=== PATIENT | male | born 1960 | race Caucasian/White ===

== ENCOUNTER 2017-11-24 16:30 | Outpatient (RCR) | payer BC, SELFPAY | END 2017-12-02 23:59 | LOC: NS 16:30 | PROVIDERS: Family Provider Family Medicine; PCP Family Medicine; Visit Provider Family Medicine | DX: E66.01 Morbid (severe) obesity due to excess calories (principal); Z68.43 Body mass index [BMI] 50.0-59.9, adult; Z71.3 Dietary counseling and surveillance | CPT/HCPCS: 97803 ==

== ENCOUNTER → 2017-12-04 09:47 | Outpatient (CLI) | payer BC, SELFPAY ==
[2017-12-04 10:41] LABS: AST(SGOT) 18 U/L (15-37); Alanine Aminotransfer ALT/SGPT 37 U/L (16-61); Albumin, Serum 3.6 g/dL (3.2-5.0); Alkaline Phosphatase 62 U/L (45-117); Bilirubin, Direct 0.17 mg/dL (0.00-0.30); Cholesterol 146 mg/dL (200); Globulin 4.3 g/dL (2.2-4.2); High Density Lipoprotein 28 mg/dL; Protein, Total 7.9 g/dL (6.4-8.2); Triglycerides 170 mg/dL; Very Low Density Lipoprotein 34 mg/dL (5-40)
== END ==
PROVIDERS: Internal Medicine Cardiovascular Disease; Family Provider Family Medicine; PCP Family Medicine; Visit Provider Radiology Diagnostic Radiology
DX: I25.10 Atherosclerotic heart disease of native coronary artery without angina pectoris (principal); I10 Essential (primary) hypertension; E66.01 Morbid (severe) obesity due to excess calories; Z68.42 Body mass index [BMI] 45.0-49.9, adult
CPT/HCPCS: 36415; 80061; 80076

== ENCOUNTER → 2017-12-07 15:43 | Outpatient (CLI) | payer BC, SELFPAY ==
--- NOTE | 2017-12-07 | IMM_PTH ---
PATIENT: DUSTY CASTLE LOC: ANY U#:[id number] AGE/SX: 65/M ROOM: RE12/07/[address]: Dr. Mat Moy MD : 1960 BED: DIS: SPEC #: [id number] RECD: 12/09/17 09:59 STATUS: ROZ REDeniz #: [id number] ALEK: 12/07/17 00:[address]: Mat Moy DEPT: IMMUNOHISTOCHEMISTRY RECD BY: Rosy Bobby ENTERED: 12/09/17 09:59 SP TYPE: IMMUNO OTHR DR: Dr. Emery Aldridge MD Tissues: Palate, NOS Procedures: p16 (initial) KI-67 (add) PHYSICIAN & INSTITUTION [place] [id number] SPECIMEN INFORMATION: Tissue Source: Soft palate lesion Clinical Info: Soft palate lesion Specimen Number: [id number] CPT code: 30614, 63388 METHODOLOGY: Deparaffinized sections of prefer/formalin-fixed tissue or PAP/DQ stained slides are incubated with monoclonal/polyclonal antibodies/oligonucleotide probes. Localization is made via biotin free immunoperoxidase method. Appropriate controls are performed and reacted as expected. Results on target cell population are indicated in the following table: RESULTS: ANTIBODY / CLONE RESULT P16 (E6H4) positive, focal, patchy Ki-67 (30-9) positive, low These tests were developed and their performance characteristics determined by [facility]. They may not have been cleared or approved by the U.S. Food and Drug Administration. The FDA has determined that such clearance or approval is not necessary. INTERPRETATION: Soft palate lesion, biopsy: Fragments of benign squamous papilloma. AM:jluis 12/09/17
--- NOTE | 2017-12-07 09:15 | LES_PTH ---
PATIENT: DUSTY CASTLE LOC: ANY U#:[id number] AGE/SX: 65/M ROOM: RE12/07/[address]: Dr. Mat Moy MD : 1960 BED: DIS: SPEC #: [id number] RECD: 12/07/17 15:22 STATUS: ROZ RHODA #: [id number] ALEK: 12/07/17 09:[address]: Mat Moy DEPT: SURGICAL PATHOLOGY RECD BY: Marciano Amaya ENTERED: 12/08/17 09:25 SP TYPE: Lesion OTHR DR: Dr. Emery Aldridge MD Tissues: Soft palate Procedures: Surgery Specimen Level IV HEADER OPERATION: Soft palate biopsy PRE-OP DIAGNOSIS: Soft palate lesion TISSUE SUBMITTED: Soft palate lesion MICROSCOPIC DIAGNOSIS Soft palate lesion, biopsy: Fragments of benign squamous papilloma with hyperkeratosis. AM:jluis 12/09/17 COMMENT Immunohistochemistry ([id number]) for surrogate HPV marker (p16) will be reported separately. MICROSCOPIC DESCRIPTION Slides are reviewed. GROSS DESCRIPTION Received in fixative is one container labeled with the patient's name and designated soft palate. The specimen consists of multiple irregular fragments of light joyner soft tissue that in aggregate measure 1 x 0.2 x 0.1 cm. The specimen is totally submitted in one cassette. / SJ:jluis 12/08/17 TC:5 CPT: 55404
== END ==
PROVIDERS: Family Provider Family Medicine; PCP Family Medicine; Visit Provider Otolaryngology
DX: K13.70 Unspecified lesions of oral mucosa (principal)
CPT/HCPCS: 88305; 88341; 88342

== ENCOUNTER → 2017-12-18 13:34 | Outpatient (CLI) | payer BC, SELFPAY ==
--- NOTE | 2017-12-18 13:35 | ECHOD_ITS ---
Reason For Study: CAD Procedure This was a 2D Doppler, Color Flow transthoracic echocardiogram. The exam was of poor technical quality due to diminished acoustic windows and body habitus. Exam performed in department. Left Ventricle Normal size and thickness. The estimated ejection fraction is 65 %. Normal diastology for age. No regional wall motion abnormalities noted. Right Ventricle Normal size and thickness. Normal systolic function. Atria Normal left atrium. Normal right atrium. Normal atrial septum. Mitral Valve The mitral valve is structurally normal. No prolapse or stenosis seen. Tricuspid Valve Normal tricuspid valve. Trivial tricuspid valve insufficiency. Unable to estimate RV systolic pressure, pulmonary artery pressure probably normal. Aortic Valve Trisinus/trileaflet aortic valve. Normal aortic valve. Pulmonic Valve Normal pulmonic valve. Great Vessels Normal aortic root. Normal arch. Normal inferior vena cava. Inferior vena cava collapse with sniff. Pericardium/Pleural No pericardial effusion. Medication 22 gauge I.V. with prn adaptor inserted into right arm. Diluted definity 4.5ml given slow IV push to enhance endocardial definition. MMode/2D Measurements & Calculations LVIDd: 4.8 cm IVSd: 1.1 cm Ao root diam: 3.0 cm LVIDs: 3.3 cm LVPWd: 1.1 cm LA dimension: 4.3 cm RVDd: 4.5 cm FS: 32.1 % LAV(MOD-bp): 55.2 ml EDV(MOD-sp4): 100.1 ml EDV(MOD-sp2): 93.0 ml LAV(MOD-bp) Indexed: 21.3 ml/m2 ESV(MOD-sp4): 31.1 ml EF(MOD-sp2): 79.3 % LAV(MOD-sp2): 48.0 ml EF(MOD-sp4): 68.9 % LAV(MOD-sp4): 64.0 ml SV(MOD-sp4): 69.0 ml SV(MOD-sp2): 73.7 ml LA A4 area: 21.3 cm2 RA A4 area: 16.2 cm2 Doppler Measurements & Calculations MV E max connor: 103.6 cm/sec Ao V2 max: 167.9 cm/sec LV V1 max: 124.6 cm/sec MV A max connor: 90.7 cm/sec Ao max P.3 mmHg LV V1 max P.2 mmHg MV E/A: 1.1 Interpretation Summary The estimated ejection fraction is 65 %. Normal diastology for age. Unable to estimate RV systolic pressure, pulmonary artery pressure probably normal. Compared to echo report dated 01/14/2012, no appreciable changes noted. Ordering Physician: Steve Ferrara Referring Physician: RITO SHAIKH Performed By: Karon Read RDCS, RVT
== END ==
PROVIDERS: Family Provider Family Medicine; PCP Family Medicine; Visit Provider Internal Medicine Cardiovascular Disease
DX: I25.10 Atherosclerotic heart disease of native coronary artery without angina pectoris (principal); I10 Essential (primary) hypertension; E78.5 Hyperlipidemia, unspecified; E66.01 Morbid (severe) obesity due to excess calories; Z68.42 Body mass index [BMI] 45.0-49.9, adult
CPT/HCPCS: 93306; Q9957; A4216; C8929

== ENCOUNTER 2017-12-23 15:00 | Outpatient (RCR) | payer BC, SELFPAY ==
[2017-12-01 11:32] VITALS: BP 102/60; BMI 48.7
== END 2017-12-30 23:59 ==
LOC: NS 15:00
PROVIDERS: Family Provider Family Medicine; PCP Family Medicine; Visit Provider Family Medicine
DX: E66.01 Morbid (severe) obesity due to excess calories (principal); Z68.43 Body mass index [BMI] 50.0-59.9, adult; Z71.3 Dietary counseling and surveillance
CPT/HCPCS: 97803

== ENCOUNTER → 2017-12-31 12:26 | Outpatient (CLI) | payer BC, SELFPAY ==
--- NOTE | 2017-12-31 12:29 | STEWCON_ITS ---
Reason For Study: CAD Stress Results Protocol: Dobutamine Stress Echo Maximum Predicted HR: 165 bpm Target HR: 140 bpm% Maximum Pre dicted HR: 85 % DurationHeart Rate Stage (mm:ss) (bpm) BPCom ment Baseline 61 137/79 Definity 5 ML Diluted Given DSE 10 MCG 3:23 67 136/82 DSE 20 MCG 3:00 83 141/79 DSE 30 MCG 3:00 10 2 146/66Atropine 0.5 MG IVP DSE 40 MCG 3:00 14 1 150/71Atropine 0.5 MG IVP Recovery 96 141/84 Stress Duration: 12:23 mm:ss Maximum Stress HR: 141 bpmME TS: 1 Baseline Echocardiogram Findings The estimated ejection fraction is 65 %. Stress Echo Wall motion Data Resting WMIntermediate WMStress WM Resting Wall Motion Wall Motion Stress No regional wall motion No regional wall motion abnormalities noted. abnormalities noted. EKG Data The baseline ECG demonstrates normal sinus rhythm with at rate of _ beats per minute. RBBB. The patient was titrated from 10 mcg to a maximum of 40 mcg of dobutamine during the stress. The maximum heart rate attained was 142 beats per minute. This was 86% of maximum predicted heart rate. During dobutamine infusion, there were no ST or T wave changes noted to suggest ischemia. No arrhythmias noted. No clinical angina was noted. Interpretation Summary The study was technically difficult. Contrast injection was performed. Normal adequate dobutamine echocardiogram. Negative for ischemia by EKG and echocardiographic criteria. No anginal symptoms noted. No arrhythmias noted. Appropriate blood pressure response to dobutamine. Test terminated due to attainment of target heart rate. Final LVEF is 75%. Patient tolerated procedure well no complications.The estimated ejection fraction is 65 %. Decreased sensitivity due to poor echo windows requiring Definity agent. Ordering Physician: Steve Ferrara Referring Physician: Steve Ferrara Performed By: Karon Read, RDCS, RVT
== END ==
PROVIDERS: Family Provider Family Medicine; PCP Family Medicine; Visit Provider Internal Medicine Cardiovascular Disease
DX: I25.10 Atherosclerotic heart disease of native coronary artery without angina pectoris (principal); I10 Essential (primary) hypertension; E78.5 Hyperlipidemia, unspecified; E66.01 Morbid (severe) obesity due to excess calories; Z68.42 Body mass index [BMI] 45.0-49.9, adult; Z86.718 Personal history of other venous thrombosis and embolism
CPT/HCPCS: 93017; 93350; J7030; Q9957; A4216; C8928

== ENCOUNTER → 2018-01-11 07:29 | Outpatient (CLI) | payer BC, SELFPAY ==
[2018-01-11 10:26] LABS: Absolute Lymphocyte Count 2.24 X10^3/ul (0.83-4.51); Absolute Neutrophil Count 5.5 X10^3/uL (2.0-7.7); Basophil# 0.06 X10^3/uL; Basophil% 0.7 % (0-1); Eosinophil# 0.41 X10^3/uL; Eosinophils% 4.5 % (0-5); Hematocrit 46.7 % (40-54); Hemoglobin 16.1 g/dl (13.0-16.5); Lymphocyte # 2.24 X10^3/ul (4.0); Lymphocyte % 24.8 % (19-41); Mean Corp Hgb Conc 34.5 g/gl (32-36); Mean Corpuscular Hgb 30.5 pg (27.0-32.0); Mean Corpuscular Volume 88.4 fL (80-94); Mean Platelet Vol. 9.9 fl (6.2-12.0); Monocyte# 0.82 X10^3/uL; Monocyte% 9.1 % (0-10); Neutrophil # 5.47 X10^3/uL (2.7-7.7); Neutrophil % 60.5 % (47-70); Platelet Count 269 K/mm3 (150-450); RBC Distribution Width CV 13.8 % (11.6-14.6); Red Blood Count 5.28 M/mm3 (4.6-6.2)
[2018-01-11 10:38] LABS: POSITIVE COUNT NO; POSITIVE DIFFERENTIAL NO; POSITIVE MORPHOLOGY NO
== END ==
PROVIDERS: Family Provider Family Medicine; PCP Family Medicine; Visit Provider Specialist
DX: M17.11 Unilateral primary osteoarthritis, right knee (principal)
CPT/HCPCS: 36415; 85025

== ENCOUNTER 2018-01-25 14:00 | Outpatient (RCR) | payer BC, SELFPAY | END 2018-01-30 23:59 | LOC: NS 14:00 | PROVIDERS: Family Provider Family Medicine; PCP Family Medicine; Visit Provider Family Medicine | DX: E66.01 Morbid (severe) obesity due to excess calories (principal); Z68.43 Body mass index [BMI] 50.0-59.9, adult; Z71.3 Dietary counseling and surveillance | CPT/HCPCS: 97803 ==

== ENCOUNTER 2018-01-26 05:23 | Inpatient (IN) | payer BC, SELFPAY ==
[2018-01-11 10:23] VITALS: BP 109/71; PULSE 57; RESP 18; TEMP 36.2; O2SAT 96; BMI 46.7
--- NOTE | 2018-01-11 10:35 | RAD_ITS ---
STUDY: X-RAY CHEST REASON FOR EXAM: Male, 57 years old. Preoperative evaluation. TECHNIQUE: PA and lateral views of the chest. COMPARISON: Comparison is made with prior study dated February 08, 2015. FINDINGS: Hyperinflation. Stable mild increased markings at the lung bases suggestive of a scarring. This is slightly worse in the left lung base. There is no demonstrated pleural abnormality. Normal size heart. Normal mediastinum and benjie. Normal visualized pulmonary arteries. Normal visualized aortic arch and descending thoracic aorta. There are diffuse degenerative changes of the visualized thoracic spine. Normal visualized ribs, clavicles, and shoulders. There is no demonstrated abnormality of the visualized soft tissue structures of the upper abdomen. RAD/Chest PA and Lateral IMPRESSION: Hyperinflation. Stable increased markings at the lung bases suggestive of scarring. Electronically Signed: Antonio Sandoval MD at 11:27 EDT Tel [phone], Service support ,
[2018-01-11 11:17] LABS: Anion Gap 6 (5-15); BUN 22 mg/dL (7-18); BUN/Creat Ratio 24.4 RATIO (10-20); Calcium,Total 8.8 mg/dL (8.5-10.1); Chloride 107 mmol/L (98-107); EST Glomerular Filtration Rate 93 mL/min (>60); Est Glom Filt Rate - Afr Amer 113 mL/min (>60); Estimated Creatinine Clearance 95.76 ml/min; Glucose 97 mg/dL (74-106); Potassium 4.6 mmol/L (3.5-5.1); Sodium Level 140 mmol/L (136-145)
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
[2018-01-26] VITALS (15 sets, daily range): BP systolic 82–130; BP diastolic 51–70; PULSE 60–84; RESP 16–18; TEMP 35.7–36.4; O2SAT 90–100; BMI 46.7; BMI 45.6
[2018-01-26] MEDS: Celecoxib 200 MG Capsule 400 MG PO (05:55)
[2018-01-26] MEDS: oxyCODONE HCl Cr 10 MG Tablet PO (05:56)
[2018-01-26] MEDS: Acetaminophen 500 MG Tablet 1000 MG PO ×3 (05:56→21:32)
--- NOTE | 2018-01-26 07:35 | RAD_ITS ---
STUDY: X-RAY - PELVIS AND RIGHT HIP REASON FOR EXAM: Male, 57 years old. Intraoperative assessment TECHNIQUE: Two views of the pelvis and hip were obtained. COMPARISON: August 17, 2014 FINDINGS: There is a prosthesis in the proximal right femur. There is a prosthesis in the right acetabulum. There is adequate alignment of the prostheses. RAD/Hip 1 view with Pelvis IMPRESSION: Limited views of the right hip were obtained intraoperatively. Electronically Signed: Venita Sim MD at 14:18 EDT Tel Direct: [phone], Service support ,
[2018-01-26] MEDS: Lactated Ringers 1,000 ML 125 ML IV ×3 (09:30→19:42)
--- NOTE | 2018-01-26 09:51 | OP.PCM_ITS ---
Report of Operation Date of Procedure: 01/26/18 Pre-Operative Diagnosis: Right hip primary osteoarthritis Post-Operative Diagnosis: Right hip primary osteoarthritis Surgery/Procedure Performed:: Right total hip replacement, direct anterior Description of Surgical Findings:: Stable hip with equal leg lengths tool and die engineer: Rashaad Bhatia Type of Anesthesia:: Spinal Anesthesiologist: Dimitry Henriquez Special Medications: 2 g Ancef, 1 g TXA at incision, 1 g TXA closure, 10 mg Decadron, joint cocktail (5 mg Duramorph, 30 mL of 0.5% Ropivicaine, 1000 units of epinephrine, 30 mg of Toradol), 1 g vancomycin powder in wound at completion of case secondary to local hidradenitis Specimen's removed: Bony cuts Estimated Blood Loss (mL): 250 Fluids Replaced: 1500 Description of Procedure: Components used: 1. Anato Tabitha femoral stem size 5 2. Tabitha trident acetabular shell size 58 mm 3. [place] X3 polyethylene F 4. [place] Biolox delta 36mm, 2.5mm femoral head Brief history operative indications: 57 yo m who failed conservative measures for their hip osteoarthritis. X-rays were consistent with osteoarthritis including joint space narrowing, osteophyte formation and subchondral cysts. Total hip replacement was discussed with the patient with risks and benefits including but not limited to blood loss, DVTs, PEs, neurovascular damage, dislocation, general risks of anesthesia including loss of life. Patient demonstrated an understanding medical clearance is obtained the patient was consented for surgery. Procedure: On the date of procedure the patient's R hip was marked in the preoperative area. Patient was then taken back to the operating room where anesthesia assumed control of the C-spine and airway and administered anesthetic. Patient was transferred to the operating table and placed in the supine position. The hips were placed at the break of the bed and a sacral bump was placed. The R lower extremity was then prepped out in a sterile fashion using chlorhexidine while the surgeon scrubbed. The PA was vital in the positioning of the patient. Upon reentering the room the R lower extremity was draped in the standard orthopedic fashion and the incision was marked. A timeout was called and everyone agreed upon the side, the site, the procedure be performed, antibody given, and patient's identity. At this time incision was made through skin, subcutaneous tissue, and fat down to fascia. The fascia was then incised and the TFL was retracted laterally. A retractor was placed on the lateral border of the femoral neck. Attention was directed to the inferior portion of the approach and all crossing vessels were identified and appropriately coagulated. A retractor was then placed on the medial portion of the femoral neck. The anterior capsule was then cleared of all soft tissue and then H shaped capsulotomy was made. The retractors were then placed inside the capsule. The femoral neck was identified and a cleanup cut was made. At this time a power corkscrew was used to remove the femoral head. Attention was then turned toward the acetabulum where the soft tissues were appropriately retracted and the acetabulum was sequentially reamed to 57 mm. A 58 mm cup was then selected and impacted into place. Acetabular liner was impacted into place and locking mechanism was verified. The position of the acetabular cup was then verified under live fluoroscopy. Attention was then turned to the femur. Soft tissue releases on the medial and lateral femoral neck were appropriately done, the leg was externally rotated and lateralized. A Nova retractor was placed medially and proximally to the greater trochanter this allowed appropriate visualization and exposure of the femoral canal. Rongeour was then used to remove excess lateral bone. A canal finder and entry broach were used to open the proximal canal. Once we verified we were down the femoral canal we subsequently reamed to 12 mm and then broached up to a size 5 femur. The appropriate neck was placed in the previously selected head was trialed with a 2.5 mm neck. Traction was pulled and the hip was reduced with internal rotation. Once it was appropriately reduced and stability was checked. There was minimal shuck, equal leg lengths and appropriate stability with hyperextension and external rotation as well as with 90? flexion and internal rotation. Fluoroscopy was then also used to verify the position of the components and leg lengths using the contralateral side for comparison. The trial components were then dislocated the proximal femur was again exposed and the components were removed from the wound. The final components were verified and opened. The wound was copiously irrigated out with normal saline. The acetabulum was checked for any residual debris. The final components were placed and impacted. Traction and internal rotation were again used to reduce the hip. After adequate reduction the hip remained stable with appropriate leg lengths. The final components were once again checked with live fluoroscopy and were found to be satisfactory. The wound was then copiously irrigated with normal saline once more, and hemostasis was obtained. Closure was then done using #1 Vicryl runner to close the fascia. A 2-0 vicryl interuppted sutures were used to close the subcutaneous skin. A 3-0 Monocryl and Steri-Strips were used for final skin closure. A Silverlon dressing was placed. Patient was awakened by anesthesia and transferred to the rminot. Patient was then transferred to the PACU for recovery. Postoperative plan: Patient will get 24 hours postop antibiotics. Patient will get in-house physical therapy and will be weight-bear as tolerated. Patient will follow up in office in 2 weeks for a wound check and x-rays. During the course of the procedure the physician surgeon's assistant played a vital role. His intimate knowledge of my steps in the procedure aided in safe and expedient completion of the procedure. The PA played a vital rolls in positioning particularly in obtaining the appropriate positioning of the sacral bump. The PA was also vital in the retraction of soft tissues during the exposure and especially the femoral work as this is a vital part of the procedure to prevent complications and fractures. The PA was also vital and protecting soft tissues during times of bony cuts and reaming. He also played a vital role in closure with my direct supervision. The PA was also important during reduction and dislocation of the joint and trials intraoperatively. Grafts/Implants Used: Tabitha - Complications NONE - Admit VTE Documentation VTE Present on Admission: No VTE Mechan Device Prophylaxis: SCD's, Thigh High KAMILA Hose VTE Pharm Prophylaxis ordered?: Yes
--- NOTE | 2018-01-26 10:40 | RAD_ITS ---
STUDY: X-RAY - PELVIS AND RIGHT HIP REASON FOR EXAM: Male, 57 years old. Postoperative assessment TECHNIQUE: Two views of the pelvis and hip were obtained. COMPARISON: August 17, 2014 FINDINGS: The bowel gas pattern is unremarkable. There is air in the soft tissues around the right hip. The visualized iliac wings, sacroiliac joints and sacrum are unremarkable. No abnormalities are seen in the visualized superior and inferior pubic rami. Normal appearing pubic symphysis. The visualized ischial tuberosities are unremarkable. There may be a cam-type deformity of the left femoral head. There is a prosthesis in the proximal right femur. There is a prosthesis in the right acetabulum. There is adequate alignment of the prostheses. RAD/Hip Min 2 Views (Portable) IMPRESSION: There are surgical changes in the right hip after arthroplasty. Electronically Signed: Venita Sim MD at 11:23 EDT Tel Direct: [phone], Service support ,
[2018-01-26] MEDS: Ketorolac 15 MG/ML Vial IV (13:38)
[2018-01-26] MEDS: 0.9% NaCl Peripheral Flush Adult/Peds IV (13:38)
[2018-01-26] MEDS: Scopolamine 1mg/72hr Patch 1 PATCH TD (14:25)
[2018-01-26] MEDS: Cefazolin 1 GM/50 ML BAG IV ×2 (15:45→23:33)
--- NOTE | 2018-01-26 15:48 | CPS ---
started by nursing
[2018-01-26] MEDS: Aspirin 325 MG Tablet PO (21:32)
[2018-01-26] MEDS: Metoprolol Tartrate 50 MG Tablet PO (21:32)
[2018-01-26] MEDS: Senna/Docusate Sodium 1 Tablet 2 TABLET PO (21:32)
[2018-01-26] MEDS: Pravastatin 80 MG Tablet PO (21:32)
[2018-01-27 05:05] VITALS: BP 113/60; PULSE 60; RESP 16; TEMP 36.4; O2SAT 95
[2018-01-27] MEDS: Acetaminophen 500 MG Tablet 1000 MG PO (05:10)
[2018-01-27 05:56] LABS: Hematocrit 41.1 % (40-54); Mean Corp Hgb Conc 34.1 g/gl (32-36); Mean Corpuscular Hgb 30.6 pg (27.0-32.0); Mean Corpuscular Volume 89.7 fL (80-94); Mean Platelet Vol. 9.4 fl (6.2-12.0); Platelet Count 231 K/mm3 (150-450); RBC Distribution Width CV 13.6 % (11.6-14.6); Red Blood Count 4.58 M/mm3 (4.6-6.2); White Blood Count 16.4 K/mm3 (4.4-11.0)
[2018-01-27 06:03] LABS: Scan Indicated on CBC? Y/N NO
[2018-01-27 06:20] LABS: Anion Gap 6 (5-15); BUN 23 mg/dL (7-18); BUN/Creat Ratio 25.7 RATIO (10-20); Calcium,Total 8.4 mg/dL (8.5-10.1); Chloride 108 mmol/L (98-107); Creatinine, Serum 0.89 mg/dL (0.70-1.30); EST Glomerular Filtration Rate 94 mL/min (>60); Est Glom Filt Rate - Afr Amer 113 mL/min (>60); Estimated Creatinine Clearance 96.83 ml/min; Glucose 135 mg/dL (74-106); Potassium 5.1 mmol/L (3.5-5.1); Sodium Level 139 mmol/L (136-145)
--- NOTE | 2018-01-27 06:52 | PN.ORTHO_ITS ---
Subjective: The patient was sitting in bedside chair upon examination. Patient denies any chest pain, shortness of breath, dizziness, lightheadedness, nausea or vomiting , or calf pain. Pain is controlled on medications. No adverse overnight events. Patient overall is doing well and has been tolerating walking and physical therapy. Patient does wish to go home today. Objective: Vital signs stable and afebrile. Patient is able to plantarflex and dorsiflex actively. Sensation is intact to light touch to saphenous, sural, superficial and deep peroneal, and tibial distribution. Dressing is clean dry and intact. Negative Homans bilaterally, negative signs and symptoms of DVT. - Physical Exam General: Alert, Oriented x3, Cooperative, No apparent distress Vital Signs Temp Pulse Resp BP Pulse Ox 97.5 F L 60 16 113/60 95 01/27/18 05:05 01/27/18 05:05 01/27/18 05:05 01/27/18 05:05 01/27/18 05:05 Oxygen Flow Rate (L/min) 2 Oxygen Delivery Method Room Air Weight: 144.2 kg Body Mass Index (BMI) 45.6 Intake and Output for Last 24 Hours 01/25/18 01/26/18 01/27/18 23:59 23:59 23:59 Intake Total 4020 / 4020 300 / 300 Output Total 0 / 0 Balance 4020 / 4020 300 / 300 Laboratory Tests Past 24 Hrs 01/27/18 01/27/18 05:20 05:20 WBC 16.4 H RBC 4.58 L Hgb 14.0 Hct 41.1 MCV 89.7 MCH 30.6 MCHC 34.1 RDW 13.6 RDW Differential 44.0 H Plt Count 231 MPV 9.4 Sodium 139 Potassium 5.1 Chloride 108 H Carbon Dioxide 25.0 Anion Gap 6 BUN 23 H Creatinine 0.89 Estim Creat Clear Calc 96.83 Est GFR (MDRD) Af Amer 113 Est GFR (MDRD) Non-Af 94 BUN/Creatinine Ratio 25.7 H Glucose 135 H Calcium 8.4 L Medical Necessity - Tobacco Use Smoking Status: Current every day smoker Assessment/Plan 1. S/P right anterior total hip arthroplasty POD #1 2. Continue Pain Medications: Tylenol and OxyIR 3. DVT Prophylaxis: Aspirin 325 mg twice daily 4. PT/OT: Weightbearing as tolerated 5. H & H: 14.0/41.1, asymptomatic 6. Leukocytosis: Currently 16.4, afebrile. Patient did receive Decadron intraoperatively. 7. Encouraged Incentive Spirometry 8. Disposition: Orthopedically stable, plan is for discharge home today. Prescriptions will be E scribed to chriss Albrecht. Patient will follow- up per postop instructions.
--- NOTE | 2018-01-27 06:56 | PCM.DC.THR ---
Discharge Diet: No Restrictions Discharge Activity: May Not Drive - while taking narcotic pain medications. May shower in (days): 1 - Turned dressing away from water Ice area for (Minutes): 20 - Every 1-2 hours Weight Bearing Status: Weight bearing as tolerated Additional Activity Instructions:: Wear elastic stockings for 2 weeks. DO NOT use alcohol with narcotic pain medication. DO NOT make important decisions while taking narcotic medication. If you have problems with taking your medication (rash, itching, nausea, etc.) call the office at once. Call your doctor if your incision/area has: Increased Pain/ Swelling, Increased Redness, Foul Smelling Discharge Call your doctor if you observe: Fever of 101 or Higher Remove Dressing in (days):: 4 - Okay to remove on January 31, 2018 Additional Instructions: Follow [facility] postop instructions Do not take anti-inflammatory meloxicam while taking regular dose aspirin Allergies/Adverse Reactions: Allergies No Known Allergies Allergy (Verified 01/11/18 10:00) Medications to take at Discharge Lisinopril [Zestril] 20 mg PO DAILY 02/07/15 Pravastatin [Pravachol] 80 mg PO QHS 02/07/15 Metoprolol Tartrate [Lopressor (beta julia)] 50 mg PO BID 11/06/16 albuterol sulfate HFA 90 mcg/actuation aerosol inhaler 2 puff INHALATION Q6H PRN 12/01/17 furosemide 40 mg tablet 40 mg PO QDAY 12/01/17 Bupropion HCl [Bupropion Xl] 150 mg PO DAILY 01/26/18 Acetaminophen [Tylenol] 1,000 mg PO Q8 #90 tab 01/27/18 Aspirin 325 mg PO BIDCM #30 tab 01/27/18 Famotidine [Pepcid] 20 mg PO DAILY #30 tab 01/27/18 Oxycodone [Oxyir] 5 - 10 mg PO Q4H PRN PRN 5 Days #60 tablet 01/27/18 Senna/Docusate Sodium [Senokot-S] 2 tab PO BID #20 tab 01/27/18 The following prescriptions were given: Oxycodone [Oxyir] 5 - 10 mg PO Q4H PRN PRN 5 Days #60 tablet PRN Reason: Mod-Severe Pain (-08/11) Acetaminophen [Tylenol] 1,000 mg PO Q8 #90 tab Famotidine [Pepcid] 20 mg PO DAILY #30 tab Aspirin 325 mg PO BIDCM #30 tab Senna/Docusate Sodium [Senokot-S] 2 tab PO BID #20 tab Primary Care Physician: Emery Aldridge MD [Primary Care Provider] - Please Follow Up With: [facility] When: 01/29/18 @ 9:00 am with Arie Please Follow Up With: Rashaad Bhatia PA-C When: 02/08/18 @ 8:15 am
[2018-01-27 08:03] VITALS: BP 119/61; PULSE 56; RESP 18; TEMP 36.4; O2SAT 98
[2018-01-27] MEDS: Aspirin 325 MG Tablet PO (08:05)
[2018-01-27] MEDS: Famotidine 20 MG Tablet PO (08:05)
[2018-01-27 09:00] VITALS: PULSE 88
--- NOTE | 2018-01-27 09:11 | CASEMGMT ---
MARGUERITE PEREZ Face to Face with patient for initial transition planning/care coordination assessment. RN CHRIS introduced self and role at [facility]. Patient sitting in chair, alert and oriented. Patient willing to participate in assessment and is able to answer all questions appropriately. Care providers, pharmacy, and demographics verified. See link attached. Pt wishes to discharge home and is setup with [facility] for outpatient therapy and has family and friends to provide transportation. Patient states he has no further needs or concerns at this time. CM to follow for discharge planning needs that may arise. Disposition Plan: Patient to discharge home with outpatient therapy, family support, and follow-up plans in place.
[2018-01-27] MEDS: Lisinopril 20 MG Tablet PO (10:27)
[2018-01-27] MEDS: oxyCODONE 5 MG Tablet PO (10:27)
[2018-01-27 10:29] VITALS: PULSE 60
[2018-01-27] MEDS: Metoprolol Tartrate 50 MG Tablet PO (10:29)
[2018-01-27] MEDS: Senna/Docusate Sodium 1 Tablet 2 TABLET PO (10:29)
[2018-01-27] MEDS: buPROPion (XL) 150 MG TABLET.XL PO (11:00)
[2018-01-27 11:22] VITALS: BP 113/56; PULSE 58; RESP 18; TEMP 36.4; O2SAT 95
== END 2018-01-27 13:45 | disposition home or self-care (01) | DRG 470 ==
PROVIDERS: Admitting Provider Specialist; Family Provider Family Medicine; PCP Family Medicine; Visit Provider Specialist
PROC: 0SR904A Replacement of Right Hip Joint with Ceramic on Polyethylene Synthetic Substitute, Uncemented, Open Approach (ICD-10-PCS; CPT 27284; principal; 2018-01-26 07:10)
DX: M16.11 Unilateral primary osteoarthritis, right hip (principal); F17.210 Nicotine dependence, cigarettes, uncomplicated; I10 Essential (primary) hypertension; I25.10 Atherosclerotic heart disease of native coronary artery without angina pectoris; I73.9 Peripheral vascular disease, unspecified; G47.30 Sleep apnea, unspecified; Z95.5 Presence of coronary angioplasty implant and graft
CPT/HCPCS: 36415; 73501; 73502; 76000; 80048; 85027; 87081; 97110; 97116; 97162; 97166; 97530; 99251; J7120; A4216; G0463; J2405

== ENCOUNTER 2018-02-17 11:00 | Outpatient (RCR) | payer BC, SELFPAY | END 2018-03-01 23:59 | LOC: NS 11:00 | PROVIDERS: Family Provider Family Medicine; PCP Family Medicine; Visit Provider Family Medicine | DX: E66.01 Morbid (severe) obesity due to excess calories (principal); Z68.43 Body mass index [BMI] 50.0-59.9, adult; Z71.3 Dietary counseling and surveillance | CPT/HCPCS: 97803 ==

== ENCOUNTER 2018-03-17 14:35 | Outpatient (RCR) | payer BC, SELFPAY | END 2018-04-01 23:59 | LOC: NS 14:35 | PROVIDERS: Family Provider Family Medicine; PCP Family Medicine; Visit Provider Family Medicine | DX: E66.01 Morbid (severe) obesity due to excess calories (principal); Z68.43 Body mass index [BMI] 50.0-59.9, adult; Z71.3 Dietary counseling and surveillance | CPT/HCPCS: 97803 ==

== ENCOUNTER → 2018-03-23 12:47 | Outpatient (CLI) | payer BC, SELFPAY ==
--- NOTE | 2018-03-23 12:49 | CT_ITS ---
STUDY: LOW DOSE CT LUNG CANCER SCREENING REASON FOR EXAM: Male, 57 years old. 40 pack-year smoking history. RADIATION DOSAGE (If Supplied By Facility): CTDIvol = ( 4.02 ) mGy, DLP = ( 144.46 ) mGycm TECHNIQUE: No contrast was administered. Low dose technique was utilized (average mAS-38 and kVp 120). 1.25 mm axial source images with a slice interval of 1.25-mm were reconstructed in lung windows. 2.5 mm axial source images with a slice interval of 2.5-mm were reconstructed in lung windows. 5.0 mm axial source images with a slice interval of 5.0-mm were reconstructed in soft tissue windows. Nodule measured using lung windows on PACS and/or independent workstation with automated measurement of minimum and maximum diameter. Nodule measurement reported as average diameter rounded to the nearest whole number. Growth is defined as an increase ins size of greater than 1.5 mm. COMPARISON: Chest, January 11, 2018. NODULES: Total lung nodules (excluding granulomas): 0 Emphysema: None Endobronchial lesion: None Aorta: Normal Coronary arteries: Normal Heart: Normal in size Pulmonary artery: Normal Mediastinal nodes: There is nonspecific subcentimeter mediastinal lymphadenopathy. Other chest and abdominal findings: There are degenerative changes of the thoracic spine. CT/Low Dose CT Lung Screening IMPRESSION: Lung-RADS category 1 - Continue annual screening with LDCT in 12 months. IMPORTANT NOTES FOR USE: ACR Lung-RADS Version 1.0 Assessment Categories Release Date: February 27, 2014 Category: Coded 0-4 bases on nodule(s) with highest degree of suspicion. Negative screen is defined as categories 1 and 2; a positive screen is defined as categories 3 and 4. Category 3 and 4A nodules that are unchanged on interval CT should be coded as category 2, and individuals returned to screening in 12 months. Category 4X: Category 3 or 4 nodules with additional imaging findings that increase the suspicion of lung cancer, such as spiculation, GGN that doubles in size in 1 year, enlarged lymph notes, etc. Category Modifiers: S (significant finding unrelated to lung cancer) and C (prior history of treated lung cancer) may be added to the 0-4 Lung-RADS Electronically Signed: Edouard Moody DO at 18:22 EDT Tel [phone], Service support ,
== END ==
PROVIDERS: Family Provider Family Medicine; PCP Family Medicine; Visit Provider Internal Medicine Pulmonary Disease
DX: Z12.2 Encounter for screening for malignant neoplasm of respiratory organs (principal); Z87.891 Personal history of nicotine dependence
CPT/HCPCS: G0297

== ENCOUNTER → 2018-09-02 12:18 | Outpatient (CLI) | payer BC, SELFPAY ==
--- NOTE | 2018-09-02 12:47 | CT_ITS ---
STUDY: CT ABDOMEN AND PELVIS WITH CONTRAST REASON FOR EXAM: Male, 58 years old. Epigastric pain. Right upper quadrant pain. RADIATION DOSAGE (If Supplied By Facility): CTDIvol = ( 31.43 ) mGy, DLP = ( 1804.59 ) mGycm TECHNIQUE: Transaxial images were obtained from the dome of the diaphragm to the symphysis pubis with oral contrast. 100 ml of Isovue 300 contrast was administered. Sagittal and coronal images were reconstructed. Individualized dose optimization techniques were used for this CT. COMPARISON: None. FINDINGS: There is a 2.4 cm x 0.9 cm rounded and linear density along the anterior aspect of the left lower lobe suggestive of a focal scar. The visualized portions of the heart are within normal limits. There is decreased attenuation of the liver consistent with steatosis. Normal gallbladder and extrahepatic biliary system. Normal spleen. Normal pancreas. Normal bilateral adrenal glands. There is a 1.7 cm x 1.2 cm well-defined hypodensity in the anterior aspect of the right kidney. This does not appear to be a typical cyst. Correlation with ultrasound is recommended. There is evidence of a cortical scar in the mid pole of the left kidney with a 1.2 cm calculus. Findings suggestive of a 2.1 cm cyst in the upper pole of the left kidney. There is a small hiatal hernia. Normal small intestine. Normal colon. The appendix is visualized and appears normal. There is scattered atherosclerotic calcification of the abdominal aorta, without a demonstrated aneurysm. Normal inferior vena cava. There is borderline retroperitoneal lymphadenopathy with enlarged nodes no greater than 10mm in the short axis diameter. Normal urinary bladder. There is a small umbilical hernia containing fat. Small bilateral benign-appearing axillary lymph nodes. There are mild degenerative changes of the visualized lumbar spine. Status post right total hip replacement. CT/Abdomen/Pelvis WITH Contrast IMPRESSION: Focal cortical scarring in the mid portion of the left kidney with a calculus measuring 1.2 cm. 1.7 cm x 1.2 cm rounded hypodensity along the anterior aspect of the midportion of the right kidney suggestive of a cyst although correlation with ultrasound is recommended. Electronically Signed: Antonio Sandoval MD at 15:21 EDT Tel [phone], Service support ,
[2018-09-02 13:21] LABS: Absolute Lymphocyte Count 3.05 X10^3/ul (0.83-4.51); Absolute Neutrophil Count 5.9 X10^3/uL (2.0-7.7); Basophil# 0.04 X10^3/uL; Basophil% 0.4 % (0-1); Eosinophil# 0.38 X10^3/uL; Eosinophils% 3.8 % (0-5); Hematocrit 48.7 % (40-54); Hemoglobin 16.2 g/dl (13.0-16.5); Lymphocyte # 3.05 X10^3/ul (4.0); Lymphocyte % 30.3 % (19-41); Mean Corp Hgb Conc 33.3 g/gl (32-36); Mean Corpuscular Hgb 29.8 pg (27.0-32.0); Mean Corpuscular Volume 89.7 fL (80-94); Mean Platelet Vol. 9.3 fl (6.2-12.0); Monocyte# 0.65 X10^3/uL; Monocyte% 6.5 % (0-10); Neutrophil % 58.6 % (47-70); Platelet Count 232 K/mm3 (150-450); RBC Distribution Width CV 14.1 % (11.6-14.6); RBC Distribution Width SD 45.9 fl (35.1-43.9); Red Blood Count 5.43 M/mm3 (4.6-6.2); White Blood Count 10.1 K/mm3 (4.4-11.0)
[2018-09-02 13:23] LABS: POSITIVE COUNT NO; POSITIVE DIFFERENTIAL NO; POSITIVE MORPHOLOGY NO
[2018-09-02 13:49] LABS: ALB/GLOB Ratio 0.9 RATIO (0.9-2.4); AST(SGOT) 33 U/L (15-37); Alanine Aminotransfer ALT/SGPT 57 U/L (16-61); Albumin, Serum 3.5 g/dL (3.2-5.0); Alkaline Phosphatase 60 U/L (45-117); Amylase 37 U/L (25-115); Anion Gap 6 (5-15); BUN 24 mg/dL (7-18); BUN/Creat Ratio 25.6 RATIO (10-20); Calcium,Total 8.9 mg/dL (8.5-10.1); Chloride 105 mmol/L (98-107); Creatinine, Serum 0.94 mg/dL (0.70-1.30); EST Glomerular Filtration Rate 89 mL/min (>60); Est Glom Filt Rate - Afr Amer 107 mL/min (>60); Glucose 92 mg/dL (74-106); Potassium 4.2 mmol/L (3.5-5.1); Protein, Total 7.5 g/dL (6.4-8.2); Sodium Level 140 mmol/L (136-145)
== END ==
PROVIDERS: Family Provider Family Medicine; PCP Family Medicine; Referring Provider Family Medicine; Visit Provider Family Medicine
DX: N20.0 Calculus of kidney (principal); R10.13 Epigastric pain
CPT/HCPCS: 36415; 74177; 80053; 82150; 85025; Q9967

== ENCOUNTER → 2018-09-14 07:41 | Outpatient (CLI) | payer BC, SELFPAY ==
--- NOTE | 2018-09-14 07:45 | US_ITS ---
STUDY: RENAL ULTRASOUND - COMPLETE REASON FOR EXAM: Male, 58 years old. Right renal cyst, possibly a typical, seen on CT scan of 09/02/2018 TECHNIQUE: Ultrasound evaluation of the kidneys was performed with real-time and static gandhi-scale imaging. COMPARISON: None. FINDINGS: RIGHT KIDNEY: 12.7 x 6.0 x 5.2 cm. Normal renal cortical thickness 2.1 cm. Normal renal cortical echotexture. There is no mass, calculus or hydronephrosis. 3 right-sided renal cysts are identified. Each has simple cystic characteristics, centrally echolucent, sharply circumscribed, thin chowdhury, no complex features. Respectively these measure 14 x 16 x 9 mm, 10 x 12 x 9 mm, 18 x 17 x 18 mm. LEFT KIDNEY: 12.3 x 5.4 x 6.3 cm. Normal renal cortical thickness 2.1 cm. Normal cortical echotexture. There is no mass or hydronephrosis. There is an apparent calculus measuring 15 x 16 x 8 mm. This correlates with a calyceal calculus seen in the mid polar left kidney on CT scan. Nonobstructing. A single cyst is visible exophytic from the superior pole, simple cystic features, 15 x 16 x 8 mm. BLADDER: Urinary bladder is normal in caliber, contour and wall thickness. Bilateral ureteral jets are visible. US/Kidney and Bladder IMPRESSION: Nonobstructing calyceal calculus of the left kidney. Each of the cysts of the right and left kidney have sonographically simple cystic features with circumscribed margins, thin chowdhury, centrally echolucent. There is marginal characterization of the smallest cyst in the right kidney. It would be prudent to perform a follow-up renal ultrasound in approximately 6 months for further documentation of stability. Electronically Signed: Ran Wynn, at 20:01 EST Tel , Service support ,
== END ==
PROVIDERS: Family Provider Family Medicine; PCP Family Medicine; Referring Provider Family Medicine; Visit Provider Family Medicine
DX: N28.1 Cyst of kidney, acquired (principal)
CPT/HCPCS: 76770

== ENCOUNTER → 2019-01-15 11:10 | Outpatient (CLI) | payer BC, SELFPAY ==
[2018-12-31 10:54] VITALS: BMI 50.2
[2019-01-15 12:43] LABS: AST(SGOT) 41 U/L (15-37); Alanine Aminotransfer ALT/SGPT 67 U/L (16-61); Albumin, Serum 3.6 g/dL (3.2-5.0); Alkaline Phosphatase 58 U/L (45-117); Bilirubin, Direct 0.23 mg/dL (0.00-0.30); Cholesterol 122 mg/dL (200); Globulin 3.7 g/dL (2.2-4.2); High Density Lipoprotein 28 mg/dL; Protein, Total 7.3 g/dL (6.4-8.2); Triglycerides 134 mg/dL; Very Low Density Lipoprotein 27 mg/dL (5-40)
== END ==
PROVIDERS: Family Provider Family Medicine; PCP Family Medicine; Referring Provider Internal Medicine Cardiovascular Disease; Visit Provider Internal Medicine Cardiovascular Disease
DX: I25.10 Atherosclerotic heart disease of native coronary artery without angina pectoris (principal)
CPT/HCPCS: 36415; 80061; 80076

== ENCOUNTER → 2019-12-19 08:34 | Outpatient (CLI) | payer BC, SELFPAY ==
[2019-08-11 09:14] VITALS: BMI 45.8
[2019-12-19 08:39] LABS: Bacteria 0 SEEN /hpf (None Seen); Mucous, Urine 0 SEEN /hpf (<or=2+); Red Blood Cells-Urine 0 SEEN /hpf (0-5); Squamous Epithelial Cells - UA 0 SEEN /hpf (0-5); White Blood Cells 0 SEEN /hpf (0-5)
[2019-12-19 10:22] LABS: Absolute Lymphocyte Count 2.04 X10^3/uL (0.83-4.51); Absolute Neutrophil Count 5.8 X10^3/uL (2.0-7.7); Basophil# 0.07 X10^3/uL; Basophil% 0.8 % (0-1); Eosinophil# 0.26 X10^3/uL; Eosinophils% 2.9 % (0-5); Hematocrit 47.7 % (40-54); Hemoglobin 15.7 g/dL (13.0-16.5); Lymphocyte # 2.04 X10^3/ul (4.0); Lymphocyte % 22.8 % (19-41); Mean Corp Hgb Conc 32.9 g/dL (32-36); Mean Platelet Vol. 9.7 fl (6.2-12.0); Monocyte# 0.74 X10^3/uL; Monocyte% 8.3 % (0-10); NRBC Flagged by Analyzer 0 % (0-5); Neutrophil # 5.82 X10^3/uL (2.7-7.7); Neutrophil % 64.9 % (47-70); Platelet Count 221 K/mm3 (150-450); RBC Distribution Width CV 13.8 % (11.6-14.6); RBC Distribution Width SD 46.3 fl (35.1-43.9); Red Blood Count 5.24 M/mm3 (4.6-6.2)
[2019-12-19 10:29] LABS: Color, Urine Yellow (Yellow); Glucose, Dipstick Normal (Normal); Ketone-Dipstick Negative (Negative); Leukocyte Esterase-Dipstick Negative /ul (Negative); Nitrite-Dipstick Negative (Negative); Occult Blood-Urine Negative /ul (Negative); Protein-Dipstick Negative (Negative); Urine Bilirubin Dipstick Negative (Negative); Urine Clarity Sl. Cloudy (Clear); Urine Urobilinogen Normal (Normal)
[2019-12-19 10:41] LABS: ALB/GLOB Ratio 0.9 RATIO (0.9-2.4); AST(SGOT) 18 U/L (15-37); Alanine Aminotransfer ALT/SGPT 39 U/L (16-61); Albumin, Serum 3.3 g/dL (3.2-5.0); Alkaline Phosphatase 50 U/L (45-117); Anion Gap 4 (5-15); BUN 17 mg/dL (7-18); BUN/Creat Ratio 19.1 RATIO (10-20); Calcium,Total 8.9 mg/dL (8.5-10.1); Chloride 109 mmol/L (98-107); Cholesterol 125 mg/dL (200); Creatinine, Serum 0.89 mg/dL (0.70-1.30); EST Glomerular Filtration Rate 94 mL/min (>60); Est Glom Filt Rate - Afr Amer 113 mL/min (>60); Globulin 3.6 g/dL (2.2-4.2); Glucose 117 mg/dL (74-106); High Density Lipoprotein 33 mg/dL; Potassium 4.5 mmol/L (3.5-5.1); Protein, Total 6.9 g/dL (6.4-8.2); Sodium Level 139 mmol/L (136-145); T4 Free Direct 0.95 ng/dL (0.76-1.46); Thyroid Stim Hormone (TSH) 0.75 uIU/mL (0.358-3.74); Triglycerides 130 mg/dL; Very Low Density Lipoprotein 26 mg/dL (5-40)
[2019-12-20 11:10] LABS: Hemoglobin A1c 6.1 % (4.2-6.3)
== END ==
PROVIDERS: PCP Family Medicine; Referring Provider Family Medicine; Visit Provider Family Medicine
DX: E04.1 Nontoxic single thyroid nodule (principal); E78.5 Hyperlipidemia, unspecified; E66.01 Morbid (severe) obesity due to excess calories; R73.09 Other abnormal glucose; F17.200 Nicotine dependence, unspecified, uncomplicated
CPT/HCPCS: 36415; 80053; 80061; 81001; 83036; 84439; 84443; 85025

== ENCOUNTER → 2019-12-22 14:04 | Outpatient (CLI) | payer BC, SELFPAY ==
[2019-08-11 09:14] VITALS: BMI 45.8
--- NOTE | 2019-12-22 14:10 | US_ITS ---
STUDY: THYROID ULTRASOUND REASON FOR EXAM: Male, 59 years old. THYROID NODULE TECHNIQUE: Ultrasound evaluation of the thyroid was performed with real-time and static byrd-scale imaging. COMPARISON: None. FINDINGS: RIGHT LOBE: The right lobe of the thyroid gland is enlarged and measures 5.7 cm x 2.3 cm x 2.2 cm. There is a heterogeneous echotexture. There are no demonstrated solid, cystic or complex lesions. LEFT LOBE: The left lobe of the thyroid gland measures 4.4 cm x 1.9cm x 2.1 cm. There is a heterogeneous echotexture. 2 subcentimeter nodules are seen. The largest measures 9 mm x 6 mm x 5 mm. This is a hypoechoic solid nodule in the lower pole. ISTHMUS: The isthmus measures 7.0 mm. Lateral to the left lobe of the thyroid, there is a 2.5 cm x 2.5 cm x 1.4 cm hypoechoic solid mass with increased vascularity. This may represent a dominant lymph node. US/Thyroid IMPRESSION: Enlargement of the right lobe of the thyroid with heterogeneous echotexture bilaterally. 2. Subcentimeters nodules in the left lobe of the thyroid. Left cervical solid mass measuring 2.5 cm x 2.5 cm by 1.4 cm. A biopsy may be indicated. Electronically Signed: Antonio Sandoval, at 12:25 EST , Service support ,
== END ==
PROVIDERS: PCP Family Medicine; Referring Provider Family Medicine; Visit Provider Family Medicine
DX: E04.1 Nontoxic single thyroid nodule (principal)
CPT/HCPCS: 76536

== ENCOUNTER → 2020-01-03 15:02 | Outpatient (CLI) | payer BC, SELFPAY ==
[2020-01-02 08:37] VITALS: BMI 45.8
--- NOTE | 2020-01-03 | IMM_PTH ---
PATIENT: DUSTY CASTLE LOC: U#:[id number] AGE/SX: 65/M ROOM: RE01/03/[address]: Dr. Steve Fountain MD : 1960 BED: DIS: SPEC #: [id number] RECD: 01/05/20 12:30 STATUS: ROZ REQ #: [id number] ALEK: 01/03/20 00:[address]: Steve Fountain DEPT: IMMUNOHISTOCHEMISTRY RECD BY: Rosy Bobby ENTERED: 01/05/20 12:31 SP TYPE: IMMUNO OTHR DR: Dr. Emery Alvarenga MD Tissues: Neck, NOS Procedures: Synapto (add) RCC (add) Thyroglobulin (add) SMA (add) CD45 (add) CD56 (add) CHROMO (add) CK19 (add) CK5-6 (add) CK7 (add) CK8 (add) GAL-3 (add) HBME (add) KI-67 (add) P53 (add) TTF1 (add) Vimentin (add) Pankeratin (initial) P40 (add) PSAP (add) PHYSICIAN & [place] [phone] SPECIMEN INFORMATION: Tissue Source: Left neck mass Clinical Info: Left neck mass Specimen Number: [id number] CPT code: 28674, 33179 x19 METHODOLOGY: Deparaffinized sections of prefer/formalin-fixed tissue or PAP/DQ stained slides are incubated with monoclonal/polyclonal antibodies/oligonucleotide probes. Localization is made via biotin free immunoperoxidase method. Appropriate controls are performed and reacted as expected. Results on target cell population are indicated in the following table: RESULTS: ANTIBODY / CLONE RESULT AE1-3 (AE1/AE3/PCK26) negative CK8 ([id number]) positive CD45 (RP2/18) positive, lymphocytes Vimentin (V9) positive, lymphocytes CK7 (OV-TL12/30) positive Actin (1A4) negative CD56 (123C3.D5) positive Chromo (LK2H10) negative Synapto (polyclonal) negative TTF-1 (8G7G3/1) positive CK19 (A53-B/A2.26) negative HBME1 (HBME-1) negative GAL3 (9C4) negative Thyro (2H11+6E1) positive RCC (PN-15) negative PSAP (PASE/4LJ) negative P40 (BC28) negative CK5-6 (D5 & 1684) negative Ki-67 (30-9) negative P53 (DO-7) negative These tests were developed and their performance characteristics determined by [facility]. They may not have been cleared or approved by the U.[place]. Food and Drug Administration. The FDA has determined that such clearance or approval is not necessary. The above immunohistochemical/dualISH markers are ordered and reviewed by the Pathologist. INTERPRETATION: Left neck mass, ultrasound-guided FNA: Consistent with follicular cells of thyroid origin in the background of small lymphocytes. AM:jluis 01/10/20 Comment: Clinical correlation is necessary. This case has been reviewed in consultation with Dr. Bruce who concurs with the above diagnosis.
--- NOTE | 2020-01-03 | ASPIG_PTH ---
PATIENT: DUSTY CASTLE LOC: U#:[id number] AGE/SX: 65/M ROOM: RE01/03/[address]: Dr. Steve Fountain MD : 1960 BED: DIS: SPEC #: [id number] RECD: 01/03/20 15:00 STATUS: ROZ RHODA #: [id number] ALEK: 01/03/20 00:[address]: Steve Fountain DEPT: CYTOLOGY RECD BY: Kermit Ferrell ENTERED: 01/04/20 09:14 SP TYPE: ASP OUT OTHR DR: Dr. Emery Alvarenga MD Tissues: Neck, NOS Procedures: FNA Specimen Adequacy Special Stain Group II Surgery Specimen Level IV Cytology Other HEADER OPERATION: Left neck mass, ultrasound guided FNA PRE-OP DIAGNOSIS: Left neck mass TISSUE SUBMITTED: Left neck mass, ultrasound guided FNA DIAGNOSIS CYTOLOGY Fine needle aspiration, left neck mass (smears and cell block): Consistent with follicular cells of thyroid origin the background of small lymphocytes. See comment. AM:jluis 01/10/20 COMMENT The specimen is evaluated at the time of FNA by Dr. Bruce. Immediate Evaluation = Adequate for evaluation. Cell block and smears show epithelial cells consistent with follicle cells originating in thyroid in the background of small lymphocytes. Immunohistochemistry ([id number]) supports the above diagnosis. The lesion may represent a thyroid rest and/or connection to thyroid. CK19, HBME1 and GAL3 are negative and do favor atypical thyroid follicular cells. Clinical correlation is necessary. Flow cytometry analysis of aspirate material reveals no immunophenotypic evidence of monoclonal B cell or aberrant T cell population. The complete flow report is viewable in patient's EMR. This case is discussed with Dr. Fountain on 01/11/20. Case has been reviewed in consultation with Dr. Bruce who concurs with the above diagnosis. IDC:SJ CYTOLOGY STUDY Slides are reviewed. CYTOLOGY GROSS Received from four masses is 0.5 ml of bloody fluid labeled with the patient's name, and designated left neck mass. Seven imprints and five paps are made from the submitted fluid and the rest is added to CytoLyt for cell block preparation. Fluid from one pass is submitted for flow cytometry studies. Submitted for cytology study. / SJ:rg 01/04/20 TC:5 CPT: 64400, 10895, 51939 ADDENDUM ADDENDUM ADDENDUM ADDENDUM ADDENDUM ADDENDUM ADDENDUM ADDENDUM ADDENDUM ADDENDUM ADDENDUM 07/02/2020 10:06 ADDENDUM 07/02/2020 10:06 ADDENDUM 07/02/2020 10:06 ADDENDUM 07/02/2020 10:06 ADDENDUM 07/02/2020 10:06 This addendum is added to incorporate an outside pathology consultation report. The case was examined at [facility] (#[id number]) and the following diagnosis was rendered. Left neck mass, fine needle aspiration: Atypical cells present. Follicular thyroid cells with architectural atypia. Please see complete above mentioned consultation report in EMR
--- NOTE | 2020-01-03 15:06 | US_ITS ---
STUDY: THYROID ULTRASOUND REASON FOR EXAM: Male, 59 years old. LT NECK MASS FNA - DONE BY DR PENNINGTON TECHNIQUE: Ultrasound evaluation of the thyroid was performed with real-time and static byrd-scale imaging. COMPARISON: Comparison is made with prior ultrasound of the thyroid dated December 22, 2019. FINDINGS: Under direct sonographic guidance, the surgeon performed 5 needle aspirations of the images nodule in the left lobe of the thyroid gland. US/FNA 1st Biopsy w/ US IMPRESSION: Successful ultrasound-guided left thyroid biopsy. Electronically Signed: Antonio Sandoval, at 14:54 EST , Service support ,
== END ==
PROVIDERS: PCP Family Medicine; Referring Provider Surgery; Visit Provider Surgery
DX: R22.1 Localized swelling, mass and lump, neck (principal)
CPT/HCPCS: 10005; 88161; 88172; 88305; 88313; 88341; 88342

== ENCOUNTER → 2020-03-20 08:31 | Outpatient (CLI) | payer BC, SELFPAY ==
[2020-01-02 08:37] VITALS: BMI 45.8
[2020-03-20 10:33] LABS: ALB/GLOB Ratio 0.9 RATIO (0.9-2.4); AST(SGOT) 16 U/L (15-37); Alanine Aminotransfer ALT/SGPT 32 U/L (16-61); Albumin, Serum 3.5 g/dL (3.2-5.0); Alkaline Phosphatase 57 U/L (45-117); Anion Gap 6 (5-15); BUN 20 mg/dL (7-18); BUN/Creat Ratio 20.8 RATIO (10-20); Calcium,Total 9.3 mg/dL (8.5-10.1); Chloride 108 mmol/L (98-107); Creatinine, Serum 0.96 mg/dL (0.70-1.30); EST Glomerular Filtration Rate 85 mL/min (>60); Est Glom Filt Rate - Afr Amer 103 mL/min (>60); Globulin 3.9 g/dL (2.2-4.2); Glucose 99 mg/dL (74-106); Potassium 4.1 mmol/L (3.5-5.1); Protein, Total 7.4 g/dL (6.4-8.2); Sodium Level 141 mmol/L (136-145)
[2020-03-21 08:48] LABS: Absolute Lymphocyte Count 1.93 X10^3/uL (0.83-4.51); Absolute Neutrophil Count 6.6 X10^3/uL (2.0-7.7); Basophil# 0.08 X10^3/uL; Basophil% 0.8 % (0-1); Eosinophil# 0.26 X10^3/uL; Eosinophils% 2.7 % (0-5); Hematocrit 52.2 % (40-54); Lymphocyte # 1.93 X10^3/ul (4.0); Lymphocyte % 19.8 % (19-41); Mean Corp Hgb Conc 32.6 g/dL (32-36); Mean Corpuscular Hgb 29.7 pg (27.0-32.0); Mean Corpuscular Volume 91.1 fL (80-94); Mean Platelet Vol. 10.4 fl (6.2-12.0); Monocyte# 0.87 X10^3/uL; Monocyte% 8.9 % (0-10); NRBC Flagged by Analyzer 0 % (0-5); Neutrophil # 6.59 X10^3/uL (2.7-7.7); Neutrophil % 67.4 % (47-70); Platelet Count 251 K/mm3 (150-450); RBC Distribution Width CV 13.6 % (11.6-14.6); RBC Distribution Width SD 45.6 fl (35.1-43.9); Red Blood Count 5.73 M/mm3 (4.6-6.2); White Blood Count 9.8 K/mm3 (4.4-11.0)
[2020-03-21 09:11] LABS: Cholesterol 137 mg/dL (200); High Density Lipoprotein 33 mg/dL; Triglycerides 212 mg/dL; Very Low Density Lipoprotein 42 mg/dL (5-40)
[2020-03-22 11:19] LABS: Ferritin 102 ng/mL (26-388); Iron 121 ug/dL (65-175); Iron Binding Capacity,Total 386 ug/dL (250-450); PERCENT IRON SATURATION 31.3 % (15.0-55.0)
[2020-03-23 13:33] LABS: Transferrin 288 mg/dL (177-329)
== END ==
PROVIDERS: PCP Family Medicine; Visit Provider Family Medicine
DX: I10 Essential (primary) hypertension (principal); E78.5 Hyperlipidemia, unspecified; R73.02 Impaired glucose tolerance (oral); F17.200 Nicotine dependence, unspecified, uncomplicated; D75.1 Secondary polycythemia
CPT/HCPCS: 36415; 80053; 80061; 82728; 83036; 83540; 83550; 84466; 85025

== ENCOUNTER 2020-07-14 15:59 | Emergency (ER) | payer OTHER, BC, SELFPAY ==
[2020-01-02 08:37] VITALS: BMI 45.8
[2020-07-14 16:00] VITALS: BP 126/70; PULSE 85; RESP 18; TEMP 36.3; O2SAT 97; BMI 44.3
--- NOTE | 2020-07-14 16:18 | ED.DCSUM_ITS ---
- ER Visit Summary Date of Service: 07/14/20 Chief Complaint: Fall at work complaining of right elbow pain History of Present Illness: The patient is a [address] of hypertension high cholesterol. Prior right hip replacement. Patient was loading a semi-yesterday he was on the ground and a pallet gave way and he ended up falling on the asphalt. This occurred from standing position. He landed on both knees. He had his face left side on the tire. And is complaining of right elbow pain. [id number]. Injury occurred yesterday. It is Worker's Comp. Physical Examination: Middle-aged male no acute distress vital signs stable afebrile. HEENT exam left side of his face is a mild abrasion. Pupils round reactive light. No other facial trauma. Scalp nontender. C-spine nontender. Trachea midline. Lungs clear to auscultation bilateral. Heart regular rhythm no murmur. Chest were nontender. Abdomen morbidly obese but soft nontender normal bowel sounds no peritoneal signs. Pelvic girdle intact. Left upper extremity nontender normal range of motion normal motor strength. Bilateral knee abrasions. Hips nontender. Ankles and feet nontender neurovascular intact with dorsi plantar flexion. Back spine and back nontender. Right elbow he has mild tenderness. He is able to flex extend the elbow. Right shoulder, wrist and hand are nontender neurovascular intact with 5/5 motor strength. Test Results: X-ray right elbow 3 views read by myself shows no acute abnormality. Also read by the radiologist. Emergency Department Course and Treatment: Worker's Comp. injury fell from standing position the ground. Patient is abrasions to both knees. He has a mild abrasion left side of his face. Those do not need image. He also has pain to his right elbow which will be x-rayed. Treatment Plan: Ice for pain and swelling. Motrin and Tylenol for pain. Follow-up if not improving. Disposition: Discharge Impression: Fall Worker's Comp. injury Left facial abrasion Bilateral knee abrasions Right elbow sprain This note was generated with ICONICation software. It may contain incorrect words, spelling, and punctuation that were not noted in review of the chart prior to signing ED Disposition - Plan for ED Patient: Referrals: Emery Alvarenga MD [Primary Care Provider] -
--- NOTE | 2020-07-14 16:30 | RAD_ITS ---
STUDY: X-RAY - RIGHT ELBOW REASON FOR EXAM: Male, 60 years old. FALL YESTERDAY AT WORK. RIGHT ELBOW PAIN AND LIMITED MOVEMENT. TECHNIQUE: 3 view(s) of the elbow. COMPARISON: None. FINDINGS: Normal visualized humerus, radius and ulna. There are degenerative changes with subchondral cyst formation of the radiocapitellar articulation. The soft tissue structures are unremarkable. There is no demonstrated fracture. RAD/Elbow min 3 Views IMPRESSION: Degenerative changes with subchondral cyst formation of the radiocapitellar line. Electronically Signed: Aryan Jerry MD at 16:47 EDT , Service support ,
--- NOTE | 2020-07-14 16:50 | ED.DEP ---
ED Disposition - Plan for ED Patient: Disposition: Home or Assisted Living Instructions: ED ELBOW SPRAIN Referrals: Emery Alvarenga MD [Primary Care Provider] - 1 Week if not improving [facility] [GROUP OF PHYSICIANS] - 1 Week if not improving Additional Instructions: Ice to the elbow. Tylenol Motrin for pain. Follow-up if not improving.
== END 2020-07-14 17:38 | disposition home or self-care (01) ==
LOC: ED 17:09
PROVIDERS: Emergency Provider Emergency Medicine; PCP Family Medicine
DX: S53.401A Unspecified sprain of right elbow, initial encounter (principal); S00.81XA Abrasion of other part of head, initial encounter; S80.212A Abrasion, left knee, initial encounter; S80.211A Abrasion, right knee, initial encounter; W18.39XA Other fall on same level, initial encounter; Y93.89 Activity, other specified; Y92.9 Unspecified place or not applicable; Y99.0 Civilian activity done for income or pay; I10 Essential (primary) hypertension; E78.00 Pure hypercholesterolemia, unspecified; Z72.0 Tobacco use
CPT/HCPCS: 73080; 99282

== ENCOUNTER 2020-08-01 08:15 | Outpatient (RCR) | payer BC, SELFPAY ==
[2020-01-02 08:37] VITALS: BMI 45.8
[2020-07-18 08:26] VITALS: BP 142/82; PULSE 65; RESP 18; TEMP 36.1; BMI 44.1
--- NOTE | 2020-07-18 09:09 | PCM.WC.HP ---
(1) Nonhealing nonsurgical wound with fat layer exposed Status: Acute Current Visit: Yes Code(s): T14.8XXA - Other injury of unspecified body region, initial encounter (2) Atherosclerosis of coronary artery of [place] heart without angina pectoris Status: Chronic Current Visit: Yes Qualifiers: Code(s): I25.10 - Atherosclerotic heart disease of [place] coronary artery without angina pectoris Comment: BMS to small ramus subbranch in October 2012 at [facility]; (3) Hyperlipidemia Status: Chronic Current Visit: Yes Qualifiers: Code(s): E78.5 - Hyperlipidemia, unspecified (4) Hypertension Status: Chronic Current Visit: Yes Qualifiers: Code(s): I10 - Essential (primary) hypertension (5) Morbid obesity with BMI of 45.0-49.9, adult Status: Chronic Current Visit: Yes Code(s): E66.01 - Morbid (severe) obesity due to excess calories; Z68.42 - Body mass index (BMI) 45.0-49.9, adult (6) Peripheral vascular occlusive disease Status: Chronic Current Visit: Yes Code(s): I73.9 - Peripheral vascular disease, unspecified (7) Venous insufficiency of left lower extremity Status: Chronic Current Visit: Yes Code(s): I87.2 - Venous insufficiency (chronic) (peripheral) (8) Edema of both lower legs due to peripheral venous insufficiency Status: Acute Current Visit: Yes Code(s): I87.2 - Venous insufficiency (chronic) (peripheral); R60.9 - Edema, unspecified History of Present Illness Date of Service: 07/18/20 Chief Complaint: Left lower extremity traumatic ulcer History of Wound: 60-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 He states it never bled and that he has been using [id number]-eghqnad and then he was using Bactroban ointment and then recently he was been using something with zinc. Still open 6 weeks later no redness or swelling around the area. Patient has history of vein stripping on left lower leg that is left both legs actually suffers from edema and probably has peripheral vascular disease and possibly peripheral arterial disease from his smoking habit he still smokes 1 pack a day. Past Medical History Past Medical History: Chronic Problems (Last Reviewed 06/25/20 @ 09:39 by Lizette Gabriel) Right bundle branch block (Chronic) Atherosclerosis of coronary artery of [place] heart without angina pectoris (Chronic) BMS to small ramus subbranch in October 2012 at [facility]; History of DVT (deep vein thrombosis) (Chronic) Morbid obesity with BMI of 45.0-49.9, adult (Chronic) Hyperlipidemia (Chronic) Hypertension (Chronic) Venous insufficiency of left lower extremity (Chronic) Peripheral vascular occlusive disease (Chronic) Past Medical History: Nonhealing nonsurgical wound of the lower legs Allergies/Adverse Reactions: Allergies No Known Allergies Allergy (Verified 07/14/20 16:00) Home Medications: Ambulatory Orders Medication Instructions Recorded Lisinopril [Zestril] 20 mg PO DAILY 02/07/15 Pravastatin [Pravachol] 80 mg PO QHS 02/07/15 Metoprolol Tartrate [Lopressor 50 mg PO BID 11/06/16 (beta julia)] albuterol sulfate 90 mcg/actuation 2 puff INHALATION Q6H PRN 12/01/17 aerosol inhaler furosemide 40 mg tablet 40 mg PO QDAY 12/01/17 aspirin 325 mg tablet 81 mg PO DAILY tab 01/02/20 - Family History Maternal Family History: Family History (Last Reviewed 06/25/20 @ 09:39 by Lizette Gabriel) Mother Atrial fibrillation H/O aortic valve replacement H/O mitral valve replacement Diabetes Father No problems noted. Brother Seizures Heart Disease, Hypertension Paternal Family History: Family History (Last Reviewed 06/25/20 @ 09:39 by Lizette Gabriel) Mother Atrial fibrillation H/O aortic valve replacement H/O mitral valve replacement Diabetes Father No problems noted. Brother Seizures No pertinent history Smoking Status: Heavy Smoker (>10/day) Review of Systems Constitutional: Denies: Chills, Fever Eyes: Denies: Blurred vision, Drainage, Pain HEENT: Denies: Difficulty Hearing, Difficulty Swallowing, Sore Throat, Visual Changes Cardiovascular: Denies: Chest Pain, Palpitations, Syncope Respiratory: Denies: Cough, Shortness of Breath Gastrointestinal: Denies: Abdominal Pain, Nausea, Vomiting Genitourinary: Denies: Dysuria, Frequency Musculoskeletal: Denies: Joint Pain, Muscle pain Skin: Reports: Wounds - Open wound left lateral lower leg cluster from a rock hitting leg during mowing. Denies: Jaundice, Rash Neurological: Denies: Balance problems, Change in Speech, Difficulty swallowing, Focal weakness Psychiatric: Denies: Anxiety, Depression Endocrine: Denies: Change in Body Habitus Hematologic/ Lymphatic: Denies: Adenopathy - Physical Exam Vital Signs Temp Pulse Resp BP 97 F L 65 18 142/82 H 07/18/20 08:26 07/18/20 08:26 07/18/20 08:26 07/18/20 08:26 General: Oriented x3, Cooperative, Well developed HEENT: Atraumatic, PERRLA Oral: Moist Mucosa Neck: Supple, No JVD Lungs: Clear to auscultation, Normal air movement Cardiovascular: Regular rate, Regular Rhythm Abdomen: Bowel Sounds Present, Soft, Non Tender, No Hepato-splenomegaly Extremities: No clubbing, Diminished Peripheral Pulses, Edema, - - Coloration left lower leg Skin: Ulcer/ Wound - Wound to left lateral lower leg nonsurgical nonhealing greater than 6 weeks old Wound Measurements and Assessment WC - Nurse 1 - General Ulcer Measurement Start: 07/18/20 08:26 Freq: Status: Active Protocol: Activity Type Activity Date Activity User E-Sign Co-Sign Detail Recorded Client Recorded Date Recorded By Document 07/18/20 08:26 [id number] 07/18/20 08:38 RB 07/18/20 08:26 Wound Center Nurse 1 [Ulcer Assessment] 3. L lateral LE cluster -Combined with other wound No -Current Size (cm) - Length 2.3 -Current Size (cm) - Width 7 -Current Size (cm) - Depth 0.1 -Total Square Cm 16.1 -Photo Taken Yes -Tunneling No -Undermining/Tunneling No -Circular Undermining No -Exudate Amt Small -Exudate Type Serosanguineous -Wound Margin Flat & Intact -Granulation Amt Medium (34-66%) -Granulation Quality [place] -Slough/Fibrin Yes -Necrosis Amt Large (67-100%) -Necrotic Tissue Type Adherent Slough -Structure Exposed N/A -Texture (Tenisha-wound Skin Appearance) Assessed -Moisture (Tenisha-wound Skin Appearance Assessed ) -Color (Tenisha-wound Skin Appearance) Hemosiderin Staining -Temperature (Tenisha-wound Skin No Abnormality Appearance) (Pt Warm) -Tenderness on Palpation (Tenisha-wound No Skin Appearance) -Ulcer Cleansing Wound Cleanser -Foul Odor after Cleansing No -Anesthetic Used 4% Lidocaine Solution [Edema Assessment] -Lower Limb Edema Present Yes -Right Calf (cm) 47 -Right Ankle (cm) 20.2 -Left Calf (cm) 51.2 -Left Ankle (cm) 31 WC - Nurse 2 - General Ulcer CM Notes Start: 07/18/20 08:26 Freq: Status: Active Protocol: Activity Type Activity Date Activity User E-Sign Co-Sign Detail Recorded Client Recorded Date Recorded By Document 07/18/20 08:56 MW [id number] 07/18/20 09:04 MW 07/18/20 08:56 Wound Center Nurse 2 [Procedure/Treatment] 3. L lateral LE cluster -Time 08:56 -Correct Patient Yes -Correct Side, Site, Position Yes -Correct Procedure Yes -Procedure Performed Yes -Type of Procedure Debridement -Clinical Debridement Subcutaneous -Tissue Removed Subcutaneous -Post Debridement (cm) - Length 2.5 -Post Debridement (cm) - Width 7.5 -Post Debridement (cm) - Depth 0.3 -Total Square (Post) (cm) 18.75 -Area of Debridement (cm) - Length 2.5 -Area of Debridement (cm) - Width 7.5 -Total Square (Area) (cm) 18.75 -Tunneling No -Undermining/Tunneling No -Circular Undermining No -Wound/Ulcer Outcome Not Healed -Ulcer Cleansing Rinsed/ Irrigated with Saline -Foul Odor after Cleansing No -Bioengineered Tissue No -Bleeding Controlled with Pressure -Offloading No -Treatment Response Procedure Tolerated Well -Debridement - Subq, 1st 20sq cm Yes [See Physician Procedure note for Specifics] Pain Scale: 0-10 Numeric [Pain] -Is Patient Pain Free? Yes Musculoskeletal: No Tenderness to Palpation of Joints or Extremities Lymphatic: No Cervical, Supraclavicular, or Inguinal Adenopathy Neurological: Cranial nerves II-XII grossly intact, Neuro grossly intact Psych/Mental Status: Normal Affect, Appropriate, Alert and oriented to time, place, person, mood and affect Debridement Note Post-Debridement Measurements/Treatment WC - Nurse 2 - General Ulcer CM Notes Start: 07/18/20 08:26 Freq: Status: Active Protocol: Activity Type Activity Date Activity User E-Sign Co-Sign Detail Recorded Client Recorded Date Recorded By Document 07/18/20 08:56 MW [id number] 07/18/20 09:04 MW 07/18/20 08:56 Wound Center Nurse 2 3. L lateral LIZA cluster -Time 08:56 -Correct Patient Yes -Correct Side, Site, Position Yes -Correct Procedure Yes -Procedure Performed Yes -Type of Procedure Debridement -Clinical Debridement Subcutaneous -Tissue Removed Subcutaneous -Post Debridement (cm) - Length 2.5 -Post Debridement (cm) - Width 7.5 -Post Debridement (cm) - Depth 0.3 -Total Square (Post) (cm) 18.75 -Area of Debridement (cm) - Length 2.5 -Area of Debridement (cm) - Width 7.5 -Total Square (Area) (cm) 18.75 -Tunneling No -Undermining/Tunneling No -Circular Undermining No -Wound/Ulcer Outcome Not Healed -Ulcer Cleansing Rinsed/ Irrigated with Saline -Foul Odor after Cleansing No -Bioengineered Tissue No -Bleeding Controlled with Pressure -Offloading No -Treatment Response Procedure Tolerated Well -Debridement - Subq, 1st 20sq cm Yes Pain Scale: 0-10 Numeric Is Patient Pain Free? Yes Wound debrided: Left lateral lower leg wound cluster Laterality: Left Type of Debridement: Excisional debridement Anesthesia Used: 5% Lidocaine Gel Percentage of wound debrided: 100 Instrument Used: 5mm curette Tissue Removed: Slough fibrin devitalized tissue Severity: Fat Layer Exposed Amount of bleeding with debridement: Mild Bleeding Controlled with: Compression and gauze Patient tolerated procedure well Assessment/Plan Scheduled for arterial and brachial studies venous studies aerobic and anaerobic cultures obtained Active Problems (Last Reviewed 06/25/20 @ 09:39 by Lizette Gabriel) Nonhealing nonsurgical wound with fat layer exposed (Acute) Edema of both lower legs due to peripheral venous insufficiency (Acute) Atherosclerosis of coronary artery of [place] heart without angina pectoris (Chronic) BMS to small ramus subbranch in October 2012 at [facility]; Morbid obesity with BMI of 45.0-49.9, adult (Chronic) Hyperlipidemia (Chronic) Hypertension (Chronic) Venous insufficiency of left lower extremity (Chronic) Peripheral vascular occlusive disease (Chronic) Assessment: Edema bilateral lower legs. Nonhealing nonsurgical wound. Peripheral venous occlusive disease. Hypertension. Hypercholesterolemia Plan: Wash left leg with antibacterial soap. Apply Aquacel extra to wound base moistened cover with Adaptic then gauze Tony. Double layer Tubigrip. Follow-up in 1 week. Call with results of cultures if positive
[2020-07-25 08:30] VITALS: BP 134/82; PULSE 55; RESP 18; TEMP 36.1; BMI 44.1
--- NOTE | 2020-07-25 09:09 | PCM.WC.PN ---
(1) Nonhealing nonsurgical wound with fat layer exposed Status: Acute Current Visit: Yes Code(s): T14.8XXA - Other injury of unspecified body region, initial encounter (2) Atherosclerosis of coronary artery of [place] heart without angina pectoris Status: Chronic Current Visit: Yes Qualifiers: Code(s): I25.10 - Atherosclerotic heart disease of [place] coronary artery without angina pectoris Comment: BMS to small ramus subbranch in October 2012 at [facility]; (3) Hyperlipidemia Status: Chronic Current Visit: Yes Qualifiers: Code(s): E78.5 - Hyperlipidemia, unspecified (4) Hypertension Status: Chronic Current Visit: Yes Qualifiers: Code(s): I10 - Essential (primary) hypertension (5) Morbid obesity with BMI of 45.0-49.9, adult Status: Chronic Current Visit: Yes Code(s): E66.01 - Morbid (severe) obesity due to excess calories; Z68.42 - Body mass index (BMI) 45.0-49.9, adult (6) Peripheral vascular occlusive disease Status: Chronic Current Visit: Yes Code(s): I73.9 - Peripheral vascular disease, unspecified (7) Venous insufficiency of left lower extremity Status: Chronic Current Visit: Yes Code(s): I87.2 - Venous insufficiency (chronic) (peripheral) (8) Edema of both lower legs due to peripheral venous insufficiency Status: Acute Current Visit: Yes Code(s): I87.2 - Venous insufficiency (chronic) (peripheral); R60.9 - Edema, unspecified Type of Wound Date of Service: 07/25/20 Chief Complaint: Left lower extremity traumatic ulcer History of Wound: 60-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 He states it never bled and that he has been using [id number] and then he was using Bactroban ointment and then recently he was been using something with zinc. Still open 6 weeks later no redness or swelling around the area. Patient has history of vein stripping on left lower leg that is left both legs actually suffers from edema and probably has peripheral vascular disease and possibly peripheral arterial disease from his smoking habit he still smokes 1 pack a day. Progress of Wound: The cluster wound is smaller slightly from last week improving with the Aquacel extra. We will continue with treatment and compression. Cultures came back rare for different bacteria we will continue to monitor - Physical Exam Vital Signs Temp Pulse Resp BP 97 F L 55 L 18 134/82 H 07/25/20 08:30 07/25/20 08:30 07/25/20 08:30 07/25/20 08:30 General: Oriented x3, Cooperative, Well developed HEENT: Atraumatic, PERRLA Oral: Moist Mucosa Neck: Supple, No JVD Lungs: Clear to auscultation, Normal air movement Cardiovascular: Regular rate, Regular Rhythm Abdomen: Bowel Sounds Present, Soft, Non Tender, No Hepato-splenomegaly Extremities: No clubbing, No edema Skin: Ulcer/ Wound - Traumatic wound to left lateral lower leg cluster with history of peripheral vascular disease Wound Measurements and Assessment WC - Nurse 1 - General Ulcer Measurement Start: 07/18/20 08:26 Freq: Status: Active Protocol: Activity Type Activity Date Activity User E-Sign Co-Sign Detail Recorded Client Recorded Date Recorded By Document 07/25/20 08:30 [id number] 07/25/20 08:36 RB 07/25/20 08:30 Wound Center Nurse 1 [Ulcer Assessment] 3. L lateral LE cluster -Combined with other wound No -Current Size (cm) - Length 2.5 -Current Size (cm) - Width 6.7 -Current Size (cm) - Depth 0.2 -Total Square Cm 16.75 -Tunneling No -Undermining/Tunneling No -Circular Undermining No -Exudate Amt Medium -Exudate Type Serosanguineous -Wound Margin Flat & Intact -Granulation Amt Medium (34-66%) -Granulation Quality [place] -Slough/Fibrin Yes -Necrosis Amt Medium (34-66%) -Necrotic Tissue Type Adherent Slough -Structure Exposed N/A -Texture (Tenisha-wound Skin Appearance) Assessed, Scarring -Moisture (Tenisha-wound Skin Appearance Assessed ) -Color (Tenisha-wound Skin Appearance) Assessed -Temperature (Tenisha-wound Skin No Abnormality Appearance) (Pt Warm) -Tenderness on Palpation (Tenisha-wound No Skin Appearance) -Ulcer Cleansing Wound Cleanser -Foul Odor after Cleansing No -Anesthetic Used 4% Lidocaine Solution [Edema Assessment] -Lower Limb Edema Present Yes -Left Calf (cm) 48.5 -Left Ankle (cm) 29 WC - Nurse 2 - General Ulcer CM Notes Start: 07/18/20 08:26 Freq: Status: Active Protocol: Activity Type Activity Date Activity User E-Sign Co-Sign Detail Recorded Client Recorded Date Recorded By Document 07/25/20 08:50 MW [id number] 07/25/20 08:53 MW 07/25/20 08:50 Wound Center Nurse 2 [Procedure/Treatment] 3. L lateral LE cluster -Time 08:50 -Correct Patient Yes -Correct Side, Site, Position Yes -Correct Procedure Yes -Procedure Performed Yes -Type of Procedure Debridement -Clinical Debridement Subcutaneous -Tissue Removed Subcutaneous -Post Debridement (cm) - Length 2.5 -Post Debridement (cm) - Width 6.5 -Post Debridement (cm) - Depth 0.2 -Total Square (Post) (cm) 16.25 -Area of Debridement (cm) - Length 2.5 -Area of Debridement (cm) - Width 6.5 -Total Square (Area) (cm) 16.25 -Tunneling No -Undermining/Tunneling No -Circular Undermining No -Wound/Ulcer Outcome Not Healed -Ulcer Cleansing Rinsed/ Irrigated with Saline -Foul Odor after Cleansing No -Bioengineered Tissue No -Bleeding Controlled with Pressure -Offloading No -Treatment Response Procedure Tolerated Well -Debridement - Subq, 1st 20sq cm Yes [See Physician Procedure note for Specifics] Pain Scale: 0-10 Numeric [Pain] -Is Patient Pain Free? Yes - Nurse 3 - General Ulcer D/C NN Start: 07/18/20 08:26 Freq: Status: Active Protocol: Activity Type Activity Date Activity User E-Sign Co-Sign Detail Recorded Client Recorded Date Recorded By Document 07/25/20 09:04 RB [id number] 07/25/20 09:04 RB 07/25/20 09:04 Wound Care Nurse 3 [Wound Dressing] 3. L lateral LE cluster -Ulcer Cleansing Rinsed/ Irrigated with Saline -Primary Dressing Applied Aquacel Extra -Primary Dressing Covered/Secured Dry Gauze,Dry with Gauze & Roll Gauze,Secured with Tape -Aquacel Extra 1 [Compression Applied] Left -Tubular Bandage Double Layer -Size of Tubigrip Used Size F -Size F ($) 1 [Post Procedure Tolerated] -Treatment Response Procedure Tolerated Well Pain Scale: 0-10 Numeric [Pain] -Is Patient Pain Free? Yes - Visit Discharge [Visit Discharge Information] -Discharge Condition Stable -Ambulatory Status Ambulatory -Transportation Private Auto -Medication Reconcilliation completed No & provided to patient/care provider -Clinical Summary of Care Provided Yes Musculoskeletal: No Tenderness to Palpation of Joints or Extremities Lymphatic: No Cervical, Supraclavicular, or Inguinal Adenopathy Neurological: Cranial nerves II-XII grossly intact, Neuro grossly intact Psych/Mental Status: Normal Affect, Appropriate Debridement Note Post-Debridement Measurements/Treatment - Nurse 2 - General Ulcer CM Notes Start: 07/18/20 08:26 Freq: Status: Active Protocol: Activity Type Activity Date Activity User E-Sign Co-Sign Detail Recorded Client Recorded Date Recorded By Document 07/18/20 08:56 MW [id number] 07/18/20 09:04 MW Document 07/25/20 08:50 MW [id number] 07/25/20 08:53 MW 07/18/20 07/25/20 08:56 08:50 Wound Center Nurse 2 3. L lateral LE cluster -Time 08:56 08:50 -Correct Patient Yes Yes -Correct Side, Site, Position Yes Yes -Correct Procedure Yes Yes -Procedure Performed Yes Yes -Type of Procedure Debridement Debridement -Clinical Debridement Subcutaneous Subcutaneous -Tissue Removed Subcutaneous Subcutaneous -Post Debridement (cm) - Length 2.5 2.5 -Post Debridement (cm) - Width 7.5 6.5 -Post Debridement (cm) - Depth 0.3 0.2 -Total Square (Post) (cm) 18.75 16.25 -Area of Debridement (cm) - Length 2.5 2.5 -Area of Debridement (cm) - Width 7.5 6.5 -Total Square (Area) (cm) 18.75 16.25 -Tunneling No No -Undermining/Tunneling No No -Circular Undermining No No -Wound/Ulcer Outcome Not Healed Not Healed -Ulcer Cleansing Rinsed/ Rinsed/ Irrigated with Irrigated with Saline Saline -Foul Odor after Cleansing No No -Bioengineered Tissue No No -Bleeding Controlled with Pressure Pressure -Offloading No No -Treatment Response Procedure Procedure Tolerated Well Tolerated Well -Debridement - Subq, 1st 20sq cm Yes Yes Pain Scale: 0-10 Numeric Is Patient Pain Free? Yes Yes - Nurse 3 - General Ulcer D/C NN Start: 07/18/20 08:26 Freq: Status: Active Protocol: Activity Type Activity Date Activity User E-Sign Co-Sign Detail Recorded Client Recorded Date Recorded By Document 07/18/20 09:21 CS [id number] 07/18/20 09:23 CS Document 07/25/20 09:04 RB [id number] 07/25/20 09:04 RB 07/18/20 07/25/20 09:21 09:04 Wound Care Nurse 3 3. L lateral LE cluster -Ulcer Cleansing Not Cleansed Rinsed/ Irrigated with Saline -Foul Odor after Cleansing No -Negative Pressure Wound Therapy N/A -Primary Dressing Applied Aquacel Extra Aquacel Extra -Primary Dressing Covered/Secured with Dry Gauze & Dry Gauze,Dry Roll Gauze Gauze & Roll Gauze,Secured with Tape -Aquacel Extra 0 1 -Aquacel AG 4x4 2 Left -Lotion applied to leg before No compression wrap -Tubular Bandage Double Layer Double Layer -Size of Tubigrip Used Size F Size F -Size F ($) 2 1 -Stockings No Treatment Response Procedure Tolerated Well Pain Scale: 0-10 Numeric Is Patient Pain Free? Yes Yes WC - Visit Discharge Discharge Condition Stable Stable Ambulatory Status Ambulatory Ambulatory Transportation Private Auto Accompanied by self Medication Reconcilliation completed & Yes No provided to patient/care provider Clinical Summary of Care Provided Yes Yes Wound debrided: Left lower leg cluster Type of Debridement: Excisional debridement Anesthesia Used: 5% Lidocaine Gel Depth: Down to and including healthy tissue, in the subcutaneous layer Percentage of wound debrided: 100 Instrument Used: 5mm curette Tissue Removed: Fibrin and some slough Assessment/Plan Active Problems (Last Reviewed 06/25/20 @ 09:39 by Lizette Gabriel) Nonhealing nonsurgical wound with fat layer exposed (Acute) Edema of both lower legs due to peripheral venous insufficiency (Acute) Atherosclerosis of coronary artery of [place] heart without angina pectoris (Chronic) BMS to small ramus subbranch in October 2012 at [facility]; Morbid obesity with BMI of 45.0-49.9, adult (Chronic) Hyperlipidemia (Chronic) Hypertension (Chronic) Venous insufficiency of left lower extremity (Chronic) Peripheral vascular occlusive disease (Chronic) Assessment: Edema bilateral lower legs. Nonhealing nonsurgical wound. Peripheral venous occlusive disease. Hypertension. Hypercholesterolemia Plan: Wash left leg with antibacterial soap. Apply Aquacel extra to wound base moistened cover with Adaptic then gauze Tony. Double layer Tubigrip. Follow-up in 1 week. Call with results of cultures if positive
[2020-08-01 08:22] VITALS: BP 137/91; PULSE 59; RESP 16; TEMP 36.2; BMI 44.1
--- NOTE | 2020-08-01 08:48 | PN.PCM_ITS ---
(1) Nonhealing nonsurgical wound with fat layer exposed Status: Acute Current Visit: Yes Code(s): T14.8XXA - Other injury of unspecified body region, initial encounter (2) Atherosclerosis of coronary artery of [place] heart without angina pectoris Status: Chronic Current Visit: Yes Qualifiers: Code(s): I25.10 - Atherosclerotic heart disease of [place] coronary artery without angina pectoris Comment: BMS to small ramus subbranch in October 2012 at [facility]; (3) Hyperlipidemia Status: Chronic Current Visit: Yes Qualifiers: Code(s): E78.5 - Hyperlipidemia, unspecified (4) Hypertension Status: Chronic Current Visit: Yes Qualifiers: Code(s): I10 - Essential (primary) hypertension (5) Morbid obesity with BMI of 45.0-49.9, adult Status: Chronic Current Visit: Yes Code(s): E66.01 - Morbid (severe) obesity due to excess calories; Z68.42 - Body mass index (BMI) 45.0-49.9, adult (6) Peripheral vascular occlusive disease Status: Chronic Current Visit: Yes Code(s): I73.9 - Peripheral vascular disease, unspecified (7) Venous insufficiency of left lower extremity Status: Chronic Current Visit: Yes Code(s): I87.2 - Venous insufficiency (chronic) (peripheral) (8) Edema of both lower legs due to peripheral venous insufficiency Status: Acute Current Visit: Yes Code(s): I87.2 - Venous insufficiency (chronic) (peripheral); R60.9 - Edema, unspecified Type of Wound Date of Service: 08/01/20 Chief Complaint: Left lower extremity traumatic ulcer History of Wound: 60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 He states it never bled and that he has been using [id number] and then he was using Bactroban ointment and then recently he was been using something with zinc. Still open 6 weeks later no redness or swelling around the area. Patient has history of vein stripping on left lower leg that is left both legs actually suffers from edema and probably has peripheral vascular disease and possibly peripheral arterial disease from his smoking habit he still smokes 1 pack a day. Progress of Wound: The cluster wound is smaller slightly from last week improving with the Aquacel extra. We will continue with treatment and compression. Cultures came back rare for different bacteria we will continue to monitor. Patient is scheduled for his arterial brachial and ultrasounds of his legs this next week. We will apply for thin substitute through his insurance company to finish off the wound and for healing. Just got good news that his cancer is in remission and he is totally cancer free and will follow-up in 1 year with his cancer doctor. - Physical Exam Vital Signs Temp Pulse Resp BP 97.1 F L 59 L 16 137/91 H 08/01/20 08:22 08/01/20 08:22 08/01/20 08:22 08/01/20 08:22 General: Oriented x3, Cooperative, Well developed HEENT: Atraumatic, PERRLA Oral: Moist Mucosa Neck: Supple, No JVD Lungs: Clear to auscultation, Normal air movement Cardiovascular: Regular rate, Regular Rhythm Abdomen: Bowel Sounds Present, Soft, Non Tender, No Hepato-splenomegaly Extremities: No clubbing, No edema Wound Measurements and Assessment WC - Nurse 1 - General Ulcer Measurement Start: 07/18/20 08:26 Freq: Status: Active Protocol: Activity Type Activity Date Activity User E-Sign Co-Sign Detail Recorded Client Recorded Date Recorded By Document 08/01/20 08:22 MW [id number] 08/01/20 08:27 MW 08/01/20 08:22 Wound Center Nurse 1 [Ulcer Assessment] 3. L lateral LE cluster -Combined with other wound No -Current Size (cm) - Length 2.5 -Current Size (cm) - Width 6.0 -Current Size (cm) - Depth 0.1 -Total Square Cm 15.00 -Photo Taken No -Epithelialization Small 1-33% -Tunneling No -Undermining/Tunneling No -Circular Undermining No -Exudate Amt Small -Exudate Type Sanguineous -Wound Margin Flat & Intact -Granulation Amt Medium (34-66%) -Granulation Quality [place] -Slough/Fibrin Yes -Necrosis Amt Medium (34-66%) -Necrotic Tissue Type Adherent Slough -Structure Exposed N/A -Texture (Tenisha-wound Skin Appearance) Assessed, Localized Edema ,Scarring -Moisture (Tenisha-wound Skin Appearance Assessed,Dry/ ) Scaly -Color (Tenisha-wound Skin Appearance) Assessed, Hemosiderin Staining -Temperature (Tenisha-wound Skin No Abnormality Appearance) (Pt Warm) -Tenderness on Palpation (Tenisha-wound Yes Skin Appearance) -Ulcer Cleansing Rinsed/ Irrigated with Saline -Foul Odor after Cleansing No -Anesthetic Used 4% Lidocaine Solution [Edema Assessment] -Lower Limb Edema Present Yes -Left Calf (cm) 48.5 -Left Ankle (cm) 27.0 WC - Nurse 2 - General Ulcer CM Notes Start: 07/18/20 08:26 Freq: Status: Active Protocol: Activity Type Activity Date Activity User E-Sign Co-Sign Detail Recorded Client Recorded Date Recorded By Document 08/01/20 08:39 MW [id number] 08/01/20 08:42 MW 08/01/20 08:39 Wound Center Nurse 2 [Procedure/Treatment] 3. L lateral LE cluster -Time 08:41 -Correct Patient Yes -Correct Side, Site, Position Yes -Correct Procedure Yes -Procedure Performed Yes -Type of Procedure Debridement -Clinical Debridement Subcutaneous -Tissue Removed Subcutaneous -Post Debridement (cm) - Length 2.2 -Post Debridement (cm) - Width 6.2 -Post Debridement (cm) - Depth 0.2 -Total Square (Post) (cm) 13.64 -Area of Debridement (cm) - Length 2.2 -Area of Debridement (cm) - Width 6.2 -Total Square (Area) (cm) 13.64 -Tunneling No -Undermining/Tunneling No -Circular Undermining No -Wound/Ulcer Outcome Not Healed -Ulcer Cleansing Rinsed/ Irrigated with Saline -Foul Odor after Cleansing No -Bioengineered Tissue No -Bleeding Controlled with Pressure -Offloading No -Treatment Response Procedure Tolerated Well -Debridement - Subq, 1st 20sq cm Yes [See Physician Procedure note for Specifics] Pain Scale: 0-10 Numeric [Pain] -Is Patient Pain Free? Yes - Nurse 3 - General Ulcer D/C NN Start: 07/18/20 08:26 Freq: Status: Active Protocol: Activity Type Activity Date Activity User E-Sign Co-Sign Detail Recorded Client Recorded Date Recorded By Document 08/01/20 08:42 MW [id number] 08/01/20 08:43 MW 08/01/20 08:42 Wound Care Nurse 3 [Wound Dressing] 3. L lateral LE cluster -Ulcer Cleansing Rinsed/ Irrigated with Saline -Foul Odor after Cleansing No -Negative Pressure Wound Therapy N/A -Primary Dressing Applied Aquacel Extra -Primary Dressing Covered/Secured Dry Gauze & with Roll Gauze, Secured with Tape -Aquacel Extra 1 [Compression Applied] Left -Lotion applied to leg before No compression wrap -Other tubigrip [Post Procedure Tolerated] -Treatment Response Procedure Tolerated Well Teaching: Wound Center [Wound Center Education] (Items with an * have Printed Materials Available- Please identify what is given to patient under the Teaching materials given to patient and caregiver Section. Dressing Your Wound -Person Taught Patient -Teaching Method Discussion, Demonstration -Response to teaching Verbalize understanding WC - Visit Discharge [Visit Discharge Information] -Discharge Condition Stable -Ambulatory Status Ambulatory -Transportation Private Auto -Accompanied by self -Medication Reconcilliation completed No & provided to patient/care provider -Clinical Summary of Care Provided Yes Musculoskeletal: No Tenderness to Palpation of Joints or Extremities Lymphatic: No Cervical, Supraclavicular, or Inguinal Adenopathy Neurological: Cranial nerves II-XII grossly intact, Neuro grossly intact Psych/Mental Status: Normal Affect, Appropriate Debridement Note Post-Debridement Measurements/Treatment WC - Nurse 2 - General Ulcer CM Notes Start: 07/18/20 08:26 Freq: Status: Active Protocol: Activity Type Activity Date Activity User E-Sign Co-Sign Detail Recorded Client Recorded Date Recorded By Document 07/18/20 08:56 MW [id number] 07/18/20 09:04 MW Document 07/25/20 08:50 MW [id number] 07/25/20 08:53 MW Document 08/01/20 08:39 MW [id number] 08/01/20 08:42 MW 07/18/20 07/25/20 08/01/20 08:56 08:50 08:39 Wound Center Nurse 2 3. L lateral LE cluster -Time 08:56 08:50 08:41 -Correct Patient Yes Yes Yes -Correct Side, Site, Position Yes Yes Yes -Correct Procedure Yes Yes Yes -Procedure Performed Yes Yes Yes -Type of Procedure Debridement Debridement Debridement -Clinical Debridement Subcutaneous Subcutaneous Subcutaneous -Tissue Removed Subcutaneous Subcutaneous Subcutaneous -Post Debridement (cm) - Length 2.5 2.5 2.2 -Post Debridement (cm) - Width 7.5 6.5 6.2 -Post Debridement (cm) - Depth 0.3 0.2 0.2 -Total Square (Post) (cm) 18.75 16.25 13.64 -Area of Debridement (cm) - Length 2.5 2.5 2.2 -Area of Debridement (cm) - Width 7.5 6.5 6.2 -Total Square (Area) (cm) 18.75 16.25 13.64 -Tunneling No No No -Undermining/Tunneling No No No -Circular Undermining No No No -Wound/Ulcer Outcome Not Healed Not Healed Not Healed -Ulcer Cleansing Rinsed/ Rinsed/ Rinsed/ Irrigated with Irrigated with Irrigated with Saline Saline Saline -Foul Odor after Cleansing No No No -Bioengineered Tissue No No No -Bleeding Controlled with Pressure Pressure Pressure -Offloading No No No -Treatment Response Procedure Procedure Procedure Tolerated Well Tolerated Well Tolerated Well -Debridement - Subq, 1st 20sq cm Yes Yes Yes Pain Scale: 0-10 Numeric Is Patient Pain Free? Yes Yes Yes WC - Nurse 3 - General Ulcer D/C NN Start: 07/18/20 08:26 Freq: Status: Active Protocol: Activity Type Activity Date Activity User E-Sign Co-Sign Detail Recorded Client Recorded Date Recorded By Document 07/18/20 09:21 CS [id number] 07/18/20 09:23 CS Document 07/25/20 09:04 RB [id number] 07/25/20 09:04 RB Document 08/01/20 08:42 MW [id number] 08/01/20 08:43 MW 07/18/20 07/25/20 08/01/20 09:21 09:04 08:42 Wound Care Nurse 3 3. L lateral LE cluster -Ulcer Cleansing Not Cleansed Rinsed/ Rinsed/ Irrigated with Irrigated with Saline Saline -Foul Odor after Cleansing No No -Negative Pressure Wound Therapy N/A N/A -Primary Dressing Applied Aquacel Extra Aquacel Extra Aquacel Extra -Primary Dressing Covered/Secured with Dry Gauze & Dry Gauze,Dry Dry Gauze & Roll Gauze Gauze & Roll Roll Gauze, Gauze,Secured Secured with with Tape Tape -Aquacel Extra 0 1 1 -Aquacel AG 4x4 2 Left -Lotion applied to leg before No No compression wrap -Tubular Bandage Double Layer Double Layer -Size of Tubigrip Used Size F Size F -Size F ($) 2 1 -Stockings No -Other tubigrip Treatment Response Procedure Procedure Tolerated Well Tolerated Well Pain Scale: 0-10 Numeric Is Patient Pain Free? Yes Yes Teaching: Wound Center Dressing Your Wound -Person Taught Patient -Teaching Method Discussion, Demonstration -Response to teaching Verbalize understanding WC - Visit Discharge Discharge Condition Stable Stable Stable Ambulatory Status Ambulatory Ambulatory Ambulatory Transportation Private Auto Private Auto Accompanied by self self Medication Reconcilliation completed & Yes No No provided to patient/care provider Clinical Summary of Care Provided Yes Yes Yes Wound debrided: Left lateral ankle cluster wound Type of Debridement: Excisional debridement Anesthesia Used: 5% Lidocaine Gel Depth: Down to and including healthy tissue Percentage of wound debrided: 100 Instrument Used: 7mm curette Tissue Removed: Fibrin and slough Severity: Limited To Skin Breakdown Amount of bleeding with debridement: Mild Bleeding Controlled with: Compression and gauze Patient tolerated procedure well Assessment/Plan Active Problems (Last Reviewed 06/25/20 @ 09:39 by Lizette Gabriel) Nonhealing nonsurgical wound with fat layer exposed (Acute) Edema of both lower legs due to peripheral venous insufficiency (Acute) Atherosclerosis of coronary artery of [place] heart without angina pectoris (Chronic) BMS to small ramus subbranch in October 2012 at [facility]; Morbid obesity with BMI of 45.0-49.9, adult (Chronic) Hyperlipidemia (Chronic) Hypertension (Chronic) Venous insufficiency of left lower extremity (Chronic) Peripheral vascular occlusive disease (Chronic) Assessment: Edema bilateral lower legs. Nonhealing nonsurgical wound. Peripheral venous occlusive disease. Hypertension. Hypercholesterolemia Plan: Wash left leg with antibacterial soap. Apply Aquacel extra to wound base moistened cover with Adaptic then gauze Tony. Double layer Tubigrip. Follow- up in 1 week. Call with results of cultures if positive
== END 2020-08-01 23:59 ==
LOC: WC 08:15
PROVIDERS: PCP Family Medicine; Referring Provider Nurse Practitioner; Visit Provider Nurse Practitioner
DX: I73.9 Peripheral vascular disease, unspecified (principal); S81.832A Puncture wound without foreign body, left lower leg, initial encounter; W20.8XXA Other cause of strike by thrown, projected or falling object, initial encounter; Y93.H2 Activity, gardening and landscaping; I87.2 Venous insufficiency (chronic) (peripheral); E66.01 Morbid (severe) obesity due to excess calories; Z68.42 Body mass index [BMI] 45.0-49.9, adult; I25.10 Atherosclerotic heart disease of native coronary artery without angina pectoris; E78.5 Hyperlipidemia, unspecified; R60.0 Localized edema; I10 Essential (primary) hypertension; T14.90XA Injury, unspecified, initial encounter; I45.10 Unspecified right bundle-branch block; F17.200 Nicotine dependence, unspecified, uncomplicated; Z86.718 Personal history of other venous thrombosis and embolism; Z79.82 Long term (current) use of aspirin; Z79.899 Other long term (current) drug therapy
CPT/HCPCS: 11042; 87070; 87075; 87077; 87186; 87205; 99213; G0463

== ENCOUNTER 2020-08-29 10:15 | Outpatient (RCR) | payer BC, SELFPAY ==
[2020-08-02 00:45] VITALS: BP 137/91; PULSE 59; RESP 16; TEMP 36.2
--- NOTE | 2020-08-02 09:57 | VDLE_ITS ---
Reason For Study: edma, LLE ulcer RIGHT LEFT CFV is compressible, spontaneous, phasic, CFV is compressible, spontaneous, phasic, competent and demonstrates normal competent, and demonstrates normal augmentation. augmentation. FV is compressible, spontaneous, phasic, FV is compressible, spontaneous, phasic, competent and demonstrates normal competent and demonstrates normal augmentation. augmentation. POP V is compressible, spontaneous, phasic, POP V is compressible, spontaneous, phasic, competent and demonstrates normal competent and demonstrates normal augmentation. augmentation. T/P Trunk is compressible. T/P Trunk is compressible. PTV is compressible. PTV is compressible. RT PerV is compressible. LT PerV is compressible. SFJ is competent and measures .65 cm. SFJ is INCOMPETENT and measures .84 cm. GSV proximal thigh measures .45 x .45 cm. GSV and SSV have been partially harvested. GSV at knee measures .33 x .36 cm. Short segment of the GSV in the groin is GSV INCOMPETENT throughout for greater than incompetent for greater than .5 seconds. GSV 0.5 seconds. measures .61 x .54 cm. SSV proximal calf is competent and Short segment of GSV at the ankle is measures .19 x .23 cm. incompetent for greater than .5 seconds. GSV GSV is tortuous. measures .28 x .33 cm. Lateral ASV at the groin is incompetent for Short segment of the SSV is incompetent for greater than .5 seconds. ASV measures .27 greater than .5 seconds. SSV measures .17 x .29 cm. x .18 cm. Incompetent Neurodiagnostic Tech V 7 cm proximal to the Incompetent Neurodiagnostic Tech V 8 cm proximal to the medial malleolus. medial malleolus. Procedure Exam performed in department. The exam was diagnostic. Interpretation Summary Deep veins of the lower extremities are bilaterally patent and compressible segmentally. There is no evidence of deep vein thrombosis on either side. Valvular competence appears intact within the proximal deep venous systems bilaterally. The right sapheno-femoral junction is competent . The left sapheno-femoral junction is incompetent . The right great saphenous vein appears segmentally incompetent. The left great saphenous vein has been partially harvested. Short segments of the left great saphenous vein in the groin and at the ankle are incompetent. The right small saphenous vein is patent and competent. The left small saphenous vein has been partially harvested. A short segment of the remaining left small saphenous vein is incompetent. The right lateral accessory saphenous vein at the groin is incompetent. An incompetent assault amphibious vehicle officer vein is noted in the right calf, located 7 centimeters proximal to the right medial malleolus. An incompetent assault amphibious vehicle officer vein is noted in the left calf, located 8 centimeters proximal to the left medial malleolus. Ordering Physician: Harmony Rodriguez Performed By: Jai Damian RVT
--- NOTE | 2020-08-02 09:58 | ART_ITS ---
Reason For Study: PAD Procedure A bilateral lower extremity continuous wave Doppler with analog waveform analysis,segmental pressures,and ankle brachial indexes without exercise. Left Segmental Pressures Left brachial= 125mmHg. Left posterior tibial artery = 157mmHg. Left dorsalis pedis artery = 157mmHg. Left digit = 161 mmHg. The left dorsalis pedis waveforms are triphasic. The left posterior tibial artery waveforms are triphasic. Right Segmental Pressures Right brachial= 124mmHg. Right posterior tibial artery = 152mmHg. Right dorsalis pedis artery = 156mmHg. Right digit = 151 mmHg. The right dorsalis pedis waveforms are triphasic. The right posterior tibial artery waveforms are triphasic. Indices The right ankle brachial index by the dorsalis pedis is 1.25. The right ankle brachial index by the posterior tibial artery is 1.22. The right digital-brachial index is 1.21. The left ankle brachial index by the dorsalis pedis is 1.26. The left ankle brachial index by the posterior tibial artery is 1.26. The left digital-brachial index is 1.29. Interpretation Summary Triphasic Doppler waveforms are noted at ankle level bilaterally. Pulse-volume recording waveform amplitudes are diminished at digital level on the right, but satisfactory at all other levels bilaterally. Resting ankle-brachial indices are normal bilaterally. Digital-brachial indices are normal bilaterally. There is no evidence of significant arterial occlusive disease in the lower extremities bilaterally. Ordering Physician: Harmony Rodriguez Referring Physician: Harmony Rodriguez Performed By: YURY ALLEN T
[2020-08-08 08:06] VITALS: BP 136/64; PULSE 69; RESP 17; TEMP 36.3; BMI 44.1
[2020-08-08 08:30] VITALS: BP 144/77; PULSE 70
--- NOTE | 2020-08-08 08:33 | PN.PCM_ITS ---
(1) Edema of both lower legs due to peripheral venous insufficiency Status: Acute Current Visit: Yes Code(s): I87.2 - Venous insufficiency (chronic) (peripheral); R60.9 - Edema, unspecified (2) Nonhealing nonsurgical wound with fat layer exposed Status: Acute Current Visit: Yes Code(s): T14.8XXA - Other injury of unspecified body region, initial encounter (3) Atherosclerosis of coronary artery of [place] heart without angina pectoris Status: Chronic Current Visit: Yes Qualifiers: Code(s): I25.10 - Atherosclerotic heart disease of [place] coronary artery without angina pectoris Comment: BMS to small ramus subbranch in October 2012 at [facility]; (4) Morbid obesity with BMI of 45.0-49.9, adult Status: Chronic Current Visit: Yes Code(s): E66.01 - Morbid (severe) obesity due to excess calories; Z68.42 - Body mass index [BMI] 45.0-49.9, adult (5) Peripheral vascular occlusive disease Status: Chronic Current Visit: Yes Code(s): I73.9 - Peripheral vascular disease, unspecified (6) Venous insufficiency of left lower extremity Status: Chronic Current Visit: Yes Code(s): I87.2 - Venous insufficiency (chronic) (peripheral) Type of Wound Date of Service: 08/08/20 Chief Complaint: Left lower extremity traumatic ulcer History of Wound: 60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 He states it never bled and that he has been using [id number] and then he was using Bactroban ointment and then recently he was been using something with zinc. Still open 6 weeks later no redness or swelling around the area. Patient has history of vein stripping on left lower leg that is left both legs actually suffers from edema and probably has peripheral vascular disease and possibly peripheral arterial disease from his smoking habit he still smokes 1 pack a day. Progress of Wound: The cluster wound is smaller from last week improving with the Aquacel extra. We will continue with treatment and compression. Cultures came back rare for different bacteria we will continue to monitor. Patient had his arterial brachial and ultrasounds of his legs this past week. Only the arterial part is back and it looks good ultrasounds are still pending. We we applied for skin substitute through his insurance company to finish off the wound and for healing and it is still pending. Just got good news that his cancer is in remission and he is totally cancer free and will follow-up in 1 year with his cancer doctor. Developing good skin buds and no sign of infection no redness no swelling pain is better wound is much improved. - Physical Exam Vital Signs Temp Pulse Resp BP 97.3 F L 69 17 136/64 H 08/08/20 08:06 08/08/20 08:06 08/08/20 08:06 08/08/20 08:06 General: Oriented x3, Cooperative, Well developed HEENT: Atraumatic, PERRLA Oral: Moist Mucosa Neck: Supple, No JVD Lungs: Clear to auscultation, Normal air movement Cardiovascular: Regular rate, Regular Rhythm Abdomen: Bowel Sounds Present, Soft, Non Tender, No Hepato-splenomegaly Extremities: No clubbing, No edema Skin: Ulcer/ Wound - Cluster on left lateral lower leg Wound Measurements and Assessment WC - Nurse 1 - General Ulcer Measurement Start: 08/08/20 07:55 Freq: Status: Active Protocol: Activity Type Activity Date Activity User E-Sign Co-Sign Detail Recorded Client Recorded Date Recorded By Document 08/08/20 08:06 DANILO [id number] 08/08/20 08:11 DANILO 08/08/20 08:06 Wound Center Nurse 1 [Ulcer Assessment] 3. L lateral LE cluster -Current Size (cm) - Length 2 -Current Size (cm) - Width 4.7 -Current Size (cm) - Depth 0.2 -Total Square Cm 9.4 -Exudate Amt Small -Wound Margin Distinct, Outline Attached -Granulation Amt Medium (34-66%) -Slough/Fibrin Yes -Texture (Tenisha-wound Skin Appearance) No Abnormality -Moisture (Tenisha-wound Skin Appearance No Abnormality, ) Dry/Scaly -Color (Tenisha-wound Skin Appearance) Hemosiderin Staining -Temperature (Tenisha-wound Skin No Abnormality Appearance) (Pt Warm) -Ulcer Cleansing Rinsed/ Irrigated with Saline -Foul Odor after Cleansing No -Anesthetic Used 4% Lidocaine Solution [Edema Assessment] -Point of measurement (cm from the 48.3 medial instep) -Point of Measurement (cm from the 26.5 medial instep) WC - Nurse 2 - General Ulcer CM Notes Start: 08/08/20 07:55 Freq: Status: Active Protocol: Activity Type Activity Date Activity User E-Sign Co-Sign Detail Recorded Client Recorded Date Recorded By Document 08/08/20 08:23 MW [id number] 08/08/20 08:27 MW 08/08/20 08:23 Wound Center Nurse 2 [Procedure/Treatment] 3. L lateral LE cluster -Time 08:23 -Correct Patient Yes -Correct Side, Site, Position Yes -Correct Procedure Yes -Procedure Performed Yes -Type of Procedure Debridement -Clinical Debridement Subcutaneous -Tissue Removed Subcutaneous -Post Debridement (cm) - Length 2.0 -Post Debridement (cm) - Width 4.5 -Post Debridement (cm) - Depth 0.2 -Total Square (Post) (cm) 9.00 -Area of Debridement (cm) - Length 2.0 -Area of Debridement (cm) - Width 4.5 -Total Square (Area) (cm) 9.00 -Tunneling No -Undermining/Tunneling No -Circular Undermining No -Wound/Ulcer Outcome Not Healed -Ulcer Cleansing Rinsed/ Irrigated with Saline -Foul Odor after Cleansing No -Bioengineered Tissue No -Bleeding Controlled with Pressure -Offloading No -Debridement - Subq, 1st 20sq cm Yes [See Physician Procedure note for Specifics] Pain Scale: 0-10 Numeric [Pain] -Is Patient Pain Free? Yes Musculoskeletal: No Tenderness to Palpation of Joints or Extremities Lymphatic: No Cervical, Supraclavicular, or Inguinal Adenopathy Neurological: Cranial nerves II-XII grossly intact, Neuro grossly intact Psych/Mental Status: Normal Affect, Appropriate, Alert and oriented to time, place, person, mood and affect Debridement Note Post-Debridement Measurements/Treatment WC - Nurse 2 - General Ulcer CM Notes Start: 08/08/20 07:55 Freq: Status: Active Protocol: Activity Type Activity Date Activity User E-Sign Co-Sign Detail Recorded Client Recorded Date Recorded By Document 08/08/20 08:23 MW [id number] 08/08/20 08:27 MW 08/08/20 08:23 Wound Center Nurse 2 3. L lateral LE cluster -Time 08:23 -Correct Patient Yes -Correct Side, Site, Position Yes -Correct Procedure Yes -Procedure Performed Yes -Type of Procedure Debridement -Clinical Debridement Subcutaneous -Tissue Removed Subcutaneous -Post Debridement (cm) - Length 2.0 -Post Debridement (cm) - Width 4.5 -Post Debridement (cm) - Depth 0.2 -Total Square (Post) (cm) 9.00 -Area of Debridement (cm) - Length 2.0 -Area of Debridement (cm) - Width 4.5 -Total Square (Area) (cm) 9.00 -Tunneling No -Undermining/Tunneling No -Circular Undermining No -Wound/Ulcer Outcome Not Healed -Ulcer Cleansing Rinsed/ Irrigated with Saline -Foul Odor after Cleansing No -Bioengineered Tissue No -Bleeding Controlled with Pressure -Offloading No -Debridement - Subq, 1st 20sq cm Yes Pain Scale: 0-10 Numeric Is Patient Pain Free? Yes Wound debrided: Left lateral lower leg cluster Type of Debridement: Excisional debridement Anesthesia Used: 5% Lidocaine Gel Depth: Down to and including healthy tissue, in the subcutaneous layer Percentage of wound debrided: 100 Instrument Used: 5mm curette Tissue Removed: fibrin and slough and devitalized tissue Assessment/Plan Active Problems (Last Reviewed 06/25/20 @ 09:39 by Lizette Gabriel) Nonhealing nonsurgical wound with fat layer exposed (Acute) Edema of both lower legs due to peripheral venous insufficiency (Acute) Atherosclerosis of coronary artery of [place] heart without angina pectoris (Chronic) BMS to small ramus subbranch in October 2012 at [facility]; Morbid obesity with BMI of 45.0-49.9, adult (Chronic) Venous insufficiency of left lower extremity (Chronic) Peripheral vascular occlusive disease (Chronic) Assessment: Edema bilateral lower legs. Nonhealing nonsurgical wound. Peripheral venous occlusive disease. Hypertension. Hypercholesterolemia Plan: Wash left leg with antibacterial soap. Apply Aquacel extra to wound base moistened cover with Adaptic then gauze Tony. Double layer Tubigrip. Follow- up in 1 week. Call with results of cultures if positive
[2020-08-15 08:08] VITALS: BP 138/88; PULSE 62; RESP 18; TEMP 35.9; BMI 44.1
[2020-08-15 08:19] VITALS: BP 136/80; PULSE 64; RESP 18; TEMP 36.7
--- NOTE | 2020-08-15 08:23 | PN.PCM_ITS ---
(1) Edema of both lower legs due to peripheral venous insufficiency Status: Acute Code(s): I87.2 - Venous insufficiency (chronic) (peripheral); R60.9 - Edema, unspecified (2) Nonhealing nonsurgical wound with fat layer exposed Status: Acute Code(s): T14.8XXA - Other injury of unspecified body region, initial encounter (3) Atherosclerosis of coronary artery of [place] heart without angina pectoris Status: Chronic Qualifiers: Code(s): I25.10 - Atherosclerotic heart disease of [place] coronary artery without angina pectoris Comment: BMS to small ramus subbranch in October 2012 at [facility]; (4) Morbid obesity with BMI of 45.0-49.9, adult Status: Chronic Code(s): E66.01 - Morbid (severe) obesity due to excess calories; Z68.42 - Body mass index [BMI] 45.0-49.9, adult (5) Peripheral vascular occlusive disease Status: Chronic Code(s): I73.9 - Peripheral vascular disease, unspecified (6) Venous insufficiency of left lower extremity Status: Chronic Code(s): I87.2 - Venous insufficiency (chronic) (peripheral) Type of Wound Date of Service: 08/15/20 Chief Complaint: Left lower extremity traumatic ulcer History of Wound: 60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 He states it never bled and that he has been using [id number] and then he was using Bactroban ointment and then recently he was been using something with zinc. Still open 6 weeks later no redness or swelling around the area. Patient has history of vein stripping on left lower leg that is left both legs actually suffers from edema and probably has peripheral vascular disease and possibly peripheral arterial disease from his smoking habit he still smokes 1 pack a day. Progress of Wound: The cluster wound is more shallow with islands of new skin developed. We will try Fibracol for the next week still waiting for approval for epifix. We will continue with treatment and compression. Cultures came back rare for different bacteria we will continue to monitor. Patient had his arterial brachial and ultrasounds of his legs this past week. The venous study shows he has some problems in the GSV which is right where he is having the dis coloration below that and swelling so we will refer him to Dr. Blancas this week. Arterial flow looks good there is no problems with arteries. - Physical Exam Vital Signs Temp Pulse Resp BP 96.6 F L 62 18 138/88 H 08/15/20 08:08 08/15/20 08:08 08/15/20 08:08 08/15/20 08:08 General: Oriented x3, Cooperative, Well developed HEENT: Atraumatic, PERRLA Oral: Moist Mucosa Neck: Supple, No JVD Lungs: Clear to auscultation, Normal air movement Cardiovascular: Regular rate, Regular Rhythm Abdomen: Bowel Sounds Present, Soft, Non Tender, No Hepato-splenomegaly Extremities: No clubbing, No edema Skin: Ulcer/ Wound - Traumatic wounds left lower leg with history of peripheral vascular disease Wound Measurements and Assessment WC - Nurse 1 - General Ulcer Measurement Start: 08/08/20 07:55 Freq: Status: Active Protocol: Activity Type Activity Date Activity User E-Sign Co-Sign Detail Recorded Client Recorded Date Recorded By Document 08/15/20 08:08 [id number] 08/15/20 08:10 RB 08/15/20 08:08 Wound Center Nurse 1 [Ulcer Assessment] 3. L lateral LE cluster -Combined with other wound No -Current Size (cm) - Length 3 -Current Size (cm) - Width 4.5 -Current Size (cm) - Depth 0.1 -Total Square Cm 13.5 -Tunneling No -Undermining/Tunneling No -Circular Undermining No -Exudate Amt Small -Exudate Type Serosanguineous -Wound Margin Flat & Intact -Granulation Amt Medium (34-66%) -Granulation Quality [place] -Slough/Fibrin Yes -Necrosis Amt Small (1-33%) -Necrotic Tissue Type Adherent Slough -Structure Exposed N/A -Texture (Tenisha-wound Skin Appearance) Assessed, Scarring -Moisture (Tenisha-wound Skin Appearance Assessed ) -Color (Tenisha-wound Skin Appearance) Assessed, Hemosiderin Staining -Temperature (Tenisha-wound Skin No Abnormality Appearance) (Pt Warm) -Tenderness on Palpation (Tenisha-wound No Skin Appearance) -Ulcer Cleansing Wound Cleanser -Foul Odor after Cleansing No -Anesthetic Used 4% Lidocaine Solution [Edema Assessment] -Lower Limb Edema Present Yes -Left Calf (cm) 48.2 -Left Ankle (cm) 27.7 WC - Nurse 2 - General Ulcer CM Notes Start: 08/08/20 07:55 Freq: Status: Active Protocol: Activity Type Activity Date Activity User E-Sign Co-Sign Detail Recorded Client Recorded Date Recorded By Document 08/15/20 08:16 MW [id number] 08/15/20 08:19 MW 08/15/20 08:16 Wound Center Nurse 2 [Procedure/Treatment] 3. L lateral LE cluster -Time 08:17 -Correct Patient Yes -Correct Side, Site, Position Yes -Correct Procedure Yes -Procedure Performed Yes -Type of Procedure Debridement -Clinical Debridement Subcutaneous -Tissue Removed Subcutaneous -Post Debridement (cm) - Length 2.0 -Post Debridement (cm) - Width 4.5 -Post Debridement (cm) - Depth 0.2 -Total Square (Post) (cm) 9.00 -Area of Debridement (cm) - Length 2.0 -Area of Debridement (cm) - Width 4.5 -Total Square (Area) (cm) 9.00 -Tunneling No -Undermining/Tunneling No -Circular Undermining No -Wound/Ulcer Outcome Not Healed -Ulcer Cleansing Rinsed/ Irrigated with Saline -Foul Odor after Cleansing No -Bioengineered Tissue No -Bleeding Controlled with Pressure -Offloading No -Debridement - Subq, 1st 20sq cm Yes [See Physician Procedure note for Specifics] Pain Scale: 0-10 Numeric [Pain] -Is Patient Pain Free? Yes Musculoskeletal: No Tenderness to Palpation of Joints or Extremities Lymphatic: No Cervical, Supraclavicular, or Inguinal Adenopathy Neurological: Cranial nerves II-XII grossly intact, Neuro grossly intact Psych/Mental Status: Normal Affect, Appropriate Debridement Note Post-Debridement Measurements/Treatment WC - Nurse 2 - General Ulcer CM Notes Start: 08/08/20 07:55 Freq: Status: Active Protocol: Activity Type Activity Date Activity User E-Sign Co-Sign Detail Recorded Client Recorded Date Recorded By Document 08/08/20 08:23 MW [id number] 08/08/20 08:27 MW Document 08/15/20 08:16 MW [id number] 08/15/20 08:19 MW 08/08/20 08/15/20 08:23 08:16 Wound Center Nurse 2 3. L lateral LE cluster -Time 08:23 08:17 -Correct Patient Yes Yes -Correct Side, Site, Position Yes Yes -Correct Procedure Yes Yes -Procedure Performed Yes Yes -Type of Procedure Debridement Debridement -Clinical Debridement Subcutaneous Subcutaneous -Tissue Removed Subcutaneous Subcutaneous -Post Debridement (cm) - Length 2.0 2.0 -Post Debridement (cm) - Width 4.5 4.5 -Post Debridement (cm) - Depth 0.2 0.2 -Total Square (Post) (cm) 9.00 9.00 -Area of Debridement (cm) - Length 2.0 2.0 -Area of Debridement (cm) - Width 4.5 4.5 -Total Square (Area) (cm) 9.00 9.00 -Tunneling No No -Undermining/Tunneling No No -Circular Undermining No No -Wound/Ulcer Outcome Not Healed Not Healed -Ulcer Cleansing Rinsed/ Rinsed/ Irrigated with Irrigated with Saline Saline -Foul Odor after Cleansing No No -Bioengineered Tissue No No -Bleeding Controlled with Pressure Pressure -Offloading No No -Debridement - Subq, 1st 20sq cm Yes Yes Pain Scale: 0-10 Numeric Is Patient Pain Free? Yes Yes - Nurse 3 - General Ulcer D/C NN Start: 08/08/20 07:55 Freq: Status: Active Protocol: Activity Type Activity Date Activity User E-Sign Co-Sign Detail Recorded Client Recorded Date Recorded By Document 08/08/20 08:30 MS [id number] 08/08/20 08:38 MS 08/08/20 08:30 Wound Care Nurse 3 3. L lateral LE cluster -Ulcer Cleansing Rinsed/ Irrigated with Saline -Foul Odor after Cleansing No -Primary Dressing Applied Aquacel Extra, NonAdherent Contact Layer -Primary Dressing Covered/Secured with Dry Gauze & Roll Gauze -Aquacel Extra 2 Vital Signs Pulse Rate (60-100 beats/min) 70 Pulse Location Monitor Blood Pressure (90/60-120/80 mm Hg) 144/77 H Blood Pressure Mean (mm Hg) 99 Source Monitor Position Sitting Blood Pressure Location Left Arm Pain Scale: 0-10 Numeric Is Patient Pain Free? Yes WC - Visit Discharge Discharge Condition Stable Ambulatory Status Ambulatory Medication Reconcilliation completed & Yes provided to patient/care provider Clinical Summary of Care Provided Yes Wound debrided: Left lower lateral leg cluster Type of Debridement: Excisional debridement Anesthesia Used: 5% Lidocaine Gel Depth: Down to and including healthy tissue, in the subcutaneous layer Percentage of wound debrided: 100 Instrument Used: 7mm curette Tissue Removed: Fibrin and devitalized tissue Severity: Limited To Skin Breakdown Amount of bleeding with debridement: Mild Bleeding Controlled with: Compression and gauze Patient tolerated procedure well Assessment/Plan Assessment: Edema bilateral lower legs. Nonhealing nonsurgical wound. Per ipheral venous occlusive disease. Hypertension. Hypercholesterolemia Plan: Wash left leg with antibacterial soap. Apply Fibracol to wound base moistened cover with Adaptic then gauze Tony. Double layer Tubigrip. Follow- up in 1 week. Call with results of cultures if positive
[2020-08-22 08:10] VITALS: BP 146/58; PULSE 58; RESP 16; TEMP 36.7; BMI 44.1
--- NOTE | 2020-08-22 08:36 | PN.PCM_ITS ---
(1) Edema of both lower legs due to peripheral venous insufficiency Status: Chronic Code(s): I87.2 - Venous insufficiency (chronic) (peripheral); R60.9 - Edema, unspecified (2) Nonhealing nonsurgical wound with fat layer exposed Status: Acute Code(s): T14.8XXA - Other injury of unspecified body region, initial encounter (3) Atherosclerosis of coronary artery of [place] heart without angina pectoris Status: Chronic Qualifiers: Code(s): I25.10 - Atherosclerotic heart disease of [place] coronary artery without angina pectoris Comment: BMS to small ramus subbranch in October 2012 at [facility]; (4) Morbid obesity with BMI of 45.0-49.9, adult Status: Chronic Code(s): E66.01 - Morbid (severe) obesity due to excess calories; Z68.42 - Body mass index [BMI] 45.0-49.9, adult (5) Peripheral vascular occlusive disease Status: Chronic Code(s): I73.9 - Peripheral vascular disease, unspecified (6) Venous insufficiency of left lower extremity Status: Chronic Code(s): I87.2 - Venous insufficiency (chronic) (peripheral) Type of Wound Date of Service: 08/22/20 Chief Complaint: Left lower extremity traumatic ulcer History of Wound: 60-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 He states it never bled and that he has been using [id number] and then he was using Bactroban ointment and then recently he was been using something with zinc. Still open 6 weeks later no redness or swelling around the area. Patient has history of vein stripping on left lower leg that is left both legs actually suffers from edema and probably has peripheral vascular disease and possibly peripheral arterial disease from his smoking habit he still smokes 1 pack a day. Progress of Wound: The cluster wound is more shallow with islands of new skin developed. He was approved for epifix #1 will be applied today. We will continue with treatment and compression. Cultures came back rare for different bacteria we will continue to monitor. Patient had his arterial brachial and ultrasounds of his legs this past week. The venous study shows he has some problems in the GSV which is right where he is having the discoloration below that and swelling , he was referred and now has an appointment with Dr. Blancas soon. Arterial flow looks good there is no problems with arteries. - Physical Exam Vital Signs Temp Pulse Resp BP 98.0 F 58 L 16 146/58 H 08/22/20 08:10 08/22/20 08:10 08/22/20 08:10 08/22/20 08:10 General: Oriented x3, Cooperative, Well developed HEENT: Atraumatic, PERRLA Oral: Moist Mucosa Neck: Supple, No JVD Lungs: Clear to auscultation, Normal air movement Cardiovascular: Regular rate, Regular Rhythm Abdomen: Bowel Sounds Present, Soft, Non Tender, No Hepato-splenomegaly Extremities: No clubbing, Edema Skin: Ulcer/ Wound - Left lateral lower leg from mowing but also has peripheral vascular disease it makes it worse Wound Measurements and Assessment WC - Nurse 1 - General Ulcer Measurement Start: 08/08/20 07:55 Freq: Status: Active Protocol: Activity Type Activity Date Activity User E-Sign Co-Sign Detail Recorded Client Recorded Date Recorded By Document 08/22/20 08:10 MS [id number] 08/22/20 08:17 MS 08/22/20 08:10 Wound Center Nurse 1 [Ulcer Assessment] 3. L lateral LE cluster -Current Size (cm) - Length 2.7 -Current Size (cm) - Width 4.3 -Current Size (cm) - Depth 0.1 -Total Square Cm 11.61 -Photo Taken No -Tunneling No -Undermining/Tunneling No -Exudate Amt Small -Exudate Type Serosanguineous -Wound Margin Distinct, Outline Attached -Granulation Amt Medium (34-66%) -Granulation Quality [place] -Slough/Fibrin Yes -Necrosis Amt None Present (0 %) -Structure Exposed N/A -Texture (Tenisha-wound Skin Appearance) Assessed -Moisture (Tenisha-wound Skin Appearance Assessed ) -Color (Tenisha-wound Skin Appearance) Assessed -Temperature (Tenisha-wound Skin No Abnormality Appearance) (Pt Warm) -Tenderness on Palpation (Tenisha-wound No Skin Appearance) -Ulcer Cleansing Wound Cleanser -Foul Odor after Cleansing No -Anesthetic Used 4% Lidocaine Solution [Edema Assessment] -Left Calf (cm) 49.3 -Left Ankle (cm) 27.6 WC - Nurse 2 - General Ulcer CM Notes Start: 08/08/20 07:55 Freq: Status: Active Protocol: Activity Type Activity Date Activity User E-Sign Co-Sign Detail Recorded Client Recorded Date Recorded By Document 08/22/20 08:25 MW [id number] 08/22/20 08:34 MW 08/22/20 08:25 Wound Center Nurse 2 [Procedure/Treatment] 3. L lateral LE cluster -Time 08:26 -Correct Patient Yes -Correct Side, Site, Position Yes -Correct Procedure Yes -Procedure Performed Yes -Type of Procedure Debridement -Clinical Debridement Subcutaneous -Tissue Removed Subcutaneous -Post Debridement (cm) - Length 1.7 -Post Debridement (cm) - Width 3.3 -Post Debridement (cm) - Depth 0.1 -Total Square (Post) (cm) 5.61 -Area of Debridement (cm) - Length 1.7 -Area of Debridement (cm) - Width 3.3 -Total Square (Area) (cm) 5.61 -Tunneling No -Undermining/Tunneling No -Circular Undermining No -Wound/Ulcer Outcome Not Healed -Ulcer Cleansing Rinsed/ Irrigated with Saline -Foul Odor after Cleansing No -Bioengineered Tissue Yes -Type of Bioengineered Tissue Epifix Mesh -Expiration Date 04/02/25 -Product Lot Number [id number] -Percent Used 100 -Saline Lot Number [id number] -Bleeding Controlled with Pressure -Offloading No -Debridement - Subq, 1st 20sq cm No -Apply Skin Sub - 1st 25 sq cm - Legs 1 -Epifix Mesh (per sq cm) 11 [See Physician Procedure note for Specifics] Pain Scale: 0-10 Numeric [Pain] -Is Patient Pain Free? Yes Musculoskeletal: No Tenderness to Palpation of Joints or Extremities Lymphatic: No Cervical, Supraclavicular, or Inguinal Adenopathy Neurological: Cranial nerves II-XII grossly intact, Neuro grossly intact Psych/Mental Status: Normal Affect, Appropriate Debridement Note Post-Debridement Measurements/Treatment WC - Nurse 2 - General Ulcer CM Notes Start: 08/08/20 07:55 Freq: Status: Active Protocol: Activity Type Activity Date Activity User E-Sign Co-Sign Detail Recorded Client Recorded Date Recorded By Document 08/08/20 08:23 MW [id number] 08/08/20 08:27 MW Document 08/15/20 08:16 MW [id number] 08/15/20 08:19 MW Document 08/22/20 08:25 MW [id number] 08/22/20 08:34 MW 08/08/20 08/15/20 08/22/20 08:23 08:16 08:25 Wound Center Nurse 2 3. L lateral LE cluster -Time 08:23 08:17 08:26 -Correct Patient Yes Yes Yes -Correct Side, Site, Position Yes Yes Yes -Correct Procedure Yes Yes Yes -Procedure Performed Yes Yes Yes -Type of Procedure Debridement Debridement Debridement -Clinical Debridement Subcutaneous Subcutaneous Subcutaneous -Tissue Removed Subcutaneous Subcutaneous Subcutaneous -Post Debridement (cm) - Length 2.0 2.0 1.7 -Post Debridement (cm) - Width 4.5 4.5 3.3 -Post Debridement (cm) - Depth 0.2 0.2 0.1 -Total Square (Post) (cm) 9.00 9.00 5.61 -Area of Debridement (cm) - Length 2.0 2.0 1.7 -Area of Debridement (cm) - Width 4.5 4.5 3.3 -Total Square (Area) (cm) 9.00 9.00 5.61 -Tunneling No No No -Undermining/Tunneling No No No -Circular Undermining No No No -Wound/Ulcer Outcome Not Healed Not Healed Not Healed -Ulcer Cleansing Rinsed/ Rinsed/ Rinsed/ Irrigated with Irrigated with Irrigated with Saline Saline Saline -Foul Odor after Cleansing No No No -Bioengineered Tissue No No Yes -Type of Bioengineered Tissue Epifix Mesh -Expiration Date 04/02/25 -Product Lot Number [id number] -Percent Used 100 -Saline Lot Number [id number] -Bleeding Controlled with Pressure Pressure Pressure -Offloading No No No -Debridement - Subq, 1st 20sq cm Yes Yes No -Apply Skin Sub - 1st 25 sq cm - Legs 1 -Epifix Mesh (per sq cm) 11 Pain Scale: 0-10 Numeric Is Patient Pain Free? Yes Yes Yes WC - Nurse 3 - General Ulcer D/C NN Start: 08/08/20 07:55 Freq: Status: Active Protocol: Activity Type Activity Date Activity User E-Sign Co-Sign Detail Recorded Client Recorded Date Recorded By Document 08/08/20 08:30 MS [email or web address] 08/08/20 08:38 MS Document 08/15/20 08:19 MW [id number] 08/15/20 08:29 MW 08/08/20 08/15/20 08:30 08:19 Wound Care Nurse 3 3. L lateral LE cluster -Ulcer Cleansing Rinsed/ Rinsed/ Irrigated with Irrigated with Saline Saline -Foul Odor after Cleansing No No -Negative Pressure Wound Therapy N/A -Primary Dressing Applied Aquacel Extra, Fibracol Plus NonAdherent 4x4 Contact Layer -Primary Dressing Covered/Secured with Dry Gauze & Dry Gauze & Roll Gauze Roll Gauze -Aquacel Extra 2 -Fibracol Plus 4x4 2 Left -Lotion applied to leg before No compression wrap -Size of Tubigrip Used Size F -Size F ($) 1 Treatment Response Procedure Tolerated Well Temperature (97.8 F-99.1 F) 98.0 F Temperature Source Temporal Vital Signs Pulse Rate (60-100 beats/min) 70 64 Pulse Location Monitor Monitor Respiratory Rate (12-18 breaths/min) 18 Respiratory rate source Observation Oxygen Delivery Method Room Air Blood Pressure (90/60-120/80 mm Hg) 144/77 H 136/80 H Blood Pressure Mean (mm Hg) 99 98 Source Monitor Monitor Position Sitting Sitting Blood Pressure Location Left Arm Left Arm Pain Scale: 0-10 Numeric Is Patient Pain Free? Yes Yes Teaching: Wound Center Dressing Your Wound -Person Taught Patient -Teaching Method Discussion -Response to teaching Verbalize understanding WC - Visit Discharge Discharge Condition Stable Stable Ambulatory Status Ambulatory Ambulatory Transportation Private Auto Accompanied by self Medication Reconcilliation completed & Yes No provided to patient/care provider Clinical Summary of Care Provided Yes Yes Wound debrided: Left lateral lower leg Type of Debridement: Excisional debridement Anesthesia Used: 5% Lidocaine Gel Depth: Down to and including healthy tissue, in the subcutaneous layer Percentage of wound debrided: 100 Instrument Used: 5mm curette Tissue Removed: Fibrin and some devitalized tissue Severity: Limited To Skin Breakdown Bleeding Controlled with: Compression and gauze Patient tolerated procedure well Assessment/Plan Active Problems (Last Reviewed 06/25/20 @ 09:39 by Lizette Gabriel) Nonhealing nonsurgical wound with fat layer exposed (Acute) Edema of both lower legs due to peripheral venous insufficiency (Chronic) Atherosclerosis of coronary artery of [place] heart without angina pectoris (Chronic) BMS to small ramus subbranch in October 2012 at [facility]; Morbid obesity with BMI of 45.0-49.9, adult (Chronic) Venous insufficiency of left lower extremity (Chronic) Peripheral vascular occlusive disease (Chronic) Assessment: Edema bilateral lower legs. Nonhealing nonsurgical wound. Peripheral venous occlusive disease. Hypertension. Hypercholesterolemia Plan: Epi fix #1 applied covered with gauze and tape Steri-Strips. Not to change dressing covered while showering. Double layer Tubigrip. Follow-up in 1 week
[2020-08-22 08:37] VITALS: BP 129/78; PULSE 62
[2020-08-29 10:18] VITALS: BP 156/87; PULSE 87; RESP 18; TEMP 36.3; BMI 44.1
[2020-08-29 10:58] VITALS: BP 150/80; PULSE 85; RESP 20
--- NOTE | 2020-08-29 11:11 | PCM.WC.PN ---
(1) Edema of both lower legs due to peripheral venous insufficiency Status: Chronic Code(s): I87.2 - Venous insufficiency (chronic) (peripheral); R60.9 - Edema, unspecified (2) Nonhealing nonsurgical wound with fat layer exposed Status: Acute Code(s): T14.8XXA - Other injury of unspecified body region, initial encounter (3) Atherosclerosis of coronary artery of [place] heart without angina pectoris Status: Chronic Qualifiers: Code(s): I25.10 - Atherosclerotic heart disease of [place] coronary artery without angina pectoris Comment: BMS to small ramus subbranch in October 2012 at [facility]; (4) Morbid obesity with BMI of 45.0-49.9, adult Status: Chronic Code(s): E66.01 - Morbid (severe) obesity due to excess calories; Z68.42 - Body mass index [BMI] 45.0-49.9, adult (5) Peripheral vascular occlusive disease Status: Chronic Code(s): I73.9 - Peripheral vascular disease, unspecified (6) Venous insufficiency of left lower extremity Status: Chronic Code(s): I87.2 - Venous insufficiency (chronic) (peripheral) Type of Wound Date of Service: 08/29/20 Chief Complaint: Left lower extremity traumatic ulcer History of Wound: 60-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 He states it never bled and that he has been using [id number] and then he was using Bactroban ointment and then recently he was been using something with zinc. Still open 6 weeks later no redness or swelling around the area. Patient has history of vein stripping on left lower leg that is left both legs actually suffers from edema and probably has peripheral vascular disease and possibly peripheral arterial disease from his smoking habit he still smokes 1 pack a day. Progress of Wound: The cluster wound is more shallow with islands of new skin developed. We will continue with treatment and compression. Epi fix #2 applied cultures came back rare for different bacteria we will continue to monitor. Patient had his arterial brachial and ultrasounds of his legs this past week. The venous study shows he has some problems in the GSV which is right where he is having the discoloration below that and swelling , he was referred and now has an appointment with Dr. Magalis ojeda. Arterial flow looks good there is no problems with arteries. - Physical Exam Vital Signs Temp Pulse Resp BP 97.3 F L 85 20 H 150/80 H 08/29/20 10:18 08/29/20 10:58 08/29/20 10:58 08/29/20 10:58 General: Oriented x3, Cooperative, Well developed HEENT: Atraumatic, PERRLA Oral: Moist Mucosa Neck: Supple, No JVD Lungs: Clear to auscultation, Normal air movement Cardiovascular: Regular rate, Regular Rhythm Abdomen: Bowel Sounds Present, Soft, Non Tender, No Hepato-splenomegaly Extremities: No clubbing, No edema Skin: Ulcer/ Wound - Left lateral cluster wounds with history of peripheral vascular disease Wound Measurements and Assessment WC - Nurse 1 - General Ulcer Measurement Start: 08/08/20 07:55 Freq: Status: Active Protocol: Activity Type Activity Date Activity User E-Sign Co-Sign Detail Recorded Client Recorded Date Recorded By Document 08/29/20 10:18 MS [id number] 08/29/20 10:27 MS 08/29/20 10:18 Wound Center Nurse 1 [Ulcer Assessment] 3. L lateral LE cluster -Combined with other wound No -Current Size (cm) - Length 1.5 -Current Size (cm) - Width 3.4 -Current Size (cm) - Depth 0.1 -Total Square Cm 5.10 -Tunneling No -Undermining/Tunneling No -Circular Undermining No -Exudate Amt Small -Exudate Type Serosanguineous -Wound Margin Flat & Intact -Granulation Amt Medium (34-66%) -Granulation Quality [place]lem[place] -Slough/Fibrin Yes -Necrosis Amt Small (1-33%) -Necrotic Tissue Type Adherent Slough -Structure Exposed N/A -Texture (Tenisha-wound Skin Appearance) Assessed, Scarring -Moisture (Tenisha-wound Skin Appearance Assessed ) -Color (Tenisha-wound Skin Appearance) Assessed -Temperature (Tenisha-wound Skin No Abnormality Appearance) (Pt Warm) -Tenderness on Palpation (Tenisha-wound No Skin Appearance) -Ulcer Cleansing Wound Cleanser -Foul Odor after Cleansing No -Anesthetic Used 4% Lidocaine Solution [Edema Assessment] -Lower Limb Edema Present Yes -Left Calf (cm) 45 -Left Ankle (cm) 26.5 WC - Nurse 2 - General Ulcer CM Notes Start: 08/08/20 07:55 Freq: Status: Active Protocol: Activity Type Activity Date Activity User E-Sign Co-Sign Detail Recorded Client Recorded Date Recorded By Document 08/29/20 10:36 MW [id number] 08/29/20 10:40 MW 08/29/20 10:36 Wound Center Nurse 2 [Procedure/Treatment] 3. L lateral LE cluster -Time 10:38 -Correct Patient Yes -Correct Side, Site, Position Yes -Correct Procedure Yes -Procedure Performed Yes -Type of Procedure Debridement -Clinical Debridement Subcutaneous -Tissue Removed Subcutaneous -Post Debridement (cm) - Length 1.5 -Post Debridement (cm) - Width 4.0 -Post Debridement (cm) - Depth 0.1 -Total Square (Post) (cm) 6.00 -Area of Debridement (cm) - Length 4.5 -Area of Debridement (cm) - Width 4.0 -Total Square (Area) (cm) 18.00 -Tunneling No -Undermining/Tunneling No -Circular Undermining No -Wound/Ulcer Outcome Not Healed -Ulcer Cleansing Rinsed/ Irrigated with Saline -Foul Odor after Cleansing No -Bioengineered Tissue Yes -Type of Bioengineered Tissue Epifix Mesh -Expiration Date 06/02/25 -Product Lot Number [id number] -Percent Used 100 -Saline Lot Number [id number] -Bleeding Controlled with Pressure -Offloading No -Treatment Response Procedure Tolerated Well -Debridement - Subq, 1st 20sq cm No -Apply Skin Sub - 1st 25 sq cm - Legs 1 -Epifix Mesh (per sq cm) 11 [See Physician Procedure note for Specifics] Pain Scale: 0-10 Numeric [Pain] -Is Patient Pain Free? Yes - Nurse 3 - General Ulcer D/C NN Start: 08/08/20 07:55 Freq: Status: Active Protocol: Activity Type Activity Date Activity User E-Sign Co-Sign Detail Recorded Client Recorded Date Recorded By Document 08/29/20 10:58 MT [id number] 08/29/20 10:59 MT 08/29/20 10:58 Vital Signs [Pulse] -Pulse Rate (60-100 beats/min) 85 -Pulse Location Monitor [Respirations] -Respiratory Rate (12-18 breaths/min) 20 H -Respiratory rate source Observation [Blood Pressure] -Blood Pressure (90/60-120/80 mm Hg) 150/80 H -Blood Pressure Mean (mm Hg) 103 -Source Monitor -Position Semi-Fowlers -Blood Pressure Location Left Arm WC - Visit Discharge [Visit Discharge Information] -Discharge Condition Stable -Ambulatory Status Ambulatory -Transportation Private Auto Musculoskeletal: No Tenderness to Palpation of Joints or Extremities Lymphatic: No Cervical, Supraclavicular, or Inguinal Adenopathy Neurological: Cranial nerves II-XII grossly intact, Neuro grossly intact Psych/Mental Status: Normal Affect, Appropriate Debridement Note Post-Debridement Measurements/Treatment WC - Nurse 2 - General Ulcer CM Notes Start: 08/08/20 07:55 Freq: Status: Active Protocol: Activity Type Activity Date Activity User E-Sign Co-Sign Detail Recorded Client Recorded Date Recorded By Document 08/08/20 08:23 MW [id number] 08/08/20 08:27 MW Document 08/15/20 08:16 MW [id number] 08/15/20 08:19 MW Document 08/22/20 08:25 MW [id number] 08/22/20 08:34 MW Document 08/29/20 10:36 MW [id number] 08/29/20 10:40 MW 08/08/20 08/15/20 08/22/20 08:23 08:16 08:25 Wound Center Nurse 2 3. L lateral LE cluster -Time 08:23 08:17 08:26 -Correct Patient Yes Yes Yes -Correct Side, Site, Position Yes Yes Yes -Correct Procedure Yes Yes Yes -Procedure Performed Yes Yes Yes -Type of Procedure Debridement Debridement Debridement -Clinical Debridement Subcutaneous Subcutaneous Subcutaneous -Tissue Removed Subcutaneous Subcutaneous Subcutaneous -Post Debridement (cm) - Length 2.0 2.0 1.7 -Post Debridement (cm) - Width 4.5 4.5 3.3 -Post Debridement (cm) - Depth 0.2 0.2 0.1 -Total Square (Post) (cm) 9.00 9.00 5.61 -Area of Debridement (cm) - Length 2.0 2.0 1.7 -Area of Debridement (cm) - Width 4.5 4.5 3.3 -Total Square (Area) (cm) 9.00 9.00 5.61 -Tunneling No No No -Undermining/Tunneling No No No -Circular Undermining No No No -Wound/Ulcer Outcome Not Healed Not Healed Not Healed -Ulcer Cleansing Rinsed/ Rinsed/ Rinsed/ Irrigated with Irrigated with Irrigated with Saline Saline Saline -Foul Odor after Cleansing No No No -Bioengineered Tissue No No Yes -Type of Bioengineered Tissue Epifix Mesh -Expiration Date 04/02/25 -Product Lot Number [id number] -Percent Used 100 -Saline Lot Number [id number] -Bleeding Controlled with Pressure Pressure Pressure -Offloading No No No -Treatment Response -Debridement - Subq, 1st 20sq cm Yes Yes No -Apply Skin Sub - 1st 25 sq cm - Legs 1 -Epifix Mesh (per sq cm) 11 Pain Scale: 0-10 Numeric Is Patient Pain Free? Yes Yes Yes 08/29/20 10:36 Wound Center Nurse 2 3. L sergio DE JESUS cluster -Time 10:38 -Correct Patient Yes -Correct Side, Site, Position Yes -Correct Procedure Yes -Procedure Performed Yes -Type of Procedure Debridement -Clinical Debridement Subcutaneous -Tissue Removed Subcutaneous -Post Debridement (cm) - Length 1.5 -Post Debridement (cm) - Width 4.0 -Post Debridement (cm) - Depth 0.1 -Total Square (Post) (cm) 6.00 -Area of Debridement (cm) - Length 4.5 -Area of Debridement (cm) - Width 4.0 -Total Square (Area) (cm) 18.00 -Tunneling No -Undermining/Tunneling No -Circular Undermining No -Wound/Ulcer Outcome Not Healed -Ulcer Cleansing Rinsed/ Irrigated with Saline -Foul Odor after Cleansing No -Bioengineered Tissue Yes -Type of Bioengineered Tissue Epifix Mesh -Expiration Date 06/02/25 -Product Lot Number [id number] -Percent Used 100 -Saline Lot Number [id number] -Bleeding Controlled with Pressure -Offloading No -Treatment Response Procedure Tolerated Well -Debridement - Subq, 1st 20sq cm No -Apply Skin Sub - 1st 25 sq cm - Legs 1 -Epifix Mesh (per sq cm) 11 Pain Scale: 0-10 Numeric Is Patient Pain Free? Yes WC - Nurse 3 - General Ulcer D/C NN Start: 08/08/20 07:55 Freq: Status: Active Protocol: Activity Type Activity Date Activity User E-Sign Co-Sign Detail Recorded Client Recorded Date Recorded By Document 10/07/20 08:30 MS [id number] 08/08/20 08:38 MS Document 08/15/20 08:19 MW [id number] 08/15/20 08:29 MW Document 08/22/20 08:37 MS [id number] 08/22/20 08:43 MS Document 08/29/20 10:58 MT [id number] 08/29/20 10:59 MT 08/08/20 08/15/20 08/22/20 08:30 08:19 08:37 Wound Care Nurse 3 3. L lateral LE cluster -Ulcer Cleansing Rinsed/ Rinsed/ Not Cleansed Irrigated with Irrigated with Saline Saline -Foul Odor after Cleansing No No No -Negative Pressure Wound Therapy N/A N/A -Primary Dressing Applied Aquacel Extra, Fibracol Plus NonAdherent 4x4 Contact Layer -Primary Dressing Covered/Secured with Dry Gauze & Dry Gauze & Dry Gauze, Roll Gauze Roll Gauze Secured with Tape -Aquacel Extra 2 -Fibracol Plus 4x4 2 Left -Lotion applied to leg before No compression wrap -Size of Tubigrip Used Size F -Size F ($) 1 -Other PATIENT OWN TUBIGRIP Treatment Response Procedure Tolerated Well Temperature (97.8 F-99.1 F) 98.0 F Temperature Source Temporal Vital Signs Pulse Rate (60-100 beats/min) 70 64 62 Pulse Location Monitor Monitor Monitor Respiratory Rate (12-18 breaths/min) 18 Respiratory rate source Observation Oxygen Delivery Method Room Air Blood Pressure (90/60-120/80 mm Hg) 144/77 H 136/80 H 129/78 H Blood Pressure Mean (mm Hg) 99 98 95 Source Monitor Monitor Monitor Position Sitting Sitting Sitting Blood Pressure Location Left Arm Left Arm Right Arm Pain Scale: 0-10 Numeric Is Patient Pain Free? Yes Yes Yes Teaching: Wound Center Dressing Your Wound -Person Taught Patient -Teaching Method Discussion -Response to teaching Verbalize understanding WC - Visit Discharge Discharge Condition Stable Stable Stable Ambulatory Status Ambulatory Ambulatory Ambulatory Transportation Private Auto Private Auto Accompanied by self Medication Reconcilliation completed & Yes No provided to patient/care provider Clinical Summary of Care Provided Yes Yes 08/29/20 10:58 Wound Care Nurse 3 3. L lateral LE cluster -Ulcer Cleansing -Foul Odor after Cleansing -Negative Pressure Wound Therapy -Primary Dressing Applied -Primary Dressing Covered/Secured with -Aquacel Extra -Fibracol Plus 4x4 Left -Lotion applied to leg before compression wrap -Size of Tubigrip Used -Size F ($) -Other Treatment Response Temperature (97.8 F-99.1 F) Temperature Source Vital Signs Pulse Rate (60-100 beats/min) 85 Pulse Location Monitor Respiratory Rate (12-18 breaths/min) 20 H Respiratory rate source Observation Oxygen Delivery Method Blood Pressure (90/60-120/80 mm Hg) 150/80 H Blood Pressure Mean (mm Hg) 103 Source Monitor Position Semi-Fowlers Blood Pressure Location Left Arm Pain Scale: 0-10 Numeric Is Patient Pain Free? Teaching: Wound Center Dressing Your Wound -Person Taught -Teaching Method -Response to teaching WC - Visit Discharge Discharge Condition Stable Ambulatory Status Ambulatory Transportation Private Auto Accompanied by Medication Reconcilliation completed & provided to patient/care provider Clinical Summary of Care Provided Wound debrided: Adderall cluster Anesthesia Used: 5% Lidocaine Gel Depth: Down to and including healthy tissue Instrument Used: 7mm curette Tissue Removed: Fibrin some devitalized tissue Severity: Limited To Skin Breakdown Assessment/Plan Active Problems (Last Reviewed 06/25/20 @ 09:39 by Lizette Gabriel) Nonhealing nonsurgical wound with fat layer exposed (Acute) Edema of both lower legs due to peripheral venous insufficiency (Chronic) Atherosclerosis of coronary artery of [place] without angina pectoris (Chronic) BMS to small ramus subbranch in October 2012 at [facility]; Morbid obesity with BMI of 45.0-49.9, adult (Chronic) Venous insufficiency of left lower extremity (Chronic) Peripheral vascular occlusive disease (Chronic) Assessment: Edema bilateral lower legs. Nonhealing nonsurgical wound. Peripheral venous occlusive disease. Hypertension. Hypercholesterolemia Plan: Epi fix #2 applied covered with gauze and tape Steri-Strips. Not to change dressing covered while showering. Double layer Tubigrip. Follow-up in 1 week
== END 2020-09-01 23:59 ==
LOC: WC 10:15
PROVIDERS: PCP Family Medicine; Referring Provider Nurse Practitioner; Visit Provider Nurse Practitioner
DX: I73.9 Peripheral vascular disease, unspecified (principal); S81.832A Puncture wound without foreign body, left lower leg, initial encounter; W30.89XA Contact with other specified agricultural machinery, initial encounter; Y93.H2 Activity, gardening and landscaping; I87.2 Venous insufficiency (chronic) (peripheral); E66.01 Morbid (severe) obesity due to excess calories; Z68.42 Body mass index [BMI] 45.0-49.9, adult; I25.10 Atherosclerotic heart disease of native coronary artery without angina pectoris; R60.0 Localized edema; I10 Essential (primary) hypertension; E78.00 Pure hypercholesterolemia, unspecified
CPT/HCPCS: 11042; 15271; 93923; 93970; Q4186

== ENCOUNTER 2020-09-12 08:15 | Outpatient (RCR) | payer BC, SELFPAY ==
[2020-09-02 00:30] VITALS: BP 150/80; PULSE 85; RESP 20; TEMP 36.3
[2020-09-05 08:20] VITALS: BP 130/92; PULSE 69; RESP 16; TEMP 35.7; BMI 44.1
[2020-09-05 08:58] VITALS: BP 135/90; PULSE 70
--- NOTE | 2020-09-05 09:19 | PN.PCM_ITS ---
(1) Nonhealing nonsurgical wound with fat layer exposed Status: Acute Code(s): T14.8XXA - Other injury of unspecified body region, initial encounter (2) Atherosclerosis of coronary artery of [place] heart without angina pectoris Status: Chronic Qualifiers: Code(s): I25.10 - Atherosclerotic heart disease of [place] coronary artery without angina pectoris Comment: BMS to small ramus subbranch in October 2012 at [facility]; (3) Edema of both lower legs due to peripheral venous insufficiency Status: Chronic Code(s): I87.2 - Venous insufficiency (chronic) (peripheral); R60.9 - Edema, unspecified (4) History of DVT (deep vein thrombosis) Status: Chronic Code(s): Z86.718 - Personal history of other venous thrombosis and embolism (5) Morbid obesity with BMI of 45.0-49.9, adult Status: Chronic Code(s): E66.01 - Morbid (severe) obesity due to excess calories; Z68.42 - Body mass index [BMI] 45.0-49.9, adult (6) Peripheral vascular occlusive disease Status: Chronic Code(s): I73.9 - Peripheral vascular disease, unspecified (7) Venous insufficiency of left lower extremity Status: Chronic Code(s): I87.2 - Venous insufficiency (chronic) (peripheral) Type of Wound Date of Service: 09/05/20 Chief Complaint: Left lower extremity traumatic ulcer History of Wound: 60-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 He states it never bled and that he has been using naso-sjj-qvyvnan and then he was using Bactroban ointment and then recently he was been using something with zinc. Still open 6 weeks later no redness or swelling around the area. Patient has history of vein stripping on left lower leg that is left both legs actually suffers from edema and probably has peripheral vascular disease and possibly peripheral arterial disease from his smoking habit he still smokes 1 pack a day. Progress of Wound: The the right lateral part of the cluster is healed and now the deepest part of the wound is almost healed and probably should be healed within 1 week. We will continue with treatment and compression. Epi fix #3 applied cultures came back rare for different bacteria we will continue to monitor. He has an appointment with Dr. Blancas today Thursday . Arterial flow looks good there is no problems with arteries. - Physical Exam Vital Signs Temp Pulse Resp BP 96.2 F L 70 16 135/90 H 09/05/20 08:20 11 08:58 09/05/20 08:20 09/05/20 08:58 General: Oriented x3, Cooperative, Well developed HEENT: Atraumatic, PERRLA Oral: Moist Mucosa Neck: Supple, No JVD Lungs: Clear to auscultation, Normal air movement Cardiovascular: Regular rate, Regular Rhythm Abdomen: Bowel Sounds Present, Soft, Non Tender, No Hepato-splenomegaly Extremities: No clubbing, No edema Skin: Ulcer/ Wound - Cluster wound that is now only 1 wound on the left lateral lower leg from trauma Wound Measurements and Assessment WC - Nurse 1 - General Ulcer Measurement Start: 09/05/20 08:20 Freq: Status: Active Protocol: Activity Type Activity Date Activity User E-Sign Co-Sign Detail Recorded Client Recorded Date Recorded By Document 09/05/20 08:20 MS [id number] 09/05/20 08:28 MS 09/05/20 08:20 Wound Center Nurse 1 [Ulcer Assessment] 3. L lateral LE cluster -Current Size (cm) - Length 0.5 -Current Size (cm) - Width 1 -Current Size (cm) - Depth 0.1 -Total Square Cm 0.5 -Epithelialization Large 67-100% -Exudate Amt Small -Exudate Type Serosanguineous -Wound Margin Distinct, Outline Attached -Granulation Amt Large (67-100%) -Granulation Quality [place] -Slough/Fibrin Yes -Necrosis Amt Small (1-33%) -Necrotic Tissue Type Adherent Slough -Texture (Tenisha-wound Skin Appearance) No Abnormality, Assessed -Moisture (Tenisha-wound Skin Appearance No Abnormality, ) Assessed -Color (Tenisha-wound Skin Appearance) No Abnormality, Hemosiderin Staining -Temperature (Tenisha-wound Skin No Abnormality Appearance) (Pt Warm) -Tenderness on Palpation (Tenisha-wound No Skin Appearance) -Ulcer Cleansing Rinsed/ Irrigated with Saline -Foul Odor after Cleansing No -Anesthetic Used 4% Lidocaine Solution WC - Nurse 2 - General Ulcer CM Notes Start: 09/05/20 08:20 Freq: Status: Active Protocol: Activity Type Activity Date Activity User E-Sign Co-Sign Detail Recorded Client Recorded Date Recorded By Document 09/05/20 08:43 MW [id number] 09/05/20 08:48 MW 09/05/20 08:43 Wound Center Nurse 2 [Procedure/Treatment] -Time 08:43 -Correct Patient Yes -Correct Side, Site, Position Yes -Correct Procedure Yes -Procedure Performed Yes -Type of Procedure Debridement -Clinical Debridement Subcutaneous -Tissue Removed Subcutaneous -Post Debridement (cm) - Length 0.6 -Post Debridement (cm) - Width 0.4 -Post Debridement (cm) - Depth 0.1 -Total Square (Post) (cm) 0.24 -Area of Debridement (cm) - Length 0.6 -Area of Debridement (cm) - Width 0.4 -Total Square (Area) (cm) 0.24 -Tunneling No -Undermining/Tunneling No -Circular Undermining No -Wound/Ulcer Outcome Not Healed -Ulcer Cleansing Rinsed/ Irrigated with Saline -Foul Odor after Cleansing No -Bioengineered Tissue Yes -Type of Bioengineered Tissue Epifix 18mm Disc -Expiration Date 04/02/25 -Product Lot Number [id number] -Percent Used 100 -Saline Lot Number [id number] -Bleeding Controlled with Pressure -Offloading No -Treatment Response Procedure Tolerated Well -Debridement - Subq, 1st 20sq cm No -Apply Skin Sub - 1st 25 sq cm - Legs 1 -Epifix 18mm Disc 3 Query Text:18mm = 3 [See Physician Procedure note for Specifics] Pain Scale: 0-10 Numeric [Pain] -Is Patient Pain Free? Yes WC - Nurse 3 - General Ulcer D/C NN Start: 09/05/20 08:20 Freq: Status: Active Protocol: Activity Type Activity Date Activity User E-Sign Co-Sign Detail Recorded Client Recorded Date Recorded By Document 09/05/20 08:58 FL [id number] 09/05/20 09:00 MT 09/05/20 08:58 Wound Care Nurse 3 [Wound Dressing] 3. L lateral LE cluster -Primary Dressing Covered/Secured Dry Gauze, with Secured with Tape [Compression Applied] Left -Tubular Bandage Double Layer -Size of Tubigrip Used Size F -Size F ($) 1 Vital Signs [Pulse] -Pulse Rate (60-100 beats/min) 70 -Pulse Location Monitor [Respirations] -Oxygen Delivery Method Room Air [Blood Pressure] -Blood Pressure (90/60-120/80 mm Hg) 135/90 H -Blood Pressure Mean (mm Hg) 105 -Source Monitor -Position Sitting -Blood Pressure Location Right Arm Pain Scale: 0-10 Numeric [Pain] -Is Patient Pain Free? Yes WC - Visit Discharge [Visit Discharge Information] -Discharge Condition Stable -Ambulatory Status Ambulatory -Transportation Private Auto -Medication Reconcilliation completed No & provided to patient/care provider -Clinical Summary of Care Provided Yes -Notes: dont get dressing wet. Musculoskeletal: No Tenderness to Palpation of Joints or Extremities Lymphatic: No Cervical, Supraclavicular, or Inguinal Adenopathy Neurological: Cranial nerves II-XII grossly intact, Neuro grossly intact Psych/Mental Status: Normal Affect, Appropriate, Alert and oriented to time, place, person, mood and affect Debridement Note Post-Debridement Measurements/Treatment WC - Nurse 2 - General Ulcer CM Notes Start: 09/05/20 08:20 Freq: Status: Active Protocol: Activity Type Activity Date Activity User E-Sign Co-Sign Detail Recorded Client Recorded Date Recorded By Document 09/05/20 08:43 MW [id number] 09/05/20 08:48 MW 09/05/20 08:43 Wound Center Nurse 2 3. L lateral LE cluster -Time 08:43 -Correct Patient Yes -Correct Side, Site, Position Yes -Correct Procedure Yes -Procedure Performed Yes -Type of Procedure Debridement -Clinical Debridement Subcutaneous -Tissue Removed Subcutaneous -Post Debridement (cm) - Length 0.6 -Post Debridement (cm) - Width 0.4 -Post Debridement (cm) - Depth 0.1 -Total Square (Post) (cm) 0.24 -Area of Debridement (cm) - Length 0.6 -Area of Debridement (cm) - Width 0.4 -Total Square (Area) (cm) 0.24 -Tunneling No -Undermining/Tunneling No -Circular Undermining No -Wound/Ulcer Outcome Not Healed -Ulcer Cleansing Rinsed/ Irrigated with Saline -Foul Odor after Cleansing No -Bioengineered Tissue Yes -Type of Bioengineered Tissue Epifix 18mm Disc -Expiration Date 04/02/25 -Product Lot Number [id number] -Percent Used 100 -Saline Lot Number [id number] -Bleeding Controlled with Pressure -Offloading No -Treatment Response Procedure Tolerated Well -Debridement - Subq, 1st 20sq cm No -Apply Skin Sub - 1st 25 sq cm - Legs 1 -Epifix 18mm Disc 3 Query Text:18mm = 3 Pain Scale: 0-10 Numeric Is Patient Pain Free? Yes - Nurse 3 - General Ulcer D/C NN Start: 09/05/20 08:20 Freq: Status: Active Protocol: Activity Type Activity Date Activity User E-Sign Co-Sign Detail Recorded Client Recorded Date Recorded By Document 09/05/20 08:58 FL [id number] 09/05/20 09:00 FL 09/05/20 08:58 Wound Care Nurse 3 3. L lateral LE cluster -Primary Dressing Covered/Secured with Dry Gauze, Secured with Tape Left -Tubular Bandage Double Layer -Size of Tubigrip Used Size F -Size F ($) 1 Vital Signs Pulse Rate (60-100 beats/min) 70 Pulse Location Monitor Oxygen Delivery Method Room Air Blood Pressure (90/60-120/80 mm Hg) 135/90 H Blood Pressure Mean (mm Hg) 105 Source Monitor Position Sitting Blood Pressure Location Right Arm Pain Scale: 0-10 Numeric Is Patient Pain Free? Yes WC - Visit Discharge Discharge Condition Stable Ambulatory Status Ambulatory Transportation Private Auto Medication Reconcilliation completed & No provided to patient/care provider Clinical Summary of Care Provided Yes Notes: dont get dressing wet. Assessment/Plan Active Problems (Last Reviewed 06/25/20 @ 09:39 by Lizette Gabriel) Nonhealing nonsurgical wound with fat layer exposed (Acute) Edema of both lower legs due to peripheral venous insufficiency (Chronic) Atherosclerosis of coronary artery of [place] heart without angina pectoris (Chronic) BMS to small ramus subbranch in October 2012 at [facility]; History of DVT (deep vein thrombosis) (Chronic) Morbid obesity with BMI of 45.0-49.9, adult (Chronic) Venous insufficiency of left lower extremity (Chronic) Peripheral vascular occlusive disease (Chronic) Assessment: Edema bilateral lower legs. Nonhealing nonsurgical wound. Peripheral venous occlusive disease. Hypertension. Hypercholesterolemia Plan: Epi fix #3 applied covered with Adaptic comfort , Steri-Strips gauze. Not to change dressing covered while showering. Double layer Tubigrip. Follow-up in 1 week
[2020-09-12 08:10] VITALS: BP 135/75; PULSE 72; RESP 16; TEMP 36.1; BMI 44.1
--- NOTE | 2020-09-12 08:53 | PN.PCM_ITS ---
(1) Nonhealing nonsurgical wound with fat layer exposed Status: Acute Code(s): T14.8XXA - Other injury of unspecified body region, initial encounter (2) Atherosclerosis of coronary artery of [place] heart without angina pectoris Status: Chronic Qualifiers: Code(s): I25.10 - Atherosclerotic heart disease of [place] coronary artery without angina pectoris Comment: BMS to small ramus subbranch in October 2012 at [facility]; (3) Edema of both lower legs due to peripheral venous insufficiency Status: Chronic Code(s): I87.2 - Venous insufficiency (chronic) (peripheral); R60.9 - Edema, unspecified (4) History of DVT (deep vein thrombosis) Status: Chronic Code(s): Z86.718 - Personal history of other venous thrombosis and embolism (5) Morbid obesity with BMI of 45.0-49.9, adult Status: Chronic Code(s): E66.01 - Morbid (severe) obesity due to excess calories; Z68.42 - Body mass index [BMI] 45.0-49.9, adult (6) Peripheral vascular occlusive disease Status: Chronic Code(s): I73.9 - Peripheral vascular disease, unspecified (7) Venous insufficiency of left lower extremity Status: Chronic Code(s): I87.2 - Venous insufficiency (chronic) (peripheral) Type of Wound Date of Service: 09/12/20 Chief Complaint: Left lower extremity traumatic ulcer History of Wound: 60-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 He states it never bled and that he has been using [id number]-qof-gkrteky and then he was using Bactroban ointment and then recently he was been using something with zinc. Still open 6 weeks later no redness or swelling around the area. Patient has history of vein stripping on left lower leg that is left both legs actually suffers from edema and probably has peripheral vascular disease and possibly peripheral arterial disease from his smoking habit he still smokes 1 pack a day. Progress of Wound: Left lateral ankle wound is healed patient be discharged from the wound center. Patient will be following up with Dr. Blancas for further procedures on his left leg. - Physical Exam Vital Signs Temp Pulse Resp BP 97 F L 72 16 135/75 H 09/12/20 08:10 09/12/20 08:10 09/12/20 08:10 09/12/20 08:10 General: Oriented x3, Cooperative, Well developed HEENT: Atraumatic, PERRLA Oral: Moist Mucosa Neck: Supple, No JVD Lungs: Clear to auscultation, Normal air movement Cardiovascular: Regular rate, Regular Rhythm Abdomen: Bowel Sounds Present, Soft, Non Tender, No Hepato-splenomegaly Extremities: No clubbing, No edema Wound Measurements and Assessment WC - Nurse 1 - General Ulcer Measurement Start: 09/05/20 08:20 Freq: Status: Active Protocol: Activity Type Activity Date Activity User E-Sign Co-Sign Detail Recorded Client Recorded Date Recorded By Document 09/12/20 08:10 BMF [id number] 09/12/20 08:16 BMF 09/12/20 08:10 Wound Center Nurse 1 [Ulcer Assessment] 3. L lateral LE cluster -Combined with other wound No -Current Size (cm) - Length 0.1 -Current Size (cm) - Width 0.1 -Current Size (cm) - Depth 0.1 -Total Square Cm 0.01 -Epithelialization Large 67-100% -Tunneling No -Undermining/Tunneling No -Circular Undermining No -Slough/Fibrin Yes -Necrosis Amt Small (1-33%) -Necrotic Tissue Type Adherent Slough -Texture (Tenisha-wound Skin Appearance) Assessed, Scarring -Moisture (Tenisha-wound Skin Appearance Assessed,Dry/ ) Scaly -Temperature (Tenisha-wound Skin No Abnormality Appearance) (Pt Warm) -Tenderness on Palpation (Tenisha-wound No Skin Appearance) -Ulcer Cleansing soapy water -Foul Odor after Cleansing No -Anesthetic Used 4% Lidocaine Solution [Edema Assessment] -Lower Limb Edema Present Yes -Left Calf (cm) 45.2 -Left Ankle (cm) 29.6 WC - Nurse 2 - General Ulcer CM Notes Start: 09/05/20 08:20 Freq: Status: Active Protocol: Activity Type Activity Date Activity User E-Sign Co-Sign Detail Recorded Client Recorded Date Recorded By Document 09/12/20 08:28 MW [id number] 09/12/20 08:29 MW 09/12/20 08:28 Wound Center Nurse 2 [Procedure/Treatment] 3. L lateral LE cluster -Time 08:28 -Correct Patient Yes -Correct Side, Site, Position Yes -Correct Procedure Yes -Procedure Performed No -Post Debridement (cm) - Length 0 -Post Debridement (cm) - Width 0 -Post Debridement (cm) - Depth 0 -Total Square (Post) (cm) 0 -Wound/Ulcer Outcome Healed- Epithelialized [See Physician Procedure note for Specifics] WC - Nurse 3 - General Ulcer D/C NN Start: 09/05/20 08:20 Freq: Status: Active Protocol: Activity Type Activity Date Activity User E-Sign Co-Sign Detail Recorded Client Recorded Date Recorded By Document 09/12/20 08:38 [facility] [id number] 09/12/20 08:38 [facility] 09/12/20 08:38 Wound Care Nurse 3 [Compression Applied] Left -Other pt will apply own tubi at home Vital Signs [Comments] -Comment healed Pain Scale: 0-10 Numeric [Pain] -Is Patient Pain Free? Yes - Visit Discharge [Visit Discharge Information] -Discharge Condition Stable -Ambulatory Status Ambulatory -Transportation Private Auto Musculoskeletal: No Tenderness to Palpation of Joints or Extremities Lymphatic: No Cervical, Supraclavicular, or Inguinal Adenopathy Neurological: Cranial nerves II-XII grossly intact, Neuro grossly intact Psych/Mental Status: Normal Affect, Appropriate Debridement Note Post-Debridement Measurements/Treatment [id number] - Nurse 2 - General Ulcer CM Notes Start: 09/05/20 08:20 Freq: Status: Active Protocol: Activity Type Activity Date Activity User E-Sign Co-Sign Detail Recorded Client Recorded Date Recorded By Document 09/05/20 08:43 MW [id number] 09/05/20 08:48 MW Document 09/12/20 08:28 MW [id number] 09/12/20 08:29 MW 09/05/20 09/12/20 08:43 08:28 Wound Center Nurse 2 3. L lateral LE cluster -Time 08:43 08:28 -Correct Patient Yes Yes -Correct Side, Site, Position Yes Yes -Correct Procedure Yes Yes -Procedure Performed Yes No -Type of Procedure Debridement -Clinical Debridement Subcutaneous -Tissue Removed Subcutaneous -Post Debridement (cm) - Length 0.6 0 -Post Debridement (cm) - Width 0.4 0 -Post Debridement (cm) - Depth 0.1 0 -Total Square (Post) (cm) 0.24 0 -Area of Debridement (cm) - Length 0.6 -Area of Debridement (cm) - Width 0.4 -Total Square (Area) (cm) 0.24 -Tunneling No -Undermining/Tunneling No -Circular Undermining No -Wound/Ulcer Outcome Not Healed Healed- Epithelialized -Ulcer Cleansing Rinsed/ Irrigated with Saline -Foul Odor after Cleansing No -Bioengineered Tissue Yes -Type of Bioengineered Tissue Epifix 18mm Disc -Expiration Date 04/02/25 -Product Lot Number [id number] -Percent Used 100 -Saline Lot Number [id number] -Bleeding Controlled with Pressure -Offloading No -Treatment Response Procedure Tolerated Well -Debridement - Subq, 1st 20sq cm No -Apply Skin Sub - 1st 25 sq cm - Legs 1 -Epifix 18mm Disc 3 Pain Scale: 0-10 Numeric Is Patient Pain Free? Yes - Nurse 3 - General Ulcer D/C NN Start: 09/05/20 08:20 Freq: Status: Active Protocol: Activity Type Activity Date Activity User E-Sign Co-Sign Detail Recorded Client Recorded Date Recorded By Document 09/05/20 08:58 [place] [id number] 09/05/20 09:00 [place] Document 09/12/20 08:38 [facility] [id number] 09/12/20 08:38 [facility] 09/05/20 09/12/20 08:58 08:38 Wound Care Nurse 3 -Primary Dressing Covered/Secured with Dry Gauze, Secured with Tape Left -Tubular Bandage Double Layer -Size of Tubigrip Used Size F -Size F ($) 1 -Other pt will apply own tubi at home Vital Signs Pulse Rate (60-100 beats/min) 70 Pulse Location Monitor Oxygen Delivery Method Room Air Blood Pressure (90/60-120/80 mm Hg) 135/90 H Blood Pressure Mean (mm Hg) 105 Source Monitor Position Sitting Blood Pressure Location Right Arm Comment healed Pain Scale: 0-10 Numeric Is Patient Pain Free? Yes Yes - Visit Discharge Discharge Condition Stable Stable Ambulatory Status Ambulatory Ambulatory Transportation Private Auto Private Auto Medication Reconcilliation completed & No provided to patient/care provider Clinical Summary of Care Provided Yes Notes: dont get dressing wet. No debridement was completed today Assessment/Plan Active Problems (Last Reviewed 06/25/20 @ 09:39 by Lizette Gabriel) Nonhealing nonsurgical wound with fat layer exposed (Acute) Edema of both lower legs due to peripheral venous insufficiency (Chronic) Atherosclerosis of coronary artery of [place] heart without angina pectoris (Chronic) BMS to small ramus subbranch in October 2012 at [facility]; History of DVT (deep vein thrombosis) (Chronic) Morbid obesity with BMI of 45.0-49.9, adult (Chronic) Venous insufficiency of left lower extremity (Chronic) Peripheral vascular occlusive disease (Chronic) Assessment: Edema bilateral lower legs. Nonhealing nonsurgical wound resolved. Peripheral venous occlusive disease. Hypertension. Hypercholesterolemia Plan: Discharge from the wound center follow-up as needed
== END 2020-09-12 09:46 | disposition home or self-care (01) ==
LOC: WC 08:15
PROVIDERS: PCP Family Medicine; Referring Provider Nurse Practitioner; Visit Provider Nurse Practitioner
DX: I73.9 Peripheral vascular disease, unspecified (principal); I25.10 Atherosclerotic heart disease of native coronary artery without angina pectoris; Z86.718 Personal history of other venous thrombosis and embolism; E66.01 Morbid (severe) obesity due to excess calories; Z68.42 Body mass index [BMI] 45.0-49.9, adult; I87.2 Venous insufficiency (chronic) (peripheral); E78.00 Pure hypercholesterolemia, unspecified; R60.0 Localized edema; I10 Essential (primary) hypertension; S81.802A Unspecified open wound, left lower leg, initial encounter; W20.8XXA Other cause of strike by thrown, projected or falling object, initial encounter; Y93.H2 Activity, gardening and landscaping; Y92.89 Other specified places as the place of occurrence of the external cause
CPT/HCPCS: 15271; 99212; Q4186; G0463

== ENCOUNTER → 2020-09-18 07:39 | Outpatient (CLI) | payer BC, SELFPAY ==
[2020-09-12 09:47] VITALS: BMI 44.7
[2020-09-18 09:52] LABS: Absolute Lymphocyte Count 1.85 X10^3/uL (0.83-4.51); Absolute Neutrophil Count 5.1 X10^3/uL (2.0-7.7); Basophil# 0.06 X10^3/uL; Basophil% 0.8 % (0-1); Eosinophil# 0.24 X10^3/uL; Hematocrit 49.8 % (40-54); Hemoglobin 16.2 g/dL (13.0-16.5); Lymphocyte # 1.85 X10^3/ul (4.0); Lymphocyte % 23.2 % (19-41); Mean Corp Hgb Conc 32.5 g/dL (32-36); Mean Corpuscular Hgb 29.1 pg (27.0-32.0); Mean Corpuscular Volume 89.6 fL (80-94); Mean Platelet Vol. 9.5 fl (6.2-12.0); Monocyte# 0.67 X10^3/uL; Monocyte% 8.4 % (0-10); NRBC Flagged by Analyzer 0 % (0-5); Neutrophil # 5.13 X10^3/uL (2.7-7.7); Neutrophil % 64.3 % (47-70); Platelet Count 226 K/mm3 (150-450); RBC Distribution Width CV 13.2 % (11.6-14.6); RBC Distribution Width SD 43.8 fl (35.1-43.9); Red Blood Count 5.56 M/mm3 (4.6-6.2)
[2020-09-18 10:13] LABS: ALB/GLOB Ratio 0.9 RATIO (0.9-2.4); AST(SGOT) 11 U/L (15-37); Alanine Aminotransfer ALT/SGPT 30 U/L (16-61); Albumin, Serum 3.4 g/dL (3.2-5.0); Alkaline Phosphatase 49 U/L (45-117); Anion Gap 4 (5-15); BUN 19 mg/dL (7-18); BUN/Creat Ratio 20.8 RATIO (10-20); Chloride 109 mmol/L (98-107); Cholesterol 133 mg/dL (200); Creatinine, Serum 0.91 mg/dL (0.70-1.30); EST Glomerular Filtration Rate 91 mL/min (>60); Est Glom Filt Rate - Afr Amer 110 mL/min (>60); Globulin 3.7 g/dL (2.2-4.2); Glucose 121 mg/dL (74-106); Hemoglobin A1c 6.1 % (3.8-5.6); High Density Lipoprotein 32 mg/dL; Magnesium 2.2 mg/dL (1.6-2.6); Potassium 4.2 mmol/L (3.5-5.1); Protein, Total 7.1 g/dL (6.4-8.2); Sodium Level 140 mmol/L (136-145); Triglycerides 160 mg/dL; Very Low Density Lipoprotein 32 mg/dL (5-40)
== END ==
PROVIDERS: PCP Family Medicine; Referring Provider Family Medicine; Visit Provider Family Medicine
DX: I10 Essential (primary) hypertension (principal); E78.5 Hyperlipidemia, unspecified; R73.02 Impaired glucose tolerance (oral)
CPT/HCPCS: 36415; 80053; 80061; 83036; 83735; 85025

== ENCOUNTER 2020-12-30 13:55 | Emergency (ER) | payer BC, SELFPAY ==
[2020-09-12 09:47] VITALS: BMI 44.7
[2020-12-30 13:56] VITALS: BP 160/85; PULSE 84; RESP 16; TEMP 36.5; O2SAT 95; BMI 48.4
--- NOTE | 2020-12-30 14:48 | ED.DCSUM_ITS ---
- ER Visit Summary Date of Service: 12/30/20 Chief Complaint: Back pain History of Present Illness: The patient is a 60 M who presents with back pain that has been constant for the past 4 days. Patient states he was brushing his teeth when the pain began. Patient states the pain is been constant. Patient states the pain is constant aching but sharp at times. Patient states the pain is across his lower lumbar area. Patient denies any radiation of the pain. Patient denies any paresthesias or weakness. Patient admits to some mild abdominal pain. Patient denies any dysuria or hematuria. Patient denies any loss of bowel or bladder control. Patient does admit to some mild constipation at times. Physical Examination: Vital signs are stable. Patient is afebrile. Patient is in no acute distress. Musculoskeletal exam reveals tenderness over the lower lumbar spine and paraspinal muscles. There is no bony crepitance or step-off. There is no edema or ecchymosis. Strength is 5/5 bilaterally in lower extremities. There are no sensory deficits noted. Abdomen is soft. Bowel sounds are normal. There is no tenderness. There is no rebound or guarding noted. Test Results: X-rays of the lumbar spine were obtained. There are 3 views. On my interpretation, there are degenerative changes. There is no acute fracture. There is no spondylolisthesis or spondylolysis. Radiologist also interpreted the x-rays and agrees. Urinalysis was obtained. There is no evidence of urinary tract infection. Emergency Department Course and Treatment: Patient was given an injection of morphine here. Patient feels better on reevaluation. Patient was given prescription for [place]. Patient was instructed to follow-up with his primary care physician in 3 to 5 days. Patient understood and was agreeable with the plan. All questions were answered. Disposition: Discharge home Impression: Acute low back pain This note was generated with Friend[employer] dictation software. It may contain incorrect words, spelling, and punctuation that were not noted in review of the chart prior to signing ED Disposition - Plan for ED Patient: Disposition: Home or Assisted Living Diagnosis: Low back pain Instructions: ED Back Sprain/Strain, ED Back and Neck Pain, General Prescriptions: Hydrocodone Bitart/Apap 5-325 [[place] 5MG-325MG] 1 tab PO Q6H PRN PRN 3 Days #10 tab PRN Reason: Pain Prescription Printed Referrals: Emery Alvarenga MD [Primary Care Provider] - 3-5 Days
[2020-12-30] MEDS: Morphine 4 MG/ML Syringe IM (14:54)
--- NOTE | 2020-12-30 15:05 | RAD_ITS ---
STUDY: X-RAY - LUMBAR SPINE REASON FOR EXAM: Male, 60 years old. Pain TECHNIQUE: 3 view(s) of the lumbar spine were obtained. COMPARISON: None FINDINGS: There is no evidence of fracture or dislocation in the lumbar spine. The vertebral body heights are well-maintained. There are mild multilevel degenerative changes. RAD/Lumbar Spine 2 or 3 Views IMPRESSION: No fracture or dislocation in the lumbar spine. Mild degenerative change. Electronically Signed: Cyrus Estrada MD at 15:42 EST Tel , Service support ,
[2020-12-30 15:06] LABS: Bacteria 0 SEEN /hpf (None Seen); Mucous, Urine 0 SEEN /hpf (<or=2+); White Blood Cells 0 SEEN /hpf (0-5)
[2020-12-30 15:10] LABS: Color, Urine Yellow (Yellow); Glucose, Dipstick Normal (Normal); Ketone-Dipstick Negative (Negative); Leukocyte Esterase-Dipstick Negative /ul (Negative); Nitrite-Dipstick Negative (Negative); Occult Blood-Urine 10 /ul (Negative); Protein-Dipstick Negative (Negative); Urine Bilirubin Dipstick Negative (Negative); Urine Clarity Clear (Clear); Urine Urobilinogen 4 mg/dl (Normal)
[2020-12-30 15:21] LABS: Red Blood Cells-Urine 0-5 SEEN /hpf (0-5); Squamous Epithelial Cells - UA 0-5 SEEN /hpf (0-5)
== END 2020-12-30 16:20 | disposition home or self-care (01) ==
PROVIDERS: Emergency Provider Emergency Medicine; PCP Family Medicine
DX: M54.5 Low back pain (principal); E66.9 Obesity, unspecified; Z68.42 Body mass index [BMI] 45.0-49.9, adult; Z72.0 Tobacco use
CPT/HCPCS: 72100; 81001; 96372; 99282

== ENCOUNTER → 2021-03-19 07:25 | Outpatient (CLI) | payer BC, SELFPAY ==
[2021-03-19 07:31] LABS: Bacteria 0 SEEN /hpf (None Seen); Mucous, Urine 0 SEEN /hpf (<or=2+); Red Blood Cells-Urine 0 SEEN /hpf (0-5); White Blood Cells 0 SEEN /hpf (0-5)
[2021-03-19 10:23] LABS: Absolute Lymphocyte Count 2.02 X10^3/uL (0.83-4.51); Absolute Neutrophil Count 5.4 X10^3/uL (2.0-7.7); Basophil# 0.08 X10^3/uL; Basophil% 0.9 % (0-1); Eosinophil# 0.24 X10^3/uL; Eosinophils% 2.8 % (0-5); Hematocrit 52.7 % (40-54); Hemoglobin 17.3 g/dL (13.0-16.5); Lymphocyte # 2.02 X10^3/ul (0.83-4.51); Lymphocyte % 23.8 % (19-41); Mean Corp Hgb Conc 32.8 g/dL (32-36); Mean Corpuscular Hgb 29.3 pg (27.0-32.0); Mean Corpuscular Volume 89.3 fL (80-94); Mean Platelet Vol. 9.9 fl (6.2-12.0); Monocyte# 0.69 X10^3/uL; Monocyte% 8.1 % (0-10); NRBC Flagged by Analyzer 0 % (0-5); Neutrophil # 5.43 X10^3/uL (2.7-7.7); Platelet Count 269 K/mm3 (150-450); RBC Distribution Width CV 14.1 % (11.6-14.6); RBC Distribution Width SD 46.1 fl (35.1-43.9); White Blood Count 8.5 K/mm3 (4.4-11.0)
[2021-03-19 10:26] LABS: Color, Urine Yellow (Yellow); Glucose, Dipstick Normal (Normal); Ketone-Dipstick Negative (Negative); Leukocyte Esterase-Dipstick Negative /ul (Negative); Nitrite-Dipstick Negative (Negative); Occult Blood-Urine Negative /ul (Negative); Protein-Dipstick Negative (Negative); Urine Bilirubin Dipstick Negative (Negative); Urine Clarity Clear (Clear); Urine Urobilinogen Normal (Normal); Urine pH 6.5 (5.0 - 8.0)
[2021-03-19 10:52] LABS: Hemoglobin A1c 6.3 % (3.8-5.6)
[2021-03-19 10:57] LABS: ALB/GLOB Ratio 0.9 RATIO (0.9-2.4); AST(SGOT) 22 U/L (15-37); Alanine Aminotransfer ALT/SGPT 49 U/L (16-61); Albumin, Serum 3.7 g/dL (3.2-5.0); Alkaline Phosphatase 60 U/L (45-117); Anion Gap 7 (5-15); BUN 21 mg/dL (7-18); BUN/Creat Ratio 21.6 RATIO (10-20); Calcium,Total 9.1 mg/dL (8.5-10.1); Chloride 104 mmol/L (98-107); Cholesterol 127 mg/dL (200); Creatinine, Serum 0.97 mg/dL (0.70-1.30); EST Glomerular Filtration Rate 84 mL/min (>60); Est Glom Filt Rate - Afr Amer 102 mL/min (>60); Globulin 4.2 g/dL (2.2-4.2); Glucose 120 mg/dL (74-106); High Density Lipoprotein 34 mg/dL; Potassium 3.7 mmol/L (3.5-5.1); Protein, Total 7.9 g/dL (6.4-8.2); Sodium Level 139 mmol/L (136-145); Squamous Epithelial Cells - UA 0-5 SEEN /hpf (0-5); Triglycerides 151 mg/dL; Very Low Density Lipoprotein 30 mg/dL (5-40)
== END ==
PROVIDERS: PCP Family Medicine; Referring Provider Family Medicine; Visit Provider Family Medicine
DX: I25.10 Atherosclerotic heart disease of native coronary artery without angina pectoris (principal); E78.5 Hyperlipidemia, unspecified; R73.02 Impaired glucose tolerance (oral)
CPT/HCPCS: 36415; 80053; 80061; 81001; 83036; 85025

== ENCOUNTER 2021-06-28 08:15 | Outpatient (RCR) | payer OTHER, SELFPAY ==
[2021-04-09 09:00] VITALS: BMI 46.7
[2021-06-07 08:09] VITALS: BP 116/69; PULSE 62; RESP 24; TEMP 36.2; BMI 46.7
--- NOTE | 2021-06-07 13:06 | HP.PCM_ITS ---
History of Present Illness Date of Service: 06/07/21 Chief Complaint: Left lateral leg ulcers History of Wound: Cyrus is a pleasant 60-year-old male who presents to the wound healing center today for evaluation of a new wound to his left lateral leg. He is a known patient to the wound healing center. He has a past medical history significant for CAD (s/p cardiac stent), NSTEMI, right bundle sherri block, hypertension, hyperlipidemia, peripheral vascular disease, morbid obesity, and nicotine dependence. He states the ulcers of his left lateral leg began spontaneously 2 weeks ago. He began using Aquacel Extra dressings daily at onset. He has noted improvement in the size of his wound with the use of Aquacel Extra dressing changes. He denies redness, warmth, pain, or purulent/malodorous drainage from the wound. He denies any fever chills, or decreased appetite. He had arterial studies in August 2020 which showed no significant arterial occlusive disease. He had venous studies in August 2020 which showed venous incompetence in the bilateral lower extremities (Deep veins of the lower extremities are bilaterally patent and compressible segmentally. There is no evidence of deep vein thrombosis on either side. Valvular competence appears intact within the proximal deep venous systems bilaterally. The right sapheno- femoral junction is competent . The left sapheno-femoral junction is incompetent . The right great saphenous vein appears segmentally incompetent. The left great saphenous vein has been partially harvested. Short segments of the left great saphenous vein in the groin and at the ankle are incompetent. The right small saphenous vein is patent and competent. The left small saphenous vein has been partially harvested. A short segment of the remaining left small saphenous vein is incompetent. The right lateral accessory saphenous vein at the groin is incompetent. An incompetent patriot missile air defense artillery vein is noted in the right calf, located 7 centimeters proximal to the right medial malleolus. An incompetent patriot missile air defense artillery vein is noted in the left calf, located 8 centimeters proximal to the left medial malleolus.) He underwent vein stripping with Dr. Blancas. He is not fully compliant with compression use. He has double Tubigrip's which she does not wear often. He works with a [employer] company and is on his feet for long periods throughout the day. [facility] Medical History (Updated 06/07/21 @ 13:24 by Janeth Mac LAN ADMINISTRATOR, LAN ADMINISTRATOR-C) Atherosclerosis of coronary artery of [place] heart without angina pectoris cervical mass Edema of both lower legs due to peripheral venous insufficiency Essential (primary) hypertension History of DVT (deep vein thrombosis) History of left heart catheterization (09/07/12) History of non-ST elevation myocardial infarction (NSTEMI) (12/10/11) Hyperlipidemia Morbid obesity with BMI of 45.0-49.9, adult Nicotine dependence Peripheral vascular occlusive disease Right bundle branch block Uninodular goiter Venous insufficiency of both lower extremities Venous stasis ulcer of left lower leg with edema of left lower leg Home Medications lisinopril 20 mg PO DAILY 02/07/15 [History Last Taken 01/26/18 04:00] pravastatin 80 mg PO QHS 02/07/15 [History Last Taken 02/06/15 22:00] metoprolol tartrate 50 mg PO BID 11/06/16 [History Last Taken 01/26/18 04:00] albuterol sulfate 90 mcg/actuation aerosol inhaler 2 puff INHALATION Q6H PRN 12/01/17 [History Last Taken Unknown] furosemide 40 mg tablet 40 mg PO QDAY 12/01/17 [History Last Taken Unknown] aspirin 325 mg tablet 81 mg PO DAILY tab 01/02/20 [History Last Taken Unknown] Allergy/AdvReac Type Severity Reaction Status Date / Time No Known Allergies Allergy Verified 04/09/21 09:01 Family History Mother Atrial fibrillation H/O aortic valve replacement H/O mitral valve replacement Diabetes Father , Age 69, cause not listed No problems noted. Brother Seizures Surgical History History of coronary artery stent placement (12/10/11) History of coronary artery stent placement (12/10/11) History of hip replacement Social History Smoking Status: Current every day smoker tobacco type: cigarettes ROS Constitutional Constitutional: Denies chills, fever(s) or night sweats Eyes Eyes: Denies change in vision or double vision ENT HEENT: Denies lip swelling or tongue swelling Cardiovascular Cardiovascular: Reports leg edema; Denies chest pain or palpitations Respiratory/Chest Respiratory/Chest: Denies cough, shortness of breath at rest, shortness of breath with exertion or wheezing Gastrointestinal Gastrointestinal: Denies diarrhea, nausea or vomiting Genitourinary Genitourinary: Denies dysuria or hematuria Musculoskeletal Musculoskeletal: Denies abnormal gait, extremity pain, muscle weakness, numbness or tingling Integumentary Integumentary: Reports wounds; Denies rash Neurologic Neurologic: Denies abnormal gait, abnormal speech or focal weakness Endocrine Endocrinology: Denies cold intolerance, heat intolerance, polydipsia or polyuria Hematologic/Lymphatic Hematologic/Lymphatic: Denies easy bleeding or easy bruising Vital Signs Vital Signs Vital Signs: 06/07/21 08:09 Temperature 97.1 F L Temperature Source Temporal Pulse Rate 62 Respiratory Rate 24 H Blood Pressure 116/69 Blood Pressure Mean 84 Blood Pressure Source Monitor Weight Body Mass Index (BMI) 46.7 Physical Exam Const alert and no apparent distress General Appearance: cooperative, comfortable and well kempt Nutritional Appearance: obese HEENT Head and Scalp: normocephalic and atraumatic Eyes EOMs intact bilaterally Neck supple and no JVD Resp normal respiratory effort, normal air movement and no use of accessory muscles Auscultation: clear to auscultation bilaterally; Negative for crackles, rales, rhonchi or wheezes Cardio regular rate and regular rhythm GI normal to inspection, nondistended, normoactive bowel sounds Extremity normal capillary refill, no joint enlargement, no calf tenderness and no pedal edema General Extremity: edema bilateral lower extremity Details: moderate; Negative for clubbing or cyanosis Peripheral Pulses: Yes dorsalis pedis pulses present bilateral 2+ Skin Wounds: wounds noted No malodorous Wound Narrative: Left lateral leg ulcer cluster with subcutaneous layer exposed. No tunneling, undermining, or probing to bone. Small amount of slough and devitalized tissue present. Serous drainage noted. No purulent/malodorous drainage. No periulcer erythema, warmth, or tenderness. Neuro oriented x3, moves all extremities and no focal motor deficits Psych mental status grossly normal, cooperative and affect normal Debridement Note Debridement Note Post-Debridement Measurements and Additional Note: Post-Debridement Measurements/Treatment NAHUM - Nurse 1 - General Ulcer Assessment Start: 06/07/21 08:09 Freq: Status: Active Protocol: LOWEXT Activity Type Activity Date Activity User E-Sign Co-Sign Detail Recorded Client Recorded Date Recorded By Document 06/07/21 08:09 DL [id number] 06/07/21 08:29 DL 06/07/21 08:09 WC - Today's Visit Information Type of service Initial Visit Arrival Mode Ambulatory Transfer Assistance None Patient Identification Verified (Name & Yes ) Patient Requires Transmission-Based No Precautions Height and Weight Body Mass Index (BMI) 46.7 BMI Classification Obese Vital Signs Temperature (97.8 F-99.1 F) 97.1 F L Temperature Source Temporal Pulse Rate (60-100) 62 Pulse Location Monitor Respiratory Rate (12-18) 24 H Respiratory rate source Observation Blood Pressure (90/60-120/80) 116/69 Blood Pressure Mean 84 Source Monitor Pain Scale: 0-10 Numeric Is Patient Pain Free? Yes Lower Extremity Assessment/ Foot Assessment/ Toe Nail Assessment Left -Posterior Tibial Palpable Yes -Dorsalis Pedis Palpable Yes -Extremity Color Hemosiderin -Hair Growth on Legs Yes -Hair Growth on Toes Yes -Temperature of Extremity Warm -Capillary Refill Greater than 3 Seconds -Dependent Rubor No -Blanched when Elevated No -Lipodermatosclerosis No -Other Deformity No -Prior Foot Ulcer No -Charcot Joint No -Prior Amputation No -Thick Yes -Discolored Yes -Deformed Yes -Improper Length & Hygeine No Right -Posterior Tibial Palpable Yes -Dorsalis Pedis Palpable Yes -Extremity Color Hemosiderin -Hair Growth on Legs Yes -Hair Growth on Toes Yes -Temperature of Extremity Warm -Capillary Refill Greater than 3 Seconds -Dependent Rubor No -Blanched when Elevated No -Lipodermatosclerosis No -Other Deformity No -Prior Foot Ulcer No -Charcot Joint No -Prior Amputation No -Thick Yes -Discolored Yes -Deformed Yes -Improper Length & Hygeine No Neuropathy Assessment Feet - Top Side and Bottom <Entered> (a) Communication Assessment Preferred language Uzbek Able to Read Yes Able to Write Yes Right Hearing Abillity Normal Left Hearing Abillity Normal Visual Assistive Devices Glasses Teaching Assessment Preferences Verbal,Written, Demonstration Barriers to Learning None Readiness To Learn Good Willingness to Engage in Self Management Med Activies Readiness to Engage in Self Management Med Activities Anxiety Level Calm Cooperation Cooperative Perception Coherent Interest in Health Problem Asks Questions Education Importance Acknowledges Need Does Patient Smoke tobacco or other Yes substances Smoking Status Current every day smoker Is Patient Diabetic No Functional Assessment Recent Decline in Ability to Perform Denies Any Declines Culture/Amish/Stream Control Officer Cultural/Amish Needs that may affect No Treatment Plan Would you allow our hospital refining still operator to No meet you for the purpose of spiritual/ emotional support? Stream Control Officer to contact place of pentecostalism No Teaching: Wound Center Discharge Instructions -Person Taught Patient -Teaching Method Discussion Dressing Your Wound -Person Taught Patient -Teaching Method Discussion *Venous -Person Taught Patient *Welcome to the Wound Center -Person Taught Patient -Teaching Method Discussion Compression Wraps & Stockings -Person Taught Patient -Teaching Method Discussion *Debridement -Person Taught Patient -Teaching Method Discussion Venous Insufficiency -Person Taught Patient -Teaching Method Discussion Control Swelling with Leg Elevation -Person Taught Patient (a) 1 - + WC - Nurse 1 - General Ulcer Measurement Start: 06/07/21 08:09 Freq: Status: Active Protocol: Activity Type Activity Date Activity User E-Sign Co-Sign Detail Recorded Client Recorded Date Recorded By Document 06/07/21 08:09 DL [id number] 06/07/21 08:29 DL 06/07/21 08:09 Wound Center Nurse 1 #4 L Lat LE -Current Size (cm) - Length 1.8 -Current Size (cm) - Width 0.4 -Current Size (cm) - Depth 0.2 -Total Square Cm 0.72 -Photo Taken Yes -Classification - Thickness Full Thickness without Exposed Support Structure -Exudate Amt Small -Exudate Type Serosanguineous -Wound Margin Distinct, Outline Attached -Granulation Amt None Present (0 %) -Necrosis Amt Small (1-33%) -Necrotic Tissue Type Eschar -Structure Exposed N/A -Texture (Tenisha-wound Skin Appearance) Scarring -Moisture (Tenisha-wound Skin Appearance) Dry/Scaly -Color (Tenisha-wound Skin Appearance) Hemosiderin Staining -Temperature (Tenisha-wound Skin No Abnormality Appearance) (Pt Warm) -Ulcer Cleansing Rinsed/ Irrigated with Saline -Foul Odor after Cleansing No -Anesthetic Used 4% Lidocaine Solution Right Calf (cm) 46 Right Ankle (cm) 28 Left Calf (cm) 48.2 Left Ankle (cm) 28.5 Wound debrided: Left lateral lower leg cluster Laterality: Left Type of Debridement: Excisional debridement Depth: in the subcutaneous layer Percentage of wound debrided: 100 Instrument Used: 3mm curette Tissue Removed: Slough and devitalized tissue Severity: Fat Layer Exposed Amount of bleeding with debridement: Mild Bleeding Controlled with: Pressure Patient tolerated procedure: Patient tolerated procedure well Charges/Coding Visit Charges Office Visits / Consults: [id number] OV L4 Est Procedures Integumentary [id number]: [id number] Keturah subq tissue 20 sq cm/< Assessment/Plan Assessment/Plan (1) Venous stasis ulcer of left lower leg with edema of left lower leg: CODE(S): I83.029 - Varicose veins of left lower extremity with ulcer of unspecified site; I83.892 - Varicose veins of left lower extremity with other complications; L97.929 - Non-pressure chronic ulcer of unspecified part of left lower leg with unspecified severity; R60.9 - Edema, unspecified (2) Venous insufficiency of both lower extremities: CODE(S): I87.2 - Venous insufficiency (chronic) (peripheral) (3) Morbid obesity with BMI of 45.0-49.9, adult: CODE(S): E66.01 - Morbid (severe) obesity due to excess calories; Z68.42 - Body mass index [BMI] 45.0-49.9, adult (4) Nicotine dependence: CODE(S): F17.200 - Nicotine dependence, unspecified, uncomplicated QUALIFIERS: Nicotine product type: cigarettes Substance use status: unspecified nicotine-induced disorder Qualified Code(s): F17.219 - Nicotine dependence, cigarettes, with unspecified nicotine-induced disorders PLAN: Debridement performed today in clinic as annotated above. Promogran applied. At home wound-care instructions: Change Promogran dressing once daily or more frequently as needed due to contamination. Wash wounds daily with antibacterial soap and water, rinse and dry thoroughly before each dressing change. Compression: Double Tubigrip's applied for compression. Patient instructed to utilize compression daily. May be removed at bedtime, but should be reapplied before getting out of bed in the morning. Off-loading: The patient was instructed to avoid pressure and friction on the affected areas. Reposition every 2 hours at minimum. Avoid prolonged standing and/or dangling of legs. When seated, feet should be elevated at chest level. Frequent ambulation is encouraged. Diet: Patient encouraged to increase protein intake while taking caution to avoid high carbohydrate and/or sugar intake. Smoking: The risks of smoking and benefits of smoking cessation were discussed with the patient today. The patient is encouraged to quit smoking. If smoking cessation aids are desired, the patient should contact their primary care provider to discuss appropriate options. Labs/cultures/imaging: Cultures deferred today; no clinical signs of infection. Routine baseline lab work ordered. Vascular studies reviewed from August 2020 as annotated above. Follow-up: Return to clinic in 1 week for re-evaluation. Return sooner or report to the emergency room should symptoms worsen, or new symptoms arise. Note: [employer] speech recognition facilitator software was used to create portions of this document. Sound-alike and misspelled words, as well as other facilitator errors may be contained in the documentation.
[2021-06-14 08:23] VITALS: BP 136/76; PULSE 66; TEMP 36.2; BMI 46.7
--- NOTE | 2021-06-14 08:53 | PCM.WC.PN ---
History of Present Illness Date of Service: 06/14/21 Chief Complaint: Left lateral leg ulcers History of Wound: Cyrus is a pleasant 60-year-old male who presents to the wound healing center today for evaluation of a new wound to his left lateral leg. He is a known patient to the wound healing center. He has a past medical history significant for CAD (s/p cardiac stent), NSTEMI, right bundle sherri block, hypertension, hyperlipidemia, peripheral vascular disease, morbid obesity, and nicotine dependence. He states the ulcers of his left lateral leg began spontaneously 2 weeks ago. He began using Aquacel Extra dressings daily at onset. He has noted improvement in the size of his wound with the use of Aquacel Extra dressing changes. He denies redness, warmth, pain, or purulent/malodorous drainage from the wound. He denies any fever chills, or decreased appetite. He had arterial studies in August 2020 which showed no significant arterial occlusive disease. He had venous studies in August 2020 which showed venous incompetence in the bilateral lower extremities (Deep veins of the lower extremities are bilaterally patent and compressible segmentally. There is no evidence of deep vein thrombosis on either side. Valvular competence appears intact within the proximal deep venous systems bilaterally. The right sapheno-femoral junction is competent . The left sapheno-femoral junction is incompetent . The right great saphenous vein appears segmentally incompetent. The left great saphenous vein has been partially harvested. Short segments of the left great saphenous vein in the groin and at the ankle are incompetent. The right small saphenous vein is patent and competent. The left small saphenous vein has been partially harvested. A short segment of the remaining left small saphenous vein is incompetent. The right lateral accessory saphenous vein at the groin is incompetent. An incompetent birth certificate clerk vein is noted in the right calf, located 7 centimeters proximal to the right medial malleolus. An incompetent birth certificate clerk vein is noted in the left calf, located 8 centimeters proximal to the left medial malleolus.) He underwent vein stripping with Dr. Blancas. He is not fully compliant with compression use. He has double Tubigrip's which she does not wear often. He works with a [employer] company and is on his feet for long periods throughout the day. Progress of Wound: Marginal improvement in size and appearance of LLE ulcers today. The patient has 2+ pitting edema of bilateral lower extremities. He reports he has compression stockings at home from Dr. Blancas which he typically wears, however he is not wearing these today. He states he has been on his feet all day and has not been elevating as much as he should. He has had some difficulty with applying Promogran to ulcers. Labs not yet drawn. Objective Data Objective Data Vital Signs: Vital Signs Temp Pulse Resp BP 97.2 F L 66 24 H 136/76 H 06/14/21 08:23 06/14/21 08:23 06/07/21 08:09 06/14/21 08:23 Body Mass Index (BMI) 46.7 Charges/Coding Procedures Integumentary 111xxx-113xx: 86193 Keturah subq tissue 20 sq cm/< Physical Exam Const alert and no apparent distress General Appearance: cooperative, comfortable and well kempt Nutritional Appearance: obese HEENT Head and Scalp: normocephalic and atraumatic Eyes EOMs intact bilaterally Neck supple Resp normal respiratory effort Extremity normal capillary refill and no joint enlargement General Extremity: edema bilateral lower extremity Details: moderate (2+ pitting edema); Negative for clubbing or cyanosis Peripheral Pulses: Yes dorsalis pedis pulses present bilateral 2+ Skin Wounds: wounds noted No malodorous Wound Narrative: Left lateral leg ulcer cluster with subcutaneous layer exposed. No tunneling, undermining, or probing to bone. Small amount of slough and devitalized tissue present. Good granulation tissue present. Scant serous drainage noted. No purulent/malodorous drainage. No periulcer erythema, warmth, or tenderness. Neuro oriented x3 and moves all extremities Psych mental status grossly normal, cooperative and affect normal Debridement Note Debridement Note Post-Debridement Measurements and Additional Note: Post-Debridement Measurements/Treatment NAHUM - Nurse 1 - General Ulcer Assessment Start: 06/07/21 08:09 Freq: Status: Active Protocol: DANA Activity Type Activity Date Activity User E-Sign Co-Sign Detail Recorded Client Recorded Date Recorded By Document 06/07/21 08:09 DL [id number] 06/07/21 08:29 DL Document 06/14/21 08:23 AK Desktop 06/14/21 08:36 AK 06/07/21 06/14/21 08:09 08:23 - Today's Visit Information Type of service Initial Visit Follow-up Visit (Physician/[facility] ) Arrival Mode Ambulatory Ambulatory Transfer Assistance None Patient Identification Verified (Name & Yes Yes ) Patient Requires Transmission-Based No Precautions Height and Weight Body Mass Index (BMI) 46.7 46.7 BMI Classification Obese Obese Vital Signs Temperature (97.8 F-99.1 F) 97.1 F L 97.2 F L Temperature Source Temporal Temporal Pulse Rate (60-100) 62 66 Pulse Location Monitor Monitor Respiratory Rate (12-18) 24 H Respiratory rate source Observation Blood Pressure (90/60-120/80) 116/69 136/76 H Blood Pressure Mean (mm Hg) 84 96 Source Monitor Monitor History Since Last Visit- (Skip if this is Patient's initial visit) Have you changed medications since your No last visit? Any new allergies or adverse reactions No Had a fall/change in ADL's that may No increase risk of falls Signs or symptoms of abuse and/or No neglect since last visit Have you been in the hospital since your No last visit? Has dressing in place as prescribed Yes Has compression in place as prescribed Yes Experienced any changes in pain level or No management Left Footwear Other Footwear (Comment) Right Footwear Other Footwear (Comment) Other Footwear flip flops Pain Scale: 0-10 Numeric Is Patient Pain Free? Yes Yes Lower Extremity Assessment/ Foot Assessment/ Toe Nail Assessment Left -Posterior Tibial Palpable Yes -Dorsalis Pedis Palpable Yes -Extremity Color Hemosiderin -Hair Growth on Legs Yes -Hair Growth on Toes Yes -Temperature of Extremity Warm -Capillary Refill Greater than 3 Seconds -Dependent Rubor No -Blanched when Elevated No -Lipodermatosclerosis No -Other Deformity No -Prior Foot Ulcer No -Charcot Joint No -Prior Amputation No -Thick Yes -Discolored Yes -Deformed Yes -Improper Length & Hygeine No Right -Posterior Tibial Palpable Yes -Dorsalis Pedis Palpable Yes -Extremity Color Hemosiderin -Hair Growth on Legs Yes -Hair Growth on Toes Yes -Temperature of Extremity Warm -Capillary Refill Greater than 3 Seconds -Dependent Rubor No -Blanched when Elevated No -Lipodermatosclerosis No -Other Deformity No -Prior Foot Ulcer No -Charcot Joint No -Prior Amputation No -Thick Yes -Discolored Yes -Deformed Yes -Improper Length & Hygeine No Neuropathy Assessment Feet - Top Side and Bottom <Entered> (a) Communication Assessment Preferred language Taiwanese Able to Read Yes Able to Write Yes Right Hearing Abillity Normal Left Hearing Abillity Normal Visual Assistive Devices Glasses Teaching Assessment Preferences Verbal,Written, Demonstration Barriers to Learning None Readiness To Learn Good Willingness to Engage in Self Management Med Activies Readiness to Engage in Self Management Med Activities Anxiety Level Calm Cooperation Cooperative Perception Coherent Interest in Health Problem Asks Questions Education Importance Acknowledges Need Does Patient Smoke tobacco or other Yes substances Smoking Status Current every day smoker Is Patient Diabetic No Functional Assessment Recent Decline in Ability to Perform Denies Any Declines Culture/Gnosticism/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 Certified Appliance Service Technician to contact place of hinduism No Teaching: Wound Center Discharge Instructions -Person Taught Patient -Teaching Method Discussion Dressing Your Wound -Person Taught Patient -Teaching Method Discussion *Venous -Person Taught Patient *Welcome to the Wound Center -Person Taught Patient -Teaching Method Discussion Compression Wraps & Stockings -Person Taught Patient -Teaching Method Discussion *Debridement -Person Taught Patient -Teaching Method Discussion Venous Insufficiency -Person Taught Patient -Teaching Method Discussion Control Swelling with Leg Elevation -Person Taught Patient (a) 1 - + WC - Nurse 1 - General Ulcer Measurement Start: 06/07/21 08:09 Freq: Status: Active Protocol: Activity Type Activity Date Activity User E-Sign Co-Sign Detail Recorded Client Recorded Date Recorded By Document 06/07/21 08:09 DL [id number] 06/07/21 08:29 DL Document 06/14/21 08:23 AK Desktop 06/14/21 08:36 AK 06/07/21 06/14/21 08:09 08:23 Wound Center Nurse 1 #4 L Lat LE -Current Size (cm) - Length 1.8 0.7 -Current Size (cm) - Width 0.4 0.5 -Current Size (cm) - Depth 0.2 0.2 -Total Square Cm 0.72 0.35 -Photo Taken Yes -Classification - Thickness Full Thickness without Exposed Support Structure -Exudate Amt Small Medium -Exudate Type Serosanguineous Serous -Wound Margin Distinct, Distinct, Outline Outline Attached Attached -Granulation Amt None Present (0 %) -Slough/Fibrin Yes -Necrosis Amt Small (1-33%) Medium (34-66%) -Necrotic Tissue Type Eschar Adherent Slough -Structure Exposed N/A N/A -Texture (Tenisha-wound Skin Appearance) Scarring Assessed, Scarring -Moisture (Tenisha-wound Skin Appearance) Dry/Scaly Assessed,Dry/ Scaly -Color (Tenisha-wound Skin Appearance) Hemosiderin Assessed, Staining Hemosiderin Staining -Temperature (Tenisha-wound Skin No Abnormality No Abnormality Appearance) (Pt Warm) (Pt Warm) -Tenderness on Palpation (Tenisha-wound Yes Skin Appearance) -Ulcer Cleansing Rinsed/ Rinsed/ Irrigated with Irrigated with Saline Saline -Foul Odor after Cleansing No -Anesthetic Used 4% Lidocaine 5% Lidocaine Solution Gel Right Calf (cm) 46 49 Right Ankle (cm) 28 27.5 Left Calf (cm) 48.2 Left Ankle (cm) 28.5 WC - Nurse 2 - General Ulcer CM Notes Start: 06/07/21 08:09 Freq: Status: Active Protocol: Activity Type Activity Date Activity User E-Sign Co-Sign Detail Recorded Client Recorded Date Recorded By Document 06/07/21 13:18 PL [id number] 06/07/21 13:22 PL 06/07/21 13:18 Wound Center Nurse 2 #4 L Lat LE -Time 08:45 -Correct Patient Yes -Correct Side, Site, Position Yes -Correct Procedure Yes -Procedure Performed Yes -Type of Procedure Debridement -Clinical Debridement Subcutaneous -Tissue Removed Subcutaneous -Post Debridement (cm) - Length 2.1 -Post Debridement (cm) - Width 0.9 -Post Debridement (cm) - Depth 0.1 -Total Square (Post) (cm) 1.89 -Area of Debridement (cm) - Length 2.1 -Area of Debridement (cm) - Width 0.9 -Total Square (Area) (cm) 1.89 -Tunneling No -Undermining/Tunneling No -Circular Undermining No -Wound/Ulcer Outcome Not Healed -Ulcer Cleansing Rinsed/ Irrigated with Saline -Foul Odor after Cleansing No -Bioengineered Tissue No -Bleeding Controlled with Pressure -Treatment Response Procedure Tolerated Well -Debridement - Subq, 1st 20sq cm Yes WC - Nurse 3 - General Ulcer D/C NN Start: 06/07/21 08:09 Freq: Status: Active Protocol: Activity Type Activity Date Activity User E-Sign Co-Sign Detail Recorded Client Recorded Date Recorded By Document 06/07/21 13:18 PL [id number] 06/07/21 13:22 PL 06/07/21 13:18 Wound Care Nurse 3 -Ulcer Cleansing Rinsed/ Irrigated with Saline -Foul Odor after Cleansing No -Primary Dressing Applied Promogran -Primary Dressing Covered/Secured with Dry Gauze & Roll Gauze, Secured with Tape -Promogran 1 Left -Tubular Bandage Double Layer -Size of Tubigrip Used Size D -Size D ($) 2 WC - Visit Discharge Discharge Condition Stable Ambulatory Status Ambulatory Transportation Private Auto Clinical Summary of Care Provided Yes Wound debrided: lateral LLE ulcer cluster Laterality: Left Type of Debridement: Excisional debridement Anesthesia Used: 5% Lidocaine Gel and Cetacaine Depth: in the subcutaneous layer Percentage of wound debrided: 100 Instrument Used: 3mm curette Tissue Removed: slough and devitalized tissue Severity: Fat Layer Exposed Amount of bleeding with debridement: Mild Bleeding Controlled with: Pressure Patient tolerated procedure: Patient tolerated procedure well Assessment/Plan Assessment/Plan (1) Venous stasis ulcer of left lower leg with edema of left lower leg: CODE(S): I83.029 - Varicose veins of left lower extremity with ulcer of unspecified site; I83.892 - Varicose veins of left lower extremity with other complications; L97.929 - Non-pressure chronic ulcer of unspecified part of left lower leg with unspecified severity; R60.9 - Edema, unspecified (2) Venous insufficiency of both lower extremities: CODE(S): I87.2 - Venous insufficiency (chronic) (peripheral) (3) Morbid obesity with BMI of 45.0-49.9, adult: CODE(S): E66.01 - Morbid (severe) obesity due to excess calories; Z68.42 - Body mass index [BMI] 45.0-49.9, adult (4) Nicotine dependence: CODE(S): F17.200 - Nicotine dependence, unspecified, uncomplicated QUALIFIERS: Nicotine product type: cigarettes Substance use status: unspecified nicotine-induced disorder Qualified Code(s): F17.219 - Nicotine dependence, cigarettes, with unspecified nicotine-induced disorders PLAN: Debridement performed today in clinic as annotated above. Promogran applied. At home wound-care instructions: Methods for applying Promogran reviewed with the patient. Change Promogran dressing once daily or more frequently as needed due to contamination. Wash wounds daily with antibacterial soap and water, rinse and dry thoroughly before each dressing change. Compression: Double Tubigrip's applied for compression. Patient instructed to utilize compression stockings daily. May be removed at bedtime, but should be reapplied before getting out of bed in the morning. Off-loading: The patient was instructed to avoid pressure and friction on the affected areas. Reposition every 2 hours at minimum. Avoid prolonged standing and/or dangling of legs. When seated, feet should be elevated at chest level. Frequent ambulation is encouraged. Diet: Patient encouraged to increase protein intake while taking caution to avoid high carbohydrate and/or sugar intake. Smoking: The risks of smoking and benefits of smoking cessation were discussed with the patient today. The patient is encouraged to quit smoking. If smoking cessation aids are desired, the patient should contact their primary care provider to discuss appropriate options. Labs/cultures/imaging: Cultures deferred today; no clinical signs of infection. Routine baseline lab work ordered- not yet drawn. Vascular studies reviewed from August 2020 as annotated above. Follow-up: Return to clinic in 1 week for re-evaluation. Return sooner or report to the emergency room should symptoms worsen, or new symptoms arise. Note: [employer] speech recognition office assistance software was used to create portions of this document. Sound-alike and misspelled words, as well as other office assistance errors may be contained in the documentation.
[2021-06-21 08:46] VITALS: BP 118/75; PULSE 59; RESP 20; TEMP 36; BMI 46.7
--- NOTE | 2021-06-21 12:32 | PCM.WC.PN ---
History of Present Illness Date of Service: 06/21/21 Chief Complaint: Left lateral leg ulcers History of Wound: Cyrus is a pleasant 60-year-old male who presents to the wound healing center today for evaluation of a new wound to his left lateral leg. He is a known patient to the wound healing center. He has a past medical history significant for CAD (s/p cardiac stent), NSTEMI, right bundle sherri block, hypertension, hyperlipidemia, peripheral vascular disease, morbid obesity, and nicotine dependence. He states the ulcers of his left lateral leg began spontaneously 2 weeks ago. He began using Aquacel Extra dressings daily at onset. He has noted improvement in the size of his wound with the use of Aquacel Extra dressing changes. He denies redness, warmth, pain, or purulent/malodorous drainage from the wound. He denies any fever chills, or decreased appetite. He had arterial studies in August 2020 which showed no significant arterial occlusive disease. He had venous studies in August 2020 which showed venous incompetence in the bilateral lower extremities (Deep veins of the lower extremities are bilaterally patent and compressible segmentally. There is no evidence of deep vein thrombosis on either side. Valvular competence appears intact within the proximal deep venous systems bilaterally. The right sapheno-femoral junction is competent . The left sapheno-femoral junction is incompetent . The right great saphenous vein appears segmentally incompetent. The left great saphenous vein has been partially harvested. Short segments of the left great saphenous vein in the groin and at the ankle are incompetent. The right small saphenous vein is patent and competent. The left small saphenous vein has been partially harvested. A short segment of the remaining left small saphenous vein is incompetent. The right lateral accessory saphenous vein at the groin is incompetent. An incompetent throat cutter vein is noted in the right calf, located 7 centimeters proximal to the right medial malleolus. An incompetent throat cutter vein is noted in the left calf, located 8 centimeters proximal to the left medial malleolus.) He underwent vein stripping with Dr. Blancas. He is not fully compliant with compression use. He has double Tubigrip's which she does not wear often. He works with a [employer] company and is on his feet for long periods throughout the day. Progress of Wound: Marginal improvement in size and appearance of LLE ulcers today. The patient has 1+ pitting edema of bilateral lower extremities. He reports he has been using a single layer Tubigrip, as double layers are too thick for him to wear his work boots. He states he has been on his feet all day and has not been elevating as much as he should. He no longer is having difficulty applying Promogran to the ulcers. Labs not yet drawn. Objective Data Objective Data Vital Signs: Vital Signs Temp Pulse Resp BP 96.8 F L 59 L 20 H 118/75 06/21/21 08:46 06/21/21 08:46 06/21/21 08:46 06/21/21 08:46 Body Mass Index (BMI) 46.7 Charges/Coding Procedures Integumentary 111xxx-113xx: [id number] [place]ah subq tissue 20 sq cm/< Physical Exam Const alert and no apparent distress General Appearance: cooperative, comfortable and well kempt Nutritional Appearance: obese HEENT Head and Scalp: normocephalic and atraumatic Eyes EOMs intact bilaterally Neck supple Resp normal respiratory effort Extremity normal capillary refill and no joint enlargement General Extremity: edema bilateral lower extremity Details: moderate; Negative for clubbing or cyanosis Peripheral Pulses: Yes dorsalis pedis pulses present bilateral 2+ Skin Wounds: wounds noted No malodorous Wound Narrative: Left lateral leg ulcer cluster with subcutaneous layer exposed. No tunneling, undermining, or probing to bone. Small amount of slough and devitalized tissue present. Good granulation tissue present. Scant serous drainage noted. No purulent/malodorous drainage. No periulcer erythema, warmth, or tenderness. Neuro moves all extremities Psych mental status grossly normal, cooperative and affect normal Debridement Note Debridement Note Post-Debridement Measurements and Additional Note: Post-Debridement Measurements/Treatment WC - Nurse 1 - General Ulcer Assessment Start: 06/07/21 08:09 Freq: Status: Active Protocol: DANA Activity Type Activity Date Activity User E-Sign Co-Sign Detail Recorded Client Recorded Date Recorded By Document 06/07/21 08:09 DL [id number] 06/07/21 08:29 DL Document 06/14/21 08:23 AK Desktop 06/14/21 08:36 AK Document 06/21/21 08:46 DL [id number] 06/21/21 08:49 DL 06/07/21 06/14/21 06/21/21 08:09 08:23 08:46 WC - Today's Visit Information Type of service Initial Visit Follow-up Visit Follow-up Visit (Physician/BOTTLE HOP (Physician/BOTTLE HOP ) ) Arrival Mode Ambulatory Ambulatory Ambulatory Transfer Assistance None None Patient Identification Verified (Name & Yes Yes Yes ) Patient Requires Transmission-Based No No Precautions Height and Weight Body Mass Index (BMI) 46.7 46.7 46.7 BMI Classification Obese Obese Obese Vital Signs Temperature (97.8 F-99.1 F) 97.1 F L 97.2 F L 96.8 F L Temperature Source Temporal Temporal Temporal Pulse Rate (60-100) 62 66 59 L Pulse Location Monitor Monitor Monitor Respiratory Rate (12-18) 24 H 20 H Respiratory rate source Observation Observation Blood Pressure (90/60-120/80) 116/69 136/76 H 118/75 Blood Pressure Mean (mm Hg) 84 96 89 Source Monitor Monitor Monitor History Since Last Visit- (Skip if this is Patient's initial visit) Have you changed medications since your No No last visit? Any new allergies or adverse reactions No No Had a fall/change in ADL's that may No No increase risk of falls Signs or symptoms of abuse and/or No No neglect since last visit Have you been in the hospital since your No No last visit? Has dressing in place as prescribed Yes Yes Has compression in place as prescribed Yes Yes Has offloadiing in place as prescribed N/A Experienced any changes in pain level or No No management Left Footwear Other Footwear (Comment) Right Footwear Other Footwear (Comment) Other Footwear flip flops Pain Scale: 0-10 Numeric Is Patient Pain Free? Yes Yes Yes Lower Extremity Assessment/ Foot Assessment/ Toe Nail Assessment Left -Posterior Tibial Palpable Yes -Dorsalis Pedis Palpable Yes -Extremity Color Hemosiderin -Hair Growth on Legs Yes -Hair Growth on Toes Yes -Temperature of Extremity Warm -Capillary Refill Greater than 3 Seconds -Dependent Rubor No -Blanched when Elevated No -Lipodermatosclerosis No -Other Deformity No -Prior Foot Ulcer No -Charcot Joint No -Prior Amputation No -Thick Yes -Discolored Yes -Deformed Yes -Improper Length & Hygeine No Right -Posterior Tibial Palpable Yes -Dorsalis Pedis Palpable Yes -Extremity Color Hemosiderin -Hair Growth on Legs Yes -Hair Growth on Toes Yes -Temperature of Extremity Warm -Capillary Refill Greater than 3 Seconds -Dependent Rubor No -Blanched when Elevated No -Lipodermatosclerosis No -Other Deformity No -Prior Foot Ulcer No -Charcot Joint No -Prior Amputation No -Thick Yes -Discolored Yes -Deformed Yes -Improper Length & Hygeine No Neuropathy Assessment Feet - Top Side and Bottom <Entered> (a) Communication Assessment Preferred language [place]er Able to Read Yes Able to Write Yes Right Hearing Abillity Normal Left Hearing Abillity Normal Visual Assistive Devices Glasses Teaching Assessment Preferences Verbal,Written, Demonstration Barriers to Learning None Readiness To Learn Good Willingness to Engage in Self Management Med Activies Readiness to Engage in Self Management Med Activities Anxiety Level Calm Cooperation Cooperative Perception Coherent Interest in Health Problem Asks Questions Education Importance Acknowledges Need Does Patient Smoke tobacco or other Yes substances Smoking Status Current every day smoker Is Patient Diabetic No Functional Assessment Recent Decline in Ability to Perform Denies Any Declines 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 Hi [employer] Truck Driver to contact place of anglican No Teaching: Wound Center Discharge Instructions -Person Taught Patient -Teaching Method Discussion Dressing Your Wound -Person Taught Patient -Teaching Method Discussion *Venous -Person Taught Patient *Welcome to the Wound Center -Person Taught Patient -Teaching Method Discussion Compression Wraps & Stockings -Person Taught Patient -Teaching Method Discussion *Debridement -Person Taught Patient -Teaching Method Discussion Venous Insufficiency -Person Taught Patient -Teaching Method Discussion Control Swelling with Leg Elevation -Person Taught Patient (a) 1 - + WC - Nurse 1 - General Ulcer Measurement Start: 06/07/21 08:09 Freq: Status: Active Protocol: Activity Type Activity Date Activity User E-Sign Co-Sign Detail Recorded Client Recorded Date Recorded By Document 06/07/21 08:09 DL [id number] 06/07/21 08:29 DL Document 06/14/21 08:23 AK Desktop 06/14/21 08:36 AK Document 06/21/21 08:46 DL [id number] 06/21/21 08:49 DL 06/07/21 06/14/21 06/21/21 08:09 08:23 08:46 Wound Center Nurse 1 #4 L Lat LE -Current Size (cm) - Length 1.8 0.7 0.9 -Current Size (cm) - Width 0.4 0.5 0.6 -Current Size (cm) - Depth 0.2 0.2 0.2 -Total Square Cm 0.72 0.35 0.54 -Photo Taken Yes No -Classification - Thickness Full Thickness without Exposed Support Structure -Exudate Amt Small Medium None Present -Exudate Type Serosanguineous Serous -Wound Margin Distinct, Distinct, Distinct, Outline Outline Outline Attached Attached Attached -Granulation Amt None Present (0 Medium (34-66%) %) -Granulation Quality [place] -Slough/Fibrin Yes -Necrosis Amt Small (1-33%) Medium (34-66%) Small (1-33%) -Necrotic Tissue Type Eschar Adherent Slough Adherent Slough -Structure Exposed N/A N/A N/A -Texture (Tenisha-wound Skin Appearance) Scarring Assessed, Scarring Scarring -Moisture (Tenisha-wound Skin Appearance) Dry/Scaly Assessed,Dry/ Dry/Scaly Scaly -Color (Tenisha-wound Skin Appearance) Hemosiderin Assessed, Hemosiderin Staining Hemosiderin Staining Staining -Temperature (Tenisha-wound Skin No Abnormality No Abnormality No Abnormality Appearance) (Pt Warm) (Pt Warm) (Pt Warm) -Tenderness on Palpation (Tenisha-wound Yes No Skin Appearance) -Ulcer Cleansing Rinsed/ Rinsed/ Wound Cleanser Irrigated with Irrigated with Saline Saline -Foul Odor after Cleansing No No -Anesthetic Used 4% Lidocaine 5% Lidocaine 4% Lidocaine Solution Gel Solution Right Calf (cm) 46 49 Right Ankle (cm) 28 27.5 Left Calf (cm) 48.2 38.5 Left Ankle (cm) 28.5 48.4 WC - Nurse 2 - General Ulcer CM Notes Start: 06/07/21 08:09 Freq: Status: Active Protocol: Activity Type Activity Date Activity User E-Sign Co-Sign Detail Recorded Client Recorded Date Recorded By Document 06/07/21 13:18 PL [id number] 06/07/21 13:22 PL Document 06/14/21 09:37 PL [id number] 06/14/21 09:39 PL 06/07/21 06/14/21 13:18 09:37 Wound Center Nurse 2 #4 L Lat LE -Time 08:45 08:41 -Correct Patient Yes Yes -Correct Side, Site, Position Yes Yes -Correct Procedure Yes Yes -Procedure Performed Yes Yes -Type of Procedure Debridement Debridement -Clinical Debridement Subcutaneous Subcutaneous -Tissue Removed Subcutaneous Subcutaneous -Post Debridement (cm) - Length 2.1 2.0 -Post Debridement (cm) - Width 0.9 0.9 -Post Debridement (cm) - Depth 0.1 0.1 -Total Square (Post) (cm) 1.89 1.80 -Area of Debridement (cm) - Length 2.1 2.0 -Area of Debridement (cm) - Width 0.9 0.9 -Total Square (Area) (cm) 1.89 1.80 -Tunneling No No -Undermining/Tunneling No No -Circular Undermining No No -Wound/Ulcer Outcome Not Healed Not Healed -Ulcer Cleansing Rinsed/ Rinsed/ Irrigated with Irrigated with Saline Saline -Foul Odor after Cleansing No No -Bioengineered Tissue No No -Bleeding Controlled with Pressure -Treatment Response Procedure Tolerated Well -Debridement - Subq, 1st 20sq cm Yes Yes - Nurse 3 - General Ulcer D/C NN Start: 06/07/21 08:09 Freq: Status: Active Protocol: Activity Type Activity Date Activity User E-Sign Co-Sign Detail Recorded Client Recorded Date Recorded By Document 06/07/21 13:18 PL [id number] 06/07/21 13:22 PL Document 06/14/21 09:37 PL [id number] 06/14/21 09:39 PL Document 06/21/21 09:51 KR [id number] 06/21/21 09:53 KR 06/07/21 06/14/21 06/21/21 13:18 09:37 09:51 Pain Scale: 0-10 Numeric Is Patient Pain Free? Yes Wound Care Nurse 3 #4 L Lat LE -Ulcer Cleansing Rinsed/ Rinsed/ Irrigated with Irrigated with Saline Saline -Foul Odor after Cleansing No No -Primary Dressing Applied Promogran Promogran Promogran -Primary Dressing Covered/Secured with Dry Gauze & Dry Gauze & Dry Gauze,Dry Roll Gauze, Roll Gauze, Gauze & Roll Secured with Secured with Gauze,Secured Tape Tape with Tape -Promogran 1 1 1 Left -Tubular Bandage Double Layer Double Layer Double Layer -Size of Tubigrip Used Size D Size D Size C -Size C ($) 2 -Size D ($) 2 2 WC - Visit Discharge Discharge Condition Stable Stable Stable Ambulatory Status Ambulatory Ambulatory Ambulatory Transportation Private Auto Private Auto Private Auto Accompanied by self Clinical Summary of Care Provided Yes Yes Wound debrided: Left lateral lower leg cluster Laterality: Left Type of Debridement: Excisional debridement Anesthesia Used: 5% Lidocaine Gel and Cetacaine Depth: in the subcutaneous layer Percentage of wound debrided: 100 Instrument Used: 3mm curette and - (1 mm curette) Tissue Removed: Slough and devitalized tissue Severity: Fat Layer Exposed Amount of bleeding with debridement: Mild Bleeding Controlled with: Pressure Patient tolerated procedure: Patient tolerated procedure well Assessment/Plan Assessment/Plan (1) Venous stasis ulcer of left lower leg with edema of left lower leg: CODE(S): I83.029 - Varicose veins of left lower extremity with ulcer of unspecified site; I83.892 - Varicose veins of left lower extremity with other complications; L97.929 - Non-pressure chronic ulcer of unspecified part of left lower leg with unspecified severity; R60.9 - Edema, unspecified (2) Venous insufficiency of both lower extremities: CODE(S): I87.2 - Venous insufficiency (chronic) (peripheral) (3) Morbid obesity with BMI of 45.0-49.9, adult: CODE(S): E66.01 - Morbid (severe) obesity due to excess calories; Z68.42 - Body mass index [BMI] 45.0-49.9, adult (4) Nicotine dependence: CODE(S): F17.200 - Nicotine dependence, unspecified, uncomplicated QUALIFIERS: Nicotine product type: cigarettes Substance use status: unspecified nicotine-induced disorder Qualified Code(s): F17.219 - Nicotine dependence, cigarettes, with unspecified nicotine-induced disorders PLAN: Debridement performed today in clinic as annotated above. Promogran applied. Given the duration of the wound and failure of the wound to respond to standard wound care, we will apply for advanced skin substitutes (Puraply, Nushield, Apligraf, EpiFix). At home wound-care instructions: Change Promogran dressing once daily or more frequently as needed due to contamination. Wash wounds daily with antibacterial soap and water, rinse and dry thoroughly before each dressing change. Compression: Higher compression level of single Tubigrip given today. Patient instructed to utilize single Tubigrip to left lower extremity daily. May be removed at bedtime, but should be reapplied before getting out of bed in the morning. Off-loading: The patient was instructed to avoid pressure and friction on the affected areas. Reposition every 2 hours at minimum. Avoid prolonged standing and/or dangling of legs. When seated, feet should be elevated at chest level. Frequent ambulation is encouraged. Diet: Patient encouraged to increase protein intake while taking caution to avoid high carbohydrate and/or sugar intake. Smoking: The risks of smoking and benefits of smoking cessation were discussed with the patient. The patient is encouraged to quit smoking. If smoking cessation aids are desired, the patient should contact their primary care provider to discuss appropriate options. Labs/cultures/imaging: Cultures deferred today; no clinical signs of infection. Routine baseline lab work ordered- not yet drawn. Vascular studies reviewed from August 2020 as annotated above. Follow-up: Return to clinic in 1 week for re-evaluation. Return sooner or report to the emergency room should symptoms worsen, or new symptoms arise. Note: [employer] speech recognition cable television program director software was used to create portions of this document. Sound-alike and misspelled words, as well as other cable television program director errors may be contained in the documentation.
[2021-06-28 08:49] VITALS: BP 130/69; PULSE 69; TEMP 36.1; BMI 46.7
--- NOTE | 2021-06-28 12:16 | PCM.WC.PN ---
History of Present Illness Date of Service: 06/28/21 Chief Complaint: Left lateral leg ulcers History of Wound: Cyrus is a pleasant 60-year-old male who presents to the wound healing center today for evaluation of a new wound to his left lateral leg. He is a known patient to the wound healing center. He has a past medical history significant for CAD (s/p cardiac stent), NSTEMI, right bundle sherri block, hypertension, hyperlipidemia, peripheral vascular disease, morbid obesity, and nicotine dependence. He states the ulcers of his left lateral leg began spontaneously 2 weeks ago. He began using Aquacel Extra dressings daily at onset. He has noted improvement in the size of his wound with the use of Aquacel Extra dressing changes. He denies redness, warmth, pain, or purulent/malodorous drainage from the wound. He denies any fever chills, or decreased appetite. He had arterial studies in August 2020 which showed no significant arterial occlusive disease. He had venous studies in August 2020 which showed venous incompetence in the bilateral lower extremities (Deep veins of the lower extremities are bilaterally patent and compressible segmentally. There is no evidence of deep vein thrombosis on either side. Valvular competence appears intact within the proximal deep venous systems bilaterally. The right sapheno-femoral junction is competent . The left sapheno-femoral junction is incompetent . The right great saphenous vein appears segmentally incompetent. The left great saphenous vein has been partially harvested. Short segments of the left great saphenous vein in the groin and at the ankle are incompetent. The right small saphenous vein is patent and competent. The left small saphenous vein has been partially harvested. A short segment of the remaining left small saphenous vein is incompetent. The right lateral accessory saphenous vein at the groin is incompetent. An incompetent chain saw driver vein is noted in the right calf, located 7 centimeters proximal to the right medial malleolus. An incompetent chain saw driver vein is noted in the left calf, located 8 centimeters proximal to the left medial malleolus.) He underwent vein stripping with Dr. Blancas. He is not fully compliant with compression use. He has double Tubigrip's which she does not wear often. He works with a [employer] company and is on his feet for long periods throughout the day. Progress of Wound: Marginal improvement in size and appearance of LLE ulcers today. The patient has 1+ pitting edema of bilateral lower extremities. He reports he has been using a single layer Tubigrip, as double layers are too thick for him to wear his work boots. He states he has been on his feet all day and has not been elevating as much as he should. He no longer is having difficulty applying Promogran to the ulcers. Labs not yet drawn. The patient has been approved for Epifix. Objective Data Objective Data Vital Signs: Vital Signs Temp Pulse Resp BP 96.9 F L 69 20 H 130/69 H 06/28/21 08:49 06/28/21 08:49 06/21/21 08:46 06/28/21 08:49 Body Mass Index (BMI) 46.7 Charges/Coding Procedures Integumentary 150xxx-152xx: [id number] Skin sub graft trnk/arm/leg Physical Exam Const alert and no apparent distress General Appearance: cooperative, comfortable and well kempt Nutritional Appearance: obese HEENT Head and Scalp: normocephalic and atraumatic Eyes EOMs intact bilaterally Neck supple Resp normal respiratory effort Extremity normal capillary refill and no joint enlargement General Extremity: edema bilateral lower extremity Details: moderate; Negative for clubbing or cyanosis Peripheral Pulses: Yes dorsalis pedis pulses present bilateral 2+ Skin Wounds: wounds noted No malodorous Wound Narrative: Left lateral leg ulcer cluster with subcutaneous layer exposed. No tunneling, undermining, or probing to bone. Moderate amount of slough and devitalized tissue present. Good granulation tissue present. Scant serous drainage noted. No purulent/malodorous drainage. No periulcer erythema, warmth, or tenderness. Ulcers tender to debridement. Neuro moves all extremities Psych mental status grossly normal, cooperative and affect normal Debridement Note Debridement Note Post-Debridement Measurements and Additional Note: Post-Debridement Measurements/Treatment WC - Nurse 1 - General Ulcer Assessment Start: 06/07/21 08:09 Freq: Status: Active Protocol: DANA Activity Type Activity Date Activity User E-Sign Co-Sign Detail Recorded Client Recorded Date Recorded By Document 06/07/21 08:09 DL [id number] 06/07/21 08:29 DL Document 06/14/21 08:23 AK Desktop 06/14/21 08:36 AK Document 06/21/21 08:46 DL [id number] 06/21/21 08:49 DL Document 06/28/21 08:49 PARRIS [id number] 06/28/21 08:51 AK 06/07/21 06/14/21 06/21/21 08:09 08:23 08:46 WC - Today's Visit Information Type of service Initial Visit Follow-up Visit Follow-up Visit (Physician/HOSPITAL HOUSEKEEPER (Physician/HOSPITAL HOUSEKEEPER ) ) Arrival Mode Ambulatory Ambulatory Ambulatory Transfer Assistance None None Patient Identification Verified (Name & Yes Yes Yes ) Patient Requires Transmission-Based No No Precautions Height and Weight Body Mass Index (BMI) 46.7 46.7 46.7 BMI Classification Obese Obese Obese Vital Signs Temperature (97.8 F-99.1 F) 97.1 F L 97.2 F L 96.8 F L Temperature Source Temporal Temporal Temporal Pulse Rate (60-100) 62 66 59 L Pulse Location Monitor Monitor Monitor Respiratory Rate (12-18) 24 H 20 H Respiratory rate source Observation Observation Blood Pressure (90/60-120/80) 116/69 136/76 H 118/75 Blood Pressure Mean (mm Hg) 84 96 89 Source Monitor Monitor Monitor History Since Last Visit- (Skip if this is Patient's initial visit) Have you changed medications since your No No last visit? Any new allergies or adverse reactions No No Had a fall/change in ADL's that may No No increase risk of falls Signs or symptoms of abuse and/or No No neglect since last visit Have you been in the hospital since your No No last visit? Has dressing in place as prescribed Yes Yes Has compression in place as prescribed Yes Yes Has offloadiing in place as prescribed N/A Experienced any changes in pain level or No No management Left Footwear Other Footwear (Comment) Right Footwear Other Footwear (Comment) Other Footwear flip flops Pain Scale: 0-10 Numeric Is Patient Pain Free? Yes Yes Yes Lower Extremity Assessment/ Foot Assessment/ Toe Nail Assessment Left -Posterior Tibial Palpable Yes -Dorsalis Pedis Palpable Yes -Extremity Color Hemosiderin -Hair Growth on Legs Yes -Hair Growth on Toes Yes -Temperature of Extremity Warm -Capillary Refill Greater than 3 Seconds -Dependent Rubor No -Blanched when Elevated No -Lipodermatosclerosis No -Other Deformity No -Prior Foot Ulcer No -Charcot Joint No -Prior Amputation No -Thick Yes -Discolored Yes -Deformed Yes -Improper Length & Hygeine No Right -Posterior Tibial Palpable Yes -Dorsalis Pedis Palpable Yes -Extremity Color Hemosiderin -Hair Growth on Legs Yes -Hair Growth on Toes Yes -Temperature of Extremity Warm -Capillary Refill Greater than 3 Seconds -Dependent Rubor No -Blanched when Elevated No -Lipodermatosclerosis No -Other Deformity No -Prior Foot Ulcer No -Charcot Joint No -Prior Amputation No -Thick Yes -Discolored Yes -Deformed Yes -Improper Length & Hygeine No Neuropathy Assessment Feet - Top Side and Bottom <Entered> (a) Communication Assessment Preferred language Bolivian Able to Read Yes Able to Write Yes Right Hearing Abillity Normal Left Hearing Abillity Normal Visual Assistive Devices Glasses Teaching Assessment Preferences Verbal,Written, Demonstration Barriers to Learning None Readiness To Learn Good Willingness to Engage in Self Management Med Activies Readiness to Engage in Self Management Med Activities Anxiety Level Calm Cooperation Cooperative Perception Coherent Interest in Health Problem Asks Questions Education Importance Acknowledges Need Does Patient Smoke tobacco or other Yes substances Smoking Status Current every day smoker Is Patient Diabetic No Functional Assessment Recent Decline in Ability to Perform Denies Any Declines Culture/Restorationism/Dressage Instructor Cultural/Restorationism Needs that may affect No Treatment Plan Would you allow our hospital emergency dispatch operator to No meet you for the purpose of spiritual/ emotional support? Dressage Instructor to contact place of orthodoxy No Teaching: Wound Center Discharge Instructions -Person Taught Patient -Teaching Method Discussion Dressing Your Wound -Person Taught Patient -Teaching Method Discussion *Venous -Person Taught Patient *Welcome to the Wound Center -Person Taught Patient -Teaching Method Discussion Compression Wraps & Stockings -Person Taught Patient -Teaching Method Discussion *Debridement -Person Taught Patient -Teaching Method Discussion Venous Insufficiency -Person Taught Patient -Teaching Method Discussion Control Swelling with Leg Elevation -Person Taught Patient 06/28/21 08:49 WC - Today's Visit Information Type of service Follow-up Visit (Physician/HOSPITAL HOUSEKEEPER ) Arrival Mode Ambulatory Transfer Assistance Patient Identification Verified (Name & Yes ) Patient Requires Transmission-Based Precautions Height and Weight Body Mass Index (BMI) 46.7 BMI Classification Obese Vital Signs Temperature (97.8 F-99.1 F) 96.9 F L Temperature Source Temporal Pulse Rate (60-100) 69 Pulse Location Monitor Respiratory Rate (12-18) Respiratory rate source Blood Pressure (90/60-120/80) 130/69 H Blood Pressure Mean (mm Hg) 89 Source Monitor History Since Last Visit- (Skip if this is Patient's initial visit) Have you changed medications since your No last visit? Any new allergies or adverse reactions No Had a fall/change in ADL's that may No increase risk of falls Signs or symptoms of abuse and/or No neglect since last visit Have you been in the hospital since your No last visit? Has dressing in place as prescribed Yes Has compression in place as prescribed Yes Has offloadiing in place as prescribed N/A Experienced any changes in pain level or No management Left Footwear Regular Shoe Right Footwear Regular Shoe Other Footwear Pain Scale: 0-10 Numeric Is Patient Pain Free? Lower Extremity Assessment/ Foot Assessment/ Toe Nail Assessment Left -Posterior Tibial Palpable -Dorsalis Pedis Palpable -Extremity Color -Hair Growth on Legs -Hair Growth on Toes -Temperature of Extremity -Capillary Refill -Dependent Rubor -Blanched when Elevated -Lipodermatosclerosis -Other Deformity -Prior Foot Ulcer -Charcot Joint -Prior Amputation -Thick -Discolored -Deformed -Improper Length & Hygeine Right -Posterior Tibial Palpable -Dorsalis Pedis Palpable -Extremity Color -Hair Growth on Legs -Hair Growth on Toes -Temperature of Extremity -Capillary Refill -Dependent Rubor -Blanched when Elevated -Lipodermatosclerosis -Other Deformity -Prior Foot Ulcer -Charcot Joint -Prior Amputation -Thick -Discolored -Deformed -Improper Length & Hygeine Neuropathy Assessment Feet - Top Side and Bottom Communication Assessment Preferred language Able to Read Able to Write Right Hearing Abillity Left Hearing Abillity Visual Assistive Devices Teaching Assessment Preferences Barriers to Learning Readiness To Learn Willingness to Engage in Self Management Activies Readiness to Engage in Self Management Activities Anxiety Level Cooperation Perception Interest in Health Problem Education Importance Does Patient Smoke tobacco or other substances Smoking Status Is Patient Diabetic Functional Assessment Recent Decline in Ability to Perform Culture/Restorationism/Dressage Instructor Cultural/Restorationism Needs that may affect Treatment Plan Would you allow our hospital emergency dispatch operator to meet you for the purpose of spiritual/ emotional support? Dressage Instructor to contact place of orthodoxy Teaching: Wound Center Discharge Instructions -Person Taught -Teaching Method Dressing Your Wound -Person Taught -Teaching Method *Venous -Person Taught *Welcome to the Wound Center -Person Taught -Teaching Method Compression Wraps & Stockings -Person Taught -Teaching Method *Debridement -Person Taught -Teaching Method Venous Insufficiency -Person Taught -Teaching Method Control Swelling with Leg Elevation -Person Taught (a) 1 - + WC - Nurse 1 - General Ulcer Measurement Start: 06/07/21 08:09 Freq: Status: Active Protocol: Activity Type Activity Date Activity User E-Sign Co-Sign Detail Recorded Client Recorded Date Recorded By Document 06/07/21 08:09 DL [id number] 06/07/21 08:29 DL Document 06/14/21 08:23 AK Desktop 06/14/21 08:36 AK Document 06/21/21 08:46 DL [id number] 06/21/21 08:49 DL Document 06/28/21 08:49 AK [id number] 06/28/21 08:51 AK 06/07/21 06/14/21 06/21/21 08:09 08:23 08:46 Wound Center Nurse 1 #4 L Lat LE -Current Size (cm) - Length 1.8 0.7 0.9 -Current Size (cm) - Width 0.4 0.5 0.6 -Current Size (cm) - Depth 0.2 0.2 0.2 -Total Square Cm 0.72 0.35 0.54 -Photo Taken Yes No -Tunneling -Undermining/Tunneling -Circular Undermining -Classification - Thickness Full Thickness without Exposed Support Structure -Change in Wound Grade/Stage -Exudate Amt Small Medium None Present -Exudate Type Serosanguineous Serous -Wound Margin Distinct, Distinct, Distinct, Outline Outline Outline Attached Attached Attached -Granulation Amt None Present (0 Medium (34-66%) %) -Granulation Quality [place] -Slough/Fibrin Yes -Necrosis Amt Small (1-33%) Medium (34-66%) Small (1-33%) -Necrotic Tissue Type Eschar Adherent Slough Adherent Slough -Structure Exposed N/A N/A N/A -Texture (Tenisha-wound Skin Appearance) Scarring Assessed, Scarring Scarring -Moisture (Tenisha-wound Skin Appearance) Dry/Scaly Assessed,Dry/ Dry/Scaly Scaly -Color (Tenisha-wound Skin Appearance) Hemosiderin Assessed, Hemosiderin Staining Hemosiderin Staining Staining -Temperature (Tenisha-wound Skin No Abnormality No Abnormality No Abnormality Appearance) (Pt Warm) (Pt Warm) (Pt Warm) -Tenderness on Palpation (Tenisha-wound Yes No Skin Appearance) -Ulcer Cleansing Rinsed/ Rinsed/ Wound Cleanser Irrigated with Irrigated with Saline Saline -Foul Odor after Cleansing No No -Anesthetic Used 4% Lidocaine 5% Lidocaine 4% Lidocaine Solution Gel Solution Right Calf (cm) 46 49 Right Ankle (cm) 28 27.5 Left Calf (cm) 48.2 38.5 Left Ankle (cm) 28.5 48.4 06/28/21 08:49 Wound Center Nurse 1 #4 L Lat LE -Current Size (cm) - Length 0.6 -Current Size (cm) - Width 0.5 -Current Size (cm) - Depth 0.3 -Total Square Cm 0.30 -Photo Taken No -Tunneling No -Undermining/Tunneling No -Circular Undermining No -Classification - Thickness -Change in Wound Grade/Stage No -Exudate Amt None Present -Exudate Type -Wound Margin Distinct, Outline Attached -Granulation Amt None Present (0 %) -Granulation Quality -Slough/Fibrin No -Necrosis Amt None Present (0 %) -Necrotic Tissue Type -Structure Exposed -Texture (Tenisha-wound Skin Appearance) No Abnormality, Assessed -Moisture (Tenisha-wound Skin Appearance) No Abnormality, Assessed -Color (Tenisha-wound Skin Appearance) No Abnormality, Assessed -Temperature (Tenisha-wound Skin No Abnormality Appearance) (Pt Warm) -Tenderness on Palpation (Tenisha-wound No Skin Appearance) -Ulcer Cleansing Rinsed/ Irrigated with Saline -Foul Odor after Cleansing -Anesthetic Used 5% Lidocaine Gel Right Calf (cm) Right Ankle (cm) Left Calf (cm) Left Ankle (cm) WC - Nurse 2 - General Ulcer CM Notes Start: 06/07/21 08:09 Freq: Status: Active Protocol: Activity Type Activity Date Activity User E-Sign Co-Sign Detail Recorded Client Recorded Date Recorded By Document 06/07/21 13:18 PL [id number] 06/07/21 13:22 PL Document 06/14/21 09:37 PL [id number] 06/14/21 09:39 PL Document 06/21/21 13:19 PL [id number] 06/21/21 13:20 PL 06/07/21 06/14/21 06/21/21 13:18 09:37 13:19 Wound Center Nurse 2 -Time 08:45 08:41 09:22 -Correct Patient Yes Yes Yes -Correct Side, Site, Position Yes Yes Yes -Correct Procedure Yes Yes Yes -Procedure Performed Yes Yes Yes -Type of Procedure Debridement Debridement Debridement -Clinical Debridement Subcutaneous Subcutaneous Subcutaneous -Tissue Removed Subcutaneous Subcutaneous Subcutaneous -Post Debridement (cm) - Length 2.1 2.0 2.0 -Post Debridement (cm) - Width 0.9 0.9 0.9 -Post Debridement (cm) - Depth 0.1 0.1 0.1 -Total Square (Post) (cm) 1.89 1.80 1.80 -Area of Debridement (cm) - Length 2.1 2.0 2.0 -Area of Debridement (cm) - Width 0.9 0.9 0.9 -Total Square (Area) (cm) 1.89 1.80 1.80 -Tunneling No No No -Undermining/Tunneling No No No -Circular Undermining No No No -Wound/Ulcer Outcome Not Healed Not Healed Healed- Surgical Closure -Ulcer Cleansing Rinsed/ Rinsed/ Irrigated with Irrigated with Saline Saline -Foul Odor after Cleansing No No No -Bioengineered Tissue No No No -Bleeding Controlled with Pressure -Treatment Response Procedure Tolerated Well -Debridement - Subq, 1st 20sq cm Yes Yes Yes WC - Nurse 3 - General Ulcer D/C NN Start: 06/07/21 08:09 Freq: Status: Active Protocol: Activity Type Activity Date Activity User E-Sign Co-Sign Detail Recorded Client Recorded Date Recorded By Document 06/07/21 13:18 PL [id number] 06/07/21 13:22 PL Document 06/14/21 09:37 PL [id number] 06/14/21 09:39 PL Document 06/21/21 09:51 KR [id number] 06/21/21 09:53 KR 06/07/21 06/14/21 06/21/21 13:18 09:37 09:51 Pain Scale: 0-10 Numeric Is Patient Pain Free? Yes Wound Care Nurse 3 #4 L Lat LE -Ulcer Cleansing Rinsed/ Rinsed/ Irrigated with Irrigated with Saline Saline -Foul Odor after Cleansing No No -Primary Dressing Applied Promogran Promogran Promogran -Primary Dressing Covered/Secured with Dry Gauze & Dry Gauze & Dry Gauze,Dry Roll Gauze, Roll Gauze, Gauze & Roll Secured with Secured with Gauze,Secured Tape Tape with Tape -Promogran 1 1 1 Left -Tubular Bandage Double Layer Double Layer Double Layer -Size of Tubigrip Used Size D Size D Size C -Size C ($) 2 -Size D ($) 2 2 WC - Visit Discharge Discharge Condition Stable Stable Stable Ambulatory Status Ambulatory Ambulatory Ambulatory Transportation Private Auto Private Auto Private Auto Accompanied by self Clinical Summary of Care Provided Yes Yes Wound debrided: Lateral LLE ulcer cluster Laterality: Left Type of Debridement: Excisional debridement Anesthesia Used: 5% Lidocaine Gel and Cetacaine Depth: in the subcutaneous layer Percentage of wound debrided: 100 Instrument Used: 3mm curette Tissue Removed: Slough and devitalized tissue Severity: Fat Layer Exposed Amount of bleeding with debridement: Mild Bleeding Controlled with: Pressure Patient tolerated procedure: Patient did not tolerate procedure well Assessment/Plan Assessment/Plan (1) Venous stasis ulcer of left lower leg with edema of left lower leg: CODE(S): I83.029 - Varicose veins of left lower extremity with ulcer of unspecified site; I83.892 - Varicose veins of left lower extremity with other complications; L97.929 - Non-pressure chronic ulcer of unspecified part of left lower leg with unspecified severity; R60.9 - Edema, unspecified (2) Venous insufficiency of both lower extremities: CODE(S): I87.2 - Venous insufficiency (chronic) (peripheral) (3) Morbid obesity with BMI of 45.0-49.9, adult: CODE(S): E66.01 - Morbid (severe) obesity due to excess calories; Z68.42 - Body mass index [BMI] 45.0-49.9, adult (4) Nicotine dependence: CODE(S): F17.200 - Nicotine dependence, unspecified, uncomplicated QUALIFIERS: Nicotine product type: cigarettes Substance use status: unspecified nicotine-induced disorder Qualified Code(s): F17.219 - Nicotine dependence, cigarettes, with unspecified nicotine-induced disorders PLAN: Debridement performed today in clinic as annotated above. Given the duration of the wound and failure of the wound to respond to standard wound care, we applied for advanced skin substitutes (Puraply, Nushield, Apligraf, EpiFix). Per transplant case manager Geo Connell RN we were approved for Epifix. Epifix #1 (18 mm disc) was applied to the left lower extremity today. 100% of the product was used. Covered with Adaptic touch and secured with Steri-Strips. 3M's applied for compression. At home wound-care instructions: Keep your left lower extremity dressings and wraps clean and dry. Cover the left lower extremity dressings with a cast cover when showering. Compression: 3M's applied today for compression. If 3M's feel uncomfortably tight, elevate the legs. If discomfort does not resolve with leg elevation, or anytime you develop numbness and tingling or discoloration of the toes/foot/leg, contact the wound healing center or remove the wraps. Off-loading: The patient was instructed to avoid pressure and friction on the affected areas. Reposition every 2 hours at minimum. Avoid prolonged standing and/or dangling of legs. When seated, feet should be elevated at chest level. Frequent ambulation is encouraged. Diet: Patient encouraged to increase protein intake while taking caution to avoid high carbohydrate and/or sugar intake. Smoking: The risks of smoking and benefits of smoking cessation were discussed with the patient. The patient is encouraged to quit smoking. If smoking cessation aids are desired, the patient should contact their primary care provider to discuss appropriate options. Labs/cultures/imaging: Cultures deferred today; no clinical signs of infection. Routine baseline lab work ordered- not yet drawn. Vascular studies reviewed from August 2020 as annotated above. Follow-up: Return to clinic in 1 week for re-evaluation. Return sooner or report to the emergency room should symptoms worsen, or new symptoms arise. Note: [employer] speech recognition security program manager software was used to create portions of this document. Sound-alike and misspelled words, as well as other security program manager errors may be contained in the documentation.
== END 2021-07-02 23:59 ==
LOC: WC 08:15
PROVIDERS: PCP Family Medicine; Visit Provider Nurse Practitioner Family
DX: I83.028 Varicose veins of left lower extremity with ulcer other part of lower leg (principal); L97.822 Non-pressure chronic ulcer of other part of left lower leg with fat layer exposed; E66.01 Morbid (severe) obesity due to excess calories; Z68.42 Body mass index [BMI] 45.0-49.9, adult; I25.10 Atherosclerotic heart disease of native coronary artery without angina pectoris; E78.5 Hyperlipidemia, unspecified; I10 Essential (primary) hypertension; I25.2 Old myocardial infarction; F17.210 Nicotine dependence, cigarettes, uncomplicated; Z86.718 Personal history of other venous thrombosis and embolism; Z79.82 Long term (current) use of aspirin; Z79.899 Other long term (current) drug therapy; Z95.5 Presence of coronary angioplasty implant and graft
CPT/HCPCS: 11042; 15271; 29581; 99213; Q4186; G0463

== ENCOUNTER 2021-07-26 08:30 | Outpatient (RCR) | payer OTHER, SELFPAY ==
[2021-07-03 00:17] VITALS: BP 130/69; PULSE 69; RESP 20; TEMP 36.1; BMI 46.7
[2021-07-04 15:24] VITALS: BP 129/74; PULSE 69; TEMP 36.8; BMI 46.7
--- NOTE | 2021-07-04 23:00 | PN.PCM_ITS ---
History of Present Illness Date of Service: 07/04/21 Chief Complaint: Left lateral leg ulcers History of Wound: Cyrus is a pleasant 60-year-old male who presents to the wound healing center today for evaluation of a new wound to his left lateral leg. He is a known patient to the wound healing center. He has a past medical history significant for CAD (s/p cardiac stent), NSTEMI, right bundle sherri block, hypertension, hyperlipidemia, peripheral vascular disease, morbid obesity, and nicotine dependence. He states the ulcers of his left lateral leg began spontaneously 2 weeks ago. He began using Aquacel Extra dressings daily at onset. He has noted improvement in the size of his wound with the use of Aquacel Extra dressing changes. He denies redness, warmth, pain, or purulent/malodorous drainage from the wound. He denies any fever chills, or decreased appetite. He had arterial studies in August 2020 which showed no significant arterial occlusive disease. He had venous studies in August 2020 which showed venous incompetence in the bilateral lower extremities (Deep veins of the lower extremities are bilaterally patent and compressible segmentally. There is no evidence of deep vein thrombosis on either side. Valvular competence appears intact within the proximal deep venous systems bilaterally. The right sapheno- femoral junction is competent . The left sapheno-femoral junction is incompetent . The right great saphenous vein appears segmentally incompetent. The left great saphenous vein has been partially harvested. Short segments of the left great saphenous vein in the groin and at the ankle are incompetent. The right small saphenous vein is patent and competent. The left small saphenous vein has been partially harvested. A short segment of the remaining left small saphenous vein is incompetent. The right lateral accessory saphenous vein at the groin is incompetent. An incompetent director of annual giving vein is noted in the right calf, located 7 centimeters proximal to the right medial malleolus. An incompetent director of annual giving vein is noted in the left calf, located 8 centimeters proximal to the left medial malleolus.) He underwent vein stripping with Dr. Blancas. He is not fully compliant with compression use. He has double Tubigrip's which she does not wear often. He works with a [employer] company and is on his feet for long periods throughout the day. Progress of Wound: stable, no new concerns, epifix number 2 applied today Objective Data Objective Data Vital Signs: Vital Signs Temp Pulse Resp BP 98.2 F 69 20 H 129/74 H 07/04/21 15:24 07/04/21 15:24 07/03/21 00:17 07/04/21 15:24 Body Mass Index (BMI) 46.7 Charges/Coding Procedures Integumentary 150xxx-152xx: [id number] Skin sub graft trnk/arm/leg Physical Exam Const alert and no apparent distress General Appearance: cooperative, comfortable and well kempt Nutritional Appearance: obese HEENT Head and Scalp: normocephalic and atraumatic Eyes EOMs intact bilaterally Neck supple Resp normal respiratory effort Extremity normal capillary refill and no joint enlargement General Extremity: edema bilateral lower extremity Details: moderate; Negative for clubbing or cyanosis Peripheral Pulses: Yes dorsalis pedis pulses present bilateral 2+ Skin Wounds: wounds noted No malodorous Wound Narrative: Left lateral leg ulcer cluster with subcutaneous layer exposed. No tunneling, undermining, or probing to bone. Moderate amount of slough and devitalized tissue present. Good granulation tissue present. Scant serous drainage noted. No purulent/malodorous drainage. No periulcer erythema, warmth, or tenderness. Ulcers tender to debridement. Neuro moves all extremities Psych mental status grossly normal, cooperative and affect normal Debridement Note Debridement Note Wound debrided: Left lower extremity ulcer Laterality: Left Type of Debridement: Excisional debridement Anesthesia Used: 5% Lidocaine Gel Depth: in the subcutaneous layer Percentage of wound debrided: 100 Instrument Used: 5mm curette Tissue Removed: slough and devitalized tissue Severity: Fat Layer Exposed Amount of bleeding with debridement: Mild Bleeding Controlled with: Pressure Patient tolerated procedure: Patient tolerated procedure well Post-Debridement Measurements and Additional Note: Post-Debridement Measurements/Treatment - Nurse 1 - General Ulcer Assessment Start: 07/04/21 15:20 Freq: Status: Active Protocol: DANA Activity Type Activity Date Activity User E-Sign Co-Sign Detail Recorded Client Recorded Date Recorded By Document 07/04/21 15:24 PARRIS [id number] 07/04/21 15:30 PARRIS 07/04/21 15:24 - Today's Visit Information Type of service Follow-up Visit (Physician/AND [employer] ) Arrival Mode Ambulatory Patient Identification Verified (Name & Yes ) Patient Requires Transmission-Based No Precautions Height and Weight Body Mass Index (BMI) 46.7 BMI Classification Obese Vital Signs Temperature (97.8 F-99.1 F) 98.2 F Temperature Source Temporal Pulse Rate (60-100) 69 Blood Pressure (90/60-120/80) 129/74 H Blood Pressure Mean (mm Hg) 92 Source Monitor History Since Last Visit- (Skip if this is Patient's initial visit) Have you changed medications since your No last visit? Any new allergies or adverse reactions No Had a fall/change in ADL's that may No increase risk of falls Signs or symptoms of abuse and/or No neglect since last visit Have you been in the hospital since your No last visit? Has dressing in place as prescribed Yes Has compression in place as prescribed Yes Has offloadiing in place as prescribed No Experienced any changes in pain level or No management Left Footwear Regular Shoe Right Footwear Regular Shoe WC - Nurse 1 - General Ulcer Measurement Start: 07/04/21 15:20 Freq: Status: Active Protocol: Activity Type Activity Date Activity User E-Sign Co-Sign Detail Recorded Client Recorded Date Recorded By Document 07/04/21 15:24 PARRIS [id number] 07/04/21 15:30 PARRIS 07/04/21 15:24 Wound Center Nurse 1 #4 L Lat LE -Combined with other wound No -Current Size (cm) - Length 0.6 -Current Size (cm) - Width 0.7 -Current Size (cm) - Depth 0.2 -Total Square Cm 0.42 -Photo Taken No -Epithelialization None Present -Tunneling No -Circular Undermining No -Change in Wound Grade/Stage No -Exudate Amt Large -Exudate Type Serosanguineous -Wound Margin Distinct, Outline Attached -Granulation Amt Medium (34-66%) -Granulation Quality [place] -Slough/Fibrin Yes -Necrosis Amt Large (67-100%) -Necrotic Tissue Type Adherent Slough -Structure Exposed N/A -Texture (Tenisha-wound Skin Appearance) Assessed, Scarring -Moisture (Tenisha-wound Skin Appearance) No Abnormality, Assessed -Color (Tenisha-wound Skin Appearance) Assessed, Hemosiderin Staining -Temperature (Tenisha-wound Skin No Abnormality Appearance) (Pt Warm) -Tenderness on Palpation (Tenisha-wound No Skin Appearance) -Ulcer Cleansing soap and water -Anesthetic Used 5% Lidocaine Gel Right Calf (cm) 45 Right Ankle (cm) 28 WC - Nurse 2 - General Ulcer CM Notes Start: 07/04/21 15:20 Freq: Status: Active Protocol: Activity Type Activity Date Activity User E-Sign Co-Sign Detail Recorded Client Recorded Date Recorded By Document 07/04/21 15:57 MW [id number] 07/04/21 16:02 MW Edit Result 07/04/21 15:57 MW (1) [id number] 07/05/21 13:22 PL (1) #4 L Lat LE - Bioengineered Tissue No => Yes - Type of Bioengineered Tissue => Epifix 18mm Disc - Expiration Date => 03/02/26 - Product Lot Number => [id number] - Percent Used => 100 - Debridement - Subq, 1st 20sq cm Yes => No - Apply Skin Sub - 1st 25 sq cm - Legs => 1 - Epifix 18mm Disc => 3 07/04/21 15:57 Wound Center Nurse 2 #4 L Lat LE -Time 16:01 -Correct Patient Yes -Correct Side, Site, Position Yes -Correct Procedure Yes -Procedure Performed Yes -Type of Procedure Debridement -Clinical Debridement Subcutaneous -Tissue Removed Subcutaneous -Post Debridement (cm) - Length 2.0 -Post Debridement (cm) - Width 0.8 -Post Debridement (cm) - Depth 0.2 -Total Square (Post) (cm) 1.60 -Area of Debridement (cm) - Length 2.0 -Area of Debridement (cm) - Width 0.8 -Total Square (Area) (cm) 1.60 -Tunneling No -Undermining/Tunneling No -Circular Undermining No -Wound/Ulcer Outcome Not Healed -Ulcer Cleansing Rinsed/ Irrigated with Saline -Foul Odor after Cleansing No -Bioengineered Tissue Yes -Type of Bioengineered Tissue Epifix 18mm Disc -Expiration Date 03/02/26 -Product Lot Number [id number] -Percent Used 100 -Bleeding Controlled with Pressure -Offloading No -Treatment Response Procedure Tolerated Well -Debridement - Subq, 1st 20sq cm No -Apply Skin Sub - 1st 25 sq cm - Legs 1 -Epifix 18mm Disc 3 Pain Scale: 0-10 Numeric Is Patient Pain Free? Yes - Nurse 3 - General Ulcer D/C NN Start: 07/04/21 15:20 Freq: Status: Active Protocol: Activity Type Activity Date Activity User E-Sign Co-Sign Detail Recorded Client Recorded Date Recorded By Document 07/04/21 16:10 DL [id number] 07/04/21 16:11 DL 07/04/21 16:10 Wound Care Nurse 3 #4 L Lat LE -Foul Odor after Cleansing No -Primary Dressing Covered/Secured with Dry Gauze Left -Multi-Layered Wrap Application Multi-Layer Comp - Left ($) Pain Scale: 0-10 Numeric Is Patient Pain Free? Yes WC - Visit Discharge Discharge Condition Stable Ambulatory Status Ambulatory Transportation Private Auto Assessment/Plan Assessment/Plan (1) Venous stasis ulcer of left lower leg with edema of left lower leg: CODE(S): I83.029 - Varicose veins of left lower extremity with ulcer of unspecified site; I83.892 - Varicose veins of left lower extremity with other complications; L97.929 - Non-pressure chronic ulcer of unspecified part of left lower leg with unspecified severity; R60.9 - Edema, unspecified (2) Venous insufficiency of both lower extremities: CODE(S): I87.2 - Venous insufficiency (chronic) (peripheral) (3) Morbid obesity with BMI of 45.0-49.9, adult: CODE(S): E66.01 - Morbid (severe) obesity due to excess calories; Z68.42 - Body mass index [BMI] 45.0-49.9, adult (4) Nicotine dependence: CODE(S): F17.200 - Nicotine dependence, unspecified, uncomplicated QUALIFIERS: Nicotine product type: cigarettes Substance use status: unspecified nicotine-induced disorder Qualified Code(s): F17.219 - Nicotine dependence, cigarettes, with unspecified nicotine-induced disorders PLAN: Courtesy visit for Janeth FLOREZ Debridement performed today in clinic as annotated above. Given the duration of the wound and failure of the wound to respond to standard wound care, we applied for advanced skin substitutes (Puraply, Nushield, Apligraf, EpiFix). Per registered nurse hh case manager Geo Connell RN we were approved for Epifix. Epifix #2 (18 mm disc) was applied to the left lower extremity today. 100% of the product was used. Covered with Adaptic touch and secured with Steri-Strips. 3M's applied for compression. At home wound-care instructions: Keep your left lower extremity dressings and wraps clean and dry. Cover the left lower extremity dressings with a cast cover when showering. Compression: 3M's applied today for compression. If 3M's feel uncomfortably tight, elevate the legs. If discomfort does not resolve with leg elevation, or anytime you develop numbness and tingling or discoloration of the toes/foot/leg, contact the wound healing center or remove the wraps. Off-loading: The patient was instructed to avoid pressure and friction on the affected areas. Reposition every 2 hours at minimum. Avoid prolonged standing and/or dangling of legs. When seated, feet should be elevated at chest level. Frequent ambulation is encouraged. Diet: Patient encouraged to increase protein intake while taking caution to avoid high carbohydrate and/or sugar intake. Smoking: The risks of smoking and benefits of smoking cessation were discussed with the patient. The patient is encouraged to quit smoking. If smoking cessation aids are desired, the patient should contact their primary care provider to discuss appropriate options. Labs/cultures/imaging: Cultures deferred today; no clinical signs of infection. Routine baseline lab work ordered- not yet drawn. Vascular studies reviewed from August 2020 as annotated above. Follow-up: Return to clinic in 1 week for re-evaluation. Return sooner or report to the emergency room should symptoms worsen, or new symptoms arise. Note: [employer] speech recognition universal winding machine operator software was used to create portions of this document. Sound-alike and misspelled words, as well as other universal winding machine operator errors may be contained in the documentation.
[2021-07-12 08:35] VITALS: BP 130/80; PULSE 65; TEMP 36.4; BMI 46.7
--- NOTE | 2021-07-12 13:09 | PN.PCM_ITS ---
History of Present Illness Date of Service: 07/12/21 Chief Complaint: Left lateral leg ulcers History of Wound: Cyrus is a pleasant 60-year-old male who presents to the wound healing center today for evaluation of a new wound to his left lateral leg. He is a known patient to the wound healing center. He has a past medical history significant for CAD (s/p cardiac stent), NSTEMI, right bundle sherri block, hypertension, hyperlipidemia, peripheral vascular disease, morbid obesity, and nicotine dependence. He states the ulcers of his left lateral leg began spontaneously 2 weeks ago. He began using Aquacel Extra dressings daily at onset. He has noted improvement in the size of his wound with the use of Aquacel Extra dressing changes. He denies redness, warmth, pain, or purulent/malodorous drainage from the wound. He denies any fever chills, or decreased appetite. He had arterial studies in August 2020 which showed no significant arterial occlusive disease. He had venous studies in August 2020 which showed venous incompetence in the bilateral lower extremities (Deep veins of the lower extremities are bilaterally patent and compressible segmentally. There is no evidence of deep vein thrombosis on either side. Valvular competence appears intact within the proximal deep venous systems bilaterally. The right sapheno- femoral junction is competent . The left sapheno-femoral junction is incompetent . The right great saphenous vein appears segmentally incompetent. The left great saphenous vein has been partially harvested. Short segments of the left great saphenous vein in the groin and at the ankle are incompetent. The right small saphenous vein is patent and competent. The left small saphenous vein has been partially harvested. A short segment of the remaining left small saphenous vein is incompetent. The right lateral accessory saphenous vein at the groin is incompetent. An incompetent goat driver vein is noted in the right calf, located 7 centimeters proximal to the right medial malleolus. An incompetent goat driver vein is noted in the left calf, located 8 centimeters proximal to the left medial malleolus.) He underwent vein stripping with Dr. Blancas. He is not fully compliant with compression use. He has double Tubigrip's which she does not wear often. He works with a [employer] company and is on his feet for long periods throughout the day. Progress of Wound: Improvement noted in size and appearance of LLE ulcers today. Minimal edema present in the left lower extremity. Tolerating epifix and 3M wraps well. Objective Data Objective Data Vital Signs: Vital Signs Temp Pulse Resp BP 97.6 F L 65 20 H 130/80 H 07/12/21 08:35 07/12/21 08:35 07/03/21 00:17 07/12/21 08:35 Body Mass Index (BMI) 46.7 Charges/Coding Procedures Integumentary 150xxx-152xx: 81992 Skin sub graft trnk/arm/leg Physical Exam Const alert and no apparent distress General Appearance: cooperative, comfortable and well kempt Nutritional Appearance: obese HEENT Head and Scalp: normocephalic and atraumatic Neck supple Resp normal respiratory effort Extremity normal capillary refill and no joint enlargement General Extremity: edema left lower extremity trace; Negative for clubbing or cyanosis Peripheral Pulses: Yes dorsalis pedis pulses present bilateral 2+ Skin Wounds: wounds noted No malodorous Wound Narrative: Left lateral leg ulcer cluster with subcutaneous layer exposed. No tunneling, undermining, or probing to bone. Small amount of slough and devitalized tissue present. Good granulation tissue present. No drainage noted. No purulent/malodorous drainage. No periulcer erythema, warmth, or tenderness. Ulcers tender to debridement. Neuro moves all extremities Psych mental status grossly normal, cooperative and affect normal Debridement Note Debridement Note Wound debrided: Lateral LLE ulcer cluster Laterality: Left Type of Debridement: Excisional debridement Anesthesia Used: 4% Lidocaine Solution and Cetacaine Depth: in the subcutaneous layer Percentage of wound debrided: 100 Instrument Used: 3mm curette and - (1 mm curette) Tissue Removed: Slough and devitalized tissue Severity: Fat Layer Exposed Amount of bleeding with debridement: Mild Bleeding Controlled with: Pressure Patient tolerated procedure: Patient tolerated procedure well Post-Debridement Measurements and Additional Note: Post-Debridement Measurements/Treatment WC - Nurse 1 - General Ulcer Assessment Start: 07/04/21 15:20 Freq: Status: Active Protocol: DANA Activity Type Activity Date Activity User E-Sign Co-Sign Detail Recorded Client Recorded Date Recorded By Document 07/04/21 15:24 AK [id number] 07/04/21 15:30 AK Document 07/12/21 08:35 KR [id number] 07/12/21 08:40 KR 07/04/21 07/12/21 15:24 08:35 - Today's Visit Information Type of service Follow-up Visit Follow-up Visit (Physician/SWITCHBOARD WIRER (Physician/SWITCHBOARD WIRER ) ) Arrival Mode Ambulatory Ambulatory Patient Identification Verified (Name & Yes Yes ) Patient Requires Transmission-Based No Precautions Height and Weight Body Mass Index (BMI) 46.7 46.7 BMI Classification Obese Obese Vital Signs Temperature (97.8 F-99.1 F) 98.2 F 97.6 F L Temperature Source Temporal Temporal Pulse Rate (60-100) 69 65 Pulse Location Monitor Blood Pressure (90/60-120/80) 129/74 H 130/80 H Blood Pressure Mean (mm Hg) 92 96 Source Monitor Monitor Position Semi-Fowlers Blood Pressure Location Right Arm History Since Last Visit- (Skip if this is Patient's initial visit) Have you changed medications since your No No last visit? Any new allergies or adverse reactions No No Had a fall/change in ADL's that may No No increase risk of falls Signs or symptoms of abuse and/or No No neglect since last visit Have you been in the hospital since your No No last visit? Has dressing in place as prescribed Yes Yes Has compression in place as prescribed Yes Yes Has offloadiing in place as prescribed No N/A Experienced any changes in pain level or No No management Left Footwear Regular Shoe Regular Shoe Right Footwear Regular Shoe Regular Shoe Pain Scale: 0-10 Numeric Is Patient Pain Free? Yes - Nurse 1 - General Ulcer Measurement Start: 07/04/21 15:20 Freq: Status: Active Protocol: Activity Type Activity Date Activity User E-Sign Co-Sign Detail Recorded Client Recorded Date Recorded By Document 07/04/21 15:24 AK [id number] 07/04/21 15:30 AK Document 07/12/21 08:35 KR [id number] 07/12/21 08:40 KR 07/04/21 07/12/21 15:24 08:35 Wound Center Nurse 1 #4 L Lat LE -Combined with other wound No -Current Size (cm) - Length 0.6 1.9 -Current Size (cm) - Width 0.7 0.5 -Current Size (cm) - Depth 0.2 0.1 -Total Square Cm 0.42 0.95 -Photo Taken No -Epithelialization None Present -Tunneling No -Circular Undermining No -Change in Wound Grade/Stage No -Exudate Amt Large Small -Exudate Type Serosanguineous Serosanguineous -Wound Margin Distinct, Distinct, Outline Outline Attached Attached -Granulation Amt Medium (34-66%) Small (1-33%) -Granulation Quality Panther Red -Slough/Fibrin Yes -Necrosis Amt Large (67-100%) Small (1-33%) -Necrotic Tissue Type Adherent Slough Adherent Slough -Structure Exposed N/A N/A -Texture (Tenisha-wound Skin Appearance) Assessed, Assessed, Scarring Scarring -Moisture (Tenisha-wound Skin Appearance) No Abnormality, Assessed,Dry/ Assessed Scaly -Color (Tenisha-wound Skin Appearance) Assessed, Assessed Hemosiderin Staining -Temperature (Tenisha-wound Skin No Abnormality No Abnormality Appearance) (Pt Warm) (Pt Warm) -Tenderness on Palpation (Tenisha-wound No No Skin Appearance) -Ulcer Cleansing soap and water soap and water -Foul Odor after Cleansing No -Anesthetic Used 5% Lidocaine 4% Lidocaine Gel Solution Right Calf (cm) 45 Right Ankle (cm) 28 Left Calf (cm) 47.6 Left Ankle (cm) 27 WC - Nurse 2 - General Ulcer CM Notes Start: 07/04/21 15:20 Freq: Status: Active Protocol: Activity Type Activity Date Activity User E-Sign Co-Sign Detail Recorded Client Recorded Date Recorded By Document 07/04/21 15:57 MW [id number] 07/04/21 16:02 MW Edit Result 07/04/21 15:57 MW (1) [id number] 07/05/21 13:22 PL (1) #4 L Lat LE - Bioengineered Tissue No => Yes - Type of Bioengineered Tissue => Epifix 18mm Disc - Expiration Date => 03/02/26 - Product Lot Number => [id number] - Percent Used => 100 - Debridement - Subq, 1st 20sq cm Yes => No - Apply Skin Sub - 1st 25 sq cm - Legs => 1 - Epifix 18mm Disc => 3 07/04/21 15:57 Wound Center Nurse 2 #4 L Lat LE -Time 16:01 -Correct Patient Yes -Correct Side, Site, Position Yes -Correct Procedure Yes -Procedure Performed Yes -Type of Procedure Debridement -Clinical Debridement Subcutaneous -Tissue Removed Subcutaneous -Post Debridement (cm) - Length 2.0 -Post Debridement (cm) - Width 0.8 -Post Debridement (cm) - Depth 0.2 -Total Square (Post) (cm) 1.60 -Area of Debridement (cm) - Length 2.0 -Area of Debridement (cm) - Width 0.8 -Total Square (Area) (cm) 1.60 -Tunneling No -Undermining/Tunneling No -Circular Undermining No -Wound/Ulcer Outcome Not Healed -Ulcer Cleansing Rinsed/ Irrigated with Saline -Foul Odor after Cleansing No -Bioengineered Tissue Yes -Type of Bioengineered Tissue Epifix 18mm Disc -Expiration Date 03/02/26 -Product Lot Number [id number] -Percent Used 100 -Bleeding Controlled with Pressure -Offloading No -Treatment Response Procedure Tolerated Well -Debridement - Subq, 1st 20sq cm No -Apply Skin Sub - 1st 25 sq cm - Legs 1 -Epifix 18mm Disc 3 Pain Scale: 0-10 Numeric Is Patient Pain Free? Yes - Nurse 3 - General Ulcer D/C NN Start: 07/04/21 15:20 Freq: Status: Active Protocol: Activity Type Activity Date Activity User E-Sign Co-Sign Detail Recorded Client Recorded Date Recorded By Document 07/04/21 16:10 DL [id number] 07/04/21 16:11 DL Document 07/12/21 09:41 KR [id number] 07/12/21 09:41 KR 07/04/21 07/12/21 16:10 09:41 Wound Care Nurse 3 #4 L Lat LE -Ulcer Cleansing Rinsed/ Irrigated with Saline -Foul Odor after Cleansing No -Primary Dressing Covered/Secured with Dry Gauze Dry Gauze Left -Multi-Layered Wrap Application Multi-Layer Multi-Layer Comp - Left ($) Comp - Left ($) Pain Scale: 0-10 Numeric Is Patient Pain Free? Yes Yes - Visit Discharge Discharge Condition Stable Stable Ambulatory Status Ambulatory Ambulatory Transportation Private Auto Private Auto Assessment/Plan Assessment/Plan (1) Venous stasis ulcer of left lower leg with edema of left lower leg: CODE(S): I83.029 - Varicose veins of left lower extremity with ulcer of unspecified site; I83.892 - Varicose veins of left lower extremity with other complications; L97.929 - Non-pressure chronic ulcer of unspecified part of left lower leg with unspecified severity; R60.9 - Edema, unspecified (2) Venous insufficiency of both lower extremities: CODE(S): I87.2 - Venous insufficiency (chronic) (peripheral) (3) Morbid obesity with BMI of 45.0-49.9, adult: CODE(S): E66.01 - Morbid (severe) obesity due to excess calories; Z68.42 - Body mass index [BMI] 45.0-49.9, adult (4) Nicotine dependence: CODE(S): F17.200 - Nicotine dependence, unspecified, uncomplicated QUALIFIERS: Nicotine product type: cigarettes Substance use status: unspecified nicotine-induced disorder Qualified Code(s): F17.219 - Nicotine dependence, cigarettes, with unspecified nicotine-induced disorders PLAN: Debridement performed today in clinic as annotated above. Given the duration of the wound and failure of the wound to respond to standard wound care, we applied for advanced skin substitutes (Puraply, Nushield, Apligraf, EpiFix). Per shoe caser Geo Connell RN we were approved for Epifix. Epifix #3 (18 mm disc) was applied to the left lower extremity today. 100% of the product was used. Covered with Adaptic touch and secured with Steri-Strips. 3M's applied for compression. At home wound-care instructions: Keep your left lower extremity dressings and wraps clean and dry. Cover the left lower extremity dressings with a cast cover when showering. Compression: 3M's applied today for compression. If 3M's feel uncomfortably tight, elevate the legs. If discomfort does not resolve with leg elevation, or anytime you develop numbness and tingling or discoloration of the toes/foot/leg, contact the wound healing center or remove the wraps. Off-loading: The patient was instructed to avoid pressure and friction on the affected areas. Reposition every 2 hours at minimum. Avoid prolonged standing and/or dangling of legs. When seated, feet should be elevated at chest level. Frequent ambulation is encouraged. Diet: Patient encouraged to increase protein intake while taking caution to avoid high carbohydrate and/or sugar intake. Smoking: The risks of smoking and benefits of smoking cessation were discussed with the patient. The patient is encouraged to quit smoking. If smoking cessation aids are desired, the patient should contact their primary care provider to discuss appropriate options. Labs/cultures/imaging: Cultures deferred today; no clinical signs of infection. Routine baseline lab work ordered- not yet drawn. Vascular studies reviewed from August 2020 as annotated above. Follow-up: Return to clinic in 1 week for re-evaluation. Return sooner or report to the emergency room should symptoms worsen, or new symptoms arise. Note: [employer] speech recognition plaster applicator software was used to create portions of this document. Sound-alike and misspelled words, as well as other plaster applicator errors may be contained in the documentation.
[2021-07-19 08:31] VITALS: BP 150/78; PULSE 67; TEMP 35.9; BMI 46.7
--- NOTE | 2021-07-19 08:53 | PCM.WC.PN ---
History of Present Illness Date of Service: 07/19/21 Chief Complaint: Left lateral leg ulcers History of Wound: Cyrus is a pleasant 60-year-old male who presents to the wound healing center today for evaluation of a new wound to his left lateral leg. He is a known patient to the wound healing center. He has a past medical history significant for CAD (s/p cardiac stent), NSTEMI, right bundle sherri block, hypertension, hyperlipidemia, peripheral vascular disease, morbid obesity, and nicotine dependence. He states the ulcers of his left lateral leg began spontaneously 2 weeks ago. He began using Aquacel Extra dressings daily at onset. He has noted improvement in the size of his wound with the use of Aquacel Extra dressing changes. He denies redness, warmth, pain, or purulent/malodorous drainage from the wound. He denies any fever chills, or decreased appetite. He had arterial studies in August 2020 which showed no significant arterial occlusive disease. He had venous studies in August 2020 which showed venous incompetence in the bilateral lower extremities (Deep veins of the lower extremities are bilaterally patent and compressible segmentally. There is no evidence of deep vein thrombosis on either side. Valvular competence appears intact within the proximal deep venous systems bilaterally. The right sapheno-femoral junction is competent . The left sapheno-femoral junction is incompetent . The right great saphenous vein appears segmentally incompetent. The left great saphenous vein has been partially harvested. Short segments of the left great saphenous vein in the groin and at the ankle are incompetent. The right small saphenous vein is patent and competent. The left small saphenous vein has been partially harvested. A short segment of the remaining left small saphenous vein is incompetent. The right lateral accessory saphenous vein at the groin is incompetent. An incompetent suspect artist supervisor vein is noted in the right calf, located 7 centimeters proximal to the right medial malleolus. An incompetent suspect artist supervisor vein is noted in the left calf, located 8 centimeters proximal to the left medial malleolus.) He underwent vein stripping with Dr. Blancas. He is not fully compliant with compression use. He has double Tubigrip's which she does not wear often. He works with a [employer] company and is on his feet for long periods throughout the day. Progress of Wound: Improvement noted in size and appearance of LLE ulcers today. Minimal edema present in the left lower extremity. Tolerating epifix and 3M wraps well. The patient denies fever, chills, general malaise, or poor appetite. The patient has not had increased redness, swelling, or purulent/malodorous drainage from affected area. Objective Data Objective Data Vital Signs: Vital Signs Temp Pulse Resp BP 96.7 F L 67 20 H 150/78 H 07/19/21 08:31 07/19/21 08:31 07/03/21 00:17 07/19/21 08:31 Body Mass Index (BMI) 46.7 Charges/Coding Procedures Integumentary 150xxx-152xx: [id number] Skin sub graft trnk/arm/leg Physical Exam Const alert and no apparent distress General Appearance: cooperative, comfortable and well kempt Nutritional Appearance: obese HEENT Head and Scalp: normocephalic and atraumatic Neck supple Resp normal respiratory effort Extremity normal capillary refill and no joint enlargement General Extremity: edema left lower extremity trace; Negative for clubbing or cyanosis Peripheral Pulses: Yes dorsalis pedis pulses present bilateral 2+ Skin Wounds: wounds noted No malodorous Wound Narrative: Left lateral leg ulcer cluster with subcutaneous layer exposed. No tunneling, undermining, or probing to bone. Small amount of slough and devitalized tissue present. Good granulation tissue present. No drainage noted. No purulent/malodorous drainage. No periulcer erythema, warmth, or tenderness. Ulcers tender to debridement. Neuro moves all extremities Psych mental status grossly normal, cooperative and affect normal Debridement Note Debridement Note Wound debrided: Lateral left lower extremity ulcer cluster Laterality: Left Type of Debridement: Excisional debridement Anesthesia Used: 5% Lidocaine Gel Depth: in the subcutaneous layer Percentage of wound debrided: 100 Instrument Used: 3mm curette and - (1 mm curette) Tissue Removed: Slough and devitalized tissue Severity: Fat Layer Exposed Amount of bleeding with debridement: Mild Bleeding Controlled with: Pressure Patient tolerated procedure: Patient tolerated procedure well Post-Debridement Measurements and Additional Note: Post-Debridement Measurements/Treatment WC - Nurse 1 - General Ulcer Assessment Start: 07/04/21 15:20 Freq: Status: Active Protocol: DANA Activity Type Activity Date Activity User E-Sign Co-Sign Detail Recorded Client Recorded Date Recorded By Document 07/04/21 15:24 AK [id number] 07/04/21 15:30 AK Document 07/12/21 08:35 KR [id number] 07/12/21 08:40 KR Document 07/19/21 08:31 KR Desktop 07/19/21 08:34 KR 07/04/21 07/12/21 07/19/21 15:24 08:35 08:31 - Today's Visit Information Type of service Follow-up Visit Follow-up Visit Follow-up Visit (Physician/TRAFFIC WAREHOUSE SUPERVISOR (Physician/TRAFFIC WAREHOUSE SUPERVISOR (Physician/TRAFFIC WAREHOUSE SUPERVISOR ) ) ) Arrival Mode Ambulatory Ambulatory Ambulatory Patient Identification Verified (Name & Yes Yes Yes ) Patient Requires Transmission-Based No Precautions Height and Weight Body Mass Index (BMI) 46.7 46.7 46.7 BMI Classification Obese Obese Obese Vital Signs Temperature (97.8 F-99.1 F) 98.2 F 97.6 F L 96.7 F L Temperature Source Temporal Temporal Temporal Pulse Rate (60-100) 69 65 67 Pulse Location Monitor Monitor Blood Pressure (90/60-120/80) 129/74 H 130/80 H 150/78 H Blood Pressure Mean (mm Hg) 92 96 102 Source Monitor Monitor Monitor Position Semi-Fowlers Semi-Fowlers Blood Pressure Location Right Arm Right Arm History Since Last Visit- (Skip if this is Patient's initial visit) Have you changed medications since your No No No last visit? Any new allergies or adverse reactions No No No Had a fall/change in ADL's that may No No No increase risk of falls Signs or symptoms of abuse and/or No No No neglect since last visit Have you been in the hospital since your No No No last visit? Has dressing in place as prescribed Yes Yes Yes Has compression in place as prescribed Yes Yes Yes Has offloadiing in place as prescribed No N/A N/A Experienced any changes in pain level or No No No management Left Footwear Regular Shoe Regular Shoe Regular Shoe Right Footwear Regular Shoe Regular Shoe Regular Shoe Pain Scale: 0-10 Numeric Is Patient Pain Free? Yes Yes - Nurse 1 - General Ulcer Measurement Start: 07/04/21 15:20 Freq: Status: Active Protocol: Activity Type Activity Date Activity User E-Sign Co-Sign Detail Recorded Client Recorded Date Recorded By Document 07/04/21 15:24 PARRIS [id number] 07/04/21 15:30 AK Document 07/12/21 08:35 KR [id number] 07/12/21 08:40 KR Document 07/19/21 08:31 KR Desktop 07/19/21 08:34 KR 07/04/21 07/12/21 07/19/21 15:24 08:35 08:31 Wound Center Nurse 1 #4 L Lat LE -Combined with other wound No -Current Size (cm) - Length 0.6 1.9 0.4 -Current Size (cm) - Width 0.7 0.5 0.3 -Current Size (cm) - Depth 0.2 0.1 0.1 -Total Square Cm 0.42 0.95 0.12 -Photo Taken No -Epithelialization None Present -Tunneling No -Circular Undermining No -Change in Wound Grade/Stage No -Exudate Amt Large Small Small -Exudate Type Serosanguineous Serosanguineous Serosanguineous -Wound Margin Distinct, Distinct, Distinct, Outline Outline Outline Attached Attached Attached -Granulation Amt Medium (34-66%) Small (1-33%) -Granulation Quality [place] Red -Slough/Fibrin Yes -Necrosis Amt Large (67-100%) Small (1-33%) -Necrotic Tissue Type Adherent Slough Adherent Slough -Structure Exposed N/A N/A -Texture (Tenisha-wound Skin Appearance) Assessed, Assessed, Assessed, Scarring Scarring Scarring -Moisture (Tenisha-wound Skin Appearance) No Abnormality, Assessed,Dry/ No Abnormality, Assessed Scaly Assessed -Color (Tenisha-wound Skin Appearance) Assessed, Assessed No Abnormality, Hemosiderin Assessed Staining -Temperature (Tenisha-wound Skin No Abnormality No Abnormality No Abnormality Appearance) (Pt Warm) (Pt Warm) (Pt Warm) -Tenderness on Palpation (Tenisha-wound No No No Skin Appearance) -Ulcer Cleansing soap and water soap and water soap and water -Foul Odor after Cleansing No No -Anesthetic Used 5% Lidocaine 4% Lidocaine 5% Lidocaine Gel Solution Gel Right Calf (cm) 45 Right Ankle (cm) 28 Left Calf (cm) 47.6 47.5 Left Ankle (cm) 27 29 WC - Nurse 2 - General Ulcer CM Notes Start: 07/04/21 15:20 Freq: Status: Active Protocol: Activity Type Activity Date Activity User E-Sign Co-Sign Detail Recorded Client Recorded Date Recorded By Document 07/04/21 15:57 MW [id number] 07/04/21 16:02 MW Edit Result 07/04/21 15:57 MW (1) [id number] 07/05/21 13:22 PL Document 07/12/21 13:14 PL [id number] 07/12/21 13:15 PL Edit Result 07/12/21 13:14 PL (2) [id number] 07/12/21 13:35 PL (1) #4 L Lat LE - Bioengineered Tissue No => Yes - Type of Bioengineered Tissue => Epifix 18mm Disc - Expiration Date => 03/02/26 - Product Lot Number => [id number] - Percent Used => 100 - Debridement - Subq, 1st 20sq cm Yes => No - Apply Skin Sub - 1st 25 sq cm - Legs => 1 - Epifix 18mm Disc => 3 (2) #4 L Lat LE - Bioengineered Tissue No => Yes - Type of Bioengineered Tissue => Epifix 18mm Disc - Expiration Date => 04/02/26 - Product Lot Number => [id number] - Percent Used => 100 - Lot number of Saline Used => [id number] - Debridement - Subq, 1st 20sq cm Yes => No - Apply Skin Sub - 1st 25 sq cm - Legs => 1 - Epifix 18mm Disc => 3 07/04/21 07/12/21 15:57 13:14 Wound Center Nurse 2 #4 L Lat LE -Time 16:01 09:02 -Correct Patient Yes Yes -Correct Side, Site, Position Yes Yes -Correct Procedure Yes Yes -Procedure Performed Yes Yes -Type of Procedure Debridement Debridement -Clinical Debridement Subcutaneous Subcutaneous -Tissue Removed Subcutaneous Subcutaneous -Post Debridement (cm) - Length 2.0 1.8 -Post Debridement (cm) - Width 0.8 0.8 -Post Debridement (cm) - Depth 0.2 0.1 -Total Square (Post) (cm) 1.60 1.44 -Area of Debridement (cm) - Length 2.0 1.8 -Area of Debridement (cm) - Width 0.8 0.8 -Total Square (Area) (cm) 1.60 1.44 -Tunneling No No -Undermining/Tunneling No No -Circular Undermining No No -Wound/Ulcer Outcome Not Healed Not Healed -Ulcer Cleansing Rinsed/ Rinsed/ Irrigated with Irrigated with Saline Saline -Foul Odor after Cleansing No No -Bioengineered Tissue Yes Yes -Type of Bioengineered Tissue Epifix 18mm Epifix 18mm Disc Disc -Expiration Date 03/02/26 04/02/26 -Product Lot Number [id number] -Percent Used 100 100 -Lot number of Saline Used [id number] -Bleeding Controlled with Pressure Pressure -Offloading No -Treatment Response Procedure Procedure Tolerated Well Tolerated Well -Debridement - Subq, 1st 20sq cm No No -Apply Skin Sub - 1st 25 sq cm - Legs 1 1 -Epifix 18mm Disc 3 3 Pain Scale: 0-10 Numeric Is Patient Pain Free? Yes - Nurse 3 - General Ulcer D/C NN Start: 07/04/21 15:20 Freq: Status: Active Protocol: Activity Type Activity Date Activity User E-Sign Co-Sign Detail Recorded Client Recorded Date Recorded By Document 07/04/21 16:10 DL [id number] 07/04/21 16:11 DL Document 07/12/21 09:41 KR [id number] 07/12/21 09:41 KR 07/04/21 07/12/21 16:10 09:41 Wound Care Nurse 3 #4 L Lat LE -Ulcer Cleansing Rinsed/ Irrigated with Saline -Foul Odor after Cleansing No -Primary Dressing Covered/Secured with Dry Gauze Dry Gauze Left -Multi-Layered Wrap Application Multi-Layer Multi-Layer Comp - Left ($) Comp - Left ($) Pain Scale: 0-10 Numeric Is Patient Pain Free? Yes Yes WC - Visit Discharge Discharge Condition Stable Stable Ambulatory Status Ambulatory Ambulatory Transportation Private Auto Private Auto Assessment/Plan Assessment/Plan (1) Venous stasis ulcer of left lower leg with edema of left lower leg: CODE(S): I83.029 - Varicose veins of left lower extremity with ulcer of unspecified site; I83.892 - Varicose veins of left lower extremity with other complications; L97.929 - Non-pressure chronic ulcer of unspecified part of left lower leg with unspecified severity; R60.9 - Edema, unspecified (2) Venous insufficiency of both lower extremities: CODE(S): I87.2 - Venous insufficiency (chronic) (peripheral) (3) Morbid obesity with BMI of 45.0-49.9, adult: CODE(S): E66.01 - Morbid (severe) obesity due to excess calories; Z68.42 - Body mass index [BMI] 45.0-49.9, adult (4) Nicotine dependence: CODE(S): F17.200 - Nicotine dependence, unspecified, uncomplicated QUALIFIERS: Nicotine product type: cigarettes Substance use status: unspecified nicotine-induced disorder Qualified Code(s): F17.219 - Nicotine dependence, cigarettes, with unspecified nicotine-induced disorders PLAN: Debridement performed today in clinic as annotated above. Given the duration of the wound and failure of the wound to respond to standard wound care, we applied for advanced skin substitutes (Puraply, Nushield, Apligraf, EpiFix). Per dependency case manager Geo Connell RN we were approved for Epifix. Epifix #4 (18 mm disc) was applied to the left lower extremity today. 100% of the product was used. Covered with Adaptic touch and secured with Steri-Strips. 3M's applied for compression. At home wound-care instructions: Keep your left lower extremity dressings and wraps clean and dry. Cover the left lower extremity dressings with a cast cover when showering. Compression: 3M's applied today for compression. If 3M's feel uncomfortably tight, elevate the legs. If discomfort does not resolve with leg elevation, or anytime you develop numbness and tingling or discoloration of the toes/foot/leg, contact the wound healing center or remove the wraps. Off-loading: The patient was instructed to avoid pressure and friction on the affected areas. Reposition every 2 hours at minimum. Avoid prolonged standing and/or dangling of legs. When seated, feet should be elevated at chest level. Frequent ambulation is encouraged. Diet: Patient encouraged to increase protein intake while taking caution to avoid high carbohydrate and/or sugar intake. Smoking: The risks of smoking and benefits of smoking cessation were discussed with the patient. The patient is encouraged to quit smoking. If smoking cessation aids are desired, the patient should contact their primary care provider to discuss appropriate options. Labs/cultures/imaging: Cultures deferred today; no clinical signs of infection. Routine baseline lab work ordered- not yet drawn. Vascular studies reviewed from August 2020 as annotated above. Labs from 03/19/2021 reviewed, significant for the following: CBCD unremarkable, hemoglobin A1c 6.3%, CMP with BUN 21 (H), and glucose 120 (H), lipid panel with HDL 34 (L). Follow-up: Return to clinic in 1 week for re-evaluation. Return sooner or report to the emergency room should symptoms worsen, or new symptoms arise. Note: [employer] speech recognition artistic director software was used to create portions of this document. Sound-alike and misspelled words, as well as other artistic director errors may be contained in the documentation.
[2021-07-26 08:33] VITALS: BP 116/66; PULSE 65; RESP 18; TEMP 35.3; BMI 46.7
--- NOTE | 2021-07-26 10:11 | PN.PCM_ITS ---
History of Present Illness Date of Service: 07/26/21 Chief Complaint: Left lateral leg ulcers History of Wound: Cyrus is a pleasant 60-year-old male who presents to the wound healing center today for evaluation of a new wound to his left lateral leg. He is a known patient to the wound healing center. He has a past medical history significant for CAD (s/p cardiac stent), NSTEMI, right bundle sherri block, hypertension, hyperlipidemia, peripheral vascular disease, morbid obesity, and nicotine dependence. He states the ulcers of his left lateral leg began spontaneously 2 weeks ago. He began using Aquacel Extra dressings daily at onset. He has noted improvement in the size of his wound with the use of Aquacel Extra dressing changes. He denies redness, warmth, pain, or purulent/malodorous drainage from the wound. He denies any fever chills, or decreased appetite. He had arterial studies in August 2020 which showed no significant arterial occlusive disease. He had venous studies in August 2020 which showed venous incompetence in the bilateral lower extremities (Deep veins of the lower extremities are bilaterally patent and compressible segmentally. There is no evidence of deep vein thrombosis on either side. Valvular competence appears intact within the proximal deep venous systems bilaterally. The right sapheno- femoral junction is competent . The left sapheno-femoral junction is incompetent . The right great saphenous vein appears segmentally incompetent. The left great saphenous vein has been partially harvested. Short segments of the left great saphenous vein in the groin and at the ankle are incompetent. The right small saphenous vein is patent and competent. The left small saphenous vein has been partially harvested. A short segment of the remaining left small saphenous vein is incompetent. The right lateral accessory saphenous vein at the groin is incompetent. An incompetent forming department supervisor vein is noted in the right calf, located 7 centimeters proximal to the right medial malleolus. An incompetent forming department supervisor vein is noted in the left calf, located 8 centimeters proximal to the left medial malleolus.) He underwent vein stripping with Dr. Blancas. He is not fully compliant with compression use. He has double Tubigrip's which she does not wear often. He works with a [employer] company and is on his feet for long periods throughout the day. Progress of Wound: Improvement noted in size and appearance of LLE ulcers today. 3Ms slipped down to mid-calf over the past week, and patient has significant swelling at mid-calf level and higher. Tolerating Epifix well. The patient denies fever, chills, general malaise, or poor appetite. The patient has not had increased redness, swelling, or purulent/malodorous drainage from affected area. Objective Data Objective Data Vital Signs: Vital Signs Temp Pulse Resp BP 95.6 F L 65 18 116/66 07/26/21 08:33 07/26/21 08:33 07/26/21 08:33 07/26/21 08:33 Body Mass Index (BMI) 46.7 Charges/Coding Procedures Integumentary 150xxx-152xx: 32200 Skin sub graft trnk/arm/leg Physical Exam Const alert and no apparent distress General Appearance: cooperative, comfortable and well kempt Nutritional Appearance: obese HEENT Head and Scalp: normocephalic and atraumatic Neck supple Resp normal respiratory effort Extremity normal capillary refill and no joint enlargement General Extremity: edema left lower extremity (trace at foot to mid-calf; 2+ at mid-calf to knee) trace; Negative for clubbing or cyanosis Peripheral Pulses: Yes dorsalis pedis pulses present bilateral 2+ Skin Wounds: wounds noted No malodorous Wound Narrative: Left lateral leg ulcer cluster with subcutaneous layer exposed. No tunneling, undermining, or probing to bone. Small amount of slough and devitalized tissue present. Good granulation tissue present. No drainage noted. No purulent/malodorous drainage. No periulcer erythema, warmth, or tenderness. Ulcers tender to debridement. Neuro moves all extremities Psych mental status grossly normal, cooperative and affect normal Debridement Note Debridement Note Wound debrided: Left lower leg Laterality: Left Type of Debridement: Excisional debridement Anesthesia Used: 5% Lidocaine Gel and Cetacaine Depth: in the subcutaneous layer Percentage of wound debrided: 100 Instrument Used: - (1mm curette) Tissue Removed: Slough and devitalized tissue Severity: Fat Layer Exposed Amount of bleeding with debridement: Mild Bleeding Controlled with: Pressure Patient tolerated procedure: Patient tolerated procedure well Post-Debridement Measurements and Additional Note: Post-Debridement Measurements/Treatment NAHUM - Nurse 1 - General Ulcer Assessment Start: 07/04/21 15:20 Freq: Status: Active Protocol: WC.LOWEXT Activity Type Activity Date Activity User E-Sign Co-Sign Detail Recorded Client Recorded Date Recorded By Document 07/04/21 15:24 AK [id number] 07/04/21 15:30 AK Document 07/12/21 08:35 KR [id number] 07/12/21 08:40 KR Document 07/19/21 08:31 KR Desktop 07/19/21 08:34 KR Document 07/26/21 08:33 PL Desktop 07/26/21 08:40 PL 07/04/21 07/12/21 07/19/21 15:24 08:35 08:31 WC - Today's Visit Information Type of service Follow-up Visit Follow-up Visit Follow-up Visit (Physician/RECREATION AIDE (Physician/RECREATION AIDE (Physician/RECREATION AIDE ) ) ) Arrival Mode Ambulatory Ambulatory Ambulatory Transfer Assistance Patient Identification Verified (Name & Yes Yes Yes ) Patient Requires Transmission-Based No Precautions Safety Precautions Height and Weight Body Mass Index (BMI) 46.7 46.7 46.7 BMI Classification Obese Obese Obese Vital Signs Temperature (97.8 F-99.1 F) 98.2 F 97.6 F L 96.7 F L Temperature Source Temporal Temporal Temporal Pulse Rate (60-100) 69 65 67 Pulse Location Monitor Monitor Respiratory Rate (12-18) Blood Pressure (90/60-120/80) 129/74 H 130/80 H 150/78 H Blood Pressure Mean (mm Hg) 92 96 102 Source Monitor Monitor Monitor Position Semi-Fowlers Semi-Fowlers Blood Pressure Location Right Arm Right Arm History Since Last Visit- (Skip if this is Patient's initial visit) Have you changed medications since your No No No last visit? Any new allergies or adverse reactions No No No Had a fall/change in ADL's that may No No No increase risk of falls Signs or symptoms of abuse and/or No No No neglect since last visit Have you been in the hospital since your No No No last visit? Has dressing in place as prescribed Yes Yes Yes Has compression in place as prescribed Yes Yes Yes Has offloadiing in place as prescribed No N/A N/A Experienced any changes in pain level or No No No management Left Footwear Regular Shoe Regular Shoe Regular Shoe Right Footwear Regular Shoe Regular Shoe Regular Shoe Pain Scale: 0-10 Numeric Is Patient Pain Free? Yes Yes 07/26/21 08:33 WC - Today's Visit Information Type of service Follow-up Visit (Physician/RECREATION AIDE ) Arrival Mode Ambulatory Transfer Assistance None Patient Identification Verified (Name & No ) Patient Requires Transmission-Based No Precautions Safety Precautions NA Height and Weight Body Mass Index (BMI) 46.7 BMI Classification Obese Vital Signs Temperature (97.8 F-99.1 F) 95.6 F L Temperature Source Temporal Pulse Rate (60-100) 65 Pulse Location Respiratory Rate (12-18) 18 Blood Pressure (90/60-120/80) 116/66 Blood Pressure Mean (mm Hg) 82 Source Position Blood Pressure Location History Since Last Visit- (Skip if this is Patient's initial visit) Have you changed medications since your No last visit? Any new allergies or adverse reactions No Had a fall/change in ADL's that may No increase risk of falls Signs or symptoms of abuse and/or No neglect since last visit Have you been in the hospital since your No last visit? Has dressing in place as prescribed Yes Has compression in place as prescribed Yes Has offloadiing in place as prescribed N/A Experienced any changes in pain level or No management Left Footwear Right Footwear Pain Scale: 0-10 Numeric Is Patient Pain Free? - Nurse 1 - General Ulcer Measurement Start: 07/04/21 15:20 Freq: Status: Active Protocol: Activity Type Activity Date Activity User E-Sign Co-Sign Detail Recorded Client Recorded Date Recorded By Document 07/04/21 15:24 AK [id number] 07/04/21 15:30 AK Document 07/12/21 08:35 KR [id number] 07/12/21 08:40 KR Document 07/19/21 08:31 KR Desktop 07/19/21 08:34 KR Document 07/26/21 08:33 PL Desktop 07/26/21 08:40 PL 07/04/21 07/12/21 07/19/21 15:24 08:35 08:31 Wound Center Nurse 1 #4 L Lat LE -Combined with other wound No -Current Size (cm) - Length 0.6 1.9 0.4 -Current Size (cm) - Width 0.7 0.5 0.3 -Current Size (cm) - Depth 0.2 0.1 0.1 -Total Square Cm 0.42 0.95 0.12 -Photo Taken No -Epithelialization None Present -Tunneling No -Undermining/Tunneling -Circular Undermining No -Change in Wound Grade/Stage No -Exudate Amt Large Small Small -Exudate Type Serosanguineous Serosanguineous Serosanguineous -Wound Margin Distinct, Distinct, Distinct, Outline Outline Outline Attached Attached Attached -Granulation Amt Medium (34-66%) Small (1-33%) -Granulation Quality [place] Red -Slough/Fibrin Yes -Necrosis Amt Large (67-100%) Small (1-33%) -Necrotic Tissue Type Adherent Slough Adherent Slough -Structure Exposed N/A N/A -Texture (Tenisha-wound Skin Appearance) Assessed, Assessed, Assessed, Scarring Scarring Scarring -Moisture (Tenisha-wound Skin Appearance) No Abnormality, Assessed,Dry/ No Abnormality, Assessed Scaly Assessed -Color (Tenisha-wound Skin Appearance) Assessed, Assessed No Abnormality, Hemosiderin Assessed Staining -Temperature (Tenisha-wound Skin No Abnormality No Abnormality No Abnormality Appearance) (Pt Warm) (Pt Warm) (Pt Warm) -Tenderness on Palpation (Tenisha-wound No No No Skin Appearance) -Ulcer Cleansing soap and water soap and water soap and water -Foul Odor after Cleansing No No -Anesthetic Used 5% Lidocaine 4% Lidocaine 5% Lidocaine Gel Solution Gel Right Calf (cm) 45 Right Ankle (cm) 28 Left Calf (cm) 47.6 47.5 Left Ankle (cm) 27 29 07/26/21 08:33 Wound Center Nurse 1 #4 L Lat LE -Combined with other wound No -Current Size (cm) - Length 0.4 -Current Size (cm) - Width 0.4 -Current Size (cm) - Depth 0.1 -Total Square Cm 0.16 -Photo Taken No -Epithelialization None Present -Tunneling No -Undermining/Tunneling No -Circular Undermining No -Change in Wound Grade/Stage -Exudate Amt Medium -Exudate Type Serosanguineous -Wound Margin -Granulation Amt Large (67-100%) -Granulation Quality [place] -Slough/Fibrin Yes -Necrosis Amt Small (1-33%) -Necrotic Tissue Type Adherent Slough -Structure Exposed -Texture (Tenisha-wound Skin Appearance) No Abnormality -Moisture (Tenisha-wound Skin Appearance) No Abnormality -Color (Tenisha-wound Skin Appearance) No Abnormality -Temperature (Tenisha-wound Skin No Abnormality Appearance) (Pt Warm) -Tenderness on Palpation (Tenisha-wound Skin Appearance) -Ulcer Cleansing Soap and Water -Foul Odor after Cleansing No -Anesthetic Used 5% Lidocaine Gel Right Calf (cm) Right Ankle (cm) Left Calf (cm) Left Ankle (cm) WC - Nurse 2 - General Ulcer CM Notes Start: 07/04/21 15:20 Freq: Status: Active Protocol: Activity Type Activity Date Activity User E-Sign Co-Sign Detail Recorded Client Recorded Date Recorded By Document 07/04/21 15:57 MW [id number] 07/04/21 16:02 MW Edit Result 07/04/21 15:57 MW (1) [id number] 07/05/21 13:22 PL Document 07/12/21 13:14 PL [id number] 07/12/21 13:15 PL Edit Result 07/12/21 13:14 PL (2) [id number] 07/12/21 13:35 PL Document 07/19/21 08:54 PL [id number] 07/19/21 08:56 PL (1) #4 L Lat LE - Bioengineered Tissue No => Yes - Type of Bioengineered Tissue => Epifix 18mm Disc - Expiration Date => 03/02/26 - Product Lot Number => [id number] - Percent Used => 100 - Debridement - Subq, 1st 20sq cm Yes => No - Apply Skin Sub - 1st 25 sq cm - Legs => 1 - Epifix 18mm Disc => 3 (2) #4 L Lat LE - Bioengineered Tissue No => Yes - Type of Bioengineered Tissue => Epifix 18mm Disc - Expiration Date => 04/02/26 - Product Lot Number => [id number] - Percent Used => 100 - Lot number of Saline Used => [id number] - Debridement - Subq, 1st 20sq cm Yes => No - Apply Skin Sub - 1st 25 sq cm - Legs => 1 - Epifix 18mm Disc => 3 07/04/21 07/12/21 07/19/21 15:57 13:14 08:54 Wound Center Nurse 2 #4 L Lat LE -Time 16:01 09:02 08:39 -Correct Patient Yes Yes Yes -Correct Side, Site, Position Yes Yes Yes -Correct Procedure Yes Yes Yes -Procedure Performed Yes Yes Yes -Type of Procedure Debridement Debridement Debridement -Clinical Debridement Subcutaneous Subcutaneous Subcutaneous -Tissue Removed Subcutaneous Subcutaneous Subcutaneous -Post Debridement (cm) - Length 2.0 1.8 1.6 -Post Debridement (cm) - Width 0.8 0.8 0.6 -Post Debridement (cm) - Depth 0.2 0.1 0.1 -Total Square (Post) (cm) 1.60 1.44 0.96 -Area of Debridement (cm) - Length 2.0 1.8 1.6 -Area of Debridement (cm) - Width 0.8 0.8 0.6 -Total Square (Area) (cm) 1.60 1.44 0.96 -Tunneling No No No -Undermining/Tunneling No No No -Circular Undermining No No No -Wound/Ulcer Outcome Not Healed Not Healed Not Healed -Ulcer Cleansing Rinsed/ Rinsed/ Rinsed/ Irrigated with Irrigated with Irrigated with Saline Saline Saline -Foul Odor after Cleansing No No No -Bioengineered Tissue Yes Yes Yes -Type of Bioengineered Tissue Epifix 18mm Epifix 18mm Epifix 18mm Disc Disc Disc -Expiration Date 03/02/26 04/02/26 03/02/26 -Product Lot Number [id number] -Percent Used 100 100 100 -Lot number of Saline Used [id number] -Bleeding Controlled with Pressure Pressure Pressure -Offloading No -Treatment Response Procedure Procedure Procedure Tolerated Well Tolerated Well Tolerated Well -Debridement - Subq, 1st 20sq cm No No No -Apply Skin Sub - 1st 25 sq cm - Legs 1 1 1 -Epifix 18mm Disc 3 3 3 Pain Scale: 0-10 Numeric Is Patient Pain Free? Yes WC - Nurse 3 - General Ulcer D/C NN Start: 07/04/21 15:20 Freq: Status: Active Protocol: Activity Type Activity Date Activity User E-Sign Co-Sign Detail Recorded Client Recorded Date Recorded By Document 07/04/21 16:10 DL [id number] 07/04/21 16:11 DL Document 07/12/21 09:41 KR [id number] 07/12/21 09:41 KR Document 07/19/21 10:52 AK [id number] 07/19/21 10:52 AK Document 07/26/21 09:05 KR [id number] 07/26/21 09:05 KR 07/04/21 07/12/21 07/19/21 16:10 09:41 10:52 Wound Care Nurse 3 #4 L Lat LE -Ulcer Cleansing Rinsed/ Rinsed/ Irrigated with Irrigated with Saline Saline -Foul Odor after Cleansing No No -Negative Pressure Wound Therapy N/A -Primary Dressing Covered/Secured with Dry Gauze Dry Gauze Left -Lotion applied to leg before No compression wrap -Multi-Layered Wrap Application Multi-Layer Multi-Layer Multi-Layer Comp - Left ($) Comp - Left ($) Comp - Left ($) Pain Scale: 0-10 Numeric Is Patient Pain Free? Yes Yes WC - Visit Discharge Discharge Condition Stable Stable Stable Ambulatory Status Ambulatory Ambulatory Ambulatory Transportation Private Auto Private Auto Private Auto Accompanied by Medication Reconcilliation completed & No provided to patient/care provider Clinical Summary of Care Provided No 07/26/21 09:05 Wound Care Nurse 3 #4 L Lat LE -Ulcer Cleansing -Foul Odor after Cleansing -Negative Pressure Wound Therapy -Primary Dressing Covered/Secured with Dry Gauze, Secured with Tape Left -Lotion applied to leg before compression wrap -Multi-Layered Wrap Application Multi-Layer Comp - Left ($) Pain Scale: 0-10 Numeric Is Patient Pain Free? Yes WC - Visit Discharge Discharge Condition Stable Ambulatory Status Ambulatory Transportation Private Auto Accompanied by self Medication Reconcilliation completed & provided to patient/care provider Clinical Summary of Care Provided Assessment/Plan Assessment/Plan (1) Venous stasis ulcer of left lower leg with edema of left lower leg: CODE(S): I83.029 - Varicose veins of left lower extremity with ulcer of unspecified site; I83.892 - Varicose veins of left lower extremity with other complications; L97.929 - Non-pressure chronic ulcer of unspecified part of left lower leg with unspecified severity; R60.9 - Edema, unspecified (2) Venous insufficiency of both lower extremities: CODE(S): I87.2 - Venous insufficiency (chronic) (peripheral) PLAN: Debridement performed today in clinic as annotated above. Given the duration of the wound and failure of the wound to respond to standard wound care, we applied for advanced skin substitutes (Puraply, Nushield, Apligraf, EpiFix). Per case planner Geo Connell RN we were approved for Epifix. Epifix #5 (18 mm disc) was applied to the left lower extremity today. 100% of the product was used. Moistened with hydrogel, covered with Adaptic touch and secured with Steri-Strips. 3M's applied for compression. Patient was instructed to notify us if his 3M's slip/fall down his leg during the week, and he can come in for reapplication of wraps. At home wound-care instructions: Keep your left lower extremity dressings and wraps clean and dry. Cover the left lower extremity dressings with a cast cover when showering. Compression: 3M's applied today for compression. If 3M's feel uncomfortably tight, elevate the legs. If discomfort does not resolve with leg elevation, or anytime you develop numbness and tingling or discoloration of the toes/foot/leg, contact the wound healing center or remove the wraps. Off-loading: The patient was instructed to avoid pressure and friction on the affected areas. Reposition every 2 hours at minimum. Avoid prolonged standing and/or dangling of legs. When seated, feet should be elevated at chest level. Frequent ambulation is encouraged. Diet: Patient encouraged to increase protein intake while taking caution to avoid high carbohydrate and/or sugar intake. Smoking: The risks of smoking and benefits of smoking cessation have been discussed with the patient. The patient was encouraged to quit smoking. If smoking cessation aids are desired, the patient should contact their primary care provider to discuss appropriate options. Labs/cultures/imaging: Cultures deferred today; no clinical signs of infection. Routine baseline lab work ordered- not completed. Vascular studies reviewed from August 2020 as annotated above. Labs from 03/19/2021 reviewed, significant for the following: CBCD unremarkable, hemoglobin A1c 6.3%, CMP with BUN 21 (H), and glucose 120 (H), lipid panel with HDL 34 (L). Follow-up: Return to clinic in 1 week for re-evaluation. Return sooner or report to the emergency room should symptoms worsen, or new symptoms arise. Note: [employer] speech recognition rivet tapping machine operator software was used to create portions of this document. Sound-alike and misspelled words, as well as other rivet tapping machine operator errors may be contained in the documentation.
== END 2021-08-01 23:59 ==
LOC: WC 08:30
PROVIDERS: PCP Family Medicine; Visit Provider Nurse Practitioner Family
DX: I83.028 Varicose veins of left lower extremity with ulcer other part of lower leg (principal); E66.01 Morbid (severe) obesity due to excess calories; Z68.42 Body mass index [BMI] 45.0-49.9, adult; I25.10 Atherosclerotic heart disease of native coronary artery without angina pectoris; E78.5 Hyperlipidemia, unspecified; I10 Essential (primary) hypertension; L97.822 Non-pressure chronic ulcer of other part of left lower leg with fat layer exposed; F17.210 Nicotine dependence, cigarettes, uncomplicated
CPT/HCPCS: 11042; 15271; 29581; Q4186

== ENCOUNTER 2021-08-16 08:30 | Outpatient (RCR) | payer OTHER, SELFPAY ==
[2021-08-02 00:13] VITALS: BP 116/66; PULSE 65; RESP 18; TEMP 35.3; BMI 46.7
[2021-08-02 08:38] VITALS: BP 136/60; PULSE 79; TEMP 36.1; BMI 46.7
--- NOTE | 2021-08-02 12:52 | PN.PCM_ITS ---
History of Present Illness Date of Service: 08/02/21 Chief Complaint: Left lateral leg ulcers History of Wound: Cyrus is a pleasant 60-year-old male who presents to the wound healing center for evaluation of a new wound to his left lateral leg. He is a known patient to the wound healing center. He has a past medical history significant for CAD (s/p cardiac stent), NSTEMI, right bundle sherri block, hypertension, hyperlipidemia, peripheral vascular disease, morbid obesity, and nicotine dependence. He states the ulcers of his left lateral leg began spontaneously 2 weeks ago. He began using Aquacel Extra dressings daily at onset. He has noted improvement in the size of his wound with the use of Aquacel Extra dressing changes. He denies redness, warmth, pain, or purulent/malodorous drainage from the wound. He denies any fever chills, or decreased appetite. He had arterial studies in August 2020 which showed no significant arterial occlusive disease. He had venous studies in August 2020 which showed venous incompetence in the bilateral lower extremities (Deep veins of the lower extremities are bilaterally patent and compressible segmentally. There is no evidence of deep vein thrombosis on either side. Valvular competence appears intact within the proximal deep venous systems bilaterally. The right sapheno- femoral junction is competent . The left sapheno-femoral junction is incompetent . The right great saphenous vein appears segmentally incompetent. The left great saphenous vein has been partially harvested. Short segments of the left great saphenous vein in the groin and at the ankle are incompetent. The right small saphenous vein is patent and competent. The left small saphenous vein has been partially harvested. A short segment of the remaining left small saphenous vein is incompetent. The right lateral accessory saphenous vein at the groin is incompetent. An incompetent hospice clinical marketer vein is noted in the right calf, located 7 centimeters proximal to the right medial malleolus. An incompetent hospice clinical marketer vein is noted in the left calf, located 8 centimeters proximal to the left medial malleolus.) He underwent vein stripping with Dr. Blancas. He is not fully compliant with compression use. He has double Tubigrip's which she does not wear often. He works with a [employer] company and is on his feet for long periods throughout the day. Progress of Wound: Patient's wounds have improved in size and appearance again this week. He is tolerating epifix and 3M wraps well. The patient denies fever, chills, general malaise, or poor appetite. The patient has not had increased redness, swelling, or purulent/malodorous drainage from affected area. Objective Data Objective Data Vital Signs: Vital Signs Temp Pulse Resp BP 96.9 F L 79 18 136/60 H 08/02/21 08:38 08/02/21 08:38 08/02/21 00:13 08/02/21 08:38 Body Mass Index (BMI) 46.7 Charges/Coding Procedures Integumentary 150xxx-152xx: [id number] Skin sub graft trnk/arm/leg Physical Exam Const alert and no apparent distress General Appearance: cooperative, comfortable and well kempt Nutritional Appearance: obese HEENT Head and Scalp: normocephalic and atraumatic Neck supple Resp normal respiratory effort Extremity normal capillary refill and no joint enlargement General Extremity: edema left lower extremity mild; Negative for clubbing or cyanosis Peripheral Pulses: Yes dorsalis pedis pulses present bilateral 2+ Skin Wounds: wounds noted No malodorous Wound Narrative: Left lateral leg ulcer with subcutaneous layer exposed. No tunneling, undermining, or probing to bone. Small amount of slough and devitalized tissue present. Good granulation tissue present. No drainage noted. No purulent/malodorous drainage. No periulcer erythema, warmth, or tenderness. Ulcer is less tender to debridement this week. Neuro moves all extremities Psych mental status grossly normal, cooperative and affect normal Debridement Note Debridement Note Wound debrided: Left lateral leg Laterality: Left Type of Debridement: Excisional debridement Anesthesia Used: 5% Lidocaine Gel Depth: in the subcutaneous layer Percentage of wound debrided: 100 Instrument Used: 3mm curette Tissue Removed: Slough and devitalized tissue Severity: Fat Layer Exposed Amount of bleeding with debridement: Mild Bleeding Controlled with: Pressure Patient tolerated procedure: Patient tolerated procedure well Post-Debridement Measurements and Additional Note: Post-Debridement Measurements/Treatment WC - Nurse 1 - General Ulcer Assessment Start: 08/02/21 08:31 Freq: Status: Active Protocol: DANA Activity Type Activity Date Activity User E-Sign Co-Sign Detail Recorded Client Recorded Date Recorded By Document 08/02/21 08:38 [place] Desktop 08/02/21 08:41 [place] 08/02/21 08:38 - Today's Visit Information Type of service Follow-up Visit (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 Any new allergies or adverse reactions No Had a fall/change in ADL's that may No increase risk of falls Signs or symptoms of abuse and/or No neglect since last visit Have you been in the hospital since your No last visit? Has dressing in place as prescribed Yes Has compression in place as prescribed Yes Has offloadiing in place as prescribed N/A Experienced any changes in pain level or No management Left Footwear Regular Shoe Right Footwear Regular Shoe - Nurse 1 - General Ulcer Measurement Start: 08/02/21 08:31 Freq: Status: Active Protocol: Activity Type Activity Date Activity User E-Sign Co-Sign Detail Recorded Client Recorded Date Recorded By Document 08/02/21 08:38 [place] Desktop 08/02/21 08:41 [place] 08/02/21 08:38 Wound Center Nurse 1 #4 L Lat LE -Combined with other wound No -Current Size (cm) - Length 0.5 -Current Size (cm) - Width 0.7 -Current Size (cm) - Depth 0.1 -Total Square Cm 0.35 -Photo Taken No -Epithelialization None Present -Tunneling No -Undermining/Tunneling No -Circular Undermining No -Change in Wound Grade/Stage No -Exudate Amt None Present -Wound Margin Distinct, Outline Attached -Granulation Amt None Present (0 %) -Granulation Quality N/A -Slough/Fibrin No -Necrosis Amt None Present (0 %) -Structure Exposed N/A -Texture (Tenisha-wound Skin Appearance) Assessed, Scarring -Moisture (Tenisha-wound Skin Appearance) No Abnormality, Assessed -Color (Tenisha-wound Skin Appearance) Assessed, Hemosiderin Staining -Temperature (Tenisha-wound Skin No Abnormality Appearance) (Pt Warm) -Tenderness on Palpation (Tenisha-wound No Skin Appearance) -Ulcer Cleansing Soap and Water -Foul Odor after Cleansing No -Anesthetic Used 5% Lidocaine Gel Left Calf (cm) 48 Left Ankle (cm) 28 WC - Nurse 3 - General Ulcer D/C NN Start: 08/02/21 08:31 Freq: Status: Active Protocol: Activity Type Activity Date Activity User E-Sign Co-Sign Detail Recorded Client Recorded Date Recorded By Document 08/02/21 12:25 PARRIS [id number] 08/02/21 12:25 [place] 08/02/21 12:25 Wound Care Nurse 3 #4 L Lat LE -Primary Dressing Covered/Secured with Dry Gauze, Secured with Tape Left -Multi-Layered Wrap Application Multi-Layer Comp - Left ($) Pain Scale: 0-10 Numeric Is Patient Pain Free? Yes WC - Visit Discharge Discharge Condition Stable Ambulatory Status Ambulatory Transportation Private Auto Assessment/Plan Assessment/Plan (1) Venous stasis ulcer of left lower leg with edema of left lower leg: CODE(S): I83.029 - Varicose veins of left lower extremity with ulcer of unspecified site; I83.892 - Varicose veins of left lower extremity with other complications; L97.929 - Non-pressure chronic ulcer of unspecified part of left lower leg with unspecified severity; R60.9 - Edema, unspecified (2) Venous insufficiency of both lower extremities: CODE(S): I87.2 - Venous insufficiency (chronic) (peripheral) PLAN: Debridement performed today in clinic as annotated above. Given the duration of the wound and failure of the wound to respond to standard wound care, we applied for advanced skin substitutes (Puraply, Nushield, Apligraf, EpiFix). Per classification case manager Geo Connell RN we were approved for Epifix. Epifix #6 (18 mm disc) was applied to the left lower extremity today. 100% of the product was used. Moistened with hydrogel, covered with Adaptic touch and secured with Steri-Strips. 3M's applied for compression. Patient was instructed to notify us if his 3M's slip/fall down his leg during the week, and he can come in for reapplication of wraps. At home wound-care instructions: Keep your left lower extremity dressings and wraps clean and dry. Cover the left lower extremity dressings with a cast cover when showering. Compression: 3M's applied today for compression. If 3M's feel uncomfortably tight, elevate the legs. If discomfort does not resolve with leg elevation, or anytime you develop numbness and tingling or discoloration of the toes/foot/leg, contact the wound healing center or remove the wraps. Off-loading: The patient was instructed to avoid pressure and friction on the affected areas. Reposition every 2 hours at minimum. Avoid prolonged standing and/or dangling of legs. When seated, feet should be elevated at chest level. Frequent ambulation is encouraged. Diet: Patient encouraged to increase protein intake while taking caution to avoid high carbohydrate and/or sugar intake. Smoking: The risks of smoking and benefits of smoking cessation have been discussed with the patient. The patient was encouraged to quit smoking. If smoking cessation aids are desired, the patient should contact their primary care provider to discuss appropriate options. Labs/cultures/imaging: Cultures deferred today; no clinical signs of infection. Routine baseline lab work ordered- not completed. Vascular studies reviewed from August 2020 as annotated above. Labs from 03/19/2021 reviewed, significant for the following: CBCD unremarkable, hemoglobin A1c 6.3%, CMP with BUN 21 (H), and glucose 120 (H), lipid panel with HDL 34 (L). Follow-up: Return to clinic in 1 week for re-evaluation. Return sooner or report to the emergency room should symptoms worsen, or new symptoms arise. Note: [employer] speech recognition bilingual school psychologist software was used to create portions of this document. Sound-alike and misspelled words, as well as other bilingual school psychologist errors may be contained in the documentation.
[2021-08-09 08:23] VITALS: BP 96/64; PULSE 76; TEMP 35.9; BMI 46.7
--- NOTE | 2021-08-09 08:48 | PCM.WC.PN ---
History of Present Illness Date of Service: 08/09/21 Chief Complaint: Left lateral leg ulcers History of Wound: Cyrus is a pleasant 60-year-old male who presents to the wound healing center for evaluation of a new wound to his left lateral leg. He is a known patient to the wound healing center. He has a past medical history significant for CAD (s/p cardiac stent), NSTEMI, right bundle sherri block, hypertension, hyperlipidemia, peripheral vascular disease, morbid obesity, and nicotine dependence. He states the ulcers of his left lateral leg began spontaneously 2 weeks ago. He began using Aquacel Extra dressings daily at onset. He has noted improvement in the size of his wound with the use of Aquacel Extra dressing changes. He denies redness, warmth, pain, or purulent/malodorous drainage from the wound. He denies any fever chills, or decreased appetite. He had arterial studies in August 2020 which showed no significant arterial occlusive disease. He had venous studies in August 2020 which showed venous incompetence in the bilateral lower extremities (Deep veins of the lower extremities are bilaterally patent and compressible segmentally. There is no evidence of deep vein thrombosis on either side. Valvular competence appears intact within the proximal deep venous systems bilaterally. The right sapheno-femoral junction is competent . The left sapheno-femoral junction is incompetent . The right great saphenous vein appears segmentally incompetent. The left great saphenous vein has been partially harvested. Short segments of the left great saphenous vein in the groin and at the ankle are incompetent. The right small saphenous vein is patent and competent. The left small saphenous vein has been partially harvested. A short segment of the remaining left small saphenous vein is incompetent. The right lateral accessory saphenous vein at the groin is incompetent. An incompetent deputy sheriff generalist vein is noted in the right calf, located 7 centimeters proximal to the right medial malleolus. An incompetent deputy sheriff generalist vein is noted in the left calf, located 8 centimeters proximal to the left medial malleolus.) He underwent vein stripping with Dr. Blancas. He is not fully compliant with compression use. He has double Tubigrip's which she does not wear often. He works with a [employer] company and is on his feet for long periods throughout the day. Progress of Wound: Patient's wounds have improved in size and appearance again this week. He is tolerating Epifix and 3M wraps well. The patient denies fever, chills, general malaise, or poor appetite. The patient has not had increased redness, swelling, or purulent/malodorous drainage from affected area. Objective Data Objective Data Vital Signs: Vital Signs Temp Pulse Resp BP 96.7 F L 76 18 96/64 08/09/21 08:23 08/09/21 08:23 08/02/21 00:13 08/09/21 08:23 Body Mass Index (BMI) 46.7 Charges/Coding Procedures Integumentary 150xxx-152xx: 33378 Skin sub graft trnk/arm/leg Physical Exam Const alert and no apparent distress General Appearance: cooperative, comfortable and well kempt Nutritional Appearance: obese HEENT Head and Scalp: normocephalic and atraumatic Neck supple Resp normal respiratory effort Extremity normal capillary refill and no joint enlargement General Extremity: edema left lower extremity mild; Negative for clubbing or cyanosis Peripheral Pulses: Yes dorsalis pedis pulses present left 2+ Skin Wounds: wounds noted No malodorous Wound Narrative: Left lateral leg ulcer with subcutaneous layer exposed. No tunneling, undermining, or probing to bone. Small amount of slough and devitalized tissue present. Good granulation tissue present. No drainage noted. No purulent/malodorous drainage. No periulcer erythema, warmth, or tenderness. Ulcer is less tender to debridement this week. Neuro moves all extremities Psych mental status grossly normal, cooperative and affect normal Debridement Note Debridement Note Wound debrided: lateral LLE Laterality: Left Type of Debridement: Excisional debridement Anesthesia Used: 5% Lidocaine Gel Depth: in the subcutaneous layer Percentage of wound debrided: 100 Instrument Used: - (1mm curette) Tissue Removed: Slough and devitalized tissue Severity: Fat Layer Exposed Amount of bleeding with debridement: Mild Bleeding Controlled with: Pressure Patient tolerated procedure: Patient tolerated procedure well Post-Debridement Measurements and Additional Note: Post-Debridement Measurements/Treatment NAHUM - Nurse 1 - General Ulcer Assessment Start: 08/02/21 08:31 Freq: Status: Active Protocol: DANA Activity Type Activity Date Activity User E-Sign Co-Sign Detail Recorded Client Recorded Date Recorded By Document 08/02/21 08:38 AK Desktop 08/02/21 08:41 AK Document 08/09/21 08:23 AK [id number] 08/09/21 08:26 AK 08/02/21 08/09/21 08:38 08:23 WC - Today's Visit Information Type of service Follow-up Visit Follow-up Visit (Physician/ARCHITECTURAL TECHNICIAN (Physician/ARCHITECTURAL TECHNICIAN ) ) Arrival Mode Ambulatory Ambulatory Patient Identification Verified (Name & Yes ) Patient Requires Transmission-Based No Precautions Safety Precautions NA NA Height and Weight Body Mass Index (BMI) 46.7 46.7 BMI Classification Obese Obese Vital Signs Temperature (97.8 F-99.1 F) 96.9 F L 96.7 F L Temperature Source Temporal Temporal Pulse Rate (60-100) 79 76 Pulse Location Monitor Monitor Blood Pressure (90/60-120/80) 136/60 H 96/64 Blood Pressure Mean (mm Hg) 85 74 Source Monitor Monitor History Since Last Visit- (Skip if this is Patient's initial visit) Have you changed medications since your No No last visit? Any new allergies or adverse reactions No No Had a fall/change in ADL's that may No No increase risk of falls Signs or symptoms of abuse and/or No No neglect since last visit Have you been in the hospital since your No No last visit? Has dressing in place as prescribed Yes Yes Has compression in place as prescribed Yes Yes Has offloadiing in place as prescribed N/A N/A Experienced any changes in pain level or No No management Left Footwear Regular Shoe Regular Shoe Right Footwear Regular Shoe Regular Shoe WC - Nurse 1 - General Ulcer Measurement Start: 08/02/21 08:31 Freq: Status: Active Protocol: Activity Type Activity Date Activity User E-Sign Co-Sign Detail Recorded Client Recorded Date Recorded By Document 08/02/21 08:38 AK Desktop 08/02/21 08:41 AK Document 08/09/21 08:23 AK [id number] 08/09/21 08:26 AK 08/02/21 08/09/21 08:38 08:23 Wound Center Nurse 1 #4 L Lat LE -Combined with other wound No No -Current Size (cm) - Length 0.5 0.1 -Current Size (cm) - Width 0.7 0.1 -Current Size (cm) - Depth 0.1 0.1 -Total Square Cm 0.35 0.01 -Photo Taken No No -Epithelialization None Present None Present -Tunneling No No -Undermining/Tunneling No No -Circular Undermining No No -Change in Wound Grade/Stage No No -Exudate Amt None Present Small -Exudate Type Serosanguineous -Wound Margin Distinct, Distinct, Outline Outline Attached Attached -Granulation Amt None Present (0 None Present (0 %) %) -Granulation Quality N/A N/A -Slough/Fibrin No No -Necrosis Amt None Present (0 None Present (0 %) %) -Structure Exposed N/A N/A -Texture (Tenisha-wound Skin Appearance) Assessed, Assessed, Scarring Scarring -Moisture (Tenisha-wound Skin Appearance) No Abnormality, Assessed,Dry/ Assessed Scaly -Color (Tenisha-wound Skin Appearance) Assessed, Assessed, Hemosiderin Hemosiderin Staining Staining -Temperature (Tenisha-wound Skin No Abnormality No Abnormality Appearance) (Pt Warm) (Pt Warm) -Tenderness on Palpation (Tenisha-wound No No Skin Appearance) -Ulcer Cleansing Soap and Water Soap and Water -Foul Odor after Cleansing No No -Anesthetic Used 5% Lidocaine 5% Lidocaine Gel Gel Left Calf (cm) 48 45 Left Ankle (cm) 28 26 WC - Nurse 2 - General Ulcer CM Notes Start: 08/02/21 08:31 Freq: Status: Active Protocol: Activity Type Activity Date Activity User E-Sign Co-Sign Detail Recorded Client Recorded Date Recorded By Document 08/02/21 13:12 PL [id number] 08/02/21 13:13 PL Edit Result 08/02/21 13:12 PL (1) [id number] 08/02/21 13:15 PL Document 08/09/21 08:44 PL [id number] 08/09/21 08:47 PL (1) #4 L Lat LE - Bioengineered Tissue No => Yes - Type of Bioengineered Tissue => Epifix 18mm Disc - Expiration Date => 04/02/26 - Product Lot Number => [id number] - Percent Used => 100 - Debridement - Subq, 1st 20sq cm Yes => No - Apply Skin Sub - 1st 25 sq cm - Legs => 1 - Epifix 18mm Disc => 3 08/02/21 08/09/21 13:12 08:44 Wound Center Nurse 2 #4 L Lat LE -Time 09:00 08:29 -Correct Patient Yes Yes -Correct Side, Site, Position Yes Yes -Correct Procedure Yes Yes -Procedure Performed Yes Yes -Type of Procedure Debridement Debridement -Clinical Debridement Subcutaneous Subcutaneous -Tissue Removed Subcutaneous Subcutaneous -Post Debridement (cm) - Length 0.5 0.3 -Post Debridement (cm) - Width 0.3 0.3 -Post Debridement (cm) - Depth 0.1 0.1 -Total Square (Post) (cm) 0.15 0.09 -Area of Debridement (cm) - Length 0.5 0.3 -Area of Debridement (cm) - Width 0.3 0.3 -Total Square (Area) (cm) 0.15 0.09 -Tunneling No No -Undermining/Tunneling No No -Circular Undermining No No -Wound/Ulcer Outcome Not Healed Not Healed -Ulcer Cleansing Rinsed/ Rinsed/ Irrigated with Irrigated with Saline Saline -Foul Odor after Cleansing No No -Bioengineered Tissue Yes Yes -Type of Bioengineered Tissue Epifix 18mm Epifix 18mm Disc Disc -Expiration Date 04/02/26 05/02/26 -Product Lot Number [id number] -Percent Used 100 100 -Bleeding Controlled with Pressure Pressure -Treatment Response Procedure Procedure Tolerated Well Tolerated Well -Debridement - Subq, 1st 20sq cm No No -Apply Skin Sub - 1st 25 sq cm - Legs 1 1 -Epifix 18mm Disc 3 3 WC - Nurse 3 - General Ulcer D/C NN Start: 08/02/21 08:31 Freq: Status: Active Protocol: Activity Type Activity Date Activity User E-Sign Co-Sign Detail Recorded Client Recorded Date Recorded By Document 08/02/21 12:25 AK [id number] 08/02/21 12:25 AK Document 08/07/21 10:39 PL [id number] 08/07/21 10:39 PL Edit Time 08/05/21 10:39 PL 08/07/21 10:39=>08/05/21 10:39 [id number] 08/07/21 10:40 PL 08/02/21 08/05/21 12:25 10:39 Wound Care Nurse 3 -Primary Dressing Covered/Secured with Dry Gauze, Secured with Tape Left -Multi-Layered Wrap Application Multi-Layer Multi-Layer Comp - Left ($) Comp - Left ($) Pain Scale: 0-10 Numeric Is Patient Pain Free? Yes WC - Visit Discharge Discharge Condition Stable Ambulatory Status Ambulatory Transportation Private Auto Assessment/Plan Assessment/Plan (1) Venous stasis ulcer of left lower leg with edema of left lower leg: CODE(S): I83.029 - Varicose veins of left lower extremity with ulcer of unspecified site; I83.892 - Varicose veins of left lower extremity with other complications; L97.929 - Non-pressure chronic ulcer of unspecified part of left lower leg with unspecified severity; R60.9 - Edema, unspecified (2) Venous insufficiency of both lower extremities: CODE(S): I87.2 - Venous insufficiency (chronic) (peripheral) PLAN: Debridement performed today in clinic as annotated above. Given the duration of the wound and failure of the wound to respond to standard wound care, we applied for advanced skin substitutes (Puraply, Nushield, Apligraf, EpiFix). Per bilingual patient support caseworker Geo Connell RN we were approved for Epifix. Epifix #7 (18 mm disc) was applied to the left lower extremity today. 100% of the product was used. Moistened with hydrogel, covered with Adaptic touch and secured with Steri-Strips. 3M's applied for compression. Patient was instructed to notify us if his 3M's slip/fall down his leg during the week, and he can come in for reapplication of wraps. At home wound-care instructions: Keep your left lower extremity dressings and wraps clean and dry. Cover the left lower extremity dressings with a cast cover when showering. Compression: 3M's applied today for compression. If 3M's feel uncomfortably tight, elevate the legs. If discomfort does not resolve with leg elevation, or anytime you develop numbness and tingling or discoloration of the toes/foot/leg, contact the wound healing center or remove the wraps. Off-loading: The patient was instructed to avoid pressure and friction on the affected areas. Reposition every 2 hours at minimum. Avoid prolonged standing and/or dangling of legs. When seated, feet should be elevated at chest level. Frequent ambulation is encouraged. Diet: Patient encouraged to increase protein intake while taking caution to avoid high carbohydrate and/or sugar intake. Smoking: The risks of smoking and benefits of smoking cessation have been discussed with the patient. The patient was encouraged to quit smoking. If smoking cessation aids are desired, the patient should contact their primary care provider to discuss appropriate options. Labs/cultures/imaging: Cultures deferred today; no clinical signs of infection. Routine baseline lab work ordered- not completed. Vascular studies reviewed from August 2020 as annotated above. Labs from 03/19/2021 reviewed, significant for the following: CBCD unremarkable, hemoglobin A1c 6.3%, CMP with BUN 21 (H), and glucose 120 (H), lipid panel with HDL 34 (L). Follow-up: Return to clinic in 1 week for re-evaluation. Return sooner or report to the emergency room should symptoms worsen, or new symptoms arise. Note: [employer] speech recognition auto parts handler software was used to create portions of this document. Sound-alike and misspelled words, as well as other auto parts handler errors may be contained in the documentation.
[2021-08-16 08:33] VITALS: BP 138/71; PULSE 77; TEMP 35.9; BMI 46.7
--- NOTE | 2021-08-16 08:54 | PN.PCM_ITS ---
History of Present Illness Date of Service: 08/16/21 Chief Complaint: Left lateral leg ulcers History of Wound: Cyrus is a pleasant 60-year-old male who presents to the wound healing center for evaluation of a new wound to his left lateral leg. He is a known patient to the wound healing center. He has a past medical history significant for CAD (s/p cardiac stent), NSTEMI, right bundle sherri block, hypertension, hyperlipidemia, peripheral vascular disease, morbid obesity, and nicotine dependence. He states the ulcers of his left lateral leg began spontaneously 2 weeks ago. He began using Aquacel Extra dressings daily at onset. He has noted improvement in the size of his wound with the use of Aquacel Extra dressing changes. He denies redness, warmth, pain, or purulent/malodorous drainage from the wound. He denies any fever chills, or decreased appetite. He had arterial studies in August 2020 which showed no significant arterial occlusive disease. He had venous studies in August 2020 which showed venous incompetence in the bilateral lower extremities (Deep veins of the lower extremities are bilaterally patent and compressible segmentally. There is no evidence of deep vein thrombosis on either side. Valvular competence appears intact within the proximal deep venous systems bilaterally. The right sapheno- femoral junction is competent . The left sapheno-femoral junction is incompetent . The right great saphenous vein appears segmentally incompetent. The left great saphenous vein has been partially harvested. Short segments of the left great saphenous vein in the groin and at the ankle are incompetent. The right small saphenous vein is patent and competent. The left small saphenous vein has been partially harvested. A short segment of the remaining left small saphenous vein is incompetent. The right lateral accessory saphenous vein at the groin is incompetent. An incompetent sales consultant residential manager vein is noted in the right calf, located 7 centimeters proximal to the right medial malleolus. An incompetent sales consultant residential manager vein is noted in the left calf, located 8 centimeters proximal to the left medial malleolus.) He underwent vein stripping with Dr. Blancas. He is not fully compliant with compression use. He has double Tubigrip's which she does not wear often. He works with a [employer] company and is on his feet for long periods throughout the day. Progress of Wound: Patient's wounds are healed today. He tolerated EpiFix and 3M wraps well. He does not have any compression stockings with him today. Objective Data Objective Data Vital Signs: Vital Signs Temp Pulse Resp BP 96.7 F L 77 18 138/71 H 08/16/21 08:33 08/16/21 08:33 08/02/21 00:13 08/16/21 08:33 Body Mass Index (BMI) 46.7 Charges/Coding Visit Charges Office Visits / Consults: [id number] OV L3 Est Physical Exam Const alert and no apparent distress General Appearance: cooperative, comfortable and well kempt Nutritional Appearance: obese HEENT Head and Scalp: normocephalic and atraumatic Neck supple Resp normal respiratory effort Extremity normal capillary refill and no joint enlargement General Extremity: edema left lower extremity mild; Negative for clubbing or cyanosis Peripheral Pulses: Yes dorsalis pedis pulses present left 2+ Skin Wounds: wounds noted No malodorous Wound Narrative: Left lateral leg ulcer is healed today. Skin is mildly dry and scaly. Neuro moves all extremities Psych mental status grossly normal, cooperative and affect normal Debridement Note Debridement Note No debridement was completed: No debridement was completed today Assessment/Plan Assessment/Plan (1) Venous stasis ulcer of left lower leg with edema of left lower leg: CODE(S): I83.029 - Varicose veins of left lower extremity with ulcer of unspecified site; I83.892 - Varicose veins of left lower extremity with other complications; L97.929 - Non-pressure chronic ulcer of unspecified part of left lower leg with unspecified severity; R60.9 - Edema, unspecified (2) Venous insufficiency of both lower extremities: CODE(S): I87.2 - Venous insufficiency (chronic) (peripheral) PLAN: The patient's ulcer is healed today. A total of 7 EpiFix applications to the left lower extremity were completed. He does not have compression with him today and will be heading straight to work following his appointment. He has mildly dry and scaly skin of his LLE. Adaptic applied to the region of his previous wound site to aid with dryness and provide protection. 3M's applied for compression. If his 3M's slip/fall down his leg during the week, he may remove these and begin using his compression stockings. If 3Ms stay in place for a week, he is instructed to unwrap them and begin using his compression stockings daily thereafter. If 3M's feel uncomfortably tight, elevate the legs. If discomfort does not resolve with leg elevation, or anytime you develop numbness and tingling or discoloration of the toes/foot/leg, contact the wound healing center or remove the wraps. Off-loading: The patient was instructed to continue avoiding pressure and friction on the previously affected area. Avoid prolonged standing and/or dangling of legs. When seated, feet should be elevated at chest level. Frequent ambulation is encouraged. Follow-up: Return to clinic on an as-needed basis should new or recurring wounds develop. Note: [employer] speech recognition motorcycle engine assembler software was used to create portions of this document. Sound-alike and misspelled words, as well as other motorcycle engine assembler errors may be contained in the documentation.
== END 2021-08-16 08:50 | disposition home or self-care (01) ==
LOC: WC 08:30
PROVIDERS: PCP Family Medicine; Visit Provider Nurse Practitioner Family
DX: I83.028 Varicose veins of left lower extremity with ulcer other part of lower leg (principal); L97.822 Non-pressure chronic ulcer of other part of left lower leg with fat layer exposed; I25.10 Atherosclerotic heart disease of native coronary artery without angina pectoris; E78.5 Hyperlipidemia, unspecified; I10 Essential (primary) hypertension; E66.01 Morbid (severe) obesity due to excess calories; Z95.5 Presence of coronary angioplasty implant and graft; Z68.42 Body mass index [BMI] 45.0-49.9, adult; F17.200 Nicotine dependence, unspecified, uncomplicated
CPT/HCPCS: 11042; 15271; 29581; 99213; Q4186; G0463

== ENCOUNTER → 2021-09-18 05:52 | Outpatient (CLI) | payer OTHER, SELFPAY ==
[2021-09-18 06:00] LABS: Bacteria 0 SEEN /hpf (None Seen); Mucous, Urine 0 SEEN /hpf (<or=2+); Red Blood Cells-Urine 0 SEEN /hpf (0-5); White Blood Cells 0 SEEN /hpf (0-5)
[2021-09-18 07:37] LABS: Absolute Lymphocyte Count 1.81 X10^3/uL (0.83-4.51); Absolute Neutrophil Count 5.1 X10^3/uL (2.0-7.7); Basophil# 0.06 X10^3/uL; Basophil% 0.8 % (0-1); Eosinophil# 0.25 X10^3/uL; Eosinophils% 3.2 % (0-5); Hematocrit 49.9 % (40-54); Hemoglobin 16.6 g/dL (13.0-16.5); Lymphocyte # 1.81 X10^3/ul (0.83-4.51); Lymphocyte % 22.9 % (19-41); Mean Corp Hgb Conc 33.3 g/dL (32-36); Mean Corpuscular Hgb 29.5 pg (27.0-32.0); Mean Corpuscular Volume 88.8 fL (80-94); Mean Platelet Vol. 9.8 fl (6.2-12.0); Monocyte# 0.65 X10^3/uL; Monocyte% 8.2 % (0-10); NRBC Flagged by Analyzer 0 % (0-5); Neutrophil # 5.08 X10^3/uL (2.7-7.7); Neutrophil % 64.3 % (47-70); Platelet Count 229 K/mm3 (150-450); RBC Distribution Width CV 13.8 % (11.6-14.6); RBC Distribution Width SD 44.9 fl (35.1-43.9); Red Blood Count 5.62 M/mm3 (4.6-6.2); White Blood Count 7.9 K/mm3 (4.4-11.0)
[2021-09-18 08:10] LABS: Color, Urine Yellow (Yellow); Glucose, Dipstick Normal (Normal); Ketone-Dipstick Negative (Negative); Leukocyte Esterase-Dipstick Negative /ul (Negative); Nitrite-Dipstick Negative (Negative); Occult Blood-Urine Negative /ul (Negative); Protein-Dipstick Negative (Negative); Urine Bilirubin Dipstick Negative (Negative); Urine Clarity Sl. Cloudy (Clear); Urine Urobilinogen Normal (Normal)
[2021-09-18 08:14] LABS: ALB/GLOB Ratio 0.8 RATIO (0.9-2.4); AST(SGOT) 26 U/L (15-37); Alanine Aminotransfer ALT/SGPT 47 U/L (16-61); Albumin, Serum 3.2 g/dL (3.2-5.0); Alkaline Phosphatase 50 U/L (45-117); Anion Gap 5 (5-15); BUN 19 mg/dL (7-18); BUN/Creat Ratio 20.9 RATIO (10-20); Chloride 106 mmol/L (98-107); Cholesterol 120 mg/dL (200); Creatinine, Serum 0.91 mg/dL (0.70-1.30); EST Glomerular Filtration Rate 91 mL/min (>60); Est Glom Filt Rate - Afr Amer 110 mL/min (>60); Globulin 4.1 g/dL (2.2-4.2); Glucose 124 mg/dL (74-106); High Density Lipoprotein 33 mg/dL; Potassium 4.1 mmol/L (3.5-5.1); Protein, Total 7.3 g/dL (6.4-8.2); Sodium Level 137 mmol/L (136-145); Triglycerides 117 mg/dL; Very Low Density Lipoprotein 23 mg/dL (5-40)
[2021-09-18 08:35] LABS: Squamous Epithelial Cells - UA 0-5 SEEN /hpf (0-5)
[2021-09-19 09:29] LABS: Hemoglobin A1c 6.1 % (3.8-5.6)
== END ==
PROVIDERS: PCP Family Medicine; Referring Provider Family Medicine; Visit Provider Family Medicine
DX: I25.10 Atherosclerotic heart disease of native coronary artery without angina pectoris (principal); E78.5 Hyperlipidemia, unspecified; F17.200 Nicotine dependence, unspecified, uncomplicated; R73.09 Other abnormal glucose
CPT/HCPCS: 36415; 80053; 80061; 81001; 83036; 85025

== ENCOUNTER → 2021-09-30 08:57 | Outpatient (CLI) | payer OTHER, SELFPAY ==
--- NOTE | 2021-09-30 09:02 | RAD_ITS ---
STUDY: X-RAY - ESOPHAGUS (BARIUM SWALLOW) WITH FLUOROSCOPY REASON FOR EXAM: Male, 61 years old. DYSPHAGIA TECHNIQUE: 22 view(s) of the esophagus were obtained following swallowing of barium. FLUOROSCOPY TIME (if supplied): (31) minutes/seconds COMPARISON: None. FINDINGS: There is no demonstrated esophageal foreign body. There is no demonstrated stricture or mucosal abnormality. Normal gastroesophageal junction, without a demonstrated hiatal hernia. There is atherosclerotic tortuosity of the aortic arch and descending thoracic aorta. Normal visualized pulmonary parenchyma. Normal visualized osseous structures of the thorax. RAD/Esophagus Dual Contrast IMPRESSION: Normal plain film x-ray examination (barium swallow) of the esophagus. Electronically Signed: Antonio Sandoval MD at 14:56 EST , Service support ,
== END ==
PROVIDERS: PCP Family Medicine; Referring Provider Family Medicine; Visit Provider Family Medicine
DX: R13.10 Dysphagia, unspecified (principal)
CPT/HCPCS: 74221

== ENCOUNTER → 2021-10-29 | Outpatient (CLI) | payer OTHER, SELFPAY | END | disposition home or self-care (01) | LOC: LABSPEC 17:01 | PROVIDERS: PCP Family Medicine; Visit Provider Family Medicine | DX: U07.1 COVID-19 (principal) | CPT/HCPCS: 87635; U0005; U0003 ==

== ENCOUNTER 2021-11-07 04:44 | Emergency (ER) | payer OTHER, SELFPAY ==
[2021-11-07 04:44] VITALS: BP 139/90; PULSE 83; RESP 18; TEMP 36.6; O2SAT 93; BMI 44.9
--- NOTE | 2021-11-07 04:58 | RAD_ITS ---
STUDY: X-RAY CHEST REASON FOR EXAM: Male, 61 years old. Cough. TECHNIQUE: AP portable upright COMPARISON: 01/11/2018 CXR FINDINGS: Mild chronic bibasilar opacities are similar to prior. No evidence of acute pneumonia, pneumothorax, pleural effusion, or pulmonary edema. Heart size normal. No concerning mediastinal or hilar lesions. No acute osseous abnormality. RAD/Chest 1 View (Portable) IMPRESSION: No acute findings. Chronic bibasilar opacities likely scarring. Electronically Signed: Aryan Tanner MD at 6:46 EST Tel , Service support ,
--- NOTE | 2021-11-07 04:59 | EDS_ITS ---
HPI History of Present Illness Chief Complaint: General Illness Informant: patient Narrative Narrative: Presents increasing dyspnea chest tightness this morning. Covid +9 days ago symptomatic 2 days prior. Reported sinus congestion and right-sided sinus headache cough. Denies fevers. Diarrhea last week that resolved. He did lose smell. Has taste. Nonvaccinated. No infections in the past. Tobacco history. Denies asthma or COPD however does have a inhaler that he has been using. PCP ordered test as an outpatient. Denies exertional dyspnea. Patient history of coronary disease with a stent in the past. Prior similar symptoms: No PFSH PFSH Medical History Atherosclerosis of coronary artery of [place] heart without angina pectoris cervical mass Edema of both lower legs due to peripheral venous insufficiency Essential (primary) hypertension History of DVT (deep vein thrombosis) History of left heart catheterization (09/07/12) History of non-ST elevation myocardial infarction (NSTEMI) (12/10/11) Hyperlipidemia Morbid obesity with BMI of 45.0-49.9, adult Nicotine dependence Peripheral vascular occlusive disease Right bundle branch block Uninodular goiter Venous insufficiency of both lower extremities Venous stasis ulcer of left lower leg with edema of left lower leg Home Medications lisinopril 20 mg PO DAILY 02/07/15 [History Last Taken 01/26/18 04:00] metoprolol tartrate 50 mg PO BID 11/06/16 [History Last Taken 01/26/18 04:00] albuterol sulfate 90 mcg/actuation aerosol inhaler 2 puff INHALATION Q6H PRN 12/01/17 [History Last Taken Unknown] furosemide 40 mg tablet 40 mg PO QDAY 12/01/17 [History Last Taken Unknown] aspirin 325 mg tablet 81 mg PO DAILY tab 01/02/20 [History Last Taken Unknown] dexamethasone 6 mg PO DAILY #9 tab 11/07/21 [Rx Last Taken Unknown] Allergy/AdvReac Type Severity Reaction Status Date / Time No Known Allergies Allergy Verified 11/07/21 04:48 Family History Mother Atrial fibrillation H/O aortic valve replacement H/O mitral valve replacement Diabetes Father , Age 69, cause not listed No problems noted. Brother Seizures Surgical History History of coronary artery stent placement (12/10/11) History of coronary artery stent placement (12/10/11) History of hip replacement Social History Smoking Status: Current every day smoker tobacco type: cigarettes ROS ROS ED Constitutional Constitutional ED: Denies chills, fever(s) or sweats Eyes Eyes: Denies change in vision ENT ENT ED: Denies dysphagia or sore throat Cardiovascular Cardiovascular: Denies chest pain, leg edema, palpitations or racing heartbeat Respiratory/Chest Respiratory/Chest: Reports cough and dyspnea; Denies dyspnea on exertion Gastrointestinal Gastrointestinal: Denies abdominal pain, diarrhea, nausea or vomiting Genitourinary Genitourinary ED: Denies dysuria, hematuria or urinary frequency Musculoskeletal Musculoskeletal: Denies back pain, extremity pain or neck pain Integumentary Denies rash or wounds Neurologic Neurologic: Denies headache(s), paresthesias or weakness EXAM Physical Exam Const Vital Signs: 11/07/21 04:44 11/07/21 05:52 Temperature 97.9 F Temperature Source Temporal Pulse Rate 83 69 Respiratory Rate 18 17 Blood Pressure 139/90 H Blood Pressure Mean 106 Pulse Ox 93 95 Oxygen Delivery Method Room Air Positive well nourished and well developed General Appearance ED: well developed and NAD HEENT Reports moist mucous membranes normocephalic and atraumatic Eyes PERRL, EOMs intact bilaterally and conjunctivae normal General Eye ED: Yes normal appearance of both eyes Neck no lymphadenopathy and supple General: Negative for tenderness Chest Wall Chest: Negative for tenderness Resp normal respiratory effort and normal air movement Effort and Inspection: symmetric chest movement; Negative for respiratory distress Cardio regular rate, regular rhythm and no murmurs Peripheral Pulses: pulses 2+ throughout GI normal to inspection, nondistended, normoactive bowel sounds and non-tender Palpation: Negative for guarding or rebound tenderness present Back/Spine no CVA tenderness and no thoracic nor lumbar tenderness Extremity normal to inspection General Extremety ED: Negative for edema or tenderness General Extremity: Negative for edema Neuro oriented x3 and no sensory deficits noted Sensorium / Orientation: awake and alert Skin no rashes or lesions noted and no wounds MDM MDM MDM Narrative Medical decision making narrative: Amatory pulse ox into the ED was 93%. This is no respiratory distress. He is nontoxic. Will check labs x-ray will start dexamethasone. Patient currently 11 days from symptoms he is outside the window for monoclonal antibody treatment. We will plan for continued steroids. He has inhaler at home. There is no current wheezing. Chest x-ray 1 view reviewed by myself, possible small infiltrate left lower lobe. No significant findings. Basic labs were normal. Reevaluation pulse ox 92 to 93%. Patient does not meet any indication for oxygen requirements. Discussed with patient picking up a pulse oximeter for monitoring for his pulse ox. Strict return precautions. Prescription for dexamethasone sent to his pharmacy. Patient is being discharged under pandemic conditions under declared global, national and state disaster activation, with limited medical resources. Patient and community understands this. Results discussed in layman's terms to the patient satisfaction. All questions answered in layman's terms. Patient understands importance of follow-up care as directed. Patient has been instructed to return to the ED immediately if new symptoms, problems, or questions occur. We mutually agree with the plan of disposition. The patient understand that they may call or return with any questions or concerns at any time. Lab Data Labs: Laboratory Results - last 24 hr 11/07/21 11/07/21 04:54 04:54 WBC 4.3 L RBC 5.71 Hgb 16.8 H Hct 49.1 MCV 86.0 MCH 29.4 MCHC 34.2 RDW Std Deviation 42.1 RDW Coeff of Ernesto 13.5 Plt Count 171 MPV 9.2 Immature Gran % (Auto) 0.500 Neut % (Auto) 49.8 Lymph % (Auto) 35.0 [place] % (Auto) 12.4 H Eos % (Auto) 1.6 Baso % (Auto) 0.7 Absolute Neuts (auto) 2.1 Absolute Lymphs (auto) 1.49 Nucleated RBC % 0 Sodium 138 Potassium 3.6 Chloride 104 Carbon Dioxide 27.0 Anion Gap 7 BUN 14 Creatinine 0.79 Estim Creat Clear Calc 107.23 Est GFR (MDRD) Af Amer 128 Est GFR (MDRD) Non-Af 106 BUN/Creatinine Ratio 17.7 Glucose 134 H Calcium 8.9 Radiography Diagnostic Testing: Clinical Impression(s) from Imaging Studies Chest X-Ray 11/07/21 04:58 IMPRESSION: No acute findings. Chronic bibasilar opacities likely scarring. Electronically Signed: Aryan Tanner MD at 6:46 EST Tel , Service support , Discharge Plan Triage Chief Complaint: General Illness ED Provider: Herson Sotelo Dx/Rx/DC Orders Clinical Impression: COVID-19 virus infection, Morbid obesity with BMI of 45.0-49.9, adult Instructions: Coronavirus Disease 2019 (COVID-19): Caring for Yourself or Others Prescriptions: New dexamethasone 6 mg tablet 6 mg PO DAILY Qty: 9 RF: 0 No Action albuterol sulfate [ProAir HFA] 90 mcg/actuation HFA aerosol inhaler 2 puff INHALATION Q6H PRN (Reason: Sob &/Or Wheezing) RF: 0 furosemide 40 mg tablet 40 mg PO QDAY RF: 0 aspirin 325 mg tablet 81 mg PO DAILY RF: 0 lisinopril 20 MG tablet 20 mg PO DAILY RF: 0 metoprolol tartrate 50 MG tablet 50 mg PO BID RF: 0 Primary Care Provider: Emery Alvarenga Referrals: Emery Alvarenga MD [Primary Care Provider] - 3-5 Days if not improving Activity Restrictions/Additional Instructions: Take steroids as prescribed. supervisor drying and winding pulse oximeter to monitor your pulse ox. If drops below 88%, return to the ED for reevaluation. Otherwise follow-up with your PCP. Disposition Disposition: Home, Self Care Discharge Date/Time: 11/07/21 05:52
[2021-11-07] MEDS: dexAMETHasone 10 MG/ML Vial 6 MG IV (05:04)
[2021-11-07 05:05] LABS: Absolute Lymphocyte Count 1.49 X10^3/uL (0.83-4.51); Absolute Neutrophil Count 2.1 X10^3/uL (2.0-7.7); Basophil# 0.03 X10^3/uL; Basophil% 0.7 % (0-1); Eosinophil# 0.07 X10^3/uL; Eosinophils% 1.6 % (0-5); Hematocrit 49.1 % (40-54); Hemoglobin 16.8 g/dL (13.0-16.5); Lymphocyte # 1.49 X10^3/ul (0.83-4.51); Mean Corp Hgb Conc 34.2 g/dL (32-36); Mean Corpuscular Hgb 29.4 pg (27.0-32.0); Mean Platelet Vol. 9.2 fl (6.2-12.0); Monocyte# 0.53 X10^3/uL; Monocyte% 12.4 % (0-10); NRBC Flagged by Analyzer 0 % (0-5); Neutrophil # 2.12 X10^3/uL (2.7-7.7); Neutrophil % 49.8 % (47-70); Platelet Count 171 K/mm3 (150-450); RBC Distribution Width CV 13.5 % (11.6-14.6); RBC Distribution Width SD 42.1 fl (35.1-43.9); Red Blood Count 5.71 M/mm3 (4.6-6.2); White Blood Count 4.3 K/mm3 (4.4-11.0)
[2021-11-07 05:24] LABS: Anion Gap 7 (5-15); BUN 14 mg/dL (7-18); BUN/Creat Ratio 17.7 RATIO (10-20); Calcium,Total 8.9 mg/dL (8.5-10.1); Chloride 104 mmol/L (98-107); Creatinine, Serum 0.79 mg/dL (0.70-1.30); EST Glomerular Filtration Rate 106 mL/min (>60); Est Glom Filt Rate - Afr Amer 128 mL/min (>60); Estimated Creatinine Clearance 107.23 ml/min; Glucose 134 mg/dL (74-106); Potassium 3.6 mmol/L (3.5-5.1); Sodium Level 138 mmol/L (136-145)
[2021-11-07 05:52] VITALS: PULSE 69; RESP 17; O2SAT 95
== END 2021-11-07 05:52 | disposition home or self-care (01) ==
PROVIDERS: Emergency Provider Emergency Medicine; PCP Family Medicine; Visit Provider Emergency Medicine
DX: U07.1 COVID-19 (principal); E66.01 Morbid (severe) obesity due to excess calories; Z68.42 Body mass index [BMI] 45.0-49.9, adult; I25.10 Atherosclerotic heart disease of native coronary artery without angina pectoris; F17.210 Nicotine dependence, cigarettes, uncomplicated; I10 Essential (primary) hypertension; I25.2 Old myocardial infarction; Z95.5 Presence of coronary angioplasty implant and graft; Z79.82 Long term (current) use of aspirin; Z79.899 Other long term (current) drug therapy
CPT/HCPCS: 71045; 80048; 85025; 99282; A4216

== ENCOUNTER 2021-11-07 22:40 | Emergency (ER) | payer OTHER, SELFPAY ==
[2021-11-07 22:41] VITALS: BP 123/75; PULSE 78; RESP 18; TEMP 36.6; O2SAT 98; BMI 44.6
--- NOTE | 2021-11-07 23:06 | EX.ED.DYSGE1 ---
HPI History of Present Illness Chief Complaint: Anxiety Narrative Narrative: Patient is a 61-year-old male who is approximately 12 days into a Covid diagnosis. He states over the last 1 to 2 days he has been feeling very anxious and has difficulty turning his brain off. He denies any homicidal or suicidal ideation he denies any excessive stimulant use or drug use. He reports he cannot sleep this evening and secondary to this presents for evaluation. [facility] Medical History Atherosclerosis of coronary artery of [place] heart without angina pectoris cervical mass Edema of both lower legs due to peripheral venous insufficiency Essential (primary) hypertension History of DVT (deep vein thrombosis) History of left heart catheterization (09/07/12) History of non-ST elevation myocardial infarction (NSTEMI) (12/10/11) Hyperlipidemia Morbid obesity with BMI of 45.0-49.9, adult Nicotine dependence Peripheral vascular occlusive disease Right bundle branch block Uninodular goiter Venous insufficiency of both lower extremities Venous stasis ulcer of left lower leg with edema of left lower leg Home Medications lisinopril 20 mg PO DAILY 02/07/15 [History Last Taken 01/26/18 04:00] metoprolol tartrate 50 mg PO BID 11/06/16 [History Last Taken 01/26/18 04:00] albuterol sulfate 90 mcg/actuation aerosol inhaler 2 puff INHALATION Q6H PRN 12/01/17 [History Last Taken Unknown] furosemide 40 mg tablet 40 mg PO QDAY 12/01/17 [History Last Taken Unknown] aspirin 325 mg tablet 81 mg PO DAILY tab 01/02/20 [History Last Taken Unknown] dexamethasone 6 mg PO DAILY #9 tab 11/07/21 [Rx Last Taken Unknown] lorazepam [Ativan] 1 mg PO TID PRN 5 Days #15 tab 11/07/21 [Rx Last Taken Unknown] Allergy/AdvReac Type Severity Reaction Status Date / Time No Known Allergies Allergy Verified 11/07/21 22:42 Family History Mother Atrial fibrillation H/O aortic valve replacement H/O mitral valve replacement Diabetes Father , Age 69, cause not listed No problems noted. Brother Seizures Surgical History History of coronary artery stent placement (12/10/11) History of coronary artery stent placement (12/10/11) History of hip replacement Social History Smoking Status: Current every day smoker tobacco type: cigarettes ROS ROS ED Constitutional Constitutional ED: Denies chills or fever(s) ENT ENT ED: Reports rhinorrhea and sore throat Cardiovascular Cardiovascular: Denies chest pain Respiratory/Chest Respiratory/Chest: Reports cough and dyspnea Gastrointestinal Gastrointestinal: Denies abdominal pain, diarrhea, nausea or vomiting Genitourinary Genitourinary ED: Denies dysuria Musculoskeletal Musculoskeletal: Reports myalgias Integumentary Denies rash Neurologic Neurologic: Denies headache(s) Psychiatric Psychiatric: Reports anxiety; Denies suicidal ideation or suicidal thoughts Hematologic/Lymphatic Hematologic/Lymphatic: Denies easy bleeding or easy bruising EXAM Physical Exam Const Vital Signs: 11/07/21 22:41 Temperature 97.9 F Temperature Source Temporal Pulse Rate 78 Respiratory Rate 18 Blood Pressure 123/75 H Blood Pressure Mean 91 Pulse Ox 98 Oxygen Delivery Method Room Air Positive well nourished, well developed and obese General Appearance ED: well developed Nutritional Appearance: obese Eyes PERRL and EOMs intact bilaterally Neck supple Resp normal respiratory effort Resp Narrative: Breath sounds are diminished throughout with faint expiratory wheeze in bilateral bases and slight rhonchi in the left lower lobe Cardio regular rate and regular rhythm GI normal to inspection, nondistended, normoactive bowel sounds, non-tender, non-distended and no masses Auscultation: normoactive bowel sounds Palpation: soft Extremity normal to inspection Neuro oriented x3 and CN's II-XII intact bilaterally Sensorium / Orientation: alert Motor Exam: strength 5/5 throughout Psych Psych Narrative: Nervous/anxious affect without homicidal or suicidal ideation Mood & Affect: anxious Skin no rashes or lesions noted MDM MDM MDM Narrative Medical decision making narrative: Patient presented to the ER with stable vitals. He reported generalized anxiety without homicidal or suicidal ideation. Moreover patient was already seen this morning and therefore I felt there was no need for imaging or laboratory studies. At this time I will simply control his anxiety with Ativan and he can follow-up with his family doctor to discuss need for further treatment as well as possible psychiatry referral if symptoms persist. Discharge Plan Triage Chief Complaint: Anxiety ED Provider: Rohan Chi Dx/Rx/DC Orders Clinical Impression: Anxiety Instructions: Anxiety Disorders Tx Therapy, Treating Anxiety Disorders ... Prescriptions: New lorazepam [Ativan] 1 mg tablet 1 mg PO TID PRN (Reason: anxiety) 5 Days Qty: 15 RF: 0 No Action albuterol sulfate [ProAir HFA] 90 mcg/actuation HFA aerosol inhaler 2 puff INHALATION Q6H PRN (Reason: Sob &/Or Wheezing) RF: 0 furosemide 40 mg tablet 40 mg PO QDAY RF: 0 aspirin 325 mg tablet 81 mg PO DAILY RF: 0 lisinopril 20 MG tablet 20 mg PO DAILY RF: 0 metoprolol tartrate 50 MG tablet 50 mg PO BID RF: 0 dexamethasone 6 mg tablet 6 mg PO DAILY Qty: 9 RF: 0 Primary Care Provider: Emery Alvarenga Referrals: Emery Alvarenga MD [Primary Care Provider] - Disposition Disposition: Home, Self Care Discharge Date/Time: 11/07/21 23:27
[2021-11-07] MEDS: LORazepam 2 MG/ML Syringe IM (23:15)
== END 2021-11-07 23:27 | disposition home or self-care (01) ==
PROVIDERS: Emergency Provider Emergency Medicine; PCP Family Medicine; Visit Provider Emergency Medicine
DX: F41.1 Generalized anxiety disorder (principal); I73.9 Peripheral vascular disease, unspecified; E66.01 Morbid (severe) obesity due to excess calories; Z68.41 Body mass index [BMI] 40.0-44.9, adult; F17.210 Nicotine dependence, cigarettes, uncomplicated; E78.5 Hyperlipidemia, unspecified; I10 Essential (primary) hypertension; I25.10 Atherosclerotic heart disease of native coronary artery without angina pectoris; Z79.899 Other long term (current) drug therapy; Z86.718 Personal history of other venous thrombosis and embolism; I25.2 Old myocardial infarction; Z79.82 Long term (current) use of aspirin; Z95.5 Presence of coronary angioplasty implant and graft; U07.1 COVID-19
CPT/HCPCS: 96372; 99282

== ENCOUNTER 2022-01-13 05:43 | Outpatient (CLI) | payer OTHER, SELFPAY ==
[2022-01-13 07:18] LABS: Absolute Lymphocyte Count 2.14 X10^3/uL (0.83-4.51); Basophil# 0.07 X10^3/uL; Basophil% 0.9 % (0-1); Eosinophil# 0.26 X10^3/uL; Eosinophils% 3.2 % (0-5); Hematocrit 46.4 % (40-54); Hemoglobin 15.4 g/dL (13.0-16.5); Lymphocyte # 2.14 X10^3/ul (0.83-4.51); Lymphocyte % 26.6 % (19-41); Mean Corp Hgb Conc 33.2 g/dL (32-36); Mean Corpuscular Volume 90.4 fL (80-94); Mean Platelet Vol. 9.8 fl (6.2-12.0); Monocyte# 0.55 X10^3/uL; Monocyte% 6.8 % (0-10); NRBC Flagged by Analyzer 0 % (0-5); Neutrophil # 4.99 X10^3/uL (2.7-7.7); Neutrophil % 62.1 % (47-70); Platelet Count 252 K/mm3 (150-450); RBC Distribution Width CV 14.3 % (11.6-14.6); RBC Distribution Width SD 47.8 fl (35.1-43.9); Red Blood Count 5.13 M/mm3 (4.6-6.2)
[2022-01-13 07:52] LABS: ALB/GLOB Ratio 0.9 RATIO (0.9-2.4); AST(SGOT) 17 U/L (15-37); Alanine Aminotransfer ALT/SGPT 39 U/L (16-61); Albumin, Serum 3.3 g/dL (3.2-5.0); Alkaline Phosphatase 49 U/L (45-117); Anion Gap 5 (5-15); BUN 16 mg/dL (7-18); BUN/Creat Ratio 19.4 RATIO (10-20); Calcium,Total 8.7 mg/dL (8.5-10.1); Chloride 106 mmol/L (98-107); Cholesterol 104 mg/dL (200); Creatinine, Serum 0.83 mg/dL (0.70-1.30); EST Glomerular Filtration Rate 101 mL/min (>60); Est Glom Filt Rate - Afr Amer 122 mL/min (>60); Globulin 3.5 g/dL (2.2-4.2); Glucose 128 mg/dL (74-106); High Density Lipoprotein 31 mg/dL; Potassium 4.1 mmol/L (3.5-5.1); Protein, Total 6.8 g/dL (6.4-8.2); Sodium Level 138 mmol/L (136-145); Triglycerides 113 mg/dL; Very Low Density Lipoprotein 23 mg/dL (5-40)
[2022-01-13 09:37] LABS: Hemoglobin A1c 6.2 % (3.8-5.6)
== END 2022-01-13 23:59 | disposition home or self-care (01) ==
LOC: LAB 05:44
PROVIDERS: PCP Family Medicine; Referring Provider Family Medicine; Visit Provider Family Medicine
DX: I25.10 Atherosclerotic heart disease of native coronary artery without angina pectoris (principal); R73.02 Impaired glucose tolerance (oral)
CPT/HCPCS: 36415; 80053; 80061; 83036; 85025

== ENCOUNTER → 2022-05-19 | Outpatient (CLI) | payer OTHER, SELFPAY ==
[2022-05-19 06:52] LABS: Absolute Lymphocyte Count 1.82 X10^3/uL (0.83-4.51); Absolute Neutrophil Count 5.5 X10^3/uL (2.0-7.7); Basophil# 0.07 X10^3/uL; Basophil% 0.8 % (0-1); Eosinophil# 0.23 X10^3/uL; Eosinophils% 2.8 % (0-5); Hematocrit 49.5 % (40-54); Hemoglobin 16.1 g/dL (13.0-16.5); Lymphocyte # 1.82 X10^3/ul (0.83-4.51); Lymphocyte % 21.9 % (19-41); Mean Corp Hgb Conc 32.5 g/dL (32-36); Mean Platelet Vol. 9.5 fl (6.2-12.0); Monocyte# 0.65 X10^3/uL; Monocyte% 7.8 % (0-10); NRBC Flagged by Analyzer 0 % (0-5); Neutrophil # 5.51 X10^3/uL (2.7-7.7); Neutrophil % 66.2 % (47-70); Platelet Count 235 K/mm3 (150-450); RBC Distribution Width CV 13.9 % (11.6-14.6); RBC Distribution Width SD 44.9 fl (35.1-43.9); Red Blood Count 5.56 M/mm3 (4.6-6.2); White Blood Count 8.3 K/mm3 (4.4-11.0)
[2022-05-19 07:40] LABS: ALB/GLOB Ratio 0.9 RATIO (0.9-2.4); AST(SGOT) 14 U/L (15-37); Alanine Aminotransfer ALT/SGPT 25 U/L (16-61); Albumin, Serum 3.3 g/dL (3.2-5.0); Alkaline Phosphatase 47 U/L (45-117); Anion Gap 4 (5-15); BUN 24 mg/dL (7-18); BUN/Creat Ratio 24.4 RATIO (10-20); Calcium,Total 8.8 mg/dL (8.5-10.1); Chloride 110 mmol/L (98-107); Cholesterol 102 mg/dL (200); Creatinine, Serum 0.98 mg/dL (0.70-1.30); EST Glomerular Filtration Rate 83 mL/min (>60); Est Glom Filt Rate - Afr Amer 100 mL/min (>60); Globulin 3.5 g/dL (2.2-4.2); Glucose 134 mg/dL (74-106); High Density Lipoprotein 31 mg/dL; Protein, Total 6.8 g/dL (6.4-8.2); Sodium Level 139 mmol/L (136-145); Triglycerides 115 mg/dL; Very Low Density Lipoprotein 23 mg/dL (5-40)
== END | disposition home or self-care (01) ==
LOC: LAB 05:51
PROVIDERS: PCP Family Medicine; Referring Provider Family Medicine; Visit Provider Family Medicine
DX: I25.10 Atherosclerotic heart disease of native coronary artery without angina pectoris (principal); R73.02 Impaired glucose tolerance (oral)
CPT/HCPCS: 36415; 80053; 80061; 83036; 85025

== ENCOUNTER 2023-09-13 19:47 | Emergency (ER) | payer BC, SELFPAY ==
[2023-09-13 19:49] VITALS: BP 151/80; PULSE 75; RESP 18; TEMP 36.6; O2SAT 97
[2023-09-13 21:07] VITALS: BMI 46.0
--- NOTE | 2023-09-13 21:23 | EDS_ITS ---
HPI History of Present Illness Chief Complaint: Edema Informant: patient and spouse/S.O. Narrative Narrative: Patient presents with 2 complaints. His primary issue is that he was at home starting to eat. He got swelling on the left side of his face in front of the ear. He states he got very large. It is now back to normal and is not bothering him at all. Never had this before. He was salivating a lot. Patient also states he has a sore in the back of his left leg. About 1 to 2 weeks ago he caught the skin on the zipper of his running pants. He states he has a history of having to see wound care to get things on his legs to heal. He has edema and venous stasis but no history of diabetes. The area is not draining. Is not painful. No fevers or chills. [facility] Medical History Atherosclerosis of coronary artery of [place] heart without angina pectoris cervical mass Edema of both lower legs due to peripheral venous insufficiency Essential (primary) hypertension History of DVT (deep vein thrombosis) History of left heart catheterization (09/07/12) History of non-ST elevation myocardial infarction (NSTEMI) (12/10/11) Hyperlipidemia Morbid obesity with BMI of 45.0-49.9, adult Nicotine dependence Peripheral vascular occlusive disease Right bundle branch block Uninodular goiter Venous insufficiency of both lower extremities Venous stasis ulcer of left lower leg with edema of left lower leg Home Medications albuterol sulfate 90 mcg/actuation aerosol inhaler (ProAir HFA) 2 puff inhalation Q6H PRN Sob &/Or Wheezing #6.7 grams 05/20/23 [Rx Last Taken Unknown] aspirin 81 mg tablet,delayed release (Adult Low Dose Aspirin) 81 mg PO DAILY #90 tabs 05/20/23 [Rx Last Taken Unknown] furosemide 40 mg tablet 40 mg PO QDAY WATER PILL #90 tabs 05/20/23 [Rx Last Taken Unknown] lisinopril 20 mg tablet 20 mg PO DAILY BP #90 tabs 05/20/23 [Rx Last Taken Unknown] metoprolol tartrate 50 mg tablet 50 mg PO BID BP #180 tabs 05/20/23 [Rx Last Taken Unknown] rosuvastatin 5 mg tablet 5 mg PO DAILY #90 tabs 05/20/23 [Rx Last Taken Unknown] Allergy/AdvReac Type Severity Reaction Status Date / Time No Known Allergies Allergy Verified 09/13/23 19:51 Family History Mother Atrial fibrillation H/O aortic valve replacement H/O mitral valve replacement Diabetes Father , Age 69, cause not listed No problems noted. Brother Seizures Surgical History History of coronary artery stent placement (12/10/11) History of coronary artery stent placement (12/10/11) History of hip replacement Social History Smoking Status: Current every day smoker tobacco type: cigarettes alcohol intake: current alcohol intake frequency: a few times a week substance use type: does not use caffeine: Yes Type: carbonated beverages Number of servings: 3 ROS ROS ED Constitutional Constitutional ED: Denies chills or fever(s) Eyes Eyes: Denies change in vision ENT ENT ED: Reports other Details: See history of present illness ; Denies ear pain, rhinorrhea or sore throat Cardiovascular Cardiovascular: Denies chest pain Respiratory/Chest Respiratory/Chest: Denies cough Gastrointestinal Gastrointestinal: Denies nausea or vomiting Integumentary Reports Abrasions Hematologic/Lymphatic Hematologic/Lymphatic: Denies easy bleeding or easy bruising EXAM Physical Exam Narrative Exam Narrative: CONSTITUTIONAL: Patient is nontoxic in appearance. The patient looks comfortable. HEENT: No notable trauma. Mucous membranes moist. No sinus tenderness. No indication of pain with swallowing. Parotid gland is not enlarged. No sublingual enlargement. I do not feel any stones in the duct. Patient also states he is back to normal now. CARDIOVASCULAR: Regular rate. Regular rhythm. No notable murmur. No JVD. RESPIRATORY: No respiratory distress. Breathing is unlabored. No wheezes. No rhonchi. No rales. No pain with a deep breath. GASTROINTESTINAL: Obese but not distended. Bowel sounds are normal. No tenderness. GENITOURINARY: No tenderness over the bladder. No CVA tenderness. MUSCULOSKELETAL: Patient has a abraded area about 5 mm around on the posterior left lower leg. There is no erythema. No drainage. No indication of infection. But the patient does have some chronic edema and venous stasis valenzuela es. He states he uses compression hose and those help keep the edema in check. NEUROLOGICAL: Patient is alert and appropriate. No focal deficit noted. SKIN: See above. PSYCHIATRIC: Patient is calm. Mood is appropriate. Const Vital Signs: 09/13/23 19:49 09/13/23 21:09 Temperature 97.9 F Temperature Source Temporal Pulse Rate 75 Respiratory Rate 18 Respiratory Effort Normal Respiratory Pattern Normal Blood Pressure 151/80 H Blood Pressure Mean 103 Pulse Ox 97 Oxygen Delivery Method Room Air MDM MDM MDM Narrative Medical decision making narrative: I believe the patient likely had salivary duct obstruction that was transient. It is now passed. There is no tenderness or abnormality. I did discuss with him how he can use sour candies or milking the duct if this occurs again. The lesion on his leg can be followed up with wound care. I explained there is no need for antibiotics. They can do wound changes to this. But wound care do es have some greater options for care. Discharge Plan Triage Chief Complaint: Edema ED Provider: Medardo Zelaya Dx/Rx/DC Orders Clinical Impression: Abrasion of left lower leg, Salivary duct obstruction, Edema, peripheral Instructions: ED Salivary Gland Stones Prescriptions: No Action albuterol sulfate [ProAir HFA] 90 mcg/actuation HFA aerosol inhaler 2 puff INHALATION Q6H PRN (Reason: Sob &/Or Wheezing) Qty: 6.7 0RF furosemide 40 mg tablet 40 mg PO QDAY Qty: 90 3RF lisinopril 20 mg tablet 20 mg PO DAILY Qty: 90 3RF metoprolol tartrate 50 mg tablet 50 mg PO BID Qty: 180 3RF rosuvastatin 5 mg tablet 5 mg PO DAILY Qty: 90 3RF aspirin [Adult Low Dose Aspirin] 81 mg tablet,delayed release (DR/EC) 81 mg PO DAILY Qty: 90 3RF Primary Care Provider: Care Physician,No Primary Referrals: Care Physician,No Primary [Primary Care Provider] - Activity Restrictions/Additional Instructions: Follow-up with your family physician and wound care. Disposition Disposition: Home, Self Care
== END 2023-09-13 21:39 | disposition home or self-care (01) ==
PROVIDERS: Emergency Provider Emergency Medicine; Visit Provider Emergency Medicine
DX: S80.812A Abrasion, left lower leg, initial encounter (principal); K11.8 Other diseases of salivary glands; I25.10 Atherosclerotic heart disease of native coronary artery without angina pectoris; R60.9 Edema, unspecified; F17.210 Nicotine dependence, cigarettes, uncomplicated; I10 Essential (primary) hypertension; E78.5 Hyperlipidemia, unspecified; I25.2 Old myocardial infarction; Z86.718 Personal history of other venous thrombosis and embolism; Z95.5 Presence of coronary angioplasty implant and graft; X58.XXXA Exposure to other specified factors, initial encounter
CPT/HCPCS: 99282

== ENCOUNTER → 2023-10-07 | Outpatient (CLI) | payer BC, SELFPAY ==
[2023-10-07 07:46] LABS: Hematocrit 49.1 % (40-54); Hemoglobin 16.1 g/dL (13.0-16.5); Mean Corp Hgb Conc 32.8 g/dL (32-36); Mean Corpuscular Hgb 29.7 pg (27.0-32.0); Mean Corpuscular Volume 90.4 fL (80-94); Mean Platelet Vol. 8.9 fl (6.2-12.0); Platelet Count 271 K/mm3 (150-450); RBC Distribution Width CV 14.1 % (11.6-14.6); Red Blood Count 5.43 M/mm3 (4.6-6.2)
[2023-10-07 08:22] LABS: Hemoglobin A1c 6.2 % (3.8-5.6)
[2023-10-07 08:33] LABS: ALB/GLOB Ratio 0.9 RATIO (0.9-2.4); AST(SGOT) 20 U/L (15-37); Alanine Aminotransfer ALT/SGPT 34 U/L (16-61); Albumin, Serum 3.3 g/dL (3.2-5.0); Alkaline Phosphatase 60 U/L (45-117); Anion Gap 2 (5-15); BUN 19 mg/dL (7-18); BUN/Creat Ratio 21.9 RATIO (10-20); Calcium,Total 8.8 mg/dL (8.5-10.1); Chloride 107 mmol/L (98-107); Cholesterol 105 mg/dL (200); Creatinine, Serum 0.87 mg/dL (0.70-1.30); EST Glomerular Filtration Rate 95 mL/min (>60); Est Glom Filt Rate - Afr Amer 115 mL/min (>60); Globulin 3.8 g/dL (2.2-4.2); Glucose 119 mg/dL (74-106); High Density Lipoprotein 29 mg/dL; PSA,Total - Annual Screen 0.65 ng/mL (0.00-4.00); Potassium 4.1 mmol/L (3.5-5.1); Protein, Total 7.1 g/dL (6.4-8.2); Sodium Level 137 mmol/L (136-145); Triglycerides 89 mg/dL; Very Low Density Lipoprotein 18 mg/dL (5-40)
== END | disposition home or self-care (01) ==
PROVIDERS: PCP Nurse Practitioner Family; Referring Provider Nurse Practitioner Family; Visit Provider Nurse Practitioner Family
DX: L03.116 Cellulitis of left lower limb (principal); E78.5 Hyperlipidemia, unspecified; R73.03 Prediabetes; I10 Essential (primary) hypertension; Z12.5 Encounter for screening for malignant neoplasm of prostate
CPT/HCPCS: 36415; 80053; 80061; 83036; 84153; 85027; G0103

== ENCOUNTER 2023-10-23 11:15 | Outpatient (RCR) | payer BC, SELFPAY ==
[2023-10-13 08:20] VITALS: BP 118/70; PULSE 59; RESP 18; TEMP 35.9; BMI 44.7
--- NOTE | 2023-10-13 09:35 | HP.PCM_ITS ---
History of Present Illness Date of Service: 10/13/23 Chief Complaint: Left posterior calf wound; bilateral lower extremity swelling, edema, and lymphedema. History of Wound: This is a 63-year-old male with a longstanding history of swelling, edema, and lymphedema in his lower extremities. He also has a longstanding history of chronic venous insufficiency, and has had several episodes of venous stasis ulceration in his lower extremities. He underwent vein surgery in 1992, though the nature of the procedure is unknown. He has subsequently undergone injection sclerotherapy as well. At this time, the patient presents with a very small superficial wound on the left posterior calf. He claims that the wound occurred as a result of impalement by a zipper on his pant legs, which occurred approximately 2 months ago. Patient has been treated by his primary care physician since that time, which has included a course of oral antibiotics with amoxicillin for cellulitis. 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 As result, he spends long hours sitting each day. Patient claims that the swelling in his lower extremities is worse at the end of the day. He sleeps on a flat mattress at night. He is only moderately active. He wears graduated compression stockings of 20 to 30 mmHg compression on a daily basis, which were prescribed to him by his vascular surgeon. He he has multiple pre-existing medical problems, which are listed herein. The patient is a smoker, smoking approximately 1-1/2 packs of cigarettes per day. Noninvasive lower extremity arterial study performed in August 2020, revealed no significant arterial occlusive disease. Venous duplex examination performed in August 2020 revealed incompetence of the right great saphenous vein, right anterior accessory saphenous vein, and an incompetent right calf it administrative assistant located 7 cm proximal to the right medial malleolus. On the left, a short segment of the left great saphenous vein and the left small saphenous vein were incompetent, as well as an incompetent left calf it administrative assistant vein located 8 cm proximal to the left medial malleolus. Recent laboratory studies were obtained on October 07, 2023, with results as follows: White blood count 8.0, hemoglobin 16.1, hematocrit 49.1, platelets 271,000, BUN 19, creatinine 0.87, glucose 119, hemoglobin A1c 6.2, calcium 8.8, total bilirubin 0.60, sodium 137, potassium 4.1, chloride 107, AST 20, ALT 34, alkaline phosphatase 60, total protein 7.1, albumin 3.3, PSA 0.65. PENDING SALE TO [facility] Medical History Atherosclerosis of coronary artery of [place] heart without angina pectoris cervical mass Edema of both lower legs due to peripheral venous insufficiency Edema of left lower extremity Edema of right lower extremity Essential (primary) hypertension History of deep vein thrombosis History of DVT (deep vein thrombosis) History of left heart catheterization (09/07/12) History of non-ST elevation myocardial infarction (NSTEMI) (12/10/11) Hyperlipidemia Left leg swelling Leg wound, left Lymphedema Morbid obesity with BMI of 45.0-49.9, adult Nicotine dependence Obstructive sleep apnea Peripheral vascular occlusive disease Pre-diabetes Right bundle branch block Right leg swelling Tobacco abuse counseling Tobacco abuse disorder Uninodular goiter Venous insufficiency of both lower extremities Venous stasis ulcer of left lower leg with edema of left lower leg Home Medications albuterol sulfate 90 mcg/actuation aerosol inhaler (ProAir HFA) 2 puff inhalation Q6H PRN Sob &/Or Wheezing #6.7 grams 05/20/23 [Rx Last Taken Unknown] aspirin 81 mg tablet,delayed release (Adult Low Dose Aspirin) 81 mg PO DAILY #90 tabs 05/20/23 [Rx Last Taken Unknown] furosemide 40 mg tablet 40 mg PO QDAY WATER PILL #90 tabs 05/20/23 [Rx Last Taken Unknown] metoprolol tartrate 50 mg tablet 50 mg PO BID BP #180 tabs 05/20/23 [Rx Last Taken Unknown] rosuvastatin 5 mg tablet 5 mg PO DAILY #90 tabs 05/20/23 [Rx Last Taken Unknown] losartan 50 mg tablet 50 mg PO DAILY #90 tabs 09/18/23 [Rx Last Taken Unknown] Allergy/AdvReac Type Severity Reaction Status Date / Time No Known Allergies Allergy Verified 09/18/23 13:52 Family History Mother Atrial fibrillation H/O aortic valve replacement H/O mitral valve replacement Diabetes Father , Age 69, cause not listed No problems noted. Brother Seizures Surgical History History of coronary artery stent placement (12/10/11) History of coronary artery stent placement (12/10/11) History of hip replacement Social History Smoking Status: Light Smoker (<10/day) alcohol intake: current alcohol intake frequency: a few times a month substance use type: does not use caffeine: Yes Type: carbonated beverages Number of servings: 5 Vital Signs Vital Signs Vital Signs: 10/13/23 08:20 Temperature 96.6 F L Temperature Source Temporal Pulse Rate 59 L Respiratory Rate 18 Blood Pressure 118/70 Blood Pressure Mean 86 Blood Pressure Source Monitor Blood Pressure Position Semi-Fowlers Blood Pressure Location Left Arm Weight Weight: 321 lb Body Mass Index (BMI) 44.7 Physical Exam Const alert, oriented x3, no apparent distress and well nourished Constitutional Narrative: Patient is obese, with a BMI of 44.7 General Appearance: cooperative, comfortable, well kempt and well developed Orientation / Consciousness: awake, oriented to person, oriented to place and oriented to time HEENT normocephalic, head/scalp atraumatic and hearing grossly normal bilaterally Head and Scalp: normal to inspection, normocephalic and atraumatic External Ear: external ears normal Eyes PERRL and EOMs intact bilaterally General Eye: normal appearance of both eyes Resp normal respiratory effort, normal air movement, no retractions and no use of accessory muscles Effort and Inspection: able to speak in complete sentences Extremity no calf tenderness General Extremity: Negative for clubbing or cyanosis Skin Wound Narrative: Mild swelling, edema, and lymphedema noted in the patient's lower extremities bilaterally. Pronounced hyperpigmentation and lipodermatosclerosis are noted in the gaiter areas bilaterally. A small superficial wound is noted on the left posterior calf, in the supramalleolar area. There is a moderate amount of bioburden. Dimensions are documented elsewhere. There is no sign of infection or cellulitis. A scaly dermatitis is noted in this area as well. There are no other open wounds or ulcerations. Neuro oriented x3, CN's II-XII intact bilaterally and moves all extremities Sensorium / Orientation: awake, alert, oriented to person, oriented to place and oriented to time Psych Appearance: grossly normal and appropriate Attitude: calm Activity / Motor Behavior: appropriate eye contact Speech: normal speech Mood & Affect: euthymic mood Thought Process: normal thought process Thought Content: normal thought content Attention / Concentration: attention grossly intact Debridement Note Debridement Note Wound debrided: Left posterior calf Laterality: Left Type of Debridement: Excisional debridement Anesthesia Used: 5% Lidocaine Gel Depth: Down to and including healthy tissue and in the subcutaneous layer Percentage of wound debrided: 100 Instrument Used: 3mm curette Severity: Fat Layer Exposed Amount of bleeding with debridement: Mild Bleeding Controlled with: Compression and gauze Patient tolerated procedure: Patient tolerated procedure well Post-Debridement Measurements and Additional Note: Post-Debridement Measurements/Treatment - Nurse 1 - General Ulcer Assessment Start: 10/13/23 08:19 Freq: Status: Active Protocol: DANA Activity Type Activity Date Activity User E-sign Co-sign Detail Recorded Client Recorded Date Recorded By Document 10/13/23 08:20 RB Desktop 10/13/23 08:27 RB Edit Result 10/13/23 08:20 RB (1) Desktop 10/13/23 08:30 RB (1) Height => 5 ft 11 in Weight => 321 lb Weight in Pounds => 321.0 lbs Body Mass Index (BMI) => 44.7 BMI Classification => Obese BSA - Juan C => 2.58 10/13/23 08:20 - Today's Visit Information Type of service Initial Visit Arrival Mode Ambulatory Transfer Assistance None Patient Identification Verified (Name & Yes ) Patient Requires Transmission-Based No Precautions Height and Weight Height 5 ft 11 in Weight 321 lb Weight in Pounds 321.0 lbs Body Mass Index (BMI) 44.7 BMI Classification Obese BSA - Juan C 2.58 Vital Signs Temperature (97.8 F-99.1 F) 96.6 F L Temperature Source Temporal Pulse Rate (60-100) 59 L Pulse Location Monitor Respiratory Rate (12-18) 18 Respiratory rate source Observation Blood Pressure (90/60-120/80) 118/70 Blood Pressure Mean 86 Source Monitor Position Semi-Fowlers Blood Pressure Location Left Arm History Since Last Visit- (Skip if this is Patient's initial visit) Have you changed medications since your No last visit? Any new allergies or adverse reactions No Had a fall/change in ADL's that may No increase risk of falls Signs or symptoms of abuse and/or No neglect since last visit Have you been in the hospital since your No last visit? Has dressing in place as prescribed Yes Has compression in place as prescribed Yes Has offloadiing in place as prescribed No Experienced any changes in pain level or No management Pain Scale: 0-10 Numeric Is Patient Pain Free? Yes Lower Extremity Assessment/ Foot Assessment/ Toe Nail Assessment Right -Posterior Tibial Palpable Yes -Dorsalis Pedis Palpable Yes -Extremity Color Hemosiderin -Hair Growth on Legs Yes -Hair Growth on Toes Yes -Temperature of Extremity Warm -Capillary Refill Less than 3 Seconds -Dependent Rubor No -Blanched when Elevated No -Lipodermatosclerosis No -Other Deformity No -Prior Foot Ulcer No -Charcot Joint No -Prior Amputation No -Thick Yes -Discolored Yes -Deformed Yes -Improper Length & Hygeine Yes Left -Posterior Tibial Palpable Yes -Dorsalis Pedis Palpable Yes -Extremity Color Hemosiderin -Hair Growth on Legs Yes -Hair Growth on Toes Yes -Temperature of Extremity Warm -Capillary Refill Less than 3 Seconds -Dependent Rubor No -Blanched when Elevated No -Lipodermatosclerosis No -Prior Foot Ulcer No -Charcot Joint No -Prior Amputation No -Thick Yes -Discolored Yes -Deformed Yes -Improper Length & Hygeine Yes Neuropathy Assessment Feet - Top Side and Bottom <Entered> (a) Communication Assessment Preferred language [place] Knitting Inspector Required No Able to Read Yes Able to Write Yes Communication Tools None Caregiver Communication Skills No Impairment Impairment Right Hearing Abillity Normal Left Hearing Abillity Normal Visual Assistive Devices Glasses Teaching Assessment Preferences Verbal,Written, Demonstration Barriers to Learning None Readiness To Learn Good Willingness to Engage in Self Management Med Activies Readiness to Engage in Self Management Med Activities Anxiety Level Calm Cooperation Cooperative Perception Coherent Interest in Health Problem Asks Questions Education Importance Acknowledges Need Does Patient Smoke tobacco or other No substances Smoking Status Light Smoker (< 10/day) Functional Assessment Recent Decline in Ability to Perform Denies Any Declines Culture/Congregation/Prototype 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 Prototype Deicer Assembler to contact place of adventist No Teaching: Wound Center Dressing Your Wound -Person Taught Patient -Teaching Method Discussion, Demonstration -Response to teaching Verbalize understanding (a) 1 - + throughout WC - Nurse 1 - General Ulcer Measurement Start: 12/12/23 08:19 Freq: Status: Active Protocol: Activity Type Activity Date Activity User E-sign Co-sign Detail Recorded Client Recorded Date Recorded By Document 10/13/23 08:20 RB Desktop 10/13/23 08:27 RB 10/13/23 08:20 Wound Center Nurse 1 5. LLE posterial -Current Size (cm) - Length 1 -Current Size (cm) - Width 0.9 -Current Size (cm) - Depth 0.1 -Total Square Cm 0.9 -Photo Taken Yes -Tunneling No -Undermining/Tunneling No -Circular Undermining No -Exudate Amt Medium -Exudate Type Serosanguineous -Wound Margin Distinct, Outline Attached -Granulation Amt Medium (34-66%) -Granulation Quality [place] -Slough/Fibrin Yes -Necrosis Amt Medium (34-66%) -Necrotic Tissue Type Adherent Slough -Structure Exposed N/A -Texture (Tenisha-wound Skin Appearance) Assessed -Moisture (Tenisha-wound Skin Appearance) Assessed -Color (Tenisha-wound Skin Appearance) Assessed, Hemosiderin Staining -Temperature (Tenisha-wound Skin No Abnormality Appearance) (Pt Warm) -Tenderness on Palpation (Tenisha-wound No Skin Appearance) -Ulcer Cleansing Wound Cleanser -Foul Odor after Cleansing No -Anesthetic Used 5% Lidocaine Gel Lower Limb Edema Present Yes Right Calf (cm) 45.5 Right Ankle (cm) 27.5 Left Calf (cm) 47.5 Left Ankle (cm) 27 Assessment/Plan Assessment/Plan (1) Venous insufficiency of both lower extremities: CODE(S): I87.2 - Venous insufficiency (chronic) (peripheral) (2) Venous stasis ulcer of left lower leg with edema of left lower leg: CODE(S): I83.029 - Varicose veins of left lower extremity with ulcer of unspecified site; I83.892 - Varicose veins of left lower extremity with other complications; L97.929 - Non-pressure chronic ulcer of unspecified part of left lower leg with unspecified severity; R60.9 - Edema, unspecified (3) Lymphedema: CODE(S): I89.0 - Lymphedema, not elsewhere classified (4) Right leg swelling: CODE(S): M79.89 - Other specified soft tissue disorders (5) Left leg swelling: CODE(S): M79.89 - Other specified soft tissue disorders (6) Edema of right lower extremity: CODE(S): R60.0 - Localized edema (7) Edema of left lower extremity: CODE(S): R60.0 - Localized edema (8) Atherosclerosis of coronary artery of [place] heart without angina pectoris: CODE(S): I25.10 - Atherosclerotic heart disease of [place] coronary artery without angina pectoris QUALIFIERS: Coronary Disease-Associated Artery/Lesion type: [place] artery Qualified Code(s): I25.10 - Atherosclerotic heart disease of [place] coronary artery without angina pectoris (9) History of non-ST elevation myocardial infarction (NSTEMI): CODE(S): I25.2 - Old myocardial infarction (10) History of coronary artery stent placement: CODE(S): Z95.5 - Presence of coronary angioplasty implant and graft (11) Right bundle branch block: CODE(S): I45.10 - Unspecified right bundle-branch block (12) Essential (primary) hypertension: CODE(S): I10 - Essential (primary) hypertension (13) Hyperlipidemia: CODE(S): E78.5 - Hyperlipidemia, unspecified QUALIFIERS: Hyperlipidemia type: unspecified Qualified Code(s): E78.5 - Hyperlipidemia, unspecified (14) Peripheral vascular occlusive disease: CODE(S): I73.9 - Peripheral vascular disease, unspecified (15) Edema of both lower legs due to peripheral venous insufficiency: CODE(S): I87.2 - Venous insufficiency (chronic) (peripheral); R60.9 - Edema, unspecified (16) Nicotine dependence: CODE(S): F17.200 - Nicotine dependence, unspecified, uncomplicated QUALIFIERS: Nicotine product type: cigarettes Substance use status: unspecified nicotine-induced disorder Qualified Code(s): F17.219 - Nicotine dependence, cigarettes, with unspecified nicotine-induced disorders (17) Obstructive sleep apnea: CODE(S): G47.33 - Obstructive sleep apnea (adult) (pediatric) (18) History of deep vein thrombosis: CODE(S): Z86.718 - Personal history of other venous thrombosis and embolism (19) Leg wound, left: CODE(S): S81.802A - Unspecified open wound, left lower leg, initial encounter (20) Tobacco abuse disorder: CODE(S): Z72.0 - Tobacco use (21) Tobacco abuse counseling: CODE(S): Z71.6 - Tobacco abuse counseling (22) Pre-diabetes: CODE(S): R73.03 - Prediabetes PLAN: Plan Is a 63-year-old obese male with prediabetes who presented with a small traumatic wound on the posterior aspect of his left calf. He has a long history of chronic venous insufficiency, venous ulcerations, swelling, edema, and lymphedema in his lower extremities. He is currently wearing graduated compression stockings of 20 to 30 mmHg compression on a daily basis. 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 A lengthy discussion has been undertaken with the patient regarding the appropriate measures to implement regarding his presenting symptoms and manifestations as relates to his venous disease. The patient is to continue sleeping on a flat mattress at night. He has been advised to elevate his lower extremities is much as possible, even during daytime hours. Leg elevation is to be to heart level, or higher. He has been advised to refrain from prolonged idle sitting. Activity and ambulation have been encouraged. Weight loss has been advised. Optimization of the patient's glycemic control and nutritional intake have also been recommended. Patient has been advised to stop smoking. Patient has been advised to continue using his graduated compression stocking on the right lower extremity daily. We are to implement the use of an [place] boot to the left lower extremity, which will be applied today, and changed twice weekly. It appears as though the patient is a candidate for pneumatic mechanical compression pumps, and effort will be made to preauthorize and obtain such pneumatic pumps for the patient's use. The patient is to return in 1 week for reassessment. Total time: 56 minutes
--- NOTE | 2023-10-23 09:28 | VDLE_ITS ---
Reason For Study: BLE Swelling RIGHT LEFT CFV is compressible, spontaneous, phasic, CFV is compressible, spontaneous, phasic, competent and demonstrates normal competent, and demonstrates normal augmentation. augmentation. FV is compressible, spontaneous, phasic, FV is compressible, phasic, and INCOMPETENT competent and demonstrates normal for greater than 1.0 second. augmentation. POP V is compressible, phasic, and POP V is compressible, spontaneous, phasic, INCOMPETENT for greater than 1.0 second. competent and demonstrates normal T/P Trunk is compressible. augmentation. PTV is compressible. T/P Trunk is compressible. LT PerV is compressible. PTV is compressible. SFJ is INCOMPETENT and measures 0.65 cm. RT PerV is compressible. GSV proximal thigh measures 0.49 x 0.53 cm. SFJ is competent and measures 0.51 cm. Patient appears to have HX of LT GSV vein GSV proximal thigh measures 0.27 x 0.26 cm. stripping from prox / mid thigh to distal GSV at knee measures 0.23 x 0.23 cm. calf. Multiple compressible perforating and GSV INCOMPETENT throughout for greater than accessory vessels are noted. 0.5 seconds. Perforating vessel distal thigh is SSV at junction is competent and measures INCOMPETENT for greater than 0.35 seconds and 0.31 cm. measures 0.32 cm. SSV proximal calf is competent and measures Perforating vessel mid calf is INCOMPETENT 0.36 x 0.40 cm. for greater than 0.5 seconds and measures ASV proximal thigh is INCOMPETENT for greater 0.32 cm. than 0.5 seconds and measures 0.50 x 0.54 cm. GSV at prox thigh is compressible. ASV proximal calf is INCOMPETENT for greater SSV at junction is competent and measures than 0.5 seconds and measures 0.30 x 0.34 cm. 0.19 cm. GSV appears compressible throughout. SSV proximal calf is competent and measures Prox Thigh and Prox Calf Accessory Saphenous 0.15 x 0.18 cm. Veins appear to feed multiple branches of varicosities throughout the thigh and calf. Procedure This is a venous duplex using B-mode, color flow and spectral Doppler. Exam performed in department. The exam was diagnostic. The study was technically difficult. VL/Venous Duplex US - Geremias Extrem Interpretation Summary Deep veins of the lower extremities are bilaterally patent and compressible seg mentally. There is no evidence of deep vein thrombosis on either side. Valvular competence appears in tact within the proximal deep venous system on the right . The left femoral vein and popliteal vein are incompetent. The right sapheno-femoral junction is competent . The left sapheno-femoral junc tion is incompetent . The right great saphenous vein appears segmentally incompetent. The left great saphenous vein is absent from the proximal thigh to the distal calf. Small saphenous veins are pa tent and competent bilaterally. Accessory saphenous veins in the right proximal thigh and proximal calf are incompetent. Incompetent potline monitor veins are noted in the left distal thigh an d mid-calf. Ordering Physician: Joseph Rick Referring Physician: Rocío Abernathy Performed By: Cem Joe RVKemal
[2023-10-23 11:14] VITALS: BP 127/63; PULSE 63; RESP 18; TEMP 35.9; BMI 44.7
--- NOTE | 2023-10-23 12:45 | HP.PCM_ITS ---
History of Present Illness Date of Service: 10/23/23 Chief Complaint: Left posterior calf wound; bilateral lower extremity swelling, edema, and lymphedema. History of Wound: This is a 63-year-old male with a longstanding history of swelling, edema, and lymphedema in his lower extremities. He also has a longstanding history of chronic venous insufficiency, and has had several episodes of venous stasis ulceration in his lower extremities. He underwent vein surgery in 1992, though the nature of the procedure is unknown. He has subsequently undergone injection sclerotherapy as well. At this time, the patient presents with a very small superficial wound on the left posterior calf. He claims that the wound occurred as a result of impalement by a zipper on his pant legs, which occurred approximately 2 months ago. Patient has been treated by his primary care physician since that time, which has included a course of oral antibiotics with amoxicillin for cellulitis. 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 As result, he spends long hours sitting each day. Patient claims that the swelling in his lower extremities is worse at the end of the day. He sleeps on a flat mattress at night. He is only moderately active. He wears graduated compression stockings of 20 to 30 mmHg compression on a daily basis, which were prescribed to him by his vascular surgeon. He he has multiple pre-existing medical problems, which are listed herein. The patient is a smoker, smoking approximately 1-1/2 packs of cigarettes per day. Noninvasive lower extremity arterial study performed in August 2020, revealed no significant arterial occlusive disease. Venous duplex examination performed in August 2020 revealed incompetence of the right great saphenous vein, right anterior accessory saphenous vein, and an incompetent right calf welder setter electron beam machine located 7 cm proximal to the right medial malleolus. On the left, a short segment of the left great saphenous vein and the left small saphenous vein were incompetent, as well as an incompetent left calf welder setter electron beam machine vein located 8 cm proximal to the left medial malleolus. Recent laboratory studies were obtained on October 07, 2023, with results as follows: White blood count 8.0, hemoglobin 16.1, hematocrit 49.1, platelets 271,000, BUN 19, creatinine 0.87, glucose 119, hemoglobin A1c 6.2, calcium 8.8, total bilirubin 0.60, sodium 137, potassium 4.1, chloride 107, AST 20, ALT 34, alkaline phosphatase 60, total protein 7.1, albumin 3.3, PSA 0.65. [facility] Medical History Atherosclerosis of coronary artery of [place] heart without angina pectoris cervical mass Edema of both lower legs due to peripheral venous insufficiency Edema of left lower extremity Edema of right lower extremity Essential (primary) hypertension History of deep vein thrombosis History of DVT (deep vein thrombosis) History of left heart catheterization (09/07/12) History of non-ST elevation myocardial infarction (NSTEMI) (12/10/11) Hyperlipidemia Left leg swelling Leg wound, left Lymphedema Morbid obesity with BMI of 45.0-49.9, adult Nicotine dependence Obstructive sleep apnea Peripheral vascular occlusive disease Pre-diabetes Right bundle branch block Right leg swelling Tobacco abuse counseling Tobacco abuse disorder Uninodular goiter Venous insufficiency of both lower extremities Venous stasis ulcer of left lower leg with edema of left lower leg Home Medications albuterol sulfate 90 mcg/actuation aerosol inhaler (ProAir HFA) 2 puff inhalation Q6H PRN Sob &/Or Wheezing #6.7 grams 05/20/23 [Rx Last Taken Unknown] aspirin 81 mg tablet,delayed release (Adult Low Dose Aspirin) 81 mg PO DAILY #90 tabs 05/20/23 [Rx Last Taken Unknown] furosemide 40 mg tablet 40 mg PO QDAY WATER PILL #90 tabs 05/20/23 [Rx Last Taken Unknown] metoprolol tartrate 50 mg tablet 50 mg PO BID BP #180 tabs 05/20/23 [Rx Last Taken Unknown] rosuvastatin 5 mg tablet 5 mg PO DAILY #90 tabs 05/20/23 [Rx Last Taken Unknown] losartan 50 mg tablet 50 mg PO DAILY #90 tabs 09/18/23 [Rx Last Taken Unknown] Allergy/AdvReac Type Severity Reaction Status Date / Time No Known Allergies Allergy Verified 09/18/23 13:52 Family History Mother Atrial fibrillation H/O aortic valve replacement H/O mitral valve replacement Diabetes Father , Age 69, cause not listed No problems noted. Brother Seizures Surgical History History of coronary artery stent placement (12/10/11) History of coronary artery stent placement (12/10/11) History of hip replacement Social History Smoking Status: Light Smoker (<10/day) alcohol intake: current alcohol intake frequency: a few times a month substance use type: does not use caffeine: Yes Type: carbonated beverages Number of servings: 5 ROS Constitutional Constitutional: Denies chills, fatigue or fever(s) Eyes Eyes: Denies blurry vision, change in vision or loss of vision ENT HEENT: Denies dysphagia, hearing loss or sore throat Cardiovascular Cardiovascular: Denies chest pain, edema or palpitations Respiratory/Chest Respiratory/Chest: Denies dry cough, dyspnea, dyspnea on exertion, productive cough or wheezing Gastrointestinal Gastrointestinal: Denies diarrhea, nausea or vomiting Genitourinary Genitourinary: Denies dysuria or polyuria Musculoskeletal Musculoskeletal: Denies arthralgias, joint stiffness or muscle weakness Integumentary Integumentary: Reports erythema and wounds Neurologic Neurologic: Denies dizziness, memory loss or weakness Psychiatric Psychiatric: Denies homicidal ideation or suicidal ideation Endocrine Endocrinology: Denies polydipsia, polyphagia or polyuria Hematologic/Lymphatic Hematologic/Lymphatic: Denies easy bleeding or easy bruising Allergic/Immunologic Allergic/Immunologic: Denies throat swelling, tongue swelling or urticaria Vital Signs Vital Signs Vital Signs: 10/23/23 11:14 Temperature 96.7 F L Temperature Source Temporal Pulse Rate 63 Respiratory Rate 18 Blood Pressure 127/63 H Blood Pressure Mean 84 Blood Pressure Source Monitor Blood Pressure Position Semi-Fowlers Blood Pressure Location Left Arm Oxygen Delivery Method Room Air Weight Weight: 145.603 kg Body Mass Index (BMI) 44.7 Physical Exam Const alert, oriented x3 and no apparent distress General Appearance: cooperative and comfortable HEENT normocephalic and head/scalp atraumatic Resp normal respiratory effort Effort and Inspection: able to speak in complete sentences Cardio regular rate and regular rhythm Skin Wounds: wounds noted Wound Narrative: as in clinical panel Psych mental status grossly normal, thought process normal, cooperative and affect normal Debridement Note Debridement Note Wound debrided: left LE posterior Laterality: Left Type of Debridement: Excisional debridement Anesthesia Used: 4% Lidocaine Solution and 5% Lidocaine Gel Depth: Down to and including healthy tissue and in the subcutaneous layer Percentage of wound debrided: 100 Instrument Used: 5mm curette Tissue Removed: Yellow slough, devitalized tissue Severity: Fat Layer Exposed Amount of bleeding with debridement: Mild Bleeding Controlled with: Pressure Patient tolerated procedure: Patient tolerated procedure well Post-Debridement Measurements and Additional Note: Post-Debridement Measurements/Treatment WC - Nurse 1 - General Ulcer Assessment Start: 10/13/23 08:19 Freq: Status: Active Protocol: DANA Activity Type Activity Date Activity User E-sign Co-sign Detail Recorded Client Recorded Date Recorded By Document 10/13/23 08:20 RB Desktop 10/13/23 08:27 RB Edit Result 10/13/23 08:20 RB (1) Desktop 10/13/23 08:30 RB Document 10/23/23 11:14 KW Desktop 10/23/23 11:20 KW (1) Height => 5 ft 11 in Weight => 145.603 kg Weight in Pounds => 321.0 lbs Body Mass Index (BMI) => 44.7 BMI Classification => Obese BSA - Juan C => 2.58 10/13/23 10/23/23 08:20 11:14 - Today's Visit Information Type of service Initial Visit Follow-up Visit (Physician/SCHOOL LUNCH MANAGER ) Arrival Mode Ambulatory Ambulatory Transfer Assistance None Patient Identification Verified (Name & Yes Yes ) Patient Requires Transmission-Based No Precautions Height and Weight Height 5 ft 11 in Weight 145.603 kg Weight in Pounds 321.0 lbs Body Mass Index (BMI) 44.7 44.7 BMI Classification Obese Obese BSA - Juan C 2.58 Vital Signs Temperature (97.8 F-99.1 F) 96.6 F L 96.7 F L Temperature Source Temporal Temporal Pulse Rate (60-100) 59 L 63 Pulse Location Monitor Monitor Respiratory Rate (12-18) 18 18 Respiratory rate source Observation Observation Oxygen Delivery Method Room Air Blood Pressure (90/60-120/80) 118/70 127/63 H Blood Pressure Mean 86 84 Source Monitor Monitor Position Semi-Fowlers Semi-Fowlers Blood Pressure Location Left Arm Left Arm History Since Last Visit- (Skip if this is Patient's initial visit) Have you changed medications since your No No last visit? Any new allergies or adverse reactions No No Had a fall/change in ADL's that may No No increase risk of falls Signs or symptoms of abuse and/or No No neglect since last visit Have you been in the hospital since your No No last visit? Has dressing in place as prescribed Yes Yes Has compression in place as prescribed Yes Yes Has offloadiing in place as prescribed No No Experienced any changes in pain level or No No management Left Footwear Regular Shoe Right Footwear Regular Shoe Pain Scale: 0-10 Numeric Is Patient Pain Free? Yes Yes Lower Extremity Assessment/ Foot Assessment/ Toe Nail Assessment Right -Posterior Tibial Palpable Yes -Dorsalis Pedis Palpable Yes -Extremity Color Hemosiderin -Hair Growth on Legs Yes -Hair Growth on Toes Yes -Temperature of Extremity Warm -Capillary Refill Less than 3 Seconds -Dependent Rubor No -Blanched when Elevated No -Lipodermatosclerosis No -Other Deformity No -Prior Foot Ulcer No -Charcot Joint No -Prior Amputation No -Thick Yes -Discolored Yes -Deformed Yes -Improper Length & Hygeine Yes Left -Posterior Tibial Palpable Yes -Dorsalis Pedis Palpable Yes -Extremity Color Hemosiderin -Hair Growth on Legs Yes -Hair Growth on Toes Yes -Temperature of Extremity Warm -Capillary Refill Less than 3 Seconds -Dependent Rubor No -Blanched when Elevated No -Lipodermatosclerosis No -Prior Foot Ulcer No -Charcot Joint No -Prior Amputation No -Thick Yes -Discolored Yes -Deformed Yes -Improper Length & Hygeine Yes Neuropathy Assessment Feet - Top Side and Bottom <Entered> (a) Communication Assessment Preferred language [place] Hot Roll Laminator Required No Able to Read Yes Able to Write Yes Communication Tools None Caregiver Communication Skills No Impairment Impairment Right Hearing Abillity Normal Left Hearing Abillity Normal Visual Assistive Devices Glasses Teaching Assessment Preferences Verbal,Written, Demonstration Barriers to Learning None Readiness To Learn Good Willingness to Engage in Self Management Med Activies Readiness to Engage in Self Management Med Activities Anxiety Level Calm Cooperation Cooperative Perception Coherent Interest in Health Problem Asks Questions Education Importance Acknowledges Need Does Patient Smoke tobacco or other No substances Smoking Status Light Smoker (< 10/day) Functional Assessment Recent Decline in Ability to Perform Denies Any Declines Culture/Caodaism/Blindstitch Lapel Padder Cultural/Caodaism Needs that may affect No Treatment Plan Would you allow our hospital training personnel supervisor to No meet you for the purpose of spiritual/ emotional support? Blindstitch Lapel Padder to contact place of [facility] No Teaching: Wound Center Dressing Your Wound -Person Taught Patient -Teaching Method Discussion, Demonstration -Response to teaching Verbalize understanding (a) 1 - + throughout WC - Nurse 1 - General Ulcer Measurement Start: 10/13/23 08:19 Freq: Status: Active Protocol: Activity Type Activity Date Activity User E-sign Co-sign Detail Recorded Client Recorded Date Recorded By Document 10/13/23 08:20 RB Desktop 10/13/23 08:27 RB Document 10/23/23 11:14 KW Desktop 10/23/23 11:20 KW 10/13/23 10/23/23 08:20 11:14 Wound Center Nurse 1 5. LLE posterial -Current Size (cm) - Length 1 0.1 -Current Size (cm) - Width 0.9 0.1 -Current Size (cm) - Depth 0.1 0.1 -Total Square Cm 0.9 0.01 -Photo Taken Yes -Tunneling No -Undermining/Tunneling No -Circular Undermining No -Exudate Amt Medium None Present -Exudate Type Serosanguineous -Wound Margin Distinct, Outline Attached -Granulation Amt Medium (34-66%) -Granulation Quality [place] -Slough/Fibrin Yes -Necrosis Amt Medium (34-66%) -Necrotic Tissue Type Adherent Slough -Structure Exposed N/A -Texture (Tenisha-wound Skin Appearance) Assessed -Moisture (Tenisha-wound Skin Appearance) Assessed -Color (Tenisha-wound Skin Appearance) Assessed, Hemosiderin Staining -Temperature (Tenisha-wound Skin No Abnormality No Abnormality Appearance) (Pt Warm) (Pt Warm) -Tenderness on Palpation (Tenisha-wound No Skin Appearance) -Ulcer Cleansing Wound Cleanser Soap and Water -Foul Odor after Cleansing No -Anesthetic Used 5% Lidocaine 5% Lidocaine Gel Gel -Wound Comment(s) scabbed Lower Limb Edema Present Yes Right Calf (cm) 45.5 Right Ankle (cm) 27.5 Left Calf (cm) 47.5 44 Left Ankle (cm) 27 25 - Nurse 2 - General Ulcer CM Notes Start: 10/13/23 08:19 Freq: Status: Active Protocol: Activity Type Activity Date Activity User E-sign Co-sign Detail Recorded Client Recorded Date Recorded By Document 10/13/23 12:55 PL [id number] 10/13/23 12:58 PL 10/13/23 12:55 Wound Center Nurse 2 5. LLE posterial -Time 08:42 -Correct Patient Yes -Correct Side, Site, Position Yes -Correct Procedure Yes -Procedure Performed Yes -Type of Procedure Debridement -Clinical Debridement Subcutaneous -Tissue Removed Subcutaneous -Post Debridement (cm) - Length 1.0 -Post Debridement (cm) - Width 0.9 -Post Debridement (cm) - Depth 0.1 -Total Square (Post) (cm) 0.90 -Area of Debridement (cm) - Length 1.0 -Area of Debridement (cm) - Width 0.9 -Total Square (Area) (cm) 0.90 -Tunneling No -Undermining/Tunneling No -Circular Undermining No -Wound/Ulcer Outcome Not Healed -Ulcer Cleansing Rinsed/ Irrigated with Saline -Foul Odor after Cleansing No -Bioengineered Tissue No -Bleeding Controlled with Pressure -Treatment Response Procedure Tolerated Well -Debridement - Subq, 1st 20sq cm Yes Pain Scale: 0-10 Numeric Is Patient Pain Free? Yes - Nurse 3 - General Ulcer D/C NN Start: 10/13/23 08:19 Freq: Status: Active Protocol: Activity Type Activity Date Activity User E-sign Co-sign Detail Recorded Client Recorded Date Recorded By Document 10/13/23 11:09 RB [id number] 10/13/23 11:10 RB Document 10/23/23 11:44 KW Desktop 10/23/23 11:45 KW 10/13/23 10/23/23 11:09 11:44 Wound Care Center Nurse 3 5. LLE posterial -Ulcer Cleansing Wound Cleanser -Primary Dressing Applied C Hydrogel ($) -Other Dressing UNNA BOOT LEFT -Primary Dressing Covered/Secured with Dry Gauze, Secured with Tape Left -Multi-Layered Wrap Application Unna Boot - Left ($) -Tubular Bandage Single Layer -Size of Tubigrip Used Size E -Size E ($) 1 Pain Scale: 0-10 Numeric Is Patient Pain Free? Yes Yes Teaching: Wound Center Compression Wraps & Stockings -Person Taught Patient -Teaching Method Discussion, Demonstration -Response to teaching Verbalize understanding WC - Visit Discharge Discharge Condition Stable Stable Ambulatory Status Ambulatory Ambulatory Transportation Private Auto Private Auto Medication Reconcilliation completed & No No provided to patient/care provider Clinical Summary of Care Provided Yes Yes Assessment/Plan Assessment/Plan (1) Pre-diabetes: CODE(S): R73.03 - Prediabetes (2) Lymphedema: CODE(S): I89.0 - Lymphedema, not elsewhere classified (3) Edema of both lower legs due to peripheral venous insufficiency: CODE(S): I87.2 - Venous insufficiency (chronic) (peripheral); R60.9 - Edema, unspecified (4) Venous stasis ulcer of left lower leg with edema of left lower leg: CODE(S): I83.029 - Varicose veins of left lower extremity with ulcer of unspecified site; I83.892 - Varicose veins of left lower extremity with other complications; L97.929 - Non-pressure chronic ulcer of unspecified part of left lower leg with unspecified severity; R60.9 - Edema, unspecified (5) Tobacco abuse counseling: CODE(S): Z71.6 - Tobacco abuse counseling (6) Edema of left lower extremity: CODE(S): R60.0 - Localized edema (7) Edema of right lower extremity: CODE(S): R60.0 - Localized edema (8) Venous insufficiency of both lower extremities: CODE(S): I87.2 - Venous insufficiency (chronic) (peripheral) (9) Right leg swelling: CODE(S): M79.89 - Other specified soft tissue disorders (10) Left leg swelling: CODE(S): M79.89 - Other specified soft tissue disorders (11) Peripheral vascular occlusive disease: CODE(S): I73.9 - Peripheral vascular disease, unspecified (12) Nicotine dependence: CODE(S): F17.200 - Nicotine dependence, unspecified, uncomplicated QUALIFIERS: Nicotine product type: cigarettes Substance use status: unspecified nicotine-induced disorder Qualified Code(s): F17.219 - Nicotine dependence, cigarettes, with unspecified nicotine-induced disorders (13) Obstructive sleep apnea: CODE(S): G47.33 - Obstructive sleep apnea (adult) (pediatric) (14) History of deep vein thrombosis: CODE(S): Z86.718 - Personal history of other venous thrombosis and embolism (15) Leg wound, left: CODE(S): S81.802A - Unspecified open wound, left lower leg, initial encounter QUALIFIERS: Encounter type: subsequent encounter Qualified Code(s): S81.802D - Unspecified open wound, left lower leg, subsequent encounter (16) Tobacco abuse disorder: CODE(S): Z72.0 - Tobacco use PLAN: Plan Is a 63-year-old obese male with prediabetes who presented with a small traumatic wound on the posterior aspect of his left calf. He has a long history of chronic venous insufficiency, venous ulcerations, swelling, edema, and lymphedema in his lower extremities. He is currently wearing graduated compression stockings of 20 to 30 mmHg compression on a daily basis. 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 A lengthy discussion has been undertaken with the patient regarding the appropriate measures to implement regarding his presenting symptoms and manifestations as relates to his venous disease. The patient is to continue sleeping on a flat mattress at night. He has been advised to elevate his lower extremities is much as possible, even during daytime hours. Leg elevation is to be to heart level, or higher. He has been advised to refrain from prolonged idle sitting. Activity and ambulation have been encouraged. Weight loss has been advised. Optimization of the patient's glycemic control and nutritional intake have also been recommended. Patient has been advised to stop smoking. Patient has been advised to continue using his graduated compression stocking on the right lower extremity daily. We are to implement the use of an Unna boot to the left lower extremity, which will be applied today, and changed twice weekly. It appears as though the patient is a candidate for pneumatic mechanical compression pumps, and effort will be made to preauthorize and obtain such pneumatic pumps for the patient's use. The patient is to return in 1 week for reassessment. Total time: 56 minutes
== END 2023-11-01 23:59 | disposition home or self-care (01) ==
LOC: WC 11:15
PROVIDERS: PCP Nurse Practitioner Family; Referring Provider Nurse Practitioner Family; Visit Provider Surgery
DX: I83.022 Varicose veins of left lower extremity with ulcer of calf (principal); L97.222 Non-pressure chronic ulcer of left calf with fat layer exposed; E66.01 Morbid (severe) obesity due to excess calories; Z68.41 Body mass index [BMI] 40.0-44.9, adult; G47.33 Obstructive sleep apnea (adult) (pediatric); Z79.82 Long term (current) use of aspirin; R73.03 Prediabetes; I10 Essential (primary) hypertension; I45.10 Unspecified right bundle-branch block; I25.10 Atherosclerotic heart disease of native coronary artery without angina pectoris; Z95.5 Presence of coronary angioplasty implant and graft; R60.0 Localized edema; F17.210 Nicotine dependence, cigarettes, uncomplicated; I89.0 Lymphedema, not elsewhere classified; E78.5 Hyperlipidemia, unspecified; M79.89 Other specified soft tissue disorders; Z79.899 Other long term (current) drug therapy
CPT/HCPCS: 11042; 29580; 93970; 99213; G0463

== ENCOUNTER 2023-11-13 08:45 | Outpatient (RCR) | payer BC, SELFPAY ==
[2023-11-02 00:30] VITALS: BP 127/63; PULSE 63; RESP 18; TEMP 35.9; BMI 44.7
[2023-11-13 09:07] VITALS: BP 134/70; PULSE 66; RESP 18; TEMP 36.3; BMI 44.7
--- NOTE | 2023-11-13 13:02 | PCM.WC.PN ---
History of Present Illness Date of Service: 11/13/23 Chief Complaint: Left posterior calf wound; bilateral lower extremity swelling, edema, and lymphedema. History of Wound: This is a 63-year-old male with a longstanding history of swelling, edema, and lymphedema in his lower extremities. He also has a longstanding history of chronic venous insufficiency, and has had several episodes of venous stasis ulceration in his lower extremities. He underwent vein surgery in 1992, though the nature of the procedure is unknown. He has subsequently undergone injection sclerotherapy as well. At this time, the patient presents with a very small superficial wound on the left posterior calf. He claims that the wound occurred as a result of impalement by a zipper on his pant legs, which occurred approximately 2 months ago. Patient has been treated by his primary care physician since that time, which has included a course of oral antibiotics with amoxicillin for cellulitis. 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 As result, he spends long hours sitting each day. Patient claims that the swelling in his lower extremities is worse at the end of the day. He sleeps on a flat mattress at night. He is only moderately active. He wears graduated compression stockings of 20 to 30 mmHg compression on a daily basis, which were prescribed to him by his vascular surgeon. He he has multiple pre-existing medical problems, which are listed herein. The patient is a smoker, smoking approximately 1-1/2 packs of cigarettes per day. Noninvasive lower extremity arterial study performed in August 2020, revealed no significant arterial occlusive disease. Venous duplex examination performed in August 2020 revealed incompetence of the right great saphenous vein, right anterior accessory saphenous vein, and an incompetent right calf furnace room supervisor located 7 cm proximal to the right medial malleolus. On the left, a short segment of the left great saphenous vein and the left small saphenous vein were incompetent, as well as an incompetent left calf furnace room supervisor vein located 8 cm proximal to the left medial malleolus. Recent laboratory studies were obtained on October 07, 2023, with results as follows: White blood count 8.0, hemoglobin 16.1, hematocrit 49.1, platelets 271,000, BUN 19, creatinine 0.87, glucose 119, hemoglobin A1c 6.2, calcium 8.8, total bilirubin 0.60, sodium 137, potassium 4.1, chloride 107, AST 20, ALT 34, alkaline phosphatase 60, total protein 7.1, albumin 3.3, PSA 0.65. Subjective Subjective Cyrus's ulcer remains healed and his edema is controlled. He has been wearing his compression stockings or tubigrips daily. He has not received lymphedema pumps because there is a $1000 out of pocket cost to him and he is unable to afford this right now. Discussed his venous studies done on 10/23/23. Objective Data Objective Data Vital Signs: Vital Signs Temp Pulse Resp BP 97.4 F L 66 18 134/70 H 11/13/23 09:07 11/13/23 09:07 11/13/23 09:07 11/13/23 09:07 Weight: 145.603 kg Body Mass Index (BMI) 44.7 Physical Exam Const alert, oriented x3 and no apparent distress General Appearance: cooperative and comfortable HEENT normocephalic and head/scalp atraumatic Resp normal respiratory effort Effort and Inspection: able to speak in complete sentences Cardio regular rate and regular rhythm Skin Wounds: wounds noted Wound Narrative: as in clinical panel Psych mental status grossly normal, thought process normal, cooperative and affect normal Debridement Note Debridement Note No debridement was completed: No debridement was completed today Post-Debridement Measurements and Additional Note: Post-Debridement Measurements/Treatment - Nurse 1 - General Ulcer Assessment Start: 11/13/23 09:07 Freq: Status: Active Protocol: .LOWEXT Activity Type Activity Date Activity User E-sign Co-sign Detail Recorded Client Recorded Date Recorded By Document 11/13/23 09:07 Desktop 11/13/23 09:09 11/13/23 09:07 - Today's Visit Information Type of service Follow-up Visit (Physician/SALES ORDER ADMINISTRATOR ) Arrival Mode Ambulatory Transfer Assistance None Patient Identification Verified (Name & Yes ) Patient Requires Transmission-Based No Precautions Height and Weight Body Mass Index (BMI) 44.7 BMI Classification Obese Vital Signs Temperature (97.8 F-99.1 F) 97.4 F L Temperature Source Temporal Pulse Rate (60-100) 66 Pulse Location Monitor Respiratory Rate (12-18) 18 Respiratory rate source Observation Blood Pressure (90/60-120/80) 134/70 H Blood Pressure Mean (mm Hg) 91 Source Monitor Position Semi-Fowlers Blood Pressure Location Left Arm History Since Last Visit- (Skip if this is Patient's initial visit) Have you changed medications since your No last visit? Any new allergies or adverse reactions No Had a fall/change in ADL's that may No increase risk of falls Signs or symptoms of abuse and/or No neglect since last visit Have you been in the hospital since your No last visit? Has dressing in place as prescribed No Has compression in place as prescribed No Has offloadiing in place as prescribed No Experienced any changes in pain level or No management Pain Scale: 0-10 Numeric Is Patient Pain Free? Yes NAHUM - Nurse 1 - General Ulcer Measurement Start: 11/13/23 09:07 Freq: Status: Active Protocol: Activity Type Activity Date Activity User E-sign Co-sign Detail Recorded Client Recorded Date Recorded By Document 11/13/23 09:07 RB Desktop 11/13/23 09:09 RB 11/13/23 09:07 Wound Center Nurse 1 5. LLE posterial -Combined with other wound No -Current Size (cm) - Length 0 -Current Size (cm) - Width 0 -Current Size (cm) - Depth 0 -Total Square Cm 0 -Photo Taken Yes -Epithelialization Large 67-100% #4 L Lat LE -Current Size (cm) - Length 0 -Current Size (cm) - Width 0 -Current Size (cm) - Depth 0 -Total Square Cm 0 -Photo Taken Yes -Epithelialization Large 67-100% NAHUM - Nurse 2 - General Ulcer CM Notes Start: 11/13/23 09:07 Freq: Status: Active Protocol: Activity Type Activity Date Activity User E-sign Co-sign Detail Recorded Client Recorded Date Recorded By Document 11/13/23 09:16 Desktop 11/13/23 09:22 11/13/23 09:16 Wound Center Nurse 2 5. LLE posterial -Time 09:16 -Correct Patient Yes -Correct Side, Site, Position Yes -Correct Procedure Yes -Procedure Performed No -Wound/Ulcer Outcome Healed- Epithelialized -Debridement - Subq, 1st 20sq cm No #4 L Lat LE -Time 09:21 -Correct Patient Yes -Correct Side, Site, Position Yes -Correct Procedure Yes -Procedure Performed No -Wound/Ulcer Outcome Healed- Epithelialized -Debridement - Subq, 1st 20sq cm No Pain Scale: 0-10 Numeric Is Patient Pain Free? Yes NAHUM - Nurse 3 - General Ulcer D/C NN Start: 11/13/23 09:07 Freq: Status: Active Protocol: Activity Type Activity Date Activity User E-sign Co-sign Detail Recorded Client Recorded Date Recorded By Document 11/13/23 09:31 Desktop 11/13/23 09:31 11/13/23 09:31 Is Patient Pain Free? Yes Teaching: Wound Center *Venous -Person Taught Patient -Teaching Method Discussion -Response to teaching Verbalize understanding Compression Wraps & Stockings -Person Taught Patient -Teaching Method Discussion -Response to teaching Verbalize understanding WC - Visit Discharge Discharge Condition Stable Ambulatory Status Ambulatory Transportation Private Auto Medication Reconcilliation completed & Yes provided to patient/care provider Clinical Summary of Care Provided Yes Assessment/Plan Assessment/Plan (1) Pre-diabetes: CODE(S): R73.03 - Prediabetes (2) Lymphedema: CODE(S): I89.0 - Lymphedema, not elsewhere classified (3) Edema of both lower legs due to peripheral venous insufficiency: CODE(S): I87.2 - Venous insufficiency (chronic) (peripheral); R60.9 - Edema, unspecified (4) Venous stasis ulcer of left lower leg with edema of left lower leg: CODE(S): I83.029 - Varicose veins of left lower extremity with ulcer of unspecified site; I83.892 - Varicose veins of left lower extremity with other complications; L97.929 - Non-pressure chronic ulcer of unspecified part of left lower leg with unspecified severity; R60.9 - Edema, unspecified (5) Tobacco abuse counseling: CODE(S): Z71.6 - Tobacco abuse counseling (6) Edema of left lower extremity: CODE(S): R60.0 - Localized edema (7) Edema of right lower extremity: CODE(S): R60.0 - Localized edema (8) Venous insufficiency of both lower extremities: CODE(S): I87.2 - Venous insufficiency (chronic) (peripheral) (9) Right leg swelling: CODE(S): M79.89 - Other specified soft tissue disorders (10) Left leg swelling: CODE(S): M79.89 - Other specified soft tissue disorders (11) Peripheral vascular occlusive disease: CODE(S): I73.9 - Peripheral vascular disease, unspecified (12) Nicotine dependence: CODE(S): F17.200 - Nicotine dependence, unspecified, uncomplicated QUALIFIERS: Nicotine product type: cigarettes Substance use status: unspecified nicotine-induced disorder Qualified Code(s): F17.219 - Nicotine dependence, cigarettes, with unspecified nicotine-induced disorders (13) Obstructive sleep apnea: CODE(S): G47.33 - Obstructive sleep apnea (adult) (pediatric) (14) History of deep vein thrombosis: CODE(S): Z86.718 - Personal history of other venous thrombosis and embolism (15) Leg wound, left: CODE(S): S81.802A - Unspecified open wound, left lower leg, initial encounter QUALIFIERS: Encounter type: subsequent encounter Qualified Code(s): S81.802D - Unspecified open wound, left lower leg, subsequent encounter (16) Tobacco abuse disorder: CODE(S): Z72.0 - Tobacco use PLAN: Plan Evaluation and discussion of results of testing performed today in clinic as annotated above. At home wound-care instructions: Use compression stockings daily. Off-loading: The patient was instructed to avoid pressure and friction on the affected areas. Reposition every 2 hours at minimum. Avoid prolonged standing and/or dangling of legs. When seated, feet should be elevated at chest level. Frequent ambulation is encouraged. Diet: Patient encouraged to increase protein intake while taking caution to avoid high carbohydrate and/or sugar intake. Labs/cultures/imaging: Venous studies done 10/23/23, results showed incompetence of multiple sites in bilateral lower legs. Vascular referral for possible intervention discussed and he will consider this. Has previous history with Dr. Blancas but is also interested in seeing Dr. Acosta as [place] is more conveniently located. Follow-up: Discharged from treatment today and will follow up in the future if needed. Note: [employer] speech recognition supervisor brake repair software was used to create portions of this document. Sound-alike and misspelled words, as well as other supervisor brake repair errors may be contained in the documentation.
== END 2023-11-13 13:36 | disposition home or self-care (01) ==
LOC: WC 08:45
PROVIDERS: PCP Nurse Practitioner Family; Referring Provider Nurse Practitioner Family; Visit Provider Family Medicine
DX: I83.022 Varicose veins of left lower extremity with ulcer of calf (principal); L97.222 Non-pressure chronic ulcer of left calf with fat layer exposed; S81.802D Unspecified open wound, left lower leg, subsequent encounter; F17.210 Nicotine dependence, cigarettes, uncomplicated; R60.0 Localized edema; I89.0 Lymphedema, not elsewhere classified; R73.03 Prediabetes; X58.XXXD Exposure to other specified factors, subsequent encounter
CPT/HCPCS: 99213; G0463

== ENCOUNTER 2024-02-05 15:41 | Inpatient (IN) | payer BC, SELFPAY ==
[2024-02-05] VITALS (18 sets, daily range): BP systolic 123–170; BP diastolic 51–112; PULSE 69–98; RESP 10–34; TEMP 36.3–36.6; O2SAT 90–98; BMI 45.9
--- NOTE | 2024-02-05 15:51 | ED.VIS.DYS ---
HPI History of Present Illness Chief Complaint: Shortness of Breath PFSH [facility] Medical History Atherosclerosis of coronary artery of [place] heart without angina pectoris cervical mass Edema of both lower legs due to peripheral venous insufficiency Edema of left lower extremity Edema of right lower extremity Essential (primary) hypertension History of deep vein thrombosis History of DVT (deep vein thrombosis) History of left heart catheterization (09/07/12) History of non-ST elevation myocardial infarction (NSTEMI) (12/10/11) Hyperlipidemia Left leg swelling Leg wound, left Lymphedema Morbid obesity with BMI of 45.0-49.9, adult Nicotine dependence Obstructive sleep apnea Peripheral vascular occlusive disease Pre-diabetes Right bundle branch block Right leg swelling Tobacco abuse counseling Tobacco abuse disorder Uninodular goiter Venous insufficiency of both lower extremities Venous stasis ulcer of left lower leg with edema of left lower leg Home Medications albuterol sulfate 90 mcg/actuation aerosol inhaler (ProAir HFA) 2 puff inhalation Q6H PRN Sob &/Or Wheezing #6.7 grams 05/20/23 [Rx Last Taken Unknown] aspirin 81 mg tablet,delayed release (Adult Low Dose Aspirin) 81 mg PO DAILY #90 tabs 05/20/23 [Rx Last Taken Unknown] furosemide 40 mg tablet 40 mg PO QDAY WATER PILL #90 tabs 05/20/23 [Rx Last Taken Unknown] metoprolol tartrate 50 mg tablet 50 mg PO BID BP #180 tabs 05/20/23 [Rx Last Taken Unknown] rosuvastatin 5 mg tablet 5 mg PO DAILY #90 tabs 05/20/23 [Rx Last Taken Unknown] losartan 50 mg tablet 50 mg PO DAILY #90 tabs 09/18/23 [Rx Last Taken Unknown] fluticasone 100 mcg-salmeterol 50 mcg/dose blistr powdr for inhalation 1 ea inhalation BID 02/05/24 [History Last Taken Unknown] Allergy/AdvReac Type Severity Reaction Status Date / Time No Known Allergies Allergy Verified 09/18/23 13:52 Family History Mother Atrial fibrillation H/O aortic valve replacement H/O mitral valve replacement Diabetes Father , Age 69, cause not listed No problems noted. Brother Seizures Surgical History History of coronary artery stent placement (12/10/11) History of coronary artery stent placement (12/10/11) History of hip replacement Social History Smoking Status: Light Smoker (<10/day) alcohol intake: current alcohol intake frequency: a few times a month substance use type: does not use caffeine: Yes Type: carbonated beverages Number of servings: 5 EXAM Physical Exam Const Vital Signs: 02/05/24 15:43 02/05/24 15:50 02/05/24 16:06 Temperature 97.7 F L Temperature Source Temporal Pulse Rate 87 Respiratory Rate 34 H Respiratory Effort Short of Breath Labored Respiratory Depth Deep Respiratory Pattern Tachypnea Blood Pressure 170/112 H Blood Pressure Mean 131 Pulse Ox 98 97 Oxygen Delivery Method Non-Rebreather Bi-pap Bi-pap Oxygen Flow Rate (L/min) 15 Fraction of Inspired Oxygen (FIO2) 02/05/24 15:55 02/05/24 15:55 02/05/24 16:12 Temperature Temperature Source Pulse Rate 86 83 84 Respiratory Rate 24 H 28 H 24 H Respiratory Effort Respiratory Depth Respiratory Pattern Blood Pressure Blood Pressure Mean Pulse Ox 98 98 Oxygen Delivery Method Oxygen Flow Rate (L/min) Fraction of Inspired Oxygen (FIO2) 60 45 02/05/24 16:37 02/05/24 16:42 Temperature Temperature Source Pulse Rate 71 71 Respiratory Rate 20 H 23 H Respiratory Effort Respiratory Depth Respiratory Pattern Blood Pressure 131/77 H Blood Pressure Mean 95 Pulse Ox 94 97 Oxygen Delivery Method Bi-pap Oxygen Flow Rate (L/min) Fraction of Inspired Oxygen (FIO2) 25 MDM MDM MDM Narrative Medical decision making narrative: HISTORY OF PRESENT ILLNESS: 63-year-old male presents with acute onset of shortness of breath started prior to arrival. Denies chest pain. Notes dyspnea exertion. Denies any lower extremity edema that is new from baseline. Denies any fever, sick contacts cough. Denies any bleeding diathesis. The patient denies recent surgery in the last 4 weeks or immobilization in the last 3 days, denies previous diagnosis of PE, hemoptysis, unilateral leg swelling or malignancy with treatment the last 6 months or palliative. No estrogen use noted. REVIEW OF SYSTEMS: Pertinent positives: Shortness of breath Pertinent negatives: Chest pain, syncope, fever PHYSICAL EXAM: Nursing triage notes reviewed, Vital signs reviewed Constitutional: please see mdm HENT: MMM Eyes: Pupils equal round and reactive to light, Extraocular muscles intact Neck: No stridor, no JVD, full neck ROM Lungs: Acute respiratory distress, increased work of breathing, tachypnea, prolonged expiratory phase, diminished breath sounds throughout, slight wheezing noted Heart: Regular rate and rhythm, No murmurs, No rubs and No gallops, 2+ distal pulses (radial, femoral, posterior tibial) in all extremities Abdomen: Soft, there is no tenderness, rigidity, rebound or guarding, no obvious peritoneal signs, no palpable pulsatile abdominal masses, no auscultated abdominal bruit : No CVAT Extremities: No edema Neuro: No focal neurological deficits, cranial nerves II through XII intact, 5/5 strength in all extremities. Intact sensation to light touch in all extremities, 2+ reflexes bilateral patella tendons. Normal gait. No ataxia. Skin: No rash or lesions noted MEDICAL DECISION MAKING: Chief Complaint: Shortness of breath External records reviewed: Echocardiogram reviewed from 2018 Factors affecting care: Peripheral artery disease, venous insufficiency, obesity, CAD, hypertension, hyperlipidemia Social determinants of health: 1.5 PPD smoker History obtained from others: none Consults: Internal medicine MDM Narrative: Patient was initially hypertensive, tachypneic he is afebrile he is nontoxic-appearing he is in acute respiratory distress he was conversationally dyspneic accessory muscle use, had very tight lungs with prolonged expiratory phase and faint wheezing noted. Clinically initial lung exam is most consistent with likely obstructive lung disease including COPD. I considered the following differential diagnosis: COPD/asthma, pneumonia, arrhythmia, anemia, pneumothorax, COVID, flu, RSV, PE I considered PE however the patient low risk Wells score in addition to this patient had focal lung findings are more consistent with likely obstructive lung disease. Given increased work of breathing patient started rescue BiPAP immediately. I obtained a broad lab and imaging workup to further elucidate the etiology patient complaints. I gave the patient empiric breathing treatments and steroids. ALL IMAGES (IF OBTAINED) HAVE BEEN PERSONALLY REVIEWED AND INTERPRETED BY MYSELF. EKG with normal sinus rhythm right axis building a right bundle branch block, no STEMI VBG with evidence of mild CO2 retention and respiratory acidosis High-sensitivity troponin is negative, no evidence of myocardial ischemia BNP within the limits suggestive of no ventricular stretch or signs of heart failure COVID flu RSV are negative CBC without leukocytosis, severe anemia, no thrombocytopenia. BMP without evidence of significant electrolyte abnormalities, no anion gap, no acute kidney injury. I have personally reviewed the patient's chest x-ray. Chest x-ray is unremarkable for pulmonary edema, pneumothorax, pneumonia or focal cardiopulmonary abnormality. The synthesis of the patient's history, physical exam, labs images suggest likely COPD exacerbation. Patient initially presented with respiratory failure requiring rescue BiPAP. This was weaned patient was able to tolerate being on room air. Continue nebs were given. Steroids were given. Patient be admitted given severity of COPD exacerbation to PCU. Discussed with Dr. Floyd. The patient and/or family, caregivers express understanding. The patient and/or family, caregivers agrees with the plan. Shared decision making: I will have a discussion with the patient and or visitors regarding risk/benefits of further testing or admission. They will be made aware of of the risk/benefits inherent in this decision they will be given the opportunity to voice understanding. Total critical care time today provided was at least 35 minutes. This excludes separately billable procedures. Critical care time (if documented) is secondary to the patient having high probability of clinically significant/life threatening deterioration in the patient's condition which required my urgent intervention. Impression: 1. Acute respiratory failure 2. Tachypnea Dispo: Admit to PCU This note was generated with [employer] dictation software. It may contain incorrect words, spelling, and punctuation that were not noted in review of the chart prior to signing. Lab Data Labs: Laboratory Results - last 24 hr 02/05/24 15:57 WBC 11.0 RBC 5.76 Hgb 16.9 H Hct 51.1 MCV 88.7 MCH 29.3 MCHC 33.1 RDW Std Deviation 45.1 H RDW Coeff of Ernesto 14.2 Plt Count 248 MPV 9.6 Immature Gran % (Auto) 0.500 Neut % (Auto) 56.8 Lymph % (Auto) 30.2 Wilson % (Auto) 9.1 Eos % (Auto) 2.5 Baso % (Auto) 0.9 Absolute Neuts (auto) 6.2 Absolute Lymphs (auto) 3.31 Nucleated RBC % 0 Sodium 138 Potassium 4.7 Chloride 107 Carbon Dioxide 27.0 Anion Gap 4 L BUN 22 H Creatinine 0.89 Est GFR (MDRD) Af Amer 112 Est GFR (MDRD) Non-Af 93 BUN/Creatinine Ratio 24.8 H Glucose 104 Calcium 9.0 Troponin I High Sens 7 ABG Data ABG results: ABG 02/05/24 16:10 Specimen Type SAMSON Sample Site Not entered O2 % 45.0 VBG pH 7.30 L VBG pO2 51 H VBG HCO3 26 VBG Total CO2 28 VBG O2 Sat (Calc) 82 H VBG Base Excess 0 POC Mix VBG pCO2 Pt Tmp 53.2 H Respiration Rate 10 O2 Delivery Device BiPAP POC PEEP 6 Clinical Comments 12 6 Radiography Diagnostic Testing: Clinical Impression(s) from Imaging Studies Chest X-Ray 02/05/24 16:25 IMPRESSION: No radiographic evidence of acute cardiopulmonary disease. Electronically Signed: Hamilton Bowen MD at 16:49 EDT , Discharge Plan Triage Chief Complaint: Shortness of Breath ED Provider: Oscar Marie Dx/Rx/DC Orders Prescriptions: No Action losartan 50 mg tablet 50 mg PO DAILY Qty: 90 3RF fluticasone propion-salmeterol 100-50 mcg/dose blister with device 1 ea inhalation BID albuterol sulfate [ProAir HFA] 90 mcg/actuation HFA aerosol inhaler 2 puff INHALATION Q6H PRN (Reason: Sob &/Or Wheezing) Qty: 6.7 0RF furosemide 40 mg tablet 40 mg PO QDAY Qty: 90 3RF metoprolol tartrate 50 mg tablet 50 mg PO BID Qty: 180 3RF rosuvastatin 5 mg tablet 5 mg PO DAILY Qty: 90 3RF aspirin [Adult Low Dose Aspirin] 81 mg tablet,delayed release (DR/EC) 81 mg PO DAILY Qty: 90 3RF Primary Care Provider: Rocío Abernathy NP Referrals: Rocío Abernathy NP, [employer] [Primary Care Provider] -
[2024-02-05] MEDS: Ipratropium/Albuterol Sulfate 3 ML AMPUL.NEB INHALATION ×3 (15:55→23:01)
[2024-02-05 16:14] LABS: Blood Gas Specimen Type VEN; Comment 12 6; O2 Delivery Device BiPAP; PEEP 6; RR 10; SITE Not entered; VBG BASE EXCESS 0 mmol/L (-1.0-3.5); VBG Bicarbonate 26 mmol/L (22-26); VBG PO2 51 mmHg (25-40); VBG SO2 82 % (50-70); VBG TCO2 28 mmol/L (23-33); VBG pCO2 53.2 mmHg (41-51)
[2024-02-05] MEDS: MethylPREDNISolone 125 MG/2 ML Vial IV (16:17)
[2024-02-05 16:18] LABS: Absolute Lymphocyte Count 3.31 X10^3/uL (0.83-4.51); Absolute Neutrophil Count 6.2 X10^3/uL (2.0-7.7); Basophil% 0.9 % (0-1); Eosinophil# 0.27 X10^3/uL; Eosinophils% 2.5 % (0-5); Hematocrit 51.1 % (40-54); Hemoglobin 16.9 g/dL (13.0-16.5); Lymphocyte # 3.31 X10^3/ul (0.83-4.51); Lymphocyte % 30.2 % (19-41); Mean Corp Hgb Conc 33.1 g/dL (32-36); Mean Corpuscular Hgb 29.3 pg (27.0-32.0); Mean Corpuscular Volume 88.7 fL (80-94); Mean Platelet Vol. 9.6 fl (6.2-12.0); Monocyte% 9.1 % (0-10); NRBC Flagged by Analyzer 0 % (0-5); Neutrophil # 6.24 X10^3/uL (2.7-7.7); Neutrophil % 56.8 % (47-70); Platelet Count 248 K/mm3 (150-450); RBC Distribution Width CV 14.2 % (11.6-14.6); RBC Distribution Width SD 45.1 fl (35.1-43.9); Red Blood Count 5.76 M/mm3 (4.6-6.2)
--- NOTE | 2024-02-05 16:25 | RAD_ITS ---
INDICATION: SOB EXAMINATION/TECHNIQUE: X-RAY - portable upright AP chest x-ray COMPARISON: 11/07/2021 FINDINGS: LINES/DEVICES: None. LUNGS: Bibasilar subsegmental atelectasis, no consolidations, vascular congestion or pleural effusions. MEDIASTINUM AND CARDIOVASCULAR STRUCTURES: Patient rotated. Cardiac silhouette stable within normal limits. BONES AND SOFT TISSUES: No acute changes. RAD/Chest 1 View (Portable) IMPRESSION: No radiographic evidence of acute cardiopulmonary disease. Electronically Signed: Hamilton Bowen MD at 16:49 EDT ,
[2024-02-05 16:37] LABS: Anion Gap 4 (5-15); BUN 22 mg/dL (7-18); BUN/Creat Ratio 24.8 RATIO (10-20); Chloride 107 mmol/L (98-107); Creatinine, Serum 0.89 mg/dL (0.70-1.30); EST Glomerular Filtration Rate 93 mL/min (>60); Est Glom Filt Rate - Afr Amer 112 mL/min (>60); Glucose 104 mg/dL (74-106); Potassium 4.7 mmol/L (3.5-5.1); Sodium Level 138 mmol/L (136-145); Troponin-I HS 7 pg/mL (3.0-78.0)
[2024-02-05 17:01] LABS: BNP,B-Type NATRIURETIC PEPTIDE 28.3 pg/mL (0-100)
[2024-02-05] MEDS: Albuterol 2.5 MG/3 ML VIAL.NEB. INHALATION (17:14)
--- NOTE | 2024-02-05 17:18 | PCM.HP.STD ---
HPI - General General Date of Admission: 02/05/24 Date of Service: 02/05/24 Chief Complaint: [place] shortness of breath today while getting haircut. HPI Narrative DUSTY CASTLE, is a 63 M came to ED with sudden shortness of breath while getting a haircut just prior to ED arrival he denies any recent change in health although he had cough/URI since October 2023. He stated most other symptoms are gone but he still has some cough with once in 3 days sputum production. He felt like sudden onset of chest tightness but it is gone. No fever or chills. No chest pressure or radiation of chest pain. In ED, initially was found hypoxic and tachypneic and was put on BiPAP. Blood pressure and heart rate normal. VBG was done which shows mild elevated pCO2. Afterwards patient felt better and is taken off BiPAP. 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 He said his PCP did venous duplex of lower extremity long time ago and was negative. [facility] Medical History Atherosclerosis of coronary artery of tetlin heart without angina pectoris cervical mass Edema of both lower legs due to peripheral venous insufficiency Edema of left lower extremity Edema of right lower extremity Essential (primary) hypertension History of deep vein thrombosis History of DVT (deep vein thrombosis) History of left heart catheterization (09/07/12) History of non-ST elevation myocardial infarction (NSTEMI) (12/10/11) Hyperlipidemia Left leg swelling Leg wound, left Lymphedema Morbid obesity with BMI of 45.0-49.9, adult Nicotine dependence Obstructive sleep apnea Peripheral vascular occlusive disease Pre-diabetes Right bundle branch block Right leg swelling Tobacco abuse counseling Tobacco abuse disorder Uninodular goiter Venous insufficiency of both lower extremities Venous stasis ulcer of left lower leg with edema of left lower leg Home Medications albuterol sulfate 90 mcg/actuation aerosol inhaler (ProAir HFA) 2 puff inhalation Q6H PRN Sob &/Or Wheezing #6.7 grams 05/20/23 [Rx Last Taken 02/05/24] aspirin 81 mg tablet,delayed release (Adult Low Dose Aspirin) 81 mg PO DAILY #90 tabs 05/20/23 [Rx Last Taken 02/05/24] furosemide 40 mg tablet 40 mg PO QDAY WATER PILL #90 tabs 05/20/23 [Rx Last Taken 02/05/24] metoprolol tartrate 50 mg tablet 50 mg PO BID BP #180 tabs 05/20/23 [Rx Last Taken 02/05/24] losartan 50 mg tablet 50 mg PO DAILY #90 tabs 09/18/23 [Rx Last Taken 02/05/24] fluticasone 100 mcg-salmeterol 50 mcg/dose blistr powdr for inhalation 1 ea inhalation BID 02/05/24 [History Last Taken 02/05/24] rosuvastatin 10 mg tablet 10 mg PO QHS 02/05/24 [History Last Taken 02/04/24] Allergy/AdvReac Type Severity Reaction Status Date / Time No Known Allergies Allergy Verified 09/18/23 13:52 Family History Mother Atrial fibrillation H/O aortic valve replacement H/O mitral valve replacement Diabetes Father , Age 69, cause not listed No problems noted. Brother Seizures Surgical History History of coronary artery stent placement (12/10/11) History of coronary artery stent placement (12/10/11) History of hip replacement Social History Smoking Status: Light Smoker (<10/day) alcohol intake: current alcohol intake frequency: a few times a month substance use type: does not use caffeine: Yes Type: carbonated beverages Number of servings: 5 ROS ROS Narrative Constitutional: Reports fatigue and weakness. No fever. HEENT: Reports systems reviewed and no addt'l complaints, except as documented Respiratory/Chest: Mild wheezing. Chronically smoker. Does not have formal diagnosis of COPD. Rest as described in HPI CVS: CAD status post stent in the past. Gastrointestinal: Denies coffee ground emesis, hematemesis or vomiting. No abdominal pain Genitourinary: Denies burning urination or new urinary tract symptoms Musculoskeletal: Denies acute joint pain or limited range of motion. No acute injury Neurologic: Denies seizure-like symptoms. skin: No ulcer. No rash Endocrinology: Reports systems reviewed and no addt'l complaints, except as documented Hematologic/Lymphatic: Reports systems reviewed and no addt'l complaints, except as documented Rest 14 ROS are negative except as mentioned in HPI Vital Signs Vital Signs Vital Signs: 02/05/24 15:43 02/05/24 15:50 02/05/24 16:06 Temperature 97.7 F L Temperature Source Temporal Pulse Rate 87 Respiratory Rate 34 H Respiratory Effort Short of Breath Labored Respiratory Depth Deep Respiratory Pattern Tachypnea Blood Pressure 170/112 H Blood Pressure Mean 131 Pulse Ox 98 97 Oxygen Delivery Method Non-Rebreather Bi-pap Bi-pap Oxygen Flow Rate (L/min) 15 Fraction of Inspired Oxygen (FIO2) 02/05/24 15:55 02/05/24 15:55 02/05/24 16:12 Temperature Temperature Source Pulse Rate 86 83 84 Respiratory Rate 24 H 28 H 24 H Respiratory Effort Respiratory Depth Respiratory Pattern Blood Pressure Blood Pressure Mean Pulse Ox 98 98 Oxygen Delivery Method Oxygen Flow Rate (L/min) Fraction of Inspired Oxygen (FIO2) 60 45 02/05/24 16:37 02/05/24 16:42 02/05/24 17:00 Temperature Temperature Source Pulse Rate 71 71 69 Respiratory Rate 20 H 23 H 16 Respiratory Effort Respiratory Depth Respiratory Pattern Blood Pressure 131/77 H 146/75 H Blood Pressure Mean 95 98 Pulse Ox 94 97 97 Oxygen Delivery Method Bi-pap Room Air Oxygen Flow Rate (L/min) Fraction of Inspired Oxygen (FIO2) 25 02/05/24 17:12 Temperature Temperature Source Pulse Rate 69 Respiratory Rate 18 Respiratory Effort Respiratory Depth Respiratory Pattern Blood Pressure Blood Pressure Mean Pulse Ox Oxygen Delivery Method Oxygen Flow Rate (L/min) Fraction of Inspired Oxygen (FIO2) Physical Exam Narrative General: Alert, Oriented x3, Cooperative, morbid obesity. HEENT: Wide neck. Atraumatic, PERRLA, EOMI, Normocephalic Oral: Oral mucosa dry. No Gingival or Mucosal Lesions/ Ulcerations Neck: Supple, No JVD, Negative Carotid Bruits Chest wall/Lungs: Air entry diminished in both lungs. Expiratory phase prolonged. Mild wheezing present. Cardiovascular: Regular rate, Regular Rhythm, Normal S1, Normal S2, No M/G/R Abdomen: Bowel Sounds Present, Soft, Non Tender, Non-Distended : No dysuria. No renal angle tenderness. No suprapubic tenderness. Extremities: No edema, Capillary Refill Less than 3 Seconds Skin: No rashes, No breakdown Musculoskeletal: No Tenderness to Palpation of Joints or Extremities. ROM restricted. Neurological: Cranial nerves II-XII grossly intact, DTR 2+/4. No acute focal neurological deficit. Psych/Mental Status: Normal Affect, Appropriate. Results Lab / Micro Data 02/05/24 15:57 02/05/24 15:57 Labs: Laboratory Results - last 24 hr 02/05/24 15:57: WBC 11.0, RBC 5.76, Hgb 16.9 H, Hct 51.1, MCV 88.7, MCH 29.3, MCHC 33.1, RDW Std Deviation 45.1 H, RDW Coeff of Ernesto 14.2, Plt Count 248, MPV 9.6, Immature Gran % (Auto) 0.500, Neut % (Auto) 56.8, Lymph % (Auto) 30.2, [place] % (Auto) 9.1, Eos % (Auto) 2.5, Baso % (Auto) 0.9, Absolute Neuts (auto) 6.2, Absolute Lymphs (auto) 3.31, Nucleated RBC % 0, Sodium 138, Potassium 4.7, Chloride 107, Carbon Dioxide 27.0, Anion Gap 4 L, BUN 22 H, Creatinine 0.89, Est GFR (MDRD) Af Amer 112, Est GFR (MDRD) Non-Af 93, BUN/Creatinine Ratio 24.8 H, Glucose 104, Calcium 9.0, Troponin I High Sens 7, B-Natriuretic Peptide 28.3 Micro: Microbiology 02/05/24 15:53 Mucosa - Nose SARS-CoV-2, Influenza & RSV (PCR) - Final ABG Data ABG results: ABG 02/05/24 16:10 Specimen Type SAMSON Sample Site Not entered O2 % 45.0 VBG pH 7.30 L VBG pO2 51 H VBG HCO3 26 VBG Total CO2 28 VBG O2 Sat (Calc) 82 H VBG Base Excess 0 POC Mix VBG pCO2 Pt Tmp 53.2 H Respiration Rate 10 O2 Delivery Device BiPAP POC PEEP 6 Clinical Comments 12 6 Imaging Radiology Impression Chest X-Ray 02/05/24 16:25 IMPRESSION: No radiographic evidence of acute cardiopulmonary disease. Electronically Signed: Hamilton Bowen MD at 16:49 EDT , Assessment & Plan Assessment/Plan (1) Acute hypercapnic respiratory failure: PLAN: Plan 63-year-old gentleman being admitted for acute onset of shortness of breath prior to arrival, dyspnea at rest that required BiPAP. 1. Acute hypercapnic and hypoxic respiratory failure: VBG was done in ED 7.3/mixed pCO2 53.2, total CO2 28. ABG ordered. Currently patient acute respiratory distress has resolved and patient on room air. 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 2. Clinically suspected COPD exacerbation: Patient is being managed on scheduled bronchodilator, IV Solu-Medrol, Mucinex, incentive spirometry and Pep. Oral Zithromax. BiPAP as needed during naps and nights. 3. CAD status post stent: Continue patient home medication including baby aspirin, hold if heart rate less than 60/min and if persistently low between 60-70/m, can decrease the dose to 25 mg twice daily in consultation his PCP, losartan and rosuvastatin. 4. Chronic HFpEF: As per echo in December 2017 EF 65%, normal RV size and thickness.?Patient is on furosemide 40 mg daily. BNP normal. Chest extremities reviewed and does not show acute cardiopulmonary abnormality. Does not suspect acute heart failure. 5. Hypertension: Patient on losartan continued. 6. Dyslipidemia: Patient neurologist statin continued. 7. Chronic venous stasis: If CTPA is negative will need venous duplex of lower extremity total DVT DVT prophylaxis: Heparin 5000 subcutaneous every 8 hourly. Living will/advanced directive/end of life care: Patient does not have living will or advanced directive. He states that his girlfriend is next of kin. Does not have designated power of 7th grade teacher for health. After discussion of benefits/risks procedures involved with full code, DNR CC arrest and DNR CC, the patient opted for full code. Patient does want artificial life support including intubation, tube feed, ventilator and/chest compression, central venous catheter, vasopressor and DC shock if needed Total time spent in [id number] encounter in discussion of advanced directive 17 minutes. Microbiology Past 72 Hours 02/05/24 15:53 Mucosa - Nose SARS-CoV-2, Influenza & RSV (PCR) - Final Laboratory Results 02/05/24 15:57: WBC 11.0, RBC 5.76, Hgb 16.9 H, Hct 51.1, MCV 88.7, MCH 29.3, MCHC 33.1, RDW Std Deviation 45.1 H, RDW Coeff of Ernesto 14.2, Plt Count 248, MPV 9.6, Immature Gran % (Auto) 0.500, Neut % (Auto) 56.8, Lymph % (Auto) 30.2, [place] % (Auto) 9.1, Eos % (Auto) 2.5, Baso % (Auto) 0.9, Absolute Neuts (auto) 6.2, Absolute Lymphs (auto) 3.31, Nucleated RBC % 0, Sodium 138, Potassium 4.7, Chloride 107, Carbon Dioxide 27.0, Anion Gap 4 L, BUN 22 H, Creatinine 0.89, Est GFR (MDRD) Af Amer 112, Est GFR (MDRD) Non-Af 93, BUN/Creatinine Ratio 24.8 H, Glucose 104, Calcium 9.0, Troponin I High Sens 7, B-Natriuretic Peptide 28.3 02/05/24 16:10: Specimen Type SAMSON, Sample Site Not entered, O2 % 45.0, VBG pH 7.30 L, VBG pO2 51 H, VBG HCO3 26, VBG Total CO2 28, VBG O2 Sat (Calc) 82 H, VBG Base Excess 0, POC Mix VBG pCO2 Pt Tmp 53.2 H, Respiration Rate 10, O2 Delivery Device BiPAP, POC PEEP 6, Clinical Comments 12 6 Clinical Impression(s) from Imaging Studies Chest X-Ray 02/05/24 16:25 IMPRESSION: No radiographic evidence of acute cardiopulmonary disease. Electronically Signed: Hamilton Bowen MD at 16:49 EDT , Charges/Coding Visit Charges Inpatient E&M: 35731 Init Hosp L3 Procedures Hospitalists Procedures: 01046 Advncd Care Plan 30 Min
--- NOTE | 2024-02-05 17:32 | CT_ITS ---
STUDY: CTA CHEST REASON FOR EXAM: Male, 63 years old. SOB RADIATION DOSAGE (If Supplied By Facility): CTDIvol = ( 20.98 ) mGy, DLP = ( 636.82 ) mGycm TECHNIQUE: The examination was performed with the intravenous administration of 100mL Isovue-370. Post-processing of the angiographic images was performed, with multiplanar reformation and 3D reconstruction. Individualized dose optimization techniques were used for this CT. COMPARISON: CT abdomen and pelvis 09/02/2018 FINDINGS: Normal enhancement of the main pulmonary artery and right and left pulmonary arteries. Normal enhancement of the bilateral peripheral pulmonary arteries. There is no demonstrated pulmonary embolism. Normal thoracic aorta and visualized great vessels. There is no demonstrated aortic dissection. Normal heart and pericardium. Normal mediastinum. Normal hilar regions. There are no pulmonary infiltrates. Stable fibrosis left lung base anteriorly. There are no pleural effusions. Normal chest wall structures. No acute or aggressive abnormality. No acute findings in the upper abdomen. Stable nonobstructing left renal calculus. CT/CTA Chest W/WO Contrast IMPRESSION: Normal CTA chest examination, without a demonstrated pulmonary embolism or arterial dissection. No acute pulmonary findings. Electronically Signed: Hamilton Bowen MD at 19:12 EDT ,
[2024-02-05] MEDS: Azithromycin 250 MG Tablet 500 MG PO (19:00)
[2024-02-05] MEDS: 0.9% Normal Saline (1000mL) 1,000 ML 75 ML IV (19:00)
[2024-02-05] MEDS: Heparin Injection (Vial) 5,000 UNIT/ML VIAL 5000 UNIT SC (21:30)
[2024-02-05] MEDS: Atorvastatin Calcium 20 MG Tablet PO (21:31)
[2024-02-05] MEDS: guaiFENesin 1,200 MG Tablet 1200 MG PO (21:31)
[2024-02-05] MEDS: 0.9% Saline Lock 10 ML Syringe IV (21:31)
--- NOTE | 2024-02-05 21:42 | CPS ---
brought pt own cpap machine in from home. pt will be wearing his own cpap tonite.
[2024-02-06 03:26] VITALS: BP 132/67; PULSE 84; RESP 17; TEMP 36.2; O2SAT 95
[2024-02-06] MEDS: Heparin Injection (Vial) 5,000 UNIT/ML VIAL 5000 UNIT SC (05:14)
[2024-02-06 06:45] LABS: Absolute Lymphocyte Count 0.77 X10^3/uL (0.83-4.51); Absolute Neutrophil Count 12.1 X10^3/uL (2.0-7.7); Basophil# 0.03 X10^3/uL; Basophil% 0.2 % (0-1); Hematocrit 48.7 % (40-54); Hemoglobin 16.1 g/dL (13.0-16.5); Lymphocyte # 0.77 X10^3/ul (0.83-4.51); Lymphocyte % 5.9 % (19-41); Mean Corp Hgb Conc 33.1 g/dL (32-36); Mean Corpuscular Hgb 29.2 pg (27.0-32.0); Mean Corpuscular Volume 88.4 fL (80-94); Mean Platelet Vol. 9.7 fl (6.2-12.0); Monocyte# 0.16 X10^3/uL; Monocyte% 1.2 % (0-10); NRBC Flagged by Analyzer 0 % (0-5); Neutrophil # 12.09 X10^3/uL (2.7-7.7); Neutrophil % 92.2 % (47-70); Platelet Count 213 K/mm3 (150-450); RBC Distribution Width CV 14.1 % (11.6-14.6); RBC Distribution Width SD 45.6 fl (35.1-43.9); Red Blood Count 5.51 M/mm3 (4.6-6.2); White Blood Count 13.1 K/mm3 (4.4-11.0)
[2024-02-06 06:51] VITALS: PULSE 88; RESP 20; O2SAT 94
[2024-02-06] MEDS: Ipratropium/Albuterol Sulfate 3 ML AMPUL.NEB INHALATION ×2 (06:51→10:43)
[2024-02-06 07:10] LABS: Anion Gap 6 (5-15); BUN 18 mg/dL (7-18); BUN/Creat Ratio 19.6 RATIO (10-20); Calcium,Total 8.8 mg/dL (8.5-10.1); Chloride 108 mmol/L (98-107); Creatinine, Serum 0.92 mg/dL (0.70-1.30); EST Glomerular Filtration Rate 89 mL/min (>60); Est Glom Filt Rate - Afr Amer 107 mL/min (>60); Estimated Creatinine Clearance 125.15 ml/min; Glucose 230 mg/dL (74-106); Potassium 4.1 mmol/L (3.5-5.1); Sodium Level 135 mmol/L (136-145)
[2024-02-06 07:56] VITALS: BP 132/67; PULSE 84; RESP 17; TEMP 36.2; O2SAT 95
--- NOTE | 2024-02-06 09:08 | VDLE_ITS ---
Reason For Study: Shortness of Breath RIGHT LEFT GSV is normal. GSV is normal. CFV is compressible, spontaneous, phasic, CFV is compressible, spontaneous, phasic, competent and demonstrates normal competent, and demonstrates normal augmentation. augmentation. FV is compressible, spontaneous, phasic, FV is compressible, spontaneous, phasic, competent and demonstrates normal competent and demonstrates normal augmentation. augmentation. POP V is compressible, spontaneous, phasic, POP V is compressible, spontaneous, phasic, competent and demonstrates normal competent and demonstrates normal augmentation. augmentation. T/P Trunk is compressible. T/P Trunk is compressible. PTV is compressible. PTV is compressible. RT PerV is compressible. LT PerV is compressible. Procedure This is a venous duplex using B-mode, color flow and spectral Doppler. Exam performed portable in patient room. The exam was diagnostic. The study was technically difficult. A preliminary report was called and/or faxed to Yahaira- DELON senior android software engineer. VL/Venous Duplex US - Geremias Extrem Interpretation Summary Deep veins of the bilateral lower extremities are patent and compressible segme ntally. There is no evidence of bilateral lower extremity deep vein thrombosis. The bilateral great saphenous veins appear patent and compressible segmentally. Ordering Physician: Timo Floyd Referring Physician: Rocío Abernathy Performed By: Cem Joe RVT
[2024-02-06 09:30] VITALS: BP 142/52; PULSE 96; RESP 18; TEMP 36.4; O2SAT 91; O2SAT 96
[2024-02-06] MEDS: Aspirin E.C. 81 MG Tablet PO (09:36)
[2024-02-06] MEDS: guaiFENesin 1,200 MG Tablet 1200 MG PO (09:36)
[2024-02-06] MEDS: Losartan Potassium 50 MG Tablet PO (09:36)
[2024-02-06] MEDS: Furosemide 40 MG Tablet PO (09:37)
[2024-02-06] MEDS: Azithromycin 250 MG Tablet 500 MG PO (09:37)
--- NOTE | 2024-02-06 10:31 | DS.PCM_ITS ---
Providers Date of Admission: 02/05/24 Date of Discharge: 02/06/24 Primary Care Physician: RAHDA Morales Reason For Visit: COPD EXA Diagnosis Discharge Diagnosis (1) Acute hypercapnic respiratory failure: Status: Acute Code(s): J96.02 - Acute respiratory failure with hypercapnia Medications at Discharge Home Medications albuterol sulfate 90 mcg/actuation aerosol inhaler (ProAir HFA) 2 puff inhalation Q6H PRN Sob &/Or Wheezing #6.7 grams 05/20/23 aspirin 81 mg tablet,delayed release (Adult Low Dose Aspirin) 81 mg PO DAILY suppliment #90 tabs 05/20/23 furosemide 40 mg tablet 40 mg PO QDAY WATER PILL #90 tabs 05/20/23 metoprolol tartrate 50 mg tablet 50 mg PO BID BP #180 tabs 05/20/23 losartan 50 mg tablet 50 mg PO DAILY blood pressure #90 tabs 09/18/23 fluticasone 100 mcg-salmeterol 50 mcg/dose blistr powdr for inhalation 1 ea inhalation BID 02/05/24 rosuvastatin 10 mg tablet 10 mg PO QHS cholseterol 02/05/24 prednisone 20 mg tablet 40 mg (2 x 20 mg) PO DAILY #10 tabs 02/06/24 Hospital Course Operations None Procedures None Summary of Care Provided Minutes Spent on Discharge: 45 Hospital Course: Patient is a 63 y/o male with a PMH as outlined who was admitted via the ED on 02/05/2024 with a complaint of shortness of breath whilst getting a haircut in a salon. He felt a sudden onset of shortness of breath and chest tightness. HE felt he was having a reaction to chemical fumes in the salon which caused his shortness of breath. CXR showed no active cardiopulmonary process. On admission he was found to be hypoxic and tachypneic and required BIPAP. He did require BIPAP initially but was weaned off BIPAP. He was admitted and managed for acute hypoxic and hypercapnic respiratory failure due to probable COPD exacerbation. CTA was negative for PE. He was placed on breathng treatment with bronchod ilators and IV solumedrol. Shortness of breath gradually resolved and he felt much better. He had walking pulse ox which showed he didnt require any oxygen. He remained stable and was discharged home on 02/06/2024. He is to follow up with his PCP within 1-2 weeks. He was discharged on PO prednisone 40mg daily x 5 days. Patient seen and examined. He felt much better and had no active complaints. Re view of systems is otherwise negative. Labs and vitals reviewed. Home meds reviewed and reconciled. Physical Exam Const alert, oriented x3 and no apparent distress Constitutional Narrative: obese General Appearance: cooperative, comfortable and well kempt Orientation / Consciousness: awake HEENT normocephalic, head/scalp atraumatic, hearing grossly normal bilaterally and moist oral mucous membranes Mouth: oral and palatal mucosa normal and dry mucous membranes Eyes PERRL, EOMs intact bilaterally and conjunctivae normal Neck no lymphadenopathy and supple Resp normal respiratory effort, no retractions, no use of accessory muscles and clear to auscultation bilaterally Resp Narrative: on room air Cardio regular rate, regular rhythm, S1 normal heart sound, S2 normal heart sound and no murmurs GI normal to inspection, nondistended, normoactive bowel sounds, soft to palpation, non-tender and non-distended Extremity normal to inspection, full ROM and no clubbing, cyanosis or edema Skin no rashes or lesions noted, no wounds and skin turgor normal Neuro oriented x3, CN's II-XII intact bilaterally, moves all extremities and no focal motor deficits Sensorium / Orientation: awake and alert Motor Exam: strength 5/5 throughout Psych affect normal Weight / BMI Weight Weight: 329 lb 5.93 oz Body Mass Index (BMI) 45.9 ABG / Lab / Microbiology Data 02/06/24 06:30 02/06/24 06:30 Laboratory: Laboratory Results - last 24 hr 02/05/24 15:57: WBC 11.0, RBC 5.76, Hgb 16.9 H, Hct 51.1, MCV 88.7, MCH 29.3, MCHC 33.1, RDW Std Deviation 45.1 H, RDW Coeff of Ernesto 14.2, Plt Count 248, MPV 9.6, Immature Gran % (Auto) 0.500, Neut % (Auto) 56.8, Lymph % (Auto) 30.2, [place] % (Auto) 9.1, Eos % (Auto) 2.5, Baso % (Auto) 0.9, Absolute Neuts (auto) 6.2, Absolute Lymphs (auto) 3.31, Nucleated RBC % 0, Sodium 138, Potassium 4.7, Chloride 107, Carbon Dioxide 27.0, Anion Gap 4 L, BUN 22 H, Creatinine 0.89, Est GFR (MDRD) Af Amer 112, Est GFR (MDRD) Non-Af 93, BUN/Creatinine Ratio 24.8 H, Glucose 104, Calcium 9.0, Troponin I High Sens 7, B-Natriuretic Peptide 28.3 02/06/24 06:30: WBC 13.1 H, RBC 5.51, Hgb 16.1, Hct 48.7, MCV 88.4, MCH 29.2, MCHC 33.1, RDW Std Deviation 45.6 H, RDW Coeff of Ernesto 14.1, Plt Count 213, MPV 9.7, Immature Gran % (Auto) 0.500, Neut % (Auto) 92.2 H, Lymph % (Auto) 5.9 L, [place] % (Auto) 1.2, Eos % (Auto) 0.0, Baso % (Auto) 0.2, Absolute Neuts (auto) 12 .1 H, Absolute Lymphs (auto) 0.77 L, Nucleated RBC % 0, Sodium 135 L, Potassium 4.1, Chloride 108 H, Carbon Dioxide 21.0, Anion Gap 6, BUN 18, Creatinine 0.92, Estim Creat Clear Calc 125.15, Est GFR (MDRD) Af Amer 107, Est GFR (MDRD) Non-Af 89, BUN/Creatinine Ratio 19.6, Glucose 230 H, Calcium 8.8 Microbiology: Microbiology 02/05/24 15:53 Mucosa - Nose SARS-CoV-2, Influenza & RSV (PCR) - Final ABG: ABG 02/05/24 16:10 Specimen Type SAMSON Sample Site Not entered O2 % 45.0 VBG pH 7.30 L VBG pO2 51 H VBG HCO3 26 VBG Total CO2 28 VBG O2 Sat (Calc) 82 H VBG Base Excess 0 POC Mix VBG pCO2 Pt Tmp 53.2 H Respiration Rate 10 O2 Delivery Device BiPAP POC PEEP 6 Clinical Comments 12 6 Radiography Diagnostic Testing: Radiology Impression Chest X-Ray 02/05/24 16:25 IMPRESSION: No radiographic evidence of acute cardiopulmonary disease. Electronically Signed: Hamilton Bowen MD at 16:49 EDT , Chest CTA 02/05/24 17:32 IMPRESSION: Normal CTA chest examination, without a demonstrated pulmonary embolism or arterial dissection. No acute pulmonary findings. Electronically Signed: Hamilton Bowen MD at 19:12 EDT , D/C Instructions Discharge Diet: Low fat / Low cholesterol Weight Bearing Status: Weight bearing as tolerated Call your doctor if you observe: Fever of 101 or Higher, Shortness of breath, Dizziness, Swelling in the ankles, Chest pain and Increased palpitations (irregular heartbeat) Meaningful Use Info Meaningful Use Diagnoses (Choose all that apply): None applicable Discharge Plan Admission Admit Date/Time: 02/05/24 17:15 Primary Reason for Your Visit: copd exacerbation Attending Provider: Gela Walker Primary Care Provider: Rocío Abernathy NP Consulting Providers: Timo Floyd Instructions Patient Instructions: COPD Controlled Breathing Dc, Diagnosing COPD Discharge Orders/Prescriptions Prescriptions: New prednisone 20 mg tablet 40 mg PO DAILY Qty: 10 0RF Continued losartan 50 mg tablet 50 mg PO DAILY Qty: 90 3RF fluticasone propion-salmeterol 100-50 mcg/dose blister with device 1 ea inhalation BID rosuvastatin 10 mg tablet 10 mg PO QHS albuterol sulfate [ProAir HFA] 90 mcg/actuation HFA aerosol inhaler 2 puff INHALATION Q6H PRN (Reason: Sob &/Or Wheezing) Qty: 6.7 0RF furosemide 40 mg tablet 40 mg PO QDAY Qty: 90 3RF metoprolol tartrate 50 mg tablet 50 mg PO BID Qty: 180 3RF aspirin [Adult Low Dose Aspirin] 81 mg tablet,delayed release (DR/EC) 81 mg PO DAILY Qty: 90 3RF Referrals / Follow Up: Rocío Abernathy NP, TELEGRAPH SERVICE CLERK-C [Primary Care Provider] - Within 1 Week (Please call office within 1 week to make an appointment ) Disposition Disposition (needs filled in before D/C Order can be placed): Home, Self Care Charges/Coding Visit Charges Inpatient E&M: 09011 Disch Hosp >30min
--- NOTE | 2024-02-06 10:31 | PCM.DC ---
Discharge Instructions Diet Discharge Diet: Low fat / Low cholesterol Activity Discharge Activity: Return to Normal Activity Weight Bearing Status: Weight bearing as tolerated Dressing / Incision Call your doctor if you observe: Fever of 101 or Higher, Shortness of breath, Dizziness, Swelling in the ankles, Chest pain and Increased palpitations (irregular heartbeat) Follow Up Care Test Results: Test results from this visit will be discussed in further detail at your follow-up appointment, if applicable. Discharge Plan Admission Admit Date/Time: 02/05/24 17:15 Primary Reason for Your Visit: copd exacerbation Attending Provider: Gela Walker Primary Care Provider: Rocío Abernathy NP Consulting Providers: Timo Floyd Instructions Patient Instructions: COPD Controlled Breathing Dc, Diagnosing COPD Discharge Orders/Prescriptions Prescriptions: New prednisone 20 mg tablet 40 mg PO DAILY Qty: 10 0RF Continued losartan 50 mg tablet 50 mg PO DAILY Qty: 90 3RF fluticasone propion-salmeterol 100-50 mcg/dose blister with device 1 ea inhalation BID rosuvastatin 10 mg tablet 10 mg PO QHS albuterol sulfate [ProAir HFA] 90 mcg/actuation HFA aerosol inhaler 2 puff INHALATION Q6H PRN (Reason: Sob &/Or Wheezing) Qty: 6.7 0RF furosemide 40 mg tablet 40 mg PO QDAY Qty: 90 3RF metoprolol tartrate 50 mg tablet 50 mg PO BID Qty: 180 3RF aspirin [Adult Low Dose Aspirin] 81 mg tablet,delayed release (DR/EC) 81 mg PO DAILY Qty: 90 3RF Referrals / Follow Up: Rocío Abernathy SECONDARY CONNECTOR ARMATURE, SECONDARY CONNECTOR ARMATURE-C [Primary Care Provider] - Within 1 Week Disposition Disposition (needs filled in before D/C Order can be placed): Home, Self Care
[2024-02-06 10:40] VITALS: BP 142/52; PULSE 96; RESP 18; TEMP 36.4; O2SAT 96
[2024-02-06 10:43] VITALS: PULSE 85; RESP 20
--- NOTE | 2024-02-06 13:02 | CASEMGMT ---
Pt discharged prior to this RN CM being able to complete initial assessment.
== END 2024-02-06 12:32 | disposition home or self-care (01) | DRG 189 ==
LOC: ED 16:13 → PCU 17:29
PROVIDERS: Admitting Provider Internal Medicine; Emergency Provider Emergency Medicine; PCP Nurse Practitioner Family; Visit Provider Student in an Organized Health Care Education/Training Program
DX: J96.01 Acute respiratory failure with hypoxia (principal); J44.1 Chronic obstructive pulmonary disease with (acute) exacerbation; I50.32 Chronic diastolic (congestive) heart failure; I11.0 Hypertensive heart disease with heart failure; J96.02 Acute respiratory failure with hypercapnia; E78.5 Hyperlipidemia, unspecified; I25.10 Atherosclerotic heart disease of native coronary artery without angina pectoris; F17.200 Nicotine dependence, unspecified, uncomplicated; I87.8 Other specified disorders of veins; I25.2 Old myocardial infarction; Z95.5 Presence of coronary angioplasty implant and graft; Z79.82 Long term (current) use of aspirin; Z79.899 Other long term (current) drug therapy; Z86.718 Personal history of other venous thrombosis and embolism
CPT/HCPCS: 36415; 71045; 71275; 80048; 82803; 83880; 84484; 85025; 87070; 87205; 87631; 93005; 93970; 94002; 94640; 94668; 94762; 99285; 99406; J7030; Q9967; A4216

== ENCOUNTER → 2024-04-07 | Outpatient (CLI) | payer BC, SELFPAY ==
[2024-04-07 09:10] LABS: Hematocrit 48.1 % (40-54); Hemoglobin 16.2 g/dL (13.0-16.5); Mean Corp Hgb Conc 33.7 g/dL (32-36); Mean Corpuscular Hgb 29.6 pg (27.0-32.0); Mean Corpuscular Volume 87.8 fL (80-94); Mean Platelet Vol. 9.2 fl (6.2-12.0); Platelet Count 228 K/mm3 (150-450); RBC Distribution Width CV 14.1 % (11.6-14.6); RBC Distribution Width SD 45.5 fl (35.1-43.9); Red Blood Count 5.48 M/mm3 (4.6-6.2); White Blood Count 7.9 K/mm3 (4.4-11.0)
[2024-04-07 09:42] LABS: ALB/GLOB Ratio 0.9 RATIO (0.9-2.4); AST(SGOT) 18 U/L (15-37); Alanine Aminotransfer ALT/SGPT 30 U/L (16-61); Albumin, Serum 3.2 g/dL (3.2-5.0); Alkaline Phosphatase 48 U/L (45-117); Anion Gap 7 (5-15); BUN 19 mg/dL (7-18); BUN/Creat Ratio 21.7 RATIO (10-20); Calcium,Total 8.8 mg/dL (8.5-10.1); Chloride 108 mmol/L (98-107); Cholesterol 107 mg/dL (200); Creatinine, Serum 0.87 mg/dL (0.70-1.30); EST Glomerular Filtration Rate 94 mL/min (>60); Est Glom Filt Rate - Afr Amer 114 mL/min (>60); Globulin 3.7 g/dL (2.2-4.2); Glucose 134 mg/dL (74-106); High Density Lipoprotein 32 mg/dL; PSA,Total- Diagnostic 0.88 ng/mL (0.0-4.0); Potassium 3.9 mmol/L (3.5-5.1); Protein, Total 6.9 g/dL (6.4-8.2); Sodium Level 136 mmol/L (136-145); Triglycerides 169 mg/dL; Very Low Density Lipoprotein 34 mg/dL (5-40)
== END | disposition home or self-care (01) ==
PROVIDERS: PCP Nurse Practitioner Family; Referring Provider Nurse Practitioner Family; Visit Provider Nurse Practitioner Family
DX: Z00.00 Encounter for general adult medical examination without abnormal findings (principal); E66.01 Morbid (severe) obesity due to excess calories; R73.03 Prediabetes; E78.5 Hyperlipidemia, unspecified; I10 Essential (primary) hypertension
CPT/HCPCS: 36415; 80053; 80061; 83036; 84153; 85027

== ENCOUNTER → 2025-02-04 | Outpatient (CLI) | payer BC, SELFPAY ==
[2025-02-04 09:50] LABS: AST(SGOT) 21 U/L (<=37); Alanine Aminotransfer ALT/SGPT 32 U/L (<=46); Alkaline Phosphatase 58 U/L (40-129); Bilirubin, Direct 0.32 mg/dL (0.00-0.30); Cholesterol 118 mg/dL (<=200); Globulin 2.9 g/dL (2.2-4.2); High Density Lipoprotein 38 mg/dL; Low Density Lipoprotein Calc. 56 mg/dL; Total Bilirubin 0.68 mg/dL (0.00-1.30); Triglycerides 121 mg/dL; Very Low Density Lipoprotein 24 mg/dL (5-40); cholesterol:hdl ratio screen 3.13
== END | disposition home or self-care (01) ==
PROVIDERS: PCP Nurse Practitioner Family; Referring Provider Student in an Organized Health Care Education/Training Program; Visit Provider Student in an Organized Health Care Education/Training Program
DX: E78.5 Hyperlipidemia, unspecified (principal)
CPT/HCPCS: 36415; 80061; 80076

== ENCOUNTER → 2025-10-18 | Outpatient (CLI) | payer BC, SELFPAY ==
--- NOTE | 2025-10-18 11:52 | RAD_ITS ---
PROCEDURE: CHEST PA AND LATERAL 10/18/2025 REASON FOR EXAM: HX OF SMOKING COUGHING BLOOD TECHNIQUE: Procedure Code: RADCXR Modality: DX Procedure: CHEST PA AND LATERAL COMPARISON: Chest x-ray of 02/05/2024. RAD/Chest PA and Lateral IMPRESSION: Significant chronic lung changes are more conspicuous on today's examination th an on the study of 02/05/2024, most prominent in the lower lung zones. There is also a questionable small area of left lower lobe superimposed infiltr ate or atelectasis. No evidence of pulmonary edema. No pleural effusion or pneumothorax is seen. The cardiomediastinal silhouette is stable, without evidence of cardiomegaly. Mild thoracic spine degenerative changes are seen, along with DISI H. No acute osseous change is evident. Reading Location: [place] [id number]
== END | disposition home or self-care (01) ==
PROVIDERS: PCP Nurse Practitioner Family; Referring Provider Nurse Practitioner Family; Visit Provider Nurse Practitioner Family
DX: R04.2 Hemoptysis (principal)
CPT/HCPCS: 71046